=== PATIENT | female | born 1940 | race Two or more races ===

== ENCOUNTER 2016-07-20 18:58 | Inpatient (IN) | payer MEDICARE, MEDICAID ==
[2016-07-20] MEDS ORDERED: NS 0.9% 1000 ML* 1,000 ML IV ONE (19:44)
[2016-07-20] MEDS ORDERED: Morphine INJ* 4 MG/ML 1 ML CARPUJECT IV ONE ×2 (19:44→23:24)
[2016-07-20] MEDS ORDERED: Ondansetron INJ* 2 MG/ML VIAL IV ONE (19:44)
--- NOTE | 2016-07-20 20:02 | ED ---
romain Canela Timothy, scribed for Lev Lakhani MD on 07/20/16 at 1945 . Abdominal Pain/Female - HPI Summary HPI Summary: Marie Brunson is a 75 yo female presenting to [facility] with 9/10 RUQ abd pain for the past week, worse today after 1500. Pt's family is in room and reports Pt has been constipated. In room, Pt is moaning and unable to give much of a Hx. Family reports she was seen 5 months ago for similar Sx, and was diagnosed with gall stones, for which she has not been treated. Family denies fever, nasuea, or vomiting. Her MHx includes NIDDM, gallstones, diabetic peripheral neuropathy pancytopenia, non-alcoholic cirrhosis, CAD, HTN, vitamin B comple deficiency, urethral stricture. - History of Current Complaint Chief Complaint: EDAbdPain Stated Complaint: ABD PAIN Time Seen by Provider: 07/20/16 19:38 Hx Obtained From: Patient, Family/Pharmacy Messenger ?: No Onset/Duration: Gradual Onset, Lasting Days, Still Present, Worse Since - today 1500 Severity Initially: Moderate Severity Currently: Moderate Pain Intensity: 9 Pain Scale Used: 0-10 Numeric Location: Discrete At: RUQ Associated Signs and Symptoms: Negative: Fever, Nausea, Vomiting Allergies/Adverse Reactions: Allergies Allergy/AdvReac Type Severity Reaction Status Date / Time No Known Allergies Allergy Verified 12/31/15 14:39 PMH/Surg Hx/FS Hx/Imm Hx Endocrine/Hematology History: Reports: Hx Diabetes - DM II Cardiovascular History: Reports: Hx Coronary Artery Disease, Hx Hypertension - states not being treated for high bp Denies: Hx Angina, Hx Pacemaker/ICD History: Reports: Other Problems/Disorders - gall stones Musculoskeletal History: Denies: Hx Osteoporosis Sensory History: Denies: Hx Hearing Aid Psychiatric History: Denies: Hx Panic Disorder - Surgical History Surgery Procedure, Year, and Place: uterus removal and appendix 30 yrs ago Infectious Disease History: No Infectious Disease History: Denies: Traveled Outside the [place] in Last 30 Days - Family History Known Family History: Positive: Hypertension, Diabetes Negative: Cardiac Disease - Social History Alcohol Use: None Hx Substance Use: No Substance Use Type: Reports: None Hx Tobacco Use: No Smoking Status (MU): Never Smoked Tobacco Have You Smoked in the Last Year: No Review of Systems Constitutional: Negative Negative: Fever Eyes: Negative ENT: Negative Cardiovascular: Negative Respiratory: Negative Positive: Abdominal Pain. Negative: Vomiting, Nausea Genitourinary: Negative Musculoskeletal: Negative Skin: Negative Neurological: Negative Psychological: Normal All Other Systems Reviewed And Are Negative: Yes Physical Exam Triage Information Reviewed: Yes Vital Signs On Initial Exam: Initial Vitals Temp Pulse Resp BP Pulse Ox 97.4 F 77 18 147/63 100 07/20/16 19:13 07/20/16 19:13 07/20/16 19:13 07/20/16 19:13 07/20/16 19:13 Vital Signs Reviewed: Yes Appearance: Positive: Ill-Appearing, Pain Distress - moderate discomfort, Thin Skin: Positive: Warm Head/Face: Positive: Normal Head/Face Inspection Eyes: Positive: ARIAN ENT: Positive: Hearing grossly normal Neck: Positive: Supple Respiratory/Lung Sounds: Positive: Breath Sounds Present Cardiovascular: Positive: RRR Abdomen Description: Positive: Soft, Distended, Guarding, Other: - mild diffuse tenderness Bowel Sounds: Positive: Present Musculoskeletal: Positive: Strength/ROM Intact Diagnostics - Vital Signs Vital Signs Temp Pulse Resp BP Pulse Ox 07/20/16 19:13 97.4 F 77 18 147/63 100 - Laboratory Result Diagrams: 07/20/16 19:55 07/20/16 19:55 Lab Statement: Any lab studies that have been ordered have been reviewed, and results considered in the medical decision making process. - CT A/P CT Interpretation: Positive (See Comments) - IMPRESSION: CIRRHOTIC LIVER WITH FINDINGS CONSISTENT WITH PORTAL HYPERTENSION. SPLENOMEGALY. SMALL TO MODERATE AMOUNT OF PERIHEPATIC ASCITES CT Interpretation Completed By: Radiologist - EKG 2029 Cardiac Rate: NL - 88 BPM EKG Rhythm: Sinus Rhythm EKG Interpretation: NSR @ 88 BPM. Normal EKG Re-Evaluation - Re-Evaluation First Eval Re-Evaluation Time: 20:00 Change: Unchanged Comment: emphasized the importance of drinking contrast for her CT scan, despite patient protests Abdominal Pain Fem Course/Dx - Course Course Of Treatment: Marie Brunson is a 75 yo female presenting to [facility] with 9/10 RUQ abd pain for the past week, worse today. After CT A/P showing splenomegaly and cirrhotic liver with portal HTN, normal EKG, and review of other lab work, as well as discussion with Dr. Rivero, she will be admitted to [facility]. - Diagnoses Provider Diagnoses: Abdominal pain - Provider Notifications Discussed Care Of Patient With: 2300 - Dr. Caceres (hospitalist) - discussed Pt condition, agrees to admit Pt. Discharge - Discharge Plan Condition: Stable Disposition: ADMITTED TO [facility] documentation as recorded by the romain knapp Timothy accurately reflects the service I personally performed and the decisions made by me, Lev Lakhani MD.
[2016-07-20 20:07] LABS: Hematocrit 36 % (35-47); Hemoglobin 11.2 g/dl (12.0-16.0); Mean Corpuscular HGB Conc 32 g/dl (31-36); Mean Corpuscular Hemoglobin 26 pg (27-31); Mean Corpuscular Volume 84 fL (80-97); Mean Platelet Volume 9 um3 (7.4-10.4); Red Blood Count 4.25 10^6/ul (4.0-5.4); Red Cell Distribution Width 18 % (10.5-15)
[2016-07-20 20:13] LABS: Comments Flag Yes; White Blood Count 3.4 10^3/ul (3.5-10.8)
[2016-07-20 20:21] LABS: Albumin 4.1 g/dL (3.2-5.2); BUN/Creatinine Ratio 15.3 (8-20); C Reactive Protein 7.28 mg/L (< 5.00); Calcium 10.2 mg/dL (8.6-10.3); EGFR African American 57.7 (>60); EGFR Non-African American 44.9 (>60); Globulin 4.5 g/dL (2-4); Potassium 3.8 mmol/L (3.5-5.0); Total Bilirubin 0.7 mg/dL (0.2-1.0); Total Protein 8.6 g/dL (6.4-8.9)
[2016-07-20] MEDS ORDERED: Iodixanol* (CONTRAST) 320 MG/ML 100 ML SDV IV ONE (21:58)
--- NOTE | 2016-07-20 22:33 | RAD ---
CLINICAL HISTORY: Abdominal pain COMPARISON: September 18, 2011 TECHNIQUE: Multiple contiguous axial CT scans were obtained of the abdomen and pelvis after the administration of intravenous contrast. Coronal and sagittal multiplanar reformations are submitted for review. Oral contrast was not administered. Delayed images were obtained through the abdomen FINDINGS: LUNG BASES: The lung bases are clear. LIVER: The liver is diffusely low in attenuation with a micronodular contour consistent with a cirrhotic liver. There is recanalization of the umbilical vein. BILE DUCTS: There is no intrahepatic or extrahepatic biliary dilatation. GALLBLADDER: Multiple gallstones are noted. There is no pericholecystic inflammatory change. PANCREAS: The pancreas is normal, without mass or ductal dilatation. SPLEEN: The spleen is enlarged UPPER GI TRACT: Evaluation of the gastrointestinal tract is limited by incomplete gastric distention. The upper GI tract is unremarkable. SMALL BOWEL AND MESENTERY: The small bowel is normal in contour, course, and caliber. There is no obstruction or dilatation. COLON: The colon is normal in contour, course, caliber. There is no pericolonic inflammatory change. ADRENALS: Normal bilaterally. KIDNEYS: The kidneys are normal in shape, size, contour, and axis. There is no hydronephrosis or nephrolithiasis. BLADDER: The bladder is smooth in contour. PELVIC ORGANS: The pelvic organs are not visualized. AORTA: The aorta is normal. IVC: Unremarkable LYMPH NODES: There is no lymphadenopathy by size criteria. ABDOMINAL WALL: There is no evidence for abdominal wall hernia. BONES AND SOFT TISSUES: There are mild diffuse degenerative changes. OTHER: There is a small to moderate amount of perihepatic ascites IMPRESSION: CIRRHOTIC LIVER WITH FINDINGS CONSISTENT WITH PORTAL HYPERTENSION. SPLENOMEGALY. SMALL TO MODERATE AMOUNT OF PERIHEPATIC ASCITES
[2016-07-21 00:24] LABS: Urine Bilirubin Negative (Negative); Urine Glucose Negative (Negative); Urine Nitrite Negative (Negative)
[2016-07-21] MEDS ORDERED: Acetaminophen TAB* 325 MG PO PRN (02:45)
[2016-07-21] MEDS ORDERED: HYDROmorphone INJ* 1 MG/ML CARPUJECT SYRINGE IV SLOW PU PRN ×2 (02:45→07:49)
[2016-07-21] MEDS ORDERED: Ondansetron INJ* 2 MG/ML VIAL IV PRN (02:45)
[2016-07-21] MEDS ORDERED: Dextrose 50% Syringe 50 ML* 25 GM/50 ML SYRINGE IV PUSH PRN (03:01)
[2016-07-21] MEDS: HYDROmorphone INJ* 1 MG/ML CARPUJECT SYRINGE IV SLOW PU PRN ×2 (03:47→07:39)
--- NOTE | 2016-07-21 04:59 | HP ---
HISTORY AND PHYSICAL: DATE OF ADMISSION: 07/21/16 PRIMARY CARE PHYSICIAN: Dr. Barbour. CHIEF COMPLAINT: Abdominal pain. HISTORY OF PRESENT ILLNESS: The patient is a 75-year-old woman, who apparently has a history of abdominal pain with cholecystitis, who presents today with pain in the same area. Apparently, pain started today at about 4:00 p.m. while she was shopping in the market. It was an intense pain and a constant pain and it is worse with 9/10 in severity. She had some nausea accompanying with it but no vomiting. She notes that she has been constipated lately as well, and no diarrhea. She felt chills but no fever. The patient's pain was somewhat relieved by some morphine she received in the ED. The patient had a CAT scan in the ER, which did show some minimal ascites, cirrhosis, which apparently the patient knows she has and splenomegaly. PAST MEDICAL HISTORY: Significant for diabetes, esophageal varices, cirrhosis, and GERD. PAST SURGICAL HISTORY: Significant for hysterectomy and appendectomy. MEDICATIONS: She is not familiar with her current medication list but we will obtain from her doctor tomorrow. FAMILY HISTORY: Mother at of TB. Father at 75 of unknown cause. SOCIAL HISTORY: No tobacco, alcohol or recreational drug use. 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 She is , with 3 children. Her , John Brunson, is her healthcare proxy. REVIEW OF SYSTEMS: A 14-point review of systems completed with the patient. All pertinent positives and negatives are in the history of present illness, otherwise is negative. PHYSICAL EXAMINATION GENERAL: A very pleasant woman lying in bed, in no acute distress. VITAL SIGNS: Blood pressure 134/61, pulse ox 90%, respiratory rate 20 breaths per minute, heart rate 109, T-max is 97.4 degrees. HEENT: Normocephalic, atraumatic. Pupils equal, round, and reactive to light. Moist mucous membranes. NECK: Supple. No JVD, bruits, palpable thyroid, or lymphadenopathy. CHEST: Clear to auscultation and percussion bilaterally. CARDIOVASCULAR: S1, S2 appreciated. Regular rate and rhythm. ABDOMEN: Positive bowel sounds in all 4 quadrants. Soft, exquisitely tender in the right upper quadrant with possible Bright's sign. No rebound or guarding. No rigidity. She may have a positive fluid wave. EXTREMITIES: No cyanosis, clubbing, or edema. +2 peripheral pulses bilaterally. NEURO: Alert and oriented x3. Moves all extremities. SKIN: No distinct rashes or abnormalities. DIAGNOSTIC STUDIES/LAB DATA: Sodium 138, potassium 3.8, chloride 103, CO2 25, BUN 18, creat 1.18, glucose is 164, lactic acid 2.5. CRP is 7.28. White count 3.4, hemoglobin 11.2, hematocrit 36, platelets are 72. INR 1.10. UA is unremarkable. CT of the abdomen and pelvis was interpreted by Radiology as cirrhotic liver with findings consistent with portal hypertension, splenomegaly, small-to- moderate amount of perihepatic ascites. EKG shows normal sinus rhythm at 89 beats per minute, left axis deviation, left anterior hemiblock. No acute ST-T wave changes. ASSESSMENT AND PLAN: 1. Abdominal pain. It is difficult at this point to determine what is causing it. It is right upper quadrant and she may have a Bright's sign. However, her LFTs are within normal limits and her CT scan is fairly unrevealing. I will obtain an abdominal ultrasound for possible cholecystitis. I will give her Dilaudid p.r.n. for pain and she may benefit from either surgical or GI consult in the morning depending on how she feels and what the ultrasound shows. I will repeat her liver function tests in the morning. 2. Thrombocytopenia. This is not a new finding. It may be associated with her splenomegaly secondary to cirrhosis. We will monitor. 3. Diabetes mellitus. Hold oral hypoglycemics. Fingersticks with sliding scale insulin. 4. Gastroesophageal reflux disease. Continue PPI. 5. FEN. Clear liquid diet. 6. DVT prophylaxis. Heparin subcu. 7. The patient is a full code. TIME SPENT: Over 75 minutes was spent on this H and P; more than 40 minutes of which was spent in direct [id number] contact with the patient in evaluation, physical exam, counseling, and coordination of care. CC: Dr. Barbour * [id number]/CPS #: [id number] MTDD
[2016-07-21] MEDS: Heparin VIAL(*) 5000 UNITS/ML VIAL (FIVE THOUSAND) SUBCUT SCH ×3 (06:06→22:27)
[2016-07-21 07:14] LABS: Albumin 3.6 g/dL (3.2-5.2); Direct Bilirubin 0.6 mg/dL (0.03-0.18); Indirect Bilirubin 0.9 mg/dL (0.3-1.0); Total Bilirubin 1.5 mg/dL (0.2-1.0); Total Protein 7.6 g/dL (6.4-8.9)
[2016-07-21] MEDS: HYDROmorphone INJ* 1 MG/ML CARPUJECT SYRINGE IV SLOW PU ONE ×2 (08:59→09:46)
--- NOTE | 2016-07-21 09:00 | RAD ---
HISTORY: Cholecystitis COMPARISONS: July 16, 2015, CT of July 20, 2015 TECHNIQUE: Multiple transverse and longitudinal ultrasound images were obtained of the abdomen using grayscale, color Doppler, and spectral Doppler imaging. FINDINGS: LIVER: The liver has a micronodular contour and is diffusely echogenic. There is normal hepatopedal flow of the portal vein on Doppler imaging. BILIARY TREE: There is no intrahepatic or extrahepatic biliary dilatation. The common duct measures 0.4 cm. GALLBLADDER: The gallbladder is distended. There is a focus corresponding to the stone noted on CT.. PANCREAS: The head of the pancreas is unremarkable. The tail of the pancreas is not well visualized secondary to overlying bowel gas. SPLEEN: The spleen is enlarged. The spleen measures 16.1 x 6.2 x 6.7 cm. RIGHT KIDNEY: The right kidney is normal in shape, size, contour, and echogenicity. There is mild pelviectasis without appreciable nephrolithiasis. The right kidney measures 9.2 x 3.4 x 2.5 cm. LEFT KIDNEY: The left kidney is normal in shape, size, contour, and echogenicity. There is no hydronephrosis or nephrolithiasis. The left kidney measures 8.6 x 3.7 x 4.1 cm. AORTA AND IVC: The aorta and IVC are unremarkable. FLUID: There is a small amount of perihepatic ascites OTHER FINDINGS: None. IMPRESSION: 1. CIRRHOTIC LIVER. 2. SPLENOMEGALY. 3. ASCITES. 4. MILD RIGHT PELVIECTASIS. 5. CHOLELITHIASIS WITHOUT SONOGRAPHIC FEATURES OF ACUTE CHOLECYSTITIS
[2016-07-21] MEDS: Insulin LISPRO* 1 UNITS UNIT SUBCUT SCH ×5 (09:46→22:28)
--- NOTE | 2016-07-21 13:15 | PN ---
Subjective Date of Service: 07/21/16 Interval History: Patient seen and examined at bedside. She is resting comfortably in bed and is somewhat drowsy after receiving hydromorphone. She states her pain is "okay." She shakes her head "no" when asked about chest pain, difficulty breathing. Her son states that she's had ongoing issues with abdominal pain and gallstones. Her abdomen looks the same as usual. Family History: Unchanged from Admission Social History: Unchanged from Admission Past Medical History: Unchanged from Admission Objective Active Medications: Acetaminophen (Tylenol Tab*) 650 mg PO Q4H PRN PRN Reason: FEVER/PAIN Dextrose (D50w Syringe 50 Ml*) 12.5 gm IV PUSH .FOR FS < 60 - SS PRN PRN Reason: FS < 60 Heparin Sodium (Porcine) (Heparin Vial(*)) 5,000 units SUBCUT Q8HR [facility] Last Admin: 07/21/16 06:06 Dose: 5,000 units Sodium Chloride (Ns 0.9% 1000 Ml*) 1,000 mls @ 100 mls/hr IV PER RATE [facility] Insulin Human Lispro (Humalog*) 0 units SUBCUT ACHS [facility] PRN Reason: Protocol Last Admin: 07/21/16 13:05 Dose: 9 units Ondansetron HCl (Zofran Inj*) 4 mg IV Q4H PRN PRN Reason: NAUSEA Vital Signs 07/21/16 07/21/16 07/21/16 02:00 02:30 03:33 Temperature 99.1 F Pulse Rate 106 109 107 Respiratory 29 28 26 Rate Blood Pressure 149/63 134/61 143/53 (mmHg) O2 Sat by Pulse 97 98 94 Oximetry 07/21/16 07/21/16 07/21/16 03:39 03:47 04:47 Temperature Pulse Rate Respiratory 26 26 24 Rate Blood Pressure (mmHg) O2 Sat by Pulse Oximetry 07/21/16 07/21/16 07/21/16 07:39 07:49 08:00 Temperature 99.2 F Pulse Rate 103 Respiratory 24 16 18 Rate Blood Pressure 151/55 (mmHg) O2 Sat by Pulse 99 Oximetry 07/21/16 07/21/16 08:39 09:46 Temperature Pulse Rate Respiratory 20 18 Rate Blood Pressure (mmHg) O2 Sat by Pulse Oximetry Oxygen Devices in Use Now: Nasal Cannula - 2Lnc Appearance: Female patient, lying in bed, in NAD Eyes: PERRLA Ears/Nose/Mouth/Throat: Clear Oropharnyx, Mucous Membranes Moist Neck: NL Appearance and Movements; NL JVP Respiratory: Symmetrical Chest Expansion and Respiratory Effort, Clear to Auscultation Cardiovascular: NL Sounds; No Murmurs; No JVD, RRR Abdominal: - - BS x 4, tenderness with palpation to RUQ, no rebound or guarding Extremities: No Edema, No Clubbing, Cyanosis Skin: No Rash or Ulcers Neurological: Alert and Oriented x 3 Lines/Tubes/Other Access: Clean, Dry and Intact Peripheral IV Nutrition: Taking PO's Result Diagrams: 07/20/16 19:55 07/20/16 19:55 Assess/Plan/Problems-Billing Assessment: Ms. Brunson is a 75 yo female with a PMH of DM, esophageal varices, cirrhosis, and GERD who presented to the ED on 07/20/16 with intractable abdominal pain that is secondary to cholelithiasis. - Patient Problems (1) Cholelithiasis Comment: Abd U/S shows cholelithiasis without sonographic features of cholecystitis. Per family, ongoing for several months, now with intractable pain. Given history of cirrhosis, esophageal varices, patient is high risk surgical candidate. Appreciate surgical input; consult pending. Continue IV hydration, clear liquid diet, supportive care Continue prn analgesia (2) Lactic acidosis Code(s): E87.2 - ACIDOSIS Comment: Patient's condition appears improved. Continue IVF. Patient is afebrile, VSS. Likely secondary to liver disease. Recheck in AM. (3) Thrombocytopenia Code(s): D69.6 - THROMBOCYTOPENIA, UNSPECIFIED Comment: Chronic issue, with known history of pancytopenia Likely secondary to cirrhosis and splenomegaly. Continue to monitor. (4) Diabetes mellitus Code(s): E11.9 - TYPE 2 DIABETES MELLITUS WITHOUT COMPLICATIONS Comment: BG in 200s, check HgbA1c Continue FSBG with Lispro SSI Restart home Lantus, which patient takes BID (5) Cirrhosis of liver not due to alcohol Comment: With esophageal varices Not alcohol mediated, secondary to auto-immune hepatitis per PCP (6) GERD (gastroesophageal reflux disease) Code(s): K21.9 - GASTRO-ESOPHAGEAL REFLUX DISEASE WITHOUT ESOPHAGITIS Comment : Continue PPI. (7) DVT prophylaxis Code(s): LUP0208 - Comment: SQ heparin Status and Disposition: OBV admit. D/c to home when medically stable.
[2016-07-21] MEDS ORDERED: Albuterol HFA INHALER* 8 gm MDI INH PRN (14:32)
[2016-07-21] MEDS ORDERED: RiFAXimin* 550 MG TAB PO SCH (15:00)
[2016-07-21] MEDS: NS 0.9% 1000 ML* 1,000 ML IV SCH (15:03)
[2016-07-21] MEDS: Pantoprazole IV* 40 MG IV SCH (15:08)
--- NOTE | 2016-07-21 15:49 | PN ---
Progress Note - Progress Note Note: Brief Surgery Note: (full note dictated) Asked to see this 75 yo female w/ PMHx of DM, GERD, cirrhosis w/ esophageal varices and known GS who presented to the ED w/ acute onset RUQ pain beginning last pm after eating some fried eggplant. Pain is sharp, colicky, and somewhat r /b holding pressure with her hand over the outside. She rec'd both morphine and dilaudid in the ED. There is currently nothing ordered other than Tylenol. She' s had some nausea and small amts of vomiting (water). She had a similar episode in May,, which occurred while in [place] and was treated w/ IV abx w/ resolution. PE: T 99.2; mildly tachy; curled up on her bed, moaning in pain; moderate tenderness RUQ w/ +Bright's sign Labs: WBC 3.4 w/ Left shift; Hgb 11.2 t bili 1.5; other LFTs and lipase nl. Lactate 2.5 -> 2.1; CRP 7.28; ammonia 63; glucose 164 -> 275 -> 295. A1C: 6.1; INR 1.1 CT: ascites; gallstone in dep portion of GB; mod stool in recto-sigmoid. US: GB distended; +GS (unsure if this is mobile); GB wall measures up to 3.4 mm ; CBD nl Imp: acute biliary colic and/or cholecystitis in patient previously deemed a poor surgical candidate by her PCP and/or gastroenterolgist (Dr. Sr). I'm not sure if she's ever had a formal surgical consult previously. Plan: IV hydration; pain control; IV abx; consideration of percutaneous drainage by IR if not improving within 24 -48 hr.; surgery as last resort. Discussed w/ hospitalist. Will also d/c Dr. Jeronimo.
[2016-07-21] MEDS ORDERED: Piperac/Tazob 3.375 gm in NS* 3.375 GM/100 ML BAG IVPB ONE (16:00)
[2016-07-21] MEDS ORDERED: Mineral Oil ENEMA* 1 BOTTLE PR ONE (16:03)
--- NOTE | 2016-07-21 16:29 | RAD ---
Indication: Small bowel obstruction Flat and upright views of the abdomen demonstrates dilated loops of small bowel centrally with a dilated stomach. This may represent small bowel obstruction with a relative paucity of gas in the descending colon. IMPRESSION: Findings suspicious for small bowel obstruction with dilated stomach in moderately dilated small bowel loops and paucity of gas in the colon.
[2016-07-21] MEDS: HYDROmorphone INJ* 2 MG/ML CARPUJECT SYRINGE IV SLOW PU PRN ×2 (18:00→22:28)
[2016-07-21] MEDS ORDERED: Insulin GLARGINE(*) 1 UNITS UNIT SUBCUT SCH (18:00)
[2016-07-21] MEDS ORDERED: Insulin GLARGINE(*) 1 UNITS UNIT SUBCUT ONE (20:00)
[2016-07-21] MEDS: Piperac/Tazob 3.375 gm in NS* 3.375 GM/100 ML BAG IVPB SCH (20:35)
[2016-07-21] MEDS ORDERED: Propranolol TAB* 10 MG PO SCH (21:00)
[2016-07-21] MEDS ORDERED: Gabapentin CAP(*) 100 MG PO SCH (21:00)
--- NOTE | 2016-07-21 21:40 | CONS ---
SURGICAL CONSULT NOTE: DATE OF CONSULT: 07/21/16 ATTENDING SURGEON: Francisco J Jeronimo MD (NGUYEN Vaughn dictating) CHIEF COMPLAINT: Right upper quadrant abdominal pain. 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 Most of her history is supplied by her son and grandson. She has apparently had right upper quadrant pain off and on for the past year or two that is exacerbated by high fat foods. Of late, she had noticed increased constipation for the past week. She has also had chills, but no fever, nausea and only a small amount of vomiting after drinking water. She had 1 similar previous episode in May 2016 when she was travelling in [place]. This was treated with IV antibiotics with improvement. She does describe dark urine both with the current as well as previous episodes. She had been told by her PCP and/or mainframe developer ( Dr. Sr) that she is a poor surgical candidate. She has apparently had known gallstones for at least the past couple of years. It is unclear if she has ever had a surgical consultation. PAST MEDICAL HISTORY: 1. Diabetes. 2. Cirrhosis (autoimmune) with portal hypertension including grade 1 esophageal varices. 3. GERD. 4. Thrombocytopenia (stable). PAST SURGICAL HISTORY: Included hysterectomy and appendectomy. CURRENT MEDICATIONS: Include; 1. Gabapentin. 2. Metformin. 3. Repaglinide. 4. Propranolol. 5. Esomeprazole. 6. Insulin glargine. 7. Xifaxan. 8. She also takes probiotic daily, calcium supplement, and Beano as needed. 9. She receives vitamin B12 injections monthly. Her med list includes hydrocodone with acetaminophen and/or oxycodone with acetaminophen. She has prescriptions for diclofenac topically and olopatadine ophthalmic drops as well as albuterol MDI p.r.n. DRUG ALLERGIES: Non listed. SOCIAL HISTORY: She lives at home. Her son and grandson are present and provide most of the translation and medical history. She apparently has no significant past history of tobacco or alcohol use. REVIEW OF SYSTEMS: Cardiovascular: She did undergo nuclear stress testing in 2014, which was essentially normal. No other additions to the HPI and past medical history as noted above. PHYSICAL EXAM: GENERAL: Well-nourished, somewhat obese female in moderate distress, curled up on the bed, and holding her right upper quadrant with her hand. She is occasionally also moaning with pain. VITAL SIGNS: Height 5 feet, weight 159 pounds. Temperature 99.2, blood pressure 151/55, pulse 103, respirations 18, saturation 99% on 2 L nasal cannula. HEENT: Pupils equal and round. EOMs intact. No conjunctival pallor. Oropharynx edentulous. Mucous membranes are dry. NECK: No lymphadenopathy or thyromegaly. LUNGS: Clear to auscultation. HEART: Regular rate and rhythm. Mildly tachycardic. No murmur appreciated. ABDOMEN: Distended. Quiet with absent bowel sounds. Well-healed lower midline and right lower quadrant McBurney's incision from prior hysterectomy and appendectomy respectively. The lower abdomen is soft and nontender. She has tenderness from the mid epigastrium and especially in the right upper quadrant with positive Bright sign. No palpable masses. There is splenomegaly on CT scan, which can be detected on by palpation. It is difficult to palpate a mass in the right upper quadrant secondary to the degree of tenderness. There is no significant CVA tenderness. EXTREMITIES: No edema. SKIN: Warm and dry. No suspicious for rashes or lesions. NEUROLOGICAL: Grossly intact. DIAGNOSTIC STUDIES/LAB DATA: Laboratory of note, white blood cell count 3400 with left shift, hemoglobin 11.2, hematocrit 36, platelets 72,000 (consistent with previous). INR is 1.1. Chemistry is notable for creatinine of 1.18, which is above her usual baseline. Admission glucose 164. Most recent fingersticks 275 and 295. A1c 6.1. Lactic acid 2.5 with repeat 2.1. Total bilirubin is mildly elevated at 1.5 with direct bilirubin 0.6. The AST, ALT, and alkaline phosphatase are all normal as is her lipase. CRP is elevated at 7.28. Ammonia is mildly elevated at 63. Imaging included a CT scan with IV contrast only, showing evidence of cirrhosis and portal hypertension as well as splenomegaly. There is some perihepatic ascites. There are gallstones noted, but no other acute inflammation. There is moderate stool in the rectosigmoid colon. Ultrasound also from today confirms presence of gallstones. It is unclear if these are mobile. The gallbladder wall is somewhat increased at 3.4 mm. Common bile duct is normal in size. Previous ultrasound from 2014 had also indicated cholelithiasis. IMPRESSION: Acute right upper quadrant pain likely related to biliary colic with possible element of acute cholecystitis based on her low-grade temperature , mild tachycardia and left shift as well as mild gallbladder wall thickness on ultrasound. PLAN: Case was discussed with Dr. Jeronimo. She will be made n.p.o. She will receive IV fluids and IV antibiotics. Her lab work will be repeated in the morning and we will reassess at that point. Plans could include medical management only versus percutaneous drainage versus cholecystectomy. I did discuss her case again with the hospitalist who will help determine if she indeed is a candidate for surgery if it is indicated. NGUYEN WING CC: [facility]; Michelle Barbour MD, in [employer]; Chano Sr MD* [id number]/[facility] #: [id number] MTDD
[2016-07-22] MEDS: NS 0.9% 1000 ML* 1,000 ML IV SCH ×3 (01:05→20:00)
[2016-07-22] MEDS: HYDROmorphone INJ* 2 MG/ML CARPUJECT SYRINGE IV SLOW PU PRN ×6 (01:22→23:59)
[2016-07-22] MEDS: Insulin LISPRO* 1 UNITS UNIT SUBCUT SCH ×6 (01:35→22:35)
[2016-07-22] MEDS: Piperac/Tazob 3.375 gm in NS* 3.375 GM/100 ML BAG IVPB SCH ×3 (05:07→20:37)
[2016-07-22] MEDS: Heparin VIAL(*) 5000 UNITS/ML VIAL (FIVE THOUSAND) SUBCUT SCH ×3 (05:10→22:36)
[2016-07-22 06:26] LABS: Hematocrit 29 % (35-47); Hemoglobin 9.4 g/dl (12.0-16.0); Mean Corpuscular HGB Conc 32 g/dl (31-36); Mean Corpuscular Hemoglobin 27 pg (27-31); Mean Corpuscular Volume 84 fL (80-97); Mean Platelet Volume 10 um3 (7.4-10.4); Red Blood Count 3.51 10^6/ul (4.0-5.4); Red Cell Distribution Width 18 % (10.5-15); White Blood Count 13.6 10^3/ul (3.5-10.8)
[2016-07-22 06:34] LABS: Comments Flag Yes
[2016-07-22 06:46] LABS: BUN/Creatinine Ratio 22.2 (8-20); Calcium 8.4 mg/dL (8.6-10.3); Direct Bilirubin 1.2 mg/dL (0.03-0.18); EGFR African American 42.8 (>60); EGFR Non-African American 33.3 (>60); Globulin 3.6 g/dL (2-4); Indirect Bilirubin 1.1 mg/dL (0.3-1.0); Potassium 4.4 mmol/L (3.5-5.0); Total Bilirubin 2.3 mg/dL (0.2-1.0); Total Protein 6.6 g/dL (6.4-8.9)
--- NOTE | 2016-07-22 08:23 | PN ---
Progress Note - Progress Note SOAP: Subjective: Pt seen and examined. Not answering questions appropriately. 2 hrs since receiving dilaudid, and pt's son says that she is less responsive after narcotics. no appetite. Denies abdo pain, but PE reveals diffuse abdo tenderness. Objective: Temp Pulse Resp BP Pulse Ox 99.9 F 121 15 134/60 96 07/22/16 07:23 07/22/16 07:23 07/22/16 07:23 07/22/16 07:23 07/22/16 07:23 drowsy, minimally cooperative nonjaundiced abdo: obese, tender diffusely, w/o rebound or Bright's hypoactive BS labs noted Assessment: HD2 abdominal pain, now entering sepsis criteria DDx includes cholecystitis, cholangitis Plan: HIDA scan Echocardiogram possible OR for cholecystostomy vs cholecystectomy Case d/w son, and hospitalist abx NPO blood cx
[2016-07-22] MEDS: Insulin GLARGINE(*) 1 UNITS UNIT SUBCUT SCH ×2 (08:32→21:14)
[2016-07-22] MEDS: Pantoprazole IV* 40 MG IV SCH (08:33)
[2016-07-22] MEDS ORDERED: Calcium Carbonate TAB* 1250 MG (CALCIUM 500 MG) PO SCH (09:00)
[2016-07-22] MEDS ORDERED: Insulin GLARGINE(*) 1 UNITS UNIT SUBCUT SCH ×2 (09:00→20:00)
--- NOTE | 2016-07-22 10:13 | PN ---
Subjective Date of Service: 07/22/16 Interval History: Patient seen and examined at bedside. She is resting in bed, appears visibly uncomfortable. She reports pain to her abdomen. Denies chest pain, n/v. Family states that she has been conveying that she is in pain but that she then falls asleep and becomes more lethargy after receiving hydromorphone. Family History: Unchanged from Admission Social History: Unchanged from Admission Past Medical History: Unchanged from Admission Objective Active Medications: Acetaminophen (Tylenol Tab*) 650 mg PO Q4H PRN PRN Reason: FEVER/PAIN Last Admin: 07/21/16 15:19 Dose: 650 mg Albuterol (Ventolin Hfa Inhaler*) 2 puff INH Q6H PRN PRN Reason: SOB/WHEEZING Dextrose (D50w Syringe 50 Ml*) 12.5 gm IV PUSH .FOR FS < 60 - SS PRN PRN Reason: FS < 60 Heparin Sodium (Porcine) (Heparin Vial(*)) 5,000 units SUBCUT Q8HR [facility] Last Admin: 07/22/16 05:10 Dose: Not Given Hydromorphone HCl (Dilaudid Iv*) 1.5 mg IV SLOW PU Q3H PRN PRN Reason: PAIN Last Admin: 07/22/16 09:49 Dose: 1.5 mg Piperacillin Sod/Tazobactam Sod (Zosyn 3.375 Gm In Ns Premix*) 3.375 gm in 100 mls @ 25 mls/hr IVPB Q8H [facility] Last Admin: 07/22/16 05:07 Dose: 25 mls/hr Sodium Chloride (Ns 0.9% 1000 Ml*) 1,000 mls @ 125 mls/hr IV PER RATE [facility] Insulin Glargine (Lantus(*)) 10 units SUBCUT Q12H [facility] Last Admin: 07/22/16 08:32 Dose: 10 units Insulin Human Lispro (Humalog*) 0 units SUBCUT Q4HR [facility] PRN Reason: Protocol Last Admin: 07/22/16 06:26 Dose: Not Given Ondansetron HCl (Zofran Inj*) 4 mg IV Q4H PRN PRN Reason: NAUSEA Pantoprazole Sodium (Protonix Iv*) 40 mg IV DAILY [facility] Last Admin: 07/22/16 08:33 Dose: 40 mg Vital Signs 07/21/16 07/21/16 07/21/16 18:00 19:00 19:23 Temperature 98.9 F Pulse Rate 114 Respiratory 18 18 26 Rate Blood Pressure 127/53 (mmHg) O2 Sat by Pulse 96 Oximetry 07/21/16 07/21/16 07/21/16 22:28 23:28 23:38 Temperature 100.3 F Pulse Rate 124 Respiratory 20 18 20 Rate Blood Pressure 133/51 (mmHg) O2 Sat by Pulse 95 Oximetry 07/22/16 07/22/16 07/22/16 00:46 00:54 01:22 Temperature Pulse Rate Respiratory 20 20 18 Rate Blood Pressure (mmHg) O2 Sat by Pulse Oximetry 07/22/16 07/22/16 07/22/16 02:22 04:37 05:08 Temperature 100.4 F Pulse Rate 121 Respiratory 18 20 20 Rate Blood Pressure 139/53 (mmHg) O2 Sat by Pulse 94 Oximetry 07/22/16 07/22/16 07/22/16 06:08 07:23 08:51 Temperature 99.9 F Pulse Rate 121 128 Respiratory 18 15 28 Rate Blood Pressure 134/60 (mmHg) O2 Sat by Pulse 96 Oximetry 07/22/16 07/22/16 09:00 09:49 Temperature Pulse Rate Respiratory 28 26 Rate Blood Pressure (mmHg) O2 Sat by Pulse Oximetry Oxygen Devices in Use Now: Nasal Cannula - 2Lnc Appearance: Ill-appearing female, lying in bed, restless Eyes: PERRLA Ears/Nose/Mouth/Throat: Clear Oropharnyx Neck: NL Appearance and Movements; NL JVP Respiratory: Symmetrical Chest Expansion and Respiratory Effort, Clear to Auscultation Cardiovascular: NL Sounds; No Murmurs; No JVD, RRR - tachycardic Abdominal: - - diffuse abdominal tenderness with palpation, hypoactive BS Extremities: No Edema, No Clubbing, Cyanosis Skin: No Rash or Ulcers Neurological: - - drowsy, minimal verbal report, shakes her head yes/no, difficult to assess full orientation due to drowsiness Lines/Tubes/Other Access: Clean, Dry and Intact Peripheral IV Nutrition: Taking PO's Result Diagrams: 07/22/16 06:06 07/22/16 06:06 Assess/Plan/Problems-Billing Assessment: Ms. Brunson is a 75 yo female with a PMH of DM, esophageal varices, cirrhosis, and GERD who presented to the ED on 07/20/16 with intractable abdominal pain that is secondary to cholelithiasis. - Patient Problems (1) Sepsis Comment: qSOFA score of 2 for AMS and increased RR Secondary to suspected cholecystitis, cholangitis Continue IVF, Zosyn Blood cultures drawn and sent, lactic acid 1.9 today Supportive care (2) Cholelithiasis Comment: Appreciate surgical consult. Now with concern for progressing cholecystitis and possible cholangitis. HIDA scan ordered by surgery. MRCP ordered and GI consult placed. Admission Abd U/S shows cholelithiasis without sonographic features of cholecystitis. Per family, ongoing for several months, now with intractable pain. Continue IV hydration, prn analgesia, Zosyn, NPO (3) Elevated bilirubin Code(s): R17 - UNSPECIFIED JAUNDICE Comment: Bilirubin trending up, concern for gallstone obstruction and cholangitis GI consult pending MRCP pending (4) Increased ammonia level Code(s): R79.89 - OTHER SPECIFIED ABNORMAL FINDINGS OF BLOOD CHEMISTRY Comment : Trending up, now 69 Patient with sepsis and increasing lethargy, concern for worsening encephalopathy in the presence of liver cirrhosis Start lactulose enema q6h and place NGT for decompression. (5) Ileus, unspecified Code(s): K56.7 - ILEUS, UNSPECIFIED Comment: Concern for gallstone ileus Place NGT to low intermittent suction for decompression (stomach appears distended on KUB) (6) Lactic acidosis Code(s): E87.2 - ACIDOSIS Comment: Resolved. Continue supportive care in presence of sepsis. (7) Thrombocytopenia Code(s): D69.6 - THROMBOCYTOPENIA, UNSPECIFIED Comment: Improved today Chronic issue, with known history of pancytopenia Likely secondary to cirrhosis and splenomegaly. Continue to monitor. 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 (11) DVT prophylaxis Code(s): TGO4380 - Comment: SQ heparin (hold this AM in anticipation of possible surgery) Status and Disposition: OBV to inpatient. Anticipate LOS >2 days.
--- NOTE | 2016-07-22 11:45 | ECHO ---
Patient: PATEL GARCÍA [facility] Rec#: [id number] : 1940 Date: 07/22/2016 Age: 75y Height: 152 cm / 59.8 in Weight: 72 kg / 158.7 lbs Sex: F BSA: 1.7 Room#: 413 Admit Date#: 07/21/2016 Type: Inpatient Referring: Gabriella Mims Reading: Rodrick Nielsen MD Solution Architect: Tiffanie Myers RN RDCS CC: JOSH BEDOLLA Transthoracic Echocardiogram Indication: Tachycardia, sepsis BP: 134/60 HR: 118 Rhythm: Tachycardia Findings History: DM, autoimmune-related cirrhosis, portal hypertension, esophageal varices, GERD, gallstones, admitted with abdominal pain and sepsis Technical Comments: The study is technically limited due to poor apical windows. Completed at 1140. Left Ventricle: The left ventricular chamber size is decreased. There is no left ventricular hypertrophy. Global left ventricular wall motion and contractility are within normal limits. The left ventricle appears hyperdynamic. The estimated ejection fraction is greater than 65%. There is no consistent Doppler evidence of clinically significant diastolic dysfunction. The patient was unable to perform a Valsalva maneuver. Left Atrium: The left atrial chamber size is normal. Right Ventricle: The right ventricular cavity size is normal. The right ventricular global systolic function is normal. Right Atrium: The right atrium is not well visualized. Aortic Valve: The aortic valve is trileaflet. The aortic valve leaflets are mildly thickened. There is no evidence of aortic regurgitation. There is no evidence of aortic stenosis. Mitral Valve: Mild mitral annular calcification present. The mitral valve leaflets are mildly thickened. There is a trace of mitral regurgitation. There is no evidence of mitral stenosis. Tricuspid Valve: The tricuspid valve leaflets are normal. There is trace tricuspid regurgitation. There is evidence of moderate pulmonary hypertension. Pulmonic Valve: The pulmonic valve structure is not well visualized. There is no evidence of pulmonic regurgitation. There is no pulmonic stenosis. Pericardium: There is no significant pericardial effusion. A pericardial fat pad is visualized. Aorta: There is no dilatation of the ascending aorta. There is no dilatation of the aortic arch. The aortic root is normal in size. Pulmonary Artery: The main pulmonary artery is not well visualized. Venous: The venous system is not well visualized. The inferior vena cava is not visualized. Conclusions Global left ventricular wall motion and contractility are within normal limits. The estimated ejection fraction is greater than 65%. There is no consistent Doppler evidence of clinically significant diastolic dysfunction. The right ventricular global systolic function is normal. There is no evidence of aortic stenosis. There is a trace of mitral regurgitation. There is trace tricuspid regurgitation. There is evidence of moderate pulmonary hypertension. There is no significant pericardial effusion. Measurements Name Value Normal Range RVDdMajor (2D) 2.5 cm (2.2 - 4.4) RAd ISD 4CH 3.8 cm (3.4 - 4.9) RA (A4C)W 2.3 cm (2.9 - 4.6) IVSd (2D) 1 cm (0.6 - 1) LVPWd (2D) 1 cm (0.6 - 1) LVIDd (2D) 2 cm (3.6 - 5.4) LVIDs (2D) 1.6 cm - LV FS (2D) 20 % (25 - 45) Aortic Annulus 1.6 cm (1.4 - 2.6) Ao root diameter (2D) 2.4 cm (2.1 - 3.5) Ascending Ao 2.7 cm (2.1 - 3.4) Aortic arch 2.4 cm (1.8 - 3.4) LA dimension (AP) 2D 3 cm (2.3 - 3.8) LAd ISD 4CH 4.8 cm (2.9 - 5.3) LA ISD 4CH W 4 cm (2.5 - 4.5) Name Value Normal Range LA ESV SP 4CH (A/L) 41 ml - LA ESV SP 2CH (A/L) 29 ml - LA ESV BP (A/L) 36 ml - LA ESV BP (A/L) index 22 ml/m2 - LA ESV SP 4CH (MOD) 39 ml - LA ESV SP 2CH (MOD) 27 ml - Name Value Normal Range MV E-wave Vmax 1 m/sec - MV deceleration time 99 msec - MV A-wave Vmax 1.1 m/sec - MV E:A ratio 1 ratio - LV septal e' Vmax 0.07 m/sec - LV lateral e' Vmax 0.08 m/sec - LV E:e' septal ratio 14.3 ratio - LV E:e' lateral ratio 12.5 ratio - Name Value Normal Range AV Vmax 2.2 m/sec - AV VTI 31.5 cm - AV peak gradient 17 mmHg - AV mean gradient 11 mmHg - LVOT Vmax 1.5 m/sec - LVOT VTI 25.7 cm - TL Vmax 0.97 m/sec - Name Value Normal Range TR Vmax 3.1 m/sec - TR peak gradient 38 mmHg - RAP 8 mmHg - RVSP 46 mmHg - Name Value Normal Range PV Vmax 1.7 m/sec - PV peak gradient 11 mmHg -
--- NOTE | 2016-07-22 13:50 | PN ---
Hospitalist Progress Note Pre-operative evaluation: This is a patient with an RCRI score of 2 , which translates to a 6.6% risk of a perioperative cardiac event. Her echocardiogram shows an EF >65% and no wall motion abnormalities. She has a functional capacity of approximately 4-5 mets, as evidenced by her family's report of independence with ADLs, ability to perform simple household activities, ability to perform own grocery shopping and carry grocery bags, and general activity tolerance. The patient does have a history of pancytopenia, but her platelet count today is 95,000 and her HH is stable. Per her family, she has no history of severe respiratory illness, and her lungs are CTA. She is utilizing supplemental O2 due to pain and narcotic use. At this time, the patient appears medically optimized in the event that she will require surgical intervention.
--- NOTE | 2016-07-22 14:45 | RAD ---
INDICATION: Abdominal pain. Cholelithiasis. COMPARISON: CT abdomen pelvis July 20, 2016; complete abdominal sonogram July 21, 2016 TECHNIQUE: Following the administration of 6.47 millicuries of technetium 99m mebrofenin, serial, static, anterior images of the abdomen were obtained at 5 minute increments for a period of one hour. FINDINGS: There is prompt uptake of radiopharmaceutical within the liver. There is prompt visualization of the gallbladder and small bowel indicating patency of the cystic and common ducts. IMPRESSION: THE CYSTIC AND COMMON DUCTS ARE PATENT
--- NOTE | 2016-07-22 18:25 | RAD ---
Indication: Cholangitis. Axial T2 fat sat, coronal T2, 3-D MRCP images were obtained. There is ascites noted. The liver demonstrates nodular contour consistent with cirrhosis. There is a filling defect in the neck of the gallbladder consistent with cholelithiasis. No pericholecystic fluid is identified. The common hepatic duct and common bile duct are not dilated and are of normal caliber. No intrahepatic ducts are noted. IMPRESSION: CHOLELITHIASIS. NO EVIDENCE OF COMMON DUCT CALCULI IS NOTED ALTHOUGH NO BILIARY DUCTAL DILATATION IS NOTED. NODULAR CONTOUR OF THE LIVER SUGGESTIVE OF CIRRHOSIS WITH ASCITES.
--- NOTE | 2016-07-22 19:48 | PN ---
Hospitalist Progress Note Discussed case with Dr. Santos. He agrees to try lactulose, but given that the patient has bowel sounds, he recommends trying PO first if patient able. If not , continue with lactulose enemas as previously ordered.
[2016-07-22] MEDS: Lactulose 480 ML BTL*STOCK USE 480 ML ML PR SCH ×2 (21:14→21:15)
--- NOTE | 2016-07-22 21:35 | CONS ---
GASTROENTEROLOGY CONSULTATION: DATE: 07/22/16 CONSULTING PHYSICIAN: Chani Crawford REASON FOR CONSULTATION: Question of ERCP in a woman with rising bilirubin known to have gallstones and burned out autoimmune hepatitis. HISTORY: This 75-year-old woman developed acute abdominal pain 2 days ago. It was consistent with biliary colic. She came to the emergency room and was admitted and placed on Zosyn. Pain has continues apparently no better. Temp max has been 100.7. Abd film yesterday showed an ileus. Surgery has been consulted and favors antibiotic management Her gallbladder has been evaluated via CT scan, which shows a cirrhotic liver contour, splenomegaly and perihepatic ascites. CT did not show any signs of CBD obstruction. HIDA scan showed patency of cystic and common duct. MRCP shows no filling defect in the common duct. None of the studies showed a dilated biliary tree. Laboratories show normal LFTs except for her bilirubin, which has risen from 0.7 to 1.5 to 2.3. ALT and alkaline phosphatase have remained normal. Ammonia which was 63 on admission has risen to 67 with no prior values. She has not had any vomiting or diarrhea. Her mental status has fluctuated somewhat in parallel with her pain medication. Her family translates. PAST MEDICAL HISTORY: 1. Obesity. 2. Diabetes. 3. GERD. 4. Status post hysterectomy. 5. Status post appendectomy. 6. Chronic liver disease - in past charts said to be burned out autoimmune hepatitis (serologic w/u listed in 2011). Not clear how this has impacted her daily life or prior illnesses. EGDs by Dr Sr looking for varices (last in 2014) showed 1+. MEDICATIONS: At home, she is on Xifaxan and a variety of diabetic meds including metformin 1 g b.i.d., Prandin t.i.d., Nexium 40, and gabapentin. SOCIAL HISTORY: She is from [place] originally. She has many family members in the area. A son and two grandsons are in the room with her. REVIEW OF SYSTEMS: One of her grandsons has attended a followup gastroenterology visit and per him it was said that she was a poor candidate for gallbladder surgery. She has had a variety of colic pain events. Discussion was held about dissolution therapy, though it does not appear on her medication reconciliation list. The meds were not known when she presented to the emergency room. There is no history of syncope, ID, cardiac cath, TB, acute hepatitis or gastric ulcers. Upper endoscopies have shown small 1+ varices on a couple of occasions but she has never had any acute GI bleeding. Her original liver workup was reviewed in January 2012 when antismooth muscle antibody was positive 1:20, SIRIA positive, titer 1:320, homogeneous, and hepatitis C antibody negative. Her record does list that she has had a positive screening test for tuberculosis and that was followed repetitively in 2012. She has a significant duodenal diverticulum on upper GI series in 2012. EXAM: She is a tired (though at rest comfortable) appearing woman in bed, lethargic, mumbling feeling warm. Pulse 95 and regular. She is not vomiting. Per report, an attempt to place an NG tube on one side was unsuccessful and the other side refused. The patient was uncooperative. Her sclerae are muddy. She responds minimally to requests during the exam. She has no adenopathy. Breath sounds are present equally, though are diminished. Heart sounds are regular. Breast and pelvic exams are deferred. The abdomen is distended but soft. There is diffuse tenderness, a little more so on the right where she grimaces and postures. There are bowel sounds. Rectal deferred. Extremities show no edema. LABORATORY DATA: Today white count 13.3, hemoglobin 9.4, hematocrit 29, platelets 95. White count on presentation was 3.4. INR 1.10. ALT alk phos normal. Albumin 3.0, down from admission of 4.1. IMPRESSION: This 75-year-old Italian woman with diabetes and inactive autoimmune hepatitis and cirrhosis appears to have significant acute cholecystitis. It is not clear if antibiotics are going to be able to settle the situation. She appears fairly toxic and the white count rising from 3 to 13 is rather alarming. She is hemodynamically stable at the moment but it is expected that by tomorrow the trend will be clear as to whether or not she will need some sort of decompressive evacuation of the gallbladder or may ride this out medically. There had been concern with the bilirubin rising that she would have obstruction of the common duct but that is not demonstrated on any of the imaging and her alkaline phosphatase remaining quite normal is consistent with this, therefore, no ERCP is likely to be useful. Her mental status is probably mostly on the basis of general effects of sepsis and pain medication. The ammonia elevation is modest at this point and she has not had independent admissions for encephalopathy in the past. If lactulose can be administered in a practical way, it could be a good prophylactic measure but at this point the burden of an NG tube appears to be in excess of the potential benefit from it. Her prognosis is certainly cloudy and uncertain. [id number]/[facility] #: [id number] MALIKA
[2016-07-23] MEDS: Insulin LISPRO* 1 UNITS UNIT SUBCUT SCH ×4 (02:15→14:12)
[2016-07-23] MEDS: Lactulose 480 ML BTL*STOCK USE 480 ML ML PR SCH ×2 (03:30→10:14)
[2016-07-23] MEDS: HYDROmorphone INJ* 2 MG/ML CARPUJECT SYRINGE IV SLOW PU PRN ×3 (03:45→12:39)
[2016-07-23] MEDS: Piperac/Tazob 3.375 gm in NS* 3.375 GM/100 ML BAG IVPB SCH ×3 (03:46→23:42)
[2016-07-23] MEDS: NS 0.9% 1000 ML* 1,000 ML IV SCH (03:55)
[2016-07-23] MEDS: Heparin VIAL(*) 5000 UNITS/ML VIAL (FIVE THOUSAND) SUBCUT SCH ×3 (04:37→22:05)
[2016-07-23 06:25] LABS: Hematocrit 31 % (35-47); Hemoglobin 9.8 g/dl (12.0-16.0); Mean Corpuscular HGB Conc 32 g/dl (31-36); Mean Corpuscular Hemoglobin 26 pg (27-31); Mean Corpuscular Volume 83 fL (80-97); Mean Platelet Volume 9 um3 (7.4-10.4); Red Blood Count 3.75 10^6/ul (4.0-5.4); Red Cell Distribution Width 18 % (10.5-15); White Blood Count 13.6 10^3/ul (3.5-10.8)
[2016-07-23 06:46] LABS: Albumin 2.9 g/dL (3.2-5.2); BUN/Creatinine Ratio 22.4 (8-20); Calcium 8.4 mg/dL (8.6-10.3); EGFR African American 37.9 (>60); EGFR Non-African American 29.5 (>60); Globulin 4.1 g/dL (2-4); Potassium 3.9 mmol/L (3.5-5.0); Total Bilirubin 2.8 mg/dL (0.2-1.0)
[2016-07-23] MEDS ORDERED: Acetaminophen SUPP* 650 MG SUPP PR ONE (07:28)
[2016-07-23] MEDS: Insulin GLARGINE(*) 1 UNITS UNIT SUBCUT SCH (07:44)
[2016-07-23] MEDS: Pantoprazole IV* 40 MG IV SCH (07:55)
[2016-07-23] MEDS ORDERED: NS 0.9% 500 ML* 500 ML IV ONE ×2 (08:00→09:00)
[2016-07-23] MEDS ORDERED: Ketorolac INJ* 15 MG/ML 1 ML VIAL IV PUSH ONE ×2 (08:42)
--- NOTE | 2016-07-23 09:06 | RAD ---
HISTORY: Follow-up ileus COMPARISONS: July 21, 2016 VIEWS: Frontal supine views of the abdomen FINDINGS: BOWEL: Again noted is diffuse distention of the small bowel with paucity of distal bowel gas CALCULI: There are no abnormal calculi. BONES AND SOFT TISSUES: There are no osseous abnormalities. OTHER FINDINGS: The lung bases are clear. There is no subphrenic gas. IMPRESSION: DIFFUSE DISTENTION OF SMALL BOWEL LOOPS WITH PAUCITY OF DISTAL BOWEL GAS CONCERNING FOR SMALL BOWEL STRUCTURE, INCLUDING PARTIAL OR INTERMITTENT OBSTRUCTION
[2016-07-23] MEDS ORDERED: Acetaminophen IV 1GM/100ML * 1,000 MG/100 ML VIAL IVPB ONE (11:13)
[2016-07-23] MEDS ORDERED: Dexamethasone IV* 4 MG/ML 1 ML (4 MG) ONE (13:54)
[2016-07-23] MEDS ORDERED: Ondansetron INJ* 2 MG/ML VIAL ONE (13:54)
[2016-07-23] MEDS ORDERED: Lidocaine 2% PF * 5 ML VIAL ONE (13:54)
[2016-07-23] MEDS ORDERED: Propofol* 10 MG/ML 20 ML BTL IV PUSH ONE (13:54)
[2016-07-23] MEDS ORDERED: Phenylephrine INJ* 10 MG/ML 1 ML VIAL (10 MG) ONE ×2 (13:54→17:36)
[2016-07-23] MEDS ORDERED: fentaNYL* 50 MCG/ML 5 ML VIAL (250 MCG VIAL) ONE (13:54)
[2016-07-23] MEDS ORDERED: Midazolam* 1 MG/ML 5 ML VIAL (5 MG) ONE (13:55)
[2016-07-23] MEDS ORDERED: Cisatracurium* 2 MG/ML MDV 10 ML ONE (13:55)
[2016-07-23] MEDS ORDERED: KETAMINE HCL* 50 MG/ML 10 ML VIAL ONE (13:55)
[2016-07-23] MEDS ORDERED: Bupivacaine 0.25% EPI 200,000* 30 ML SDV ONE (14:06)
[2016-07-23] MEDS ORDERED: Iohexol 180 (CONTRAST) 10 ML SDV IV ONE (14:06)
[2016-07-23] MEDS ORDERED: Albumin Human 5%* 1,000 ML in PREMIX* 0 ML IV ONE (14:13)
[2016-07-23] MEDS: Albumin Human 5%* 250 ML in PREMIX* 0 ML IV SCH ×4 (14:35→23:42)
--- NOTE | 2016-07-23 14:45 | CONSULT ---
Consult Consult: CRITICAL CARE MEDICINE DATE: 07/23/16 TIME: 1400 REFERRING PROVIDER: Phani REASON/CHIEF COMPLAINT: abd pain, sepsis HISTORY OF PRESENT ILLNESS: 75 F with h/o autoimmune hepatitis ("burned out") cirrhosis, DM presenting on 07/21 with RUQ abd pain, tachycardia and low grade temp. Tx for acute cholecystitis with Ivf, abx and further imaging. Pt wbc went from 3k to 13k in two days and pts continues with fever, 3rd spacing of fluid, tachycardia, tachypnea. No clear answer, but plan for OR today for johanne as all signs point to GB sepsis. Evaluated in ICU prior to OR transfer. Family at bedside. REVIEW OF SYSTEMS: As per HPI. Limited from pt due to lethargic state and recent narcs. PAST MEDICAL HISTORY: As per HPI. Grade I esophageal varicies, gerd MEDICATIONS: Reviewed. ALLERGIES: NKDA SOCIAL HISTORY: Reviewed. FAMILY HISTORY: Noncontributory at present. PHYSICAL EXAM: Vital Signs: Reviewed. NC. Hr 120. pulse pressure variation present. sbp 140s, dbp 50s. rr 20 Neurologic: awakens, follows simply HEENT: sclera icteric Cardiovascular: tachy, s1 s2 Respiratory: sharp inhalation and mild prolonged exhalation although not forced ; no wheeze. no rales. Abdomen: distended. discomfort grossly from palpation and localizing to RUQ Extremities: warm Access: 2 per LABS: Reviewed. IMAGING: Reviewed. MEDICATIONS: Reviewed. ASSESSMENT: 75 F Acute cholecystitis, potential gangrenous with ensuing severe sepsis with associated septic ecephalopathy, acute hypoxic respiratory failure with declining ventilatory compensation from the looks of her presently (aided in part by distended abd and narc use on top of sepsis), with acute renal failure, and potential component of atn, ileus, with underlying cirrhosis. PLAN: Neurologic: can remain comfortable now and through OR. Anticipate propofol and fent needs. Cardiovascular: Low end perfsion with already increased metabolic demands and cardiac output compensation, but remaining with intravascular volume depletion. Give 1 L albumin now and f/u OR needs. Worried she may vasodilate with anesthesia and may require levophed but can sort in OR as needed. previous echo ok. Respiratory: oxygenating at present but again ventilation becoming compromised. Given the next step up of metabolic demands would anticipate her remaining ventilated post OR and avoid lung injury. Gastrointestinal: For OR. Surg/GI f/u. can hold lactulose today and consider utility tomorrow. npo. Hopeful for good bowel recovery post and can just supplement with ivf for now and await potential enteral plan. ppi on board Renal/Metabolic: already with worsening renal function and error on volume loading for now. Prefer colloids now as ebb phase shifting crystolloids and already creating hyperchloremic acidosis. Can use LR post OR. F/u Uout that still may remain low in acute phase. Infectious Disease: on zosyn wheich should be adequete, and surgical source control. Hematology: may dilute with fluids and follow for septic consumption. hsq Endocrine: diastolics low and Na low; may have component of adrenal insuff and can f/u potential steroid needs. low dose lantus needs; look to adjust post or. ssi. Musculoskeletal: rest currently. Psych/Social: family at bedside updated Supportive and preventative care as ordered. SUP: ppi VTE prophylaxis: heparin Chung catheter given critical illness, monitoring needs for accurate assessment of WENDY and KDIGO criteria for critically ill patients and to avoid potential harms of urinary retention, skin breakdown/ulcers. Disposition: ICU will follow with surgery D/w Dr. Jeronimo Code Status: Full Critical Care Time: 45min FMelita Christianson DO
[2016-07-23] MEDS ORDERED: fentaNYL* 50 MCG/ML 2 ML VIAL (100 MCG VIAL) ONE (15:49)
[2016-07-23] MEDS ORDERED: Metoprolol Tartrate IV* 1 MG/ML 5 ML VIAL ONE (16:11)
--- NOTE | 2016-07-23 16:31 | PN ---
Subjective Date of Service: 07/23/16 Interval History: This is a 75 yo female with h/o autoimmune hepatitis with subsequent cirrhosis and esophageal varices who presented with c/o abdominal pain and evidence of sepsis. She has been treated for a presumed biliary source. Blood cultures negative thus far. Patient has had reduced LOC since admission, seemingly most effected by administration of IV opiates for pain control. This am, patient's LOC has declined further and no longer responds spontaneously to voice or light touch. Objective Active Medications: Acetaminophen (Tylenol Tab*) 650 mg PO Q4H PRN PRN Reason: FEVER/PAIN Last Admin: 07/21/16 15:19 Dose: 650 mg Albuterol (Ventolin Hfa Inhaler*) 2 puff INH Q6H PRN PRN Reason: SOB/WHEEZING Dextrose (D50w Syringe 50 Ml*) 12.5 gm IV PUSH .FOR FS < 60 - SS PRN PRN Reason: FS < 60 Heparin Sodium (Porcine) (Heparin Vial(*)) 5,000 units SUBCUT Q8HR [facility] Last Admin: 07/23/16 14:12 Dose: Not Given Hydromorphone HCl (Dilaudid Iv*) 1.5 mg IV SLOW PU Q4H PRN PRN Reason: PAIN Last Admin: 07/23/16 12:39 Dose: 1.5 mg Sodium Chloride (Ns 0.9% 1000 Ml*) 1,000 mls @ 125 mls/hr IV PER RATE [facility] Last Admin: 07/23/16 03:55 Dose: 125 mls/hr Piperacillin Sod/Tazobactam Sod (Zosyn 3.375 Gm In Ns Premix*) 3.375 gm in 100 mls @ 25 mls/hr IVPB Q8H [facility] Last Admin: 07/23/16 03:46 Dose: 25 mls/hr Albumin Human 250 ml/ IV (Solution) 250 mls @ 0 mls/hr IV Q45M [facility] PRN Reason: Wide Open Stop: 07/23/16 17:16 Last Admin: 07/23/16 14:46 Dose: 999 mls/hr Insulin Glargine (Lantus(*)) 10 units SUBCUT Q12H [facility] Last Admin: 07/23/16 07:44 Dose: 10 units Insulin Human Lispro (Humalog*) 0 units SUBCUT Q4HR [facility] PRN Reason: Protocol Last Admin: 07/23/16 14:12 Dose: Not Given Lactulose (Lactulose 480 Ml Btl*) 300 ml NH Q6H [facility] Last Admin: 07/23/16 10:14 Dose: Not Given Lactulose (Lactulose*) 30 ml PO TID [facility] Last Admin: 07/23/16 14:12 Dose: Not Given Ondansetron HCl (Zofran Inj*) 4 mg IV Q4H PRN PRN Reason: NAUSEA Pantoprazole Sodium (Protonix Iv*) 40 mg IV DAILY [facility] Last Admin: 07/23/16 07:55 Dose: 40 mg Vital Signs: Temp Pulse Resp BP Pulse Ox 99.6 F 114 15 136/47 98 07/23/16 14:30 07/23/16 14:30 07/23/16 14:52 07/23/16 14:30 07/23/16 14:30 Oxygen Devices in Use Now: Nasal Cannula - 2Lnc Appearance: Acutely ill appearing elderly female accompanied by family with increased work of breathing Ears/Nose/Mouth/Throat: - - MM mildly dry Respiratory: - - tachypneic, no wheezing, crackles or rhonchi Cardiovascular: RRR, - - tachycardic, no murmurs appreciated Abdominal: - - bowel sounds quiet, but present, abdomen is distended Extremities: No Edema Skin: No Rash or Ulcers Neurological: - - patient is not responsive to touch or voice Result Diagrams: 07/23/16 06:03 07/23/16 06:03 Microbiology and Other Data: Microbiology 07/22/16 10:32 Aerobic Blood Culture - Preliminary Blood Venous No Growth Day 1 Anaerobic Blood Culture - Preliminary No Growth Day 1 Diagnostic Imaging: CT abd/pelvis - cirrhotic liver with small amount of ascites, no acute pathology noted US abd - cholelithiasis but without findings of acute cholecystitis MRCP - No biliary dilitation but a filling defect noted in the neck of the gallbladder HIDA - patent CBD and cytic duct Assess/Plan/Problems-Billing Assessment: Ms. Brunson is a 75 yo female with a PMH of IDDM, esophageal varices, cirrhosis, and GERD who presented 07/20/16 with intractable abdominal pain that is likely secondary to cholelithiasis now with evidence of severe sepsis. - Patient Problems (1) Sepsis Comment: qSOFA score of 2 for AMS and increased RR Still appears to be perfusing relatively well with significant cardiopulmonary compensation Secondary to suspected cholecystitis Continue IVF, Zosyn, additional supportive measure to manage fever Blood cultures repeated today, negative thus far from yesterday Plan to transfer to ICU with anticipated cholecystectomy by Dr Jeronimo later today (2) Cholelithiasis Comment: Appreciate surgical consult. Noted GB stones but no evidence of acute cholecytitis on imaging Bilirubin trending up without transaminitis No significant obstruction supported on MRCP, but a filling defect noted in GB neck HIDA shows patent cystic and CBD Despite these findings, her source of sepsis is likely a biliary source, possible gangrenous GB with pending cholecystectomy (3) WENDY (acute kidney injury) Comment: Likely due to hypoperfusion in the setting of sepsis (4) Ileus, unspecified Comment: Likely gall stone ileus NGT placed yesterday and since removed No vomiting appreciated (5) Encephalopathy Comment: Likely multifactorial related to sepsis, Dilaudid use, and possibly elevated ammonia Ammonia has been moderately elevated, but well less than 100, she was started on lactulose yesterday and this has improved slightly Assume that the sepsis and Dilaudid are bigger contributors to her encephalopathy (6) Lactic acidosis (7) Thrombocytopenia Comment: Some level of chronicity, appears fairly stable during hospital stay Likely related to cirrhosis (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 (11) DVT prophylaxis Comment: SQ heparin Status and Disposition: Patient has been transferred to ICU. Pending cholecystectomy. Anticipate extended LOS
[2016-07-23 18:25] LABS: Hematocrit 27 % (35-47); Hemoglobin 8.5 g/dl (12.0-16.0); Mean Corpuscular HGB Conc 31 g/dl (31-36); Mean Corpuscular Hemoglobin 27 pg (27-31); Mean Corpuscular Volume 86 fL (80-97); Mean Platelet Volume 10 um3 (7.4-10.4); Red Cell Distribution Width 18 % (10.5-15); White Blood Count 18.1 10^3/ul (3.5-10.8)
[2016-07-23] MEDS ORDERED: Propofol* 100 ML ONE (18:58)
[2016-07-23] MEDS ORDERED: NS 0.9% 1000 ML* 1,000 ML IV SCH (19:15)
[2016-07-23] MEDS ORDERED: Propofol* 1000 MG (10 MG/ML 100 ml) @ Per Protocol (in ICU Pyxis) IV SCH (20:00)
[2016-07-23] MEDS ORDERED: Insulin GLARGINE(*) 1 UNITS UNIT SUBCUT SCH ×2 (21:00)
--- NOTE | 2016-07-23 21:55 | SURGPN ---
Brief Operative Note - Surgery Procedures: Procedures Pre-OP Diagnoses: Abdominal pain, sepsis, r/o cholecystitis Post-op Diagnosis: same Procedure: Diagnostic laparoscopy, exploratory laparotomy Surgeon: Phani Asst: Angeline Krause Anethesia: JOSE GUADALUPE Lozoya EBL: 500cc IVF: 6550cc crystalloid 2units pRBCs Specimen: none Drains: none Findings: cirrhotic liver, ascities
[2016-07-23 22:00] LABS: Hematocrit 24 % (35-47); Hemoglobin 7.8 g/dl (12.0-16.0); Mean Corpuscular HGB Conc 32 g/dl (31-36); Mean Corpuscular Hemoglobin 27 pg (27-31); Mean Corpuscular Volume 85 fL (80-97); Mean Platelet Volume 9 um3 (7.4-10.4); Red Blood Count 2.86 10^6/ul (4.0-5.4); Red Cell Distribution Width 18 % (10.5-15); White Blood Count 13.1 10^3/ul (3.5-10.8)
[2016-07-23 22:03] LABS: Add Diff/Slide Review? Slide Review Added; Comments Flag Yes
--- NOTE | 2016-07-23 23:06 | RAD ---
Indication: Respiratory failure. Single frontal view of the chest performed at 2116 was reviewed. Comparison is made with previous exam dated May 04, 2012. Endotracheal tube is at the level of T3-T4. Bibasilar atelectasis is noted. Nasogastric tube is in place. IMPRESSION: Bibasilar atelectasis is noted. ET tube is in appropriate location.
[2016-07-24] MEDS: Insulin LISPRO* 1 UNITS UNIT SUBCUT SCH ×6 (00:04→22:48)
[2016-07-24] MEDS: fentaNYL* 50 MCG/ML 2 ML VIAL (100 MCG VIAL) IV PRN ×9 (01:02→20:37)
--- NOTE | 2016-07-24 02:28 | OP ---
DATE OF OPERATION: 07/23/16 - ROOM #ICU-10 DATE OF : 44 SURGEON: Dr. Francisco J Jeronimo. ASSISTANTS: NGUYEN Vaughn and Sebas Marcus MD ANESTHESIOLOGIST: Dr. Lozoya. ANESTHESIA: General anesthesia. PRE-OP DIAGNOSIS: Abdominal pain and sepsis, rule out cholecystitis. POST-OP DIAGNOSIS: Abdominal pain and sepsis, rule out cholecystitis. OPERATIVE PROCEDURE: Diagnostic laparoscopic, exploratory laparotomy. ESTIMATED BLOOD LOSS: 500 cc. FLUIDS: 6550 cc of crystalloid fluid given and 2 units of packed RBCs. SPECIMENS: None. DRAINS: Chung catheter only. No intraabdominal drains. FINDINGS: Cirrhotic liver and large ascites. No additional findings. INDICATIONS: Ms. Brunson is a 75-year-old female who I have been following in consultation for a complaint of abdominal pain who was considered to have diagnosis consistent with acute cholecystitis that she had in the past that was successfully treated with antibiotics; however, at this time, the patient continued to worsen during her hospital stay. Despite some filling of the cystic duct on HIDA scan, the patient did have an MRI that did not show filling into gallbladder and the patient's abdominal pain persisted. She developed confusion and required significant amount of narcotics. By day of surgery, the patient was showing signs of sepsis with elevated temperatures, significant tachycardia, and elevated white blood cell count. Recommendations at this time was to take her to the operating room for diagnostic laparoscopy with the hope of taking apart all of her gallbladder as this was the offending issue. My chief differential diagnosis was gangrenous gallbladder given the patient's history and escalation of her disease state. She has known history of cirrhosis and esophageal varicosities. The patient did undergo EKG while hospitalized, which showed reasonable ejection fraction and no significant aortic stenosis. The patient was felt to be high risk for surgical intervention, but required no other intervention. The failure of antibiotics led me to believe the patient required surgical intervention to evaluate her abdomen for source of her sepsis. I discussed the case with the patient's family as the patient was not able to discuss this. We went over the risks, benefits, and alternatives to a laparoscopic cholecystectomy as the case was booked. I felt we would potentially see a gangrenous gallbladder, the patient would benefit from partial total cholecystectomy or even a drainage procedure. I discussed the strong possibility of prolonged hospital course, the likelihood that the patient will remain intubated in the postoperative period, need for antibiotics , and possible nutrition. I discussed the possible complications, which included not limited to bile leak, common bile duct or bowel injury, need for open procedure, and prolonged hospitalization and even . The patient's family understood this as I described and they did feel that the patient showed no improvement and was indeed worsening overall, required some intervention. Consent was signed. DESCRIPTION OF PROCEDURE: The patient was marked, brought into the operating room, placed on the operating table in a supine position. Preoperative antibiotics were given. Sequential devices were placed on bilateral lower extremities. General anesthesia was induced. The patient's abdomen was prepped and draped in a standard surgical fashion. A time-out was performed. Folds of the umbilicus were elevated anteriorly and a Veress needle was inserted into the abdomen cavity, which was then allowed to insufflate to a pressure of 15 mmHg. The patient tolerated the insufflation well. A periumbilical 12-mm trocar was then inserted. A laparoscope was inserted through this. There was a significant amount of cloudy ascites. Additional 12- mm trocar was then placed in the subxiphoid area and the fluid was suctioned off. Review of the liver showed significant nodularity consistent with cirrhosis. Gallbladder was identified and this was soft without evidence of gangrene or any significant inflammation. Attention was then turned towards the pelvis. Some small bowel loops lower in the abdomen had some exudative tissue. An additional 5-mm trocar was inserted and we were able to suction ascites from the pelvis and identified the cecum. The cecum showed some pale changes to the anterior aspect of this, but did not show any evidence of perforation. This was grasped and there was no visible appendix as this had likely been surgically removed. The terminal ileum was identified. This was run retrograde until it became too difficult to manage due to the adhesions and small working space. There was small bowel adhered to the anterior abdominal wall at the right lower quadrant. There was omentum attached to the anterior abdominal wall in the lower midline. I did not appreciate the sigmoid colon or the descending colon well. Omentum could not be reflected superiorly to the attachment to the anterior abdominal wall and the area just below the umbilicus. Next, the omentum was bluntly dissected off of the anterior abdominal wall. This led a significant amount of bleeding controlled with an Endoloop 0 Polysorb. However, after placing this, we did see significant amount of blood in the pelvis that was clotting off. This combined with the fact that it could not identify the sigmoid colon and portion of the small bowel was too firmly adhered to be taken down safely laparoscopically, we decided to open up the abdomen. Trocars were removed. The abdomen was allowed to empty of its pneumoperitoneum and a midline incision was made around the umbilicus. This was deepened down to the layers of the abdominal wall and anterior abdominal cavity showed additional ascites, which was suctioned off and the omentum that had been Endo looped, was brought up into the incision and reflected superiorly. Hemostasis seemed good on this site and review of the anterior abdominal wall where this was removed showed some bleeding. This was controlled with a 2-0 Polysorb suture and the blood was suctioned off. Next, the small bowel was eviscerated and run from the ligament of Treitz to the terminal ileum. There was no evidence of any injuries to the small bowel. There were small, violaceous areas, but these showed no signs of gangrene. The bowel was not distended. There was no pneumatosis. Review of the cecum and ascending colon was within normal limits. Again, the gallbladder was normal. Transverse colon appeared normal without evidence of perforation or ischemia as did the descending colon. We did bluntly and sharply dissected the sigmoid colon anteriorly, also the anterior pelvis. The sigmoid colon at this site was intact without evidence of infection. The deep pelvis also was normal and ascites was suctioned off. Early on, we did send fluid for Gram stain and culture and sensitivity of the abdominal fluid. Anterior wall of the stomach appeared intact. It did not appear boggy. The spleen was enlarged. This was essentially negative laparotomy with the exception of the cirrhosis, and we decided to close the abdomen.. Additional omental bleeders were identified and required additional sutures. Hemostasis was achieved. The anterior abdominal wall was reapproximated with interrupted #1 Polysorb sutures in a [id number] fashion. The abdomen was closed starting at the inferior aspect. Review of the superior aspect prior to starting this closure at the site, we identified some bleeding that extended down into the right paracolic gutter. This could not be clearly delineated and therefore we removed some of the fascial sutures and again eviscerated the bowel and noted that another portion of the omentum was bleeding significantly. This was controlled with additional sutures and again we closed the abdomen in its entirety with #1 Polysorb suture in a [id number] fashion. The wound was then irrigated and reapproximated with skin rica as where the additional port sites. The patient remained intubated. She did receive 2 units of blood and was in critical condition and did transfer back to her ICU bed. The procedure and the findings were discussed with the family with the exception of the cirrhotic liver and dilated vessels along the omentum with an essentially negative laparotomy. The patient remained intubated on sedation in the ICU. The ICU team was aware of her. CC: Michelle Barbour MD; [facility]; Chano Sr MD* [id number]/[facility] #: [id number] MTDRussel
[2016-07-24] MEDS: Piperac/Tazob 3.375 gm in NS* 3.375 GM/100 ML BAG IVPB SCH ×3 (05:05→20:05)
[2016-07-24] MEDS: Heparin VIAL(*) 5000 UNITS/ML VIAL (FIVE THOUSAND) SUBCUT SCH ×3 (05:48→22:05)
[2016-07-24 06:30] LABS: Comments Flag Yes; Hematocrit 28 % (35-47); Hemoglobin 9.5 g/dl (12.0-16.0); Mean Corpuscular HGB Conc 34 g/dl (31-36); Mean Corpuscular Hemoglobin 28 pg (27-31); Mean Corpuscular Volume 84 fL (80-97); Mean Platelet Volume 9 um3 (7.4-10.4); Red Blood Count 3.37 10^6/ul (4.0-5.4); Red Cell Distribution Width 17 % (10.5-15); White Blood Count 7.8 10^3/ul (3.5-10.8)
[2016-07-24 06:34] LABS: Add Diff/Slide Review? Slide Review Added
[2016-07-24 06:46] LABS: Albumin 2.7 g/dL (3.2-5.2); BUN/Creatinine Ratio 23.7 (8-20); Calcium 7.2 mg/dL (8.6-10.3); EGFR African American 43.1 (>60); EGFR Non-African American 33.5 (>60); Globulin 2.6 g/dL (2-4); Magnesium 1.7 mg/dL (1.9-2.7); Phosphorus 2.1 mg/dL (2.5-5.0); Potassium 3.6 mmol/L (3.5-5.0); Total Bilirubin 3.5 mg/dL (0.2-1.0); Total Protein 5.3 g/dL (6.4-8.9)
[2016-07-24] MEDS: Lactulose 480 ML BTL*STOCK USE 480 ML ML PR SCH (07:27)
[2016-07-24] MEDS: Pantoprazole IV* 40 MG IV SCH (07:54)
--- NOTE | 2016-07-24 08:05 | RAD ---
HISTORY: Abdominal pain, check position of tubes COMPARISONS: July 23, 2016 VIEWS:1: Single frontal portable view of the chest at 6:22 AM FINDINGS: LINES AND TUBES: An endotracheal tube is noted with the tip overlying the trachea between the clavicles and the vivian. A gastric tube is noted. The tip is in the left upper quadrant in a prepyloric position. CARDIOMEDIASTINAL SILHOUETTE: The cardiomediastinal silhouette is normal for portable technique. PLEURA: The costophrenic angles are sharp. No pleural abnormalities are noted. LUNG PARENCHYMA: The lung volumes are low. There is patchy linear opacification lung bases bilaterally. ABDOMEN: The upper abdomen is clear. There is no subphrenic gas. BONES AND SOFT TISSUES: No bone or soft tissue abnormalities are noted. IMPRESSION: LINES AND TUBES ABOVE. LOW LUNG VOLUMES WITH LINEAR ATELECTASIS OF THE LUNG BASES BILATERALLY
[2016-07-24] MEDS ORDERED: Phytonadione INJ (Adult)* 5 MG in NS 0.9% 50 ML* 50 ML IV ONE (09:00)
[2016-07-24] MEDS ORDERED: fentaNYL* 50 MCG/ML 2 ML VIAL (100 MCG VIAL) IV SLOW PU ONE (09:04)
[2016-07-24] MEDS ORDERED: Potassium Phosphate IV* 15 MMOLE in NS 0.9% 250 ML* 250 ML IVPB ONE (09:56)
[2016-07-24] MEDS ORDERED: Magnesium Sulfate 2 GM IV* 2 GM/50 ML BAG IVPB ONE (09:56)
[2016-07-24] MEDS: Insulin GLARGINE(*) 1 UNITS UNIT SUBCUT SCH (11:45)
[2016-07-24] MEDS ORDERED: Furosemide IV* 10 MG/ML VIAL (40 MG) IV SLOW PU ONE (15:22)
[2016-07-24] MEDS ORDERED: Furosemide IV* 10 MG/ML VIAL (40 MG) ONE (15:27)
--- NOTE | 2016-07-24 15:51 | PN ---
Progress Note - Progress Note Note: CRITICAL CARE MEDICINE DATE: 07/24/16 TIME: 1100 SUBJECTIVE: Patient seen and examined. Family at bedside. PHYSICAL EXAM: Vital Signs: Reviewed. 30%. Uout up a little. HR 100. sbp 140s Neurologic: awakens, follows simply; little agitated off prop HEENT: sclera icteric Cardiovascular: tachy, s1 s2 Respiratory: low volumes and changed to APRV. vol improved well. Abdomen: distended. mild distention and incision intact Extremities: warm Access: 2 per; grace LABS: Reviewed. IMAGING: Reviewed. MEDICATIONS: Reviewed. ASSESSMENT: 75 F Acute cholecystitis r/o. SBP more likely source at this stage.- Clinically improved. Severe sepsis Mild septic/hepatic ecephalopathy Acute hypoxic respiratory failure - stable. Acute renal failure -prerenal more so. not hepatorenal Underlying cirrhosis. PLAN: Neurologic: hold prop. prn fent. Cardiovascular: Perfusion well. Volume status intravas better. Interstitially a bit overloaded. allow her to mobilize. Respiratory: well but low volumes on vent. adjust to aprv to recruit and then look to liberate today. Gastrointestinal: Surg/GI f/u. can hold lactulose and f/u amm and potential enema needs as await bowel awakening. f/u nutritional needs. add back low dose bb. Bili may still drift for a day or so but synthetic function holding. Renal/Metabolic: stabilized. dc ivf. potential lasix later today. replete lytes. Infectious Disease: on zosyn and follow up cx. Hematology: post products yesterday. stable and follow up. vit k today. Endocrine: low dose lantus. no steroid need. Musculoskeletal: rest this am and then hopefully oob soon Psych/Social: family at bedside updated Supportive and preventative care as ordered. SUP: ppi VTE prophylaxis: heparin Chung catheter given critical illness, monitoring needs for accurate assessment of WENDY and KDIGO criteria for critically ill patients and to avoid potential harms of urinary retention, skin breakdown/ulcers. Disposition: ICU will follow with surgery D/w Dr. Jeronimo Code Status: Full Critical Care Time: 45min FMelita Christianson DO
[2016-07-24] MEDS: Propranolol TAB* 10 MG PO SCH ×2 (18:40→19:23)
[2016-07-24] MEDS: HYDROmorphone INJ* 2 MG/ML CARPUJECT SYRINGE IV SLOW PU PRN (22:05)
[2016-07-25] MEDS: fentaNYL* 50 MCG/ML 2 ML VIAL (100 MCG VIAL) IV PRN ×4 (00:32→23:46)
[2016-07-25] MEDS ORDERED: diPHENhydraMINE IV* 50 MG/ML 1 ml VIAL (BENADRYL) IV ONE (01:43)
[2016-07-25] MEDS ORDERED: diPHENhydraMINE IV* 50 MG/ML 1 ml VIAL (BENADRYL) ONE (01:46)
[2016-07-25] MEDS: Insulin LISPRO* 1 UNITS UNIT SUBCUT SCH ×6 (02:07→22:08)
[2016-07-25] MEDS: HYDROmorphone INJ* 2 MG/ML CARPUJECT SYRINGE IV SLOW PU PRN ×3 (03:54→19:57)
[2016-07-25] MEDS: Piperac/Tazob 3.375 gm in NS* 3.375 GM/100 ML BAG IVPB SCH ×3 (05:28→20:58)
[2016-07-25] MEDS: Heparin VIAL(*) 5000 UNITS/ML VIAL (FIVE THOUSAND) SUBCUT SCH ×3 (05:29→22:07)
[2016-07-25 05:54] LABS: Hematocrit 31 % (35-47); Hemoglobin 10.5 g/dl (12.0-16.0); Mean Corpuscular HGB Conc 34 g/dl (31-36); Mean Corpuscular Hemoglobin 28 pg (27-31); Mean Corpuscular Volume 83 fL (80-97); Mean Platelet Volume 8 um3 (7.4-10.4); Red Blood Count 3.79 10^6/ul (4.0-5.4); Red Cell Distribution Width 17 % (10.5-15); White Blood Count 8.5 10^3/ul (3.5-10.8)
[2016-07-25 06:06] LABS: Albumin 2.8 g/dL (3.2-5.2); BUN/Creatinine Ratio 27.9 (8-20); Calcium 8.2 mg/dL (8.6-10.3); EGFR African American 42.5 (>60); Globulin 3.3 g/dL (2-4); Magnesium 2.3 mg/dL (1.9-2.7); Potassium 3.4 mmol/L (3.5-5.0); Total Bilirubin 2.2 mg/dL (0.2-1.0); Total Protein 6.1 g/dL (6.4-8.9)
[2016-07-25] MEDS: Propranolol TAB* 10 MG PO SCH ×2 (09:41→23:23)
[2016-07-25] MEDS: Pantoprazole IV* 40 MG IV SCH (09:41)
[2016-07-25] MEDS: RiFAXimin* 550 MG TAB PO SCH ×3 (10:14→23:34)
--- NOTE | 2016-07-25 11:43 | PN ---
Progress Note - Progress Note Note: [facility] Progress Note Concern raised today that patient has an overall decline in mental status Apparently only speaking her [place] language where can usually speak [place]ian too Received multiple doses Fentanyl and Dilaudid ytdy as well as Benadryl overnight per today's Nurse Has not been receiving her Rifaximin and Lactulose SBP 159 HR 80 RR 25 Temp 37.8 SpO2 95-96 UO good Skin no diaphoresis, no cyanosis Oral mucosa pink Lungs with few basilar crackles, no wheezes, no rhonchi Cor RRR no rub, no murmur Abd mild distension, no significant pain to palpation Ext no edema, (+)SCDs Bilateral upper extrem IVs WBC 8.5 Hgb 10.5 Plt 101 INR 1.07 K 3.4 BUN/creat 43/1.5 Pi 3.0 Mg 2.3 Alb 2.8 Gluc 170-190 Perit Fld Cx with E coli IMP: Spontaneous Bacterial Peritonitis with E coli with resolution of leucocytosis on Zosyn Hx auto-immune hepatitis with cirrhosis, ascites, and prior noted esophageal varices Encephalopathy...likely multifactorial: infection, opiates and anticholinergics, and absence of rifaximin and lactulose Hx thrombocytopenia Hx DM with mild hyperglycemia Mild azotemia Mild-mod protein calorie malnutrition Mild hypokalemia Hx Hx GERD PLAN/REC: Avoid opiates and other psychotropic meds as much as possible Resume Rifaximin and Lactulose per usual Mobilize as tolerated Encourage staff and family efforts to orient Advance PO diet once level of consciousness improves Continue Zosyn Monitor culture data for sensitivities Repeat labs in AM Discussed with Dr Jeronimo, Nurse, ICU multidisciplinary team, and family members at her bedside
--- NOTE | 2016-07-25 12:25 | PN ---
Progress Note - Progress Note SOAP: Subjective: Pt seen and examined, yesterday and today (no note written yesterday). Pt OOB to chair. Recognizes family. Breathing shallow and labored at times. BM overnight. She answers simple questions. Objective: Temp Pulse Resp BP Pulse Ox 99.9 F 83 30 158/69 95 07/25/16 11:00 07/25/16 11:00 07/25/16 11:08 07/25/16 11:00 07/25/16 11:00 moaning (unclear if this is in pain) shallow BS, Abdo: soft, distended, tender; hypoactive BS dressing removed. moderately saturated. labs noted BlCx neg Peritoneal Cx: E coli Assessment: POD2 ex lap, SBP Plan: supportive care for now consider Palliative consult, though family may not be ready for this abx, f/u C and S advance diet
[2016-07-25] MEDS: Insulin GLARGINE(*) 1 UNITS UNIT SUBCUT SCH (13:09)
[2016-07-26] MEDS: HYDROmorphone INJ* 2 MG/ML CARPUJECT SYRINGE IV SLOW PU PRN (02:24)
[2016-07-26] MEDS: Insulin LISPRO* 1 UNITS UNIT SUBCUT SCH ×4 (02:24→14:58)
[2016-07-26] MEDS: Piperac/Tazob 3.375 gm in NS* 3.375 GM/100 ML BAG IVPB SCH ×2 (06:03→12:52)
[2016-07-26] MEDS: Heparin VIAL(*) 5000 UNITS/ML VIAL (FIVE THOUSAND) SUBCUT SCH ×2 (06:03→14:57)
[2016-07-26] MEDS: fentaNYL* 50 MCG/ML 2 ML VIAL (100 MCG VIAL) IV PRN ×5 (06:07→14:41)
[2016-07-26 09:03] LABS: Add Diff/Slide Review? Slide Review Added; Comments Flag Yes; Hematocrit 36 % (35-47); Hemoglobin 11.9 g/dl (12.0-16.0); Mean Corpuscular HGB Conc 33 g/dl (31-36); Mean Corpuscular Hemoglobin 27 pg (27-31); Mean Corpuscular Volume 83 fL (80-97); Mean Platelet Volume 9 um3 (7.4-10.4); Red Blood Count 4.33 10^6/ul (4.0-5.4); Red Cell Distribution Width 17 % (10.5-15); White Blood Count 14.1 10^3/ul (3.5-10.8)
[2016-07-26 09:19] LABS: BUN/Creatinine Ratio 36.7 (8-20); Calcium 8.7 mg/dL (8.6-10.3); EGFR African American 43.8 (>60); Potassium 3.4 mmol/L (3.5-5.0)
[2016-07-26] MEDS: Pantoprazole IV* 40 MG IV SCH (10:05)
[2016-07-26] MEDS: Propranolol TAB* 10 MG PO SCH (10:06)
[2016-07-26] MEDS: RiFAXimin* 550 MG TAB PO SCH (10:34)
--- NOTE | 2016-07-26 10:50 | PN ---
Progress Note - Progress Note Note: [facility] Progress Note No particular improvement Was out of bed for a time ytdy Generally remains quite weakl Talks at times with family in [place] language...sometimes speech is appropriate and other times is described as delirious...pointing out things in room that are not there SBP 155 HR 92 RR 24 Afeb SpO2 97 Skin no diaphoresis, no cyanosis Sunken eyes Oral mucosa pink, dry Lungs with good air entry, no wheezes, no rhonchi Cor RRR no rub, no murmur Abd mild distension, no significant pain to palpation Ext no edema, (+)SCDs Bilateral upper extrem IVs WBC 14 Hgb 11.9 Plt 150 K 3.4 BUN/creat 55/1.5 Na 146 Gluc 160-190 NH4 54 Perit Fld Cx with E coli...quite sensitive to Zosyn IMP: Spontaneous Bacterial Peritonitis with E coli with resolution of leucocytosis on Zosyn Hx auto-immune hepatitis with cirrhosis, ascites, and prior noted esophageal varices Encephalopathy...likely multifactorial: infection, opiates, dehydration, frailty, and hepatic disease Hx thrombocytopenia...better Hx DM with mild hyperglycemia Pre-renal azotemia and mild hypernatremia both consistent with dehydration Mild-mod protein calorie malnutrition Mild hypokalemia Hx Hx GERD PLAN/REC: Avoid opiates and other psychotropic meds as much as possible Continue Rifaximin and Lactulose per usual NS 500 ml x1 followed by LR at 75 ml/hr Place feed tube and initiate feeds with Glucerna Encourage staff and family efforts to orient Continue Zosyn Repeat labs in AM Family inquiring since yesterday re transfer to another institution...they have no specific physician or hospital in mind Discussed with Nurse and family ...will facilitate a transfer if/when they find an accepting physician and institution
[2016-07-26] MEDS ORDERED: NS 0.9% 500 ML* 500 ML IV SCH (11:00)
--- NOTE | 2016-07-26 11:28 | PN ---
Progress Note - Progress Note SOAP: Subjective: Pt seen and examined. Pt not as responsive today as yesterday. No Bm. No PO intake. Family wishes to have her moved to a [facility] Objective: Temp Pulse Resp BP Pulse Ox 99.9 F 85 18 162/76 99 07/26/16 11:00 07/26/16 11:00 07/26/16 11:17 07/26/16 11:00 07/26/16 11:00 tmax: 100.2 negative I/Os shallow BS, Abdo: soft, distended, tender; hypoactive BS dressing removed, and is less saturated today. labs noted, LFTs P BlCx neg Peritoneal Cx: E coli Assessment: POD3 ex lap, SBP, dehydrated Pt's family wants transfer, so a call was placed to [place]. I do not believe a surgeon will accept. She is postoperative day 3 from essentially a negative laparotomy. No evidence of surgical complication at this time. Plan: supportive care for now cxr consider Palliative consult, though family may not be ready for this abx, f/u C and S advance diet vs flopac feeds
[2016-07-26 12:15] LABS: Albumin 2.9 g/dL (3.2-5.2); Direct Bilirubin 1.9 mg/dL (0.03-0.18); Globulin 3.7 g/dL (2-4); Indirect Bilirubin 1.2 mg/dL (0.3-1.0); Total Bilirubin 3.1 mg/dL (0.2-1.0); Total Protein 6.6 g/dL (6.4-8.9)
--- NOTE | 2016-07-26 12:21 | RAD ---
INDICATION: Pneumonia COMPARISON: July 24, 2016 TECHNIQUE: An AP portable view obtained at 1210 hours is submitted. FINDINGS: Bones/Soft Tissues: There are no acute bony findings. The orogastric and endotracheal tubes have been removed. Cardiomediastinal: The cardiomediastinal silhouette is normal. Lungs: This is an expiratory examination with bibasilar atelectasis. Pleura: There are no pleural effusions. Other: None IMPRESSION: EXPIRATORY EXAMINATION WITH BASILAR ATELECTASIS
[2016-07-26] MEDS: Insulin GLARGINE(*) 1 UNITS UNIT SUBCUT SCH (12:22)
--- NOTE | 2016-07-26 13:42 | DCNOTE ---
Critical Care Medicine Discharge/Transfer Note 75 yo female with auto-immune hepatitis complicated by cirrhosis with portal hypertension, esophageal varices, ascites, and gallstones who presented with abdominal pain prompting admission to the hospital on . PMH: GERD, Thrombocytopenia, DM, UTIs NKDA See H&P for the rest of the elements of the medical history and presenting examination and labs. Hospital Course: patient underwent work up of abdominal pain which included biliary scanning and Surgical Consultation. On 07/23/16 she underwent exploratory laparotomy which revealed moderate ascites with normal appearing gallbladder and bowel. She was returned to the ICU intubated and ventilated. Ascitic fluid was cultured and returned with E coli. She has been treated with Zosyn to which her E coli is sensitive. She was extubated the following day. She has remained ill most notably with encephalopathy. Her ammonia level is in the 50-60 range and her lactulose and Rifaximin were resumed. Efforts were made to minimize opiate analgesics. Also in these two days she has had poor PO intake and became dehydrated with labs revealing pre-renal azotemia and mild hypernatremia for which IV fluids were initiated today as were orders to place a feeding tube to initiate tube feeds. Family has requested a transfer of patient. Dr Jeronimo, the patient's surgeon, has arranged for transfer to [facility] under care of Dr Snell for continued care. Medications at time of transfer include: Zosyn 3.375 gm IV * 8 Rifaximin 550 mg po BID Inderal 10 mg PO BID Lactulose 30 ml Q 8 hrs Heparin 5000 units SQ Q8 hrs Protonix 40 mg IV daily Lantus 10 units SQ daily Lispro q 4 hrs PRN Zofran PRN Albuterol 2 puffs Q 4 hrs PRN Fentanyl 50 mcg IV Q 1 hr PRN Final Diagnosis: Spontaneous Bacterial Peritonitis with E coli Autoimmune Hepatitis with Cirrhosis Portal Hypertension with ascites and esophageal varices Metabolic Encephalopathy Prerenal Azotemia with dehydration Hypernatremia due to dehydration Cholelithiasis Diabetes Mellitus with hyperglycemia Protein Calorie Malnutrition
[2016-07-26 15:29] LABS: Urine Bacteria Absent (Absent); Urine Bilirubin Negative (Negative); Urine Glucose Negative (Negative); Urine Nitrite Negative (Negative)
[2016-07-26 15:31] VITALS: BP 169/63
== END 2016-07-26 16:20 | disposition short-term general hospital (02) | DRG 853 ==
LOC: ED 18:58 → MED 07-21 01:53 → OBSVTOIN 07-21 16:39 → ICU 07-23 11:53
PROVIDERS: ADMIT Internal Medicine; ATTEND Internal Medicine Critical Care Medicine
PROC: 0DQS0ZZ (ICD-10-PCS; 2016-07-23)
PROC: 30233N1 Transfusion of Nonautologous Red Blood Cells into Peripheral Vein, Percutaneous Approach (ICD-10-PCS; 2016-07-23)
PROC: 30233R1 Transfusion of Nonautologous Platelets into Peripheral Vein, Percutaneous Approach (ICD-10-PCS; 2016-07-23)
PROC: 0DQS4ZZ (ICD-10-PCS; principal; 2016-07-23 15:45)
DX: A41.9 Sepsis, unspecified organism (principal); K65.8 Other peritonitis; J96.01 Acute respiratory failure with hypoxia; G93.41 Metabolic encephalopathy; N17.9 Acute kidney failure, unspecified; E44.0 Moderate protein-calorie malnutrition; I85.10 Secondary esophageal varices without bleeding; E87.0 Hyperosmolality and hypernatremia; R18.8 Other ascites; K76.6 Portal hypertension; E87.2 Acidosis; K56.7 Ileus, unspecified; K91.61 Intraoperative hemorrhage and hematoma of a digestive system organ or structure complicating a digestive system procedure; R65.20 Severe sepsis without septic shock; D69.6 Thrombocytopenia, unspecified; K59.00 Constipation, unspecified; E11.42 Type 2 diabetes mellitus with diabetic polyneuropathy; K74.60 Unspecified cirrhosis of liver; I25.10 Atherosclerotic heart disease of native coronary artery without angina pectoris; I10 Essential (primary) hypertension; R16.1 Splenomegaly, not elsewhere classified; K21.9 Gastro-esophageal reflux disease without esophagitis; B96.20 Unspecified Escherichia coli [E. coli] as the cause of diseases classified elsewhere; K75.4 Autoimmune hepatitis; K80.20 Calculus of gallbladder without cholecystitis without obstruction; E11.65 Type 2 diabetes mellitus with hyperglycemia; E87.6 Hypokalemia; E86.0 Dehydration; Z82.49 Family history of ischemic heart disease and other diseases of the circulatory system; Z83.3 Family history of diabetes mellitus; Z87.440 Personal history of urinary (tract) infections; Z79.4 Long term (current) use of insulin; Z68.34 Body mass index [BMI] 34.0-34.9, adult; Z83.6 Family history of other diseases of the respiratory system; M19.90 Unspecified osteoarthritis, unspecified site; F32.9 Major depressive disorder, single episode, unspecified; E11.36 Type 2 diabetes mellitus with diabetic cataract; Y83.8 Other surgical procedures as the cause of abnormal reaction of the patient, or of later complication, without mention of misadventure at the time of the procedure
CPT/HCPCS: 36415; 71010; 74000; 74177; 74181; 76376; 76700; 78226; 80048; 80053; 80076; 81003; 81015; 82140; 83036; 83605; 83690; 83735; 84100; 85025; 85027; 85610; 86140; 86850; 86900; 86901; 86922; 86927; 87040; 87070; 87073; 87077; 87186; 87205; 87640; 87641; 93005; 93306; 94003; 94668; A9270-GY; A9537; J1100; J1170; J1200; J1644; J1885; J1940; J2250; J2270; J2405; J2543; J2704; J3010; J3430; J3475; J3490; P9016; P9017; P9035; P9040; P9045; Q9967

== ENCOUNTER 2017-08-31 03:44 | Observation (INO) | payer MEDICARE, MEDICAID ==
[2017-08-31] MEDS ORDERED: Morphine INJ* 10 MG/ML 1 ML CARPUJECT ONE (04:13)
[2017-08-31] MEDS ORDERED: Ondansetron INJ* 2 MG/ML VIAL ONE (04:14)
[2017-08-31] MEDS ORDERED: Morphine INJ* 4 MG/ML 1 ML CARPUJECT IV ONE (04:19)
[2017-08-31] MEDS ORDERED: Ondansetron INJ* 2 MG/ML VIAL IV ONE (04:19)
--- OUTSIDE RECORDS SUMMARY | 2017-08-31 04:22 | XMS REPORT ---
:1940 External Reference #:[id number] Author Organization [employer] Address [address] [address] Phone [phone] Care Team Providers Name Role Phone Michelle Barbour MD Primary Care Physician Unavailable Payers Type Date Identification Numbers Payment Provider Subscriber Medicare Primary Effective: Policy Number: Medicare Marie Calabrese 2007 [id number] Boy PayID: [id number] [address] [place] [address] [place] Policy Number: [id number] Medicaid Marie Brunson PayID: [id number] [address] [place] [address] Problems Date Description Provider Status Onset: 06/19/2013 Type 2 diabetes mellitus Michelle Barbour M.D. Active Onset: 06/19/2013 Vitamin B-complex deficiency Michelle Barbour M.D. Active Onset: 12/19/2013 Difficulty breathing Peter Medrano M.D. Active Onset: 12/19/2013 Electrocardiogram abnormal Peter Medrano M.D. Active Onset: 12/19/2013 Coronary arteriosclerosis Peter Medrano M.D. Active Onset: 05/22/2014 Cirrhosis - non-alcoholic Michelle Barbour M.D. Active Note: had autoiimune hepatitis idiopathic nl transaminases , nl INR Onset: 05/22/2014 Pancytopenia Michelle Barbour M.D. Active Onset: 05/22/2014 Cholelithiasis without obstruction Michelle Barbour M.D. Active Onset: 08/17/2014 Diverticular disease Michelle Barbour M.D. Active Note: mild Onset: 08/17/2014 Internal hemorrhoids without Michelle Barbour M.D. Active complication Onset: 08/17/2014 Diabetic peripheral neuropathy Michelle Barbour M.D. Active Onset: 06/19/2014 Adhesive capsulitis of shoulder Michelle Barbour M.D. Active Onset: 11/19/2014 Portal hypertensive gastropathy Michelle Barbour M.D. 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 Active Onset: 03/26/2015 Strain of musc/tend the rotator cuff of Wilfredo Kramer M.D. Active left shoulder, subs Onset: 07/11/2015 Osteoarthritis of multiple joints Michelle Barbour M.D. Active Onset: Irritable bowel syndrome Active Note: without diarrhea Onset: 03/30/2017 Cough Melissa Do MD Active Onset: 06/19/2013 Urethral stricture Michelle Barbour M.D. Inactive Inactive: 07/08/2016 Onset: 12/19/2013 Dyspnea Peter Medrano M.D. Resolved Resolved: 06/29/2014 Family History Date Family Member(s) Problem(s) Comments General Diabetes General Cancer Father legs paralyzed Mother TB Siblings 2 brothers 1 sister alive and well. sister is Social History Type Date Description Comments Marital Status 3 children, vegetarian Lives With Spouse Lives With Son Lives With Daughter in-law Occupation Retired Cigarette Use Never Smoked Cigarettes ETOH Use Denies alcohol use Smoking Patient has never smoked Recreational Drug Use Denies Drug Use Daily Caffeine Does Not Consume Caffeine Daily Caffeine Consumes on average 1 cup of 1/2 cup daily hot tea per day Exercise Type/Frequency Exercises sporadically Walking Allergies, Adverse Reactions, Alerts Date Description Reaction Status Severity Comments 12/06/2007 NKDA active Medications Medication Date Status Form Strength Qnty SIG Indications Ordering Provider Pantoprazole 08/18 Active Solution Rec 40mg 1 by mouth Michelle Sodium every day Ubaldo Barbour Prednisone 08/18 Active Tablets 5mg 10tab once a day Michelle /2017 s X 10 days Ubaldo Barbour Ferrous 07/15 Active Tablets 324(38Fe) 60tab take one Michelle Gluconate /2017 mg s tablet by Angle, mouth M.D. daily Prednisone 07/14 Active TBPK 5mg (21) 30uni take as R05 Melissa /2018 ts directed, Hi, 6 tabs MD day#1, 5 tabs day#2, 4 tabs day#3,3 tabs day#4,2 tabs day#5,1 tab daily for 10 days the 1 tab X 10 Benzonatate 04/21 Active Capsules 100mg 60cap 1-2 tab at s night as Angle needed for M.D. cough Spironolactone 04/20 Active Tablets 50mg 90tab 1 by mouth s every day Ubaldo Barbour Ipratropium 03/30 Active Solution 0.03% 30uni 1 spray Melissa Julian ts intranasal Hi, twice a MD day Furosemide 01/27 Active Tablets 20mg 90tab 1 by mouth s every day Angle, 5 days a M.D. week only Levemir 01/13 Active Solution 100Unit/M 45ml 20 units Michelle Flextouch Pen-Inject L in Am and Angle, 24units in M.D. PM Blood Pressure 12/04 Active Misc 1unit as needed Michelle Monitor s Angle Digital M.DMelita Shower Chair 11/20 Active 1unit as needed katia Barbour M.D. Lactulose 11/19 Active Solution 10GM/15ML 9000m 15 K74.69 Michelle /2017 l milliliter Barbour s twice a M.D. day to maintain 2 loose bowel movement Toilet Seat 11/19 Active Misc 1unit as needed Michelle Elevator s dx r53.1 ry Barbour74.69 M.DMelita Novolog Flexpen 11/19 Active Solution 100Unit/M 45ml use 12 Pen-Inject L units with Angle, meals M.D. except 14 units during night Do not use if blood sugar less than 90 Suplena 11/19 Active Liquid 90uni once a day R53.1 Michelle 1.8/Carbsteady allison Barbour M.D. BD Ultra Fine Active Misc 500un as Michelle its directed areli Barbour M.D. insulin 5 times per day Folic Acid Active Tablets 800mcg take one Unknown capsule/ta blet daily by mouth Multi For Her Active Tablets once a day Unknown Simethicone Active Suspension 40mg/0.6M as needed Unknown L Xifaxan Active Tablets 550mg 180ta 1 by mouth Michelle bs twice a Angle, day M.DMelita Milk Of Magnesia Active Suspension 400mg/5ML 30 milliliter s by mouth every day at bedtime as needed Acetaminophen Active Tablets 325mg 2 tablets Unknown by mouth every 6 hours as needed for pain/fever 4X Probiotic Active Tablets 1 tab Unknown daily Advair HFA Active Aerosol 230-21mcg 2 puff /Act twice a day Nadolol Active Tablets 40mg 90tab 1 by mouth Michelle s every day Ubaldo Barbour Pantoprazole 07/[address] 20mg 60tab once a day Michelle Kirit Gates M.D. 08/18 Doxycycline 05/06 Hx Capsules 100mg 60cap 1 cap by Z71.89 Danny Hyclate s mouth once D. - a day with Padmini, 07/05 food, 2 M.D. /2017 days before trip starts Prednisone 05/04 Hx TBPK 5mg (21) 30uni take as R05 Melissa Hi heredia, - 6 tabs MD 07/14 day#1, tabs day#2, 4 tabs day#3,3 tabs day#4,2 tabs day#5,1 tab daily for 10 days Benzonatate 04/20 Hx Capsules 150mg 90cap as needed s at night Angle, - for cough M.DMelita 04/21 Benzonatate 02/15 Hx Capsules 100mg 30cap 1 tab at Michelle /2017 s night as Angle, - needed for M.D. 04/20 cough Benzonatate 01/16 Hx Capsules 100mg 10cap not taking s Angle, - M.D. 01/27 Pantoprazole 12/[address] 40mg 90tab 1tabby Michelle s mouth Angle, - every day. M.D. 07/14 Azelastine HCL 04/03 Hx Solution 0.05% 12ml 1 gtt bid Michelle (Ophthalmic) as needed Angle, - for M.D. 11/19 allergies Doxycycline 04/02 Hx Tablets 100mg 65tab 1 tablet Michelle clate s daily X 8 Angle, - wks , M.D. 06/22 start days prior to travel Xifaxan 03/25 Hx Tablets 550mg 1 by mouth twice a - day 04/04 Centrum Silver 12/26 Hx Tablets Adult 50 OTC Michelle Adult 50+ /2015 Angle, - M.D. 11/19 Beano 07/11 Hx Tablets as needed for gas Angle, - M.D. 11/19 Probiotic 07/11 Hx Capsules 90cap 1 by mouth s bid OTC Angle, - M.D. 11/19 Nystatin 02/19 Hx Powder [id number] 120gm apply to t/GM affected Angle - areas M.D. 12/26 twice a day as needed for rash x 10 days Propranolol HCL 01/08 Hx Tablets 10mg 60tab 1 tab K76.6 Michelle /2015 s twice a Angle, - day M.D. 11/19 Doxycycline 10/[address] 100mg 62tab 1 tablet Michelle cl s once a day Angle, - start 2 M.D. 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 11/19 day with meals Xifaxan 09/22 Hx Tablets 550mg 1 tab bid 536.8 X 12 days - 11/13 Hydrocodone-Acet 09/06 Hx Tablets 5-325mg 90tab 1 by mouth Michelle aminophen /2014 s every 8 Angle, - hours as M.D. 11/19 needed for /2017 pain. Mometasone 08/17 Hx Cream 0.1% 1unit apply to 691.8 Michelle Furoate s affected Angle, - areas M.D. 09/27 twice a day 10 days only Xifaxan 08/17 Hx Tablets 550mg 28tab 1 tab bid 536.8 Michelle s Angle, - M.D. 09/27 Cyclobenzaprine 06/29 Hx Tablets 5mg 10tab take one 847.0 Michelle HCL s tablet by Angle, - mouth at M.D. 08/17 night /2014 BD U/F Short Pen 06/15 Hx 100un use as Michelle [id number] /2014 its directed Angle, - twice a M.D. /2016 Zostavax 01/05 Hx Solution Rec [id number]/ 1unit sc x1 V04.89 0.65ML s Angle, - M.D. 05/08 Voltaren 01/05 Hx Gel 1% 1box apply 715.96 daily as Angle, - needed on M.D. 11/19 the knee for pain Cyanocobalamin 08/10 Hx Solution 1000mcg/M 1unit 1 ml 266.2 L s intramuscu Angle, - lar q M.D. 11/192017 Lantus Solostar 08/10 Hx Solution 100Unit/M 15uni inject 30 Pen-Inject L ts units sq Angle, - in the M.D. 11/19 morning and 25units at night Ergocalciferol 07/14 Hx Capsules [id number] 8caps 1 tab by mouth Angle, - every week M.D. 11/10 Calcium OTC 07/14 Hx Tablets 1000mg 1 po qd Angle, - M.D. 11/19 Mometasone 06/09 Hx Cream 0.1% 1unit apply to Michelle s affected Angle, - areas bid M.D. 09/27 10 only Januvia 12/05 Hx Tablets 100mg 30tab 1 PO qd s Alexi Canchola, 06/09 M.D. Prevacid 12/[address] 30mg 30cap 1 PO qd s Alexi Canchola, 06/09 M.D. Lyrica 12/05 Hx Capsules 50mg 14cap 1 PO qhs s Alexi Canchola, 12/08 M.D. Fosamax 12/05 Hx Tablets 70mg 4tabs One Tablet Weekly Alexi Canchola, 07/11 M.D. Calcium/Vitamin 12/05 Hx Tablets 600mg 100ta bid bs Alexi Canchola, 07/11 M.D. Tylenol 8 Hour 12/05 Hx Tablets ER 650mg prn Alexi Canchola, 06/09 M.D. Nystatin 12/05 Hx Cream [id number] 60G Topically t/GM bid prn Alexi Canchola, 06/09 M.D. Ultra Thin 12/05 Hx Misc Thin 28G use as dir Libanparvez Anaya Alexi Canchola, 12/06.D. Zoloft 12/05 Hx Tablets 50mg 60tab 1 PO bid s Alexi Canchola, 06/09 M.D. Aspirin 12/05 Hx Tablets 81mg 1 PO qd Alexi Canchola, 01/08 M.D. Onetouch Lancets 12/05 Hx Misc as directed Alexi Canchola, 12/06.D Onetouch Test 12/05 Hx Strips as Liban Strips directed Alexi Canchola, 12/06 M.D. Alcohol Prep 12/05 Hx Pads as Liban directed Alexi Canchola, 12/06 M.D. Darvocet-N 100 12/05 Hx Tablets 100 90tab 1 PO qid s prn Alexi Canchola, 06/09 M.D. Premarin 12/05 Hx Cream 45.2g 2 Gram pv m 2 X Week F. - enriquen Jesika, 06/09 M.D. Disp 3 Tubes Patanol 12/05 Hx Solution 0.1% 5unit 1 drop s both eyes Barbour, - every day M.D. 04/03 as needed /2015 allergies Metformin HCL 12/05 Hx Tablets 1000mg 180ta 1 by mouth bs twice a Barbour, - day M.D. 11/19 Atenolol 11/18 Hx Tablets 25mg 90tab 1 by mouth Qutaybeh s every day S. - Maghaydah 01/08 , M.D. /2014 Hydrocodone/Acet Hx Tablets 5-325mg 90tab 1 by mouth Michelle aminophen s every 8 Barbour, - hours as M.D. 09/06 needed pain Ventolin HFA Hx Aerosol 108(90Bas 1unit 2 puffs by Vignesh / e) s mouth Becki, LABOR SERVICE REPRESENTATIVE - mcg/Act every 6 11/19 hours needed Ferrous Fumarate Hx Tablets 325(106Fe 30tab 1 po qd Unknown /0000 ) mg s - 06/09 Lantus Hx Solution 100Unit/M 6Vial (Please Michelle / L s give Barbour, - patient M.D. 08/10 the solostar pens)35 units in Am and 25 unit in PM [place] For Hx Unknown Solostar /0000 - 06/09 Hydrocortisone Hx Suppository 25mg 10uni use as Unknown Acetate 0000 ts directed - 11/[address] 81mg 90tab po qd Unknown /0000 s - 11/10 Prandin Hx Tablets 1mg 60tab 1 po tid Michelle s with meals Barbour, - M.D. 06/[address] 40mg 60cap take 1 Michelle /0000 s capsule by Angle, - mouth M.D. 11/19 Ondansetron Hx Tablets 4mg Dissolve 1 Unknown /0000 Dispers Tablet On - Tongue 11/19 Every Hours as Needed For Pain Oxycodone-Acetam Hx Tablets 5-325mg Unknown inophen /0000 - 03/11 Metronidazole Hx Tablets 250mg tid Remberto, Kirit Madden MD 03/31 Neurontin Hx Capsules 100mg 120ca 1 by mouth Michelle /0000 ps twice a Angle, - day M.D. 11/19 Actigall Hx Capsules 300mg one a day Unknown /0000 Dr. Sr - 11/19 4X Probiotic Hx Tablets Unknown /0000 - 11/19 Levemir Hx Solution 100Unit/M 20 units Unknown /0000 L once daily - 11/19 Humalog Kwikpen Hx Solution 100Unit/M 45ml 12 units, Michelle /0000 Pen-Inject L 3 times Angle, - daily with M.D. 11/19 meals not use if blood sugar is less than 90 Pantoprazole Hx Solution Rec 40mg 1 by mouth Unknown Sodium /0000 every day - 11/19 Furosemide Hx Tablets 40mg 90tab 1 by mouth Michelle /0000 s every Barbour, - other day M.D. 01/27 Spironolactone Hx Tablets 100mg 90tab 1 by mouth Michelle /0000 s every day Angle, - M.D. 04/20 Levemir Hx Solution 100Unit/M 30ml 15 units Michelle /0000 L in morning Angle, - and 24 M.D. 15 units at night Protonix Hx Packet 40mg 1 packet Michelle /0000 by mouth Angle, - every day. M.D. 12/01 Claritin Hx Capsules 10mg 1 tab Unknown /0000 daily as - needed 05/13 Medications Administered in Office Medication Date Status Form Strength Qnty SIG Indications Ordering Provider B-12 Injection Administered Injection Nurse Visit 017 C B-12 Injection Administered Injection Nurse Visit 017 C B-12 Injection Administered Injection Nurse Visit 016 C B-12 Injection Administered Injection Nurse Visit 016 C B-12 Injection Administered Injection Nurse Visit 016 C B-12 Injection Administered Injection Nurse Visit 016 C B-12 Injection Administered Injection Nurse Visit 016 C B-12 Injection Administered Injection Nurse Visit 016 C B-12 Injection Administered Injection Nurse Visit 016 C B-12 Injection Administered Injection Nurse Visit 016 C B-12 Injection Administered Injection Michelle 016 Ubaldo Barbour B-12 Injection Administered Injection Michelle 016 Ubaldo Barbour B-12 Injection Administered Injection Nurse Visit 016 A B-12 Injection Administered Injection Nurse Visit 015 A B-12 Injection Administered Injection Nurse Visit 015 A B-12 Injection Administered Injection Nurse Visit 015 A Depomedrol Administered Injection Wilfredo 80MG Jaymie Kramer M.D. B-12 Injection Administered Injection Nurse Visit 015 A B-12 Injection Administered Injection Nurse Visit 015 A B-12 Injection Administered Injection Nurse Visit 015 A B-12 Injection Administered Injection Nurse Visit 015 A Depomedrol Administered Injection Wilfredo 80MG Jaymie Kramer M.D. B-12 Injection Administered Injection Nurse Visit 015 C B-12 Injection Administered Injection Nurse Visit 015 A B-12 Injection Administered Injection Vignesh Becki, 015 LABOR SERVICE REPRESENTATIVE B-12 Injection Administered Injection Nurse Visit 015 C B-12 Injection Administered Injection Michelle 014 Ubaldo Barbour B-12 Injection Administered Injection Nurse Visit 014 C B-12 Injection Administered Injection Nurse Visit 014 C B-12 Injection 09/16/2 Administered Injection Nurse Visit 014 C B-12 Injection Administered Injection Nurse Visit 014 C B-12 Injection Administered Injection Michelle Sagrario Barbour M.D. B-12 Injection Administered Injection Michelle 014 Ubaldo Barbour B-12 Injection Administered Injection Nurse Visit 014 C B-12 Injection Administered Injection Nurse Visit 014 [place] B-12 Injection Administered Injection Nurse Visit 014 C Celestone 3 mg Administered Injection Radha and 3mg 013 Micheal larose M.D. Celestone 3 mg Administered Injection Radha and 3mg 013 Micheal larose M.D. Immunizations CPT Code Status Date Vaccine Lot # [id number] Given 04/20/2017 Influenza Virus Vaccine, Quadrivalent, Split, [id number] Preservative Free 98430 Given 04/09/2016 Hepatitis B Vaccine Adult Dosage [id number] 31779 Given 04/09/2016 Hepatitis A Vaccine Adult Dosage [id number] 05897 Given 03/31/2016 Tdap - Tetanus/Diptheria/Acellular Pertussis [id number] 15537 Given 02/22/2016 Influenza Virus Vaccine, Quadrivalent, Split, [id number] Preservative Free 88662 Given 05/17/2015 Hepatitis B Vaccine Adult Dosage [id number] 86573 Given 03/23/2015 Influenza Virus Vaccine, Quadrivalent, Split, [id number] Preservative Free 98491 Given 12/26/2014 Hepatitis B Vaccine Adult Dosage [id number] 09893 Given 11/13/2014 Hepatitis B Vaccine Adult Dosage [id number] 90928 Given 11/13/2014 Hepatitis A Vaccine Adult Dosage [id number] 91504 Given 08/17/2014 Pneumococcal Conjugate Vaccine 13 Valent For [id number] Intramuscular Use [id number] Given 02/14/2014 Fluvirin Im [id number] And Older 86762 Given 02/14/2014 Influenza Virus Vaccine, Quadrivalent, Split, [id number] Preservative Free 17769 Given 01/20/2014 Zoster (Zostavax) [id number] Given 06/12/2013 Pneumonia Vaccine Vital Signs Date Vital Result Comment 08/18/2017 Weight 131.00 lb Heart Rate 52 /min BP Systolic Sitting 104 mmHg BP Diastolic Sitting 57 mmHg O2 % BldC Oximetry 98 % 08/11/2017 Height 60 inches 5'0" Weight 125.00 lb Heart Rate 60 /min BP Systolic 118 mmHg BP Diastolic 84 mmHg Respiratory Rate 16 /min Body Temperature 95.9 F BMI (Body Mass Index) 24.4 kg/m2 08/03/2017 Height 60 inches 5'0" Weight 125.00 lb Heart Rate 52 /min BP Systolic Sitting 98 mmHg BP Diastolic Sitting 52 mmHg Respiratory Rate 16 /min O2 % BldC Oximetry 99 % BMI (Body Mass Index) 24.4 kg/m2 07/14/2017 Weight 132.38 lb Heart Rate 66 /min BP Systolic Sitting 100 mmHg BP Diastolic Sitting 56 mmHg O2 % BldC Oximetry 98 % 05/13/2017 Weight 132.00 lb Heart Rate 53 /min BP Systolic Sitting 120 mmHg BP Diastolic Sitting 68 mmHg Body Temperature 97.3 F O2 % BldC Oximetry 99 % 05/06/2017 Height 62 inches 5'2" Weight 130.50 lb Heart Rate 53 /min BP Systolic Sitting 94 mmHg BP Diastolic Sitting 56 mmHg Respiratory Rate 16 /min Body Temperature 96.4 F O2 % BldC Oximetry 99 % BMI (Body Mass Index) 23.9 kg/m2 05/04/2017 Height 62 inches 5'2" Weight 133.00 lb Heart Rate 64 /min BP Systolic Sitting 108 mmHg BP Diastolic Sitting 62 mmHg Respiratory Rate 14 /min O2 % BldC Oximetry 99 % BMI (Body Mass Index) 24.3 kg/m2 04/20/2017 Weight 130.25 lb with coat Heart Rate 62 /min BP Systolic Sitting 120 mmHg BP Diastolic Sitting 80 mmHg Body Temperature 97.6 F O2 % BldC Oximetry 99 % 03/30/2017 Height 62 inches 5'2" Weight 126.00 lb Heart Rate 50 /min BP Systolic Sitting 90 mmHg BP Diastolic Sitting 58 mmHg Respiratory Rate 14 /min O2 % BldC Oximetry 99 % BMI (Body Mass Index) 23.0 kg/m2 Neck Circumference in inches 12 03/27/2017 Weight 129.75 lb with shoes Heart Rate 66 /min BP Systolic Sitting 122 mmHg Ra reg cuff BP Diastolic Sitting 62 mmHg Ra reg cuff Ejection Fraction >65% echo 07/22/16 02/11/2017 Weight 131.38 lb Heart Rate 57 /min BP Systolic Sitting 100 mmHg BP Diastolic Sitting 60 mmHg Body Temperature 96.0 F Pain Level 4 can go to 8, abd pain O2 % BldC Oximetry 99 % 01/27/2017 Weight 134.00 lb Heart Rate 68 /min BP Systolic Sitting 102 mmHg BP Diastolic Sitting 60 mmHg Body Temperature 97.1 F O2 % BldC Oximetry 99 % 01/05/2017 Weight 133.00 lb Heart Rate 58 /min BP Systolic Sitting 130 mmHg BP Diastolic Sitting 72 mmHg Body Temperature 98.0 F O2 % BldC Oximetry 98 % 12/17/2016 Weight 132.38 lb Heart Rate 75 /min BP Systolic 112 mmHg BP Diastolic 64 mmHg Body Temperature 98.1 F O2 % BldC Oximetry 98 % 11/26/2016 Weight 134.00 lb Heart Rate 60 /min BP Systolic 110 mmHg BP Diastolic 60 mmHg Body Temperature 97.0 F O2 % BldC Oximetry 98 % 11/19/2016 Weight 137.25 lb Heart Rate 81 /min BP Systolic 96 mmHg BP Diastolic 58 mmHg Body Temperature 97.1 F Pain Level 99 06/23/2016 Height 61 inches 5'1" Weight 159.00 lb Heart Rate 70 /min BP Systolic 110 mmHg BP Diastolic 60 mmHg Body Temperature 96.8 F O2 % BldC Oximetry 97 % BMI (Body Mass Index) 30.0 kg/m2 03/31/2016 Height 61 inches 5'1" Weight 161.00 lb w/shoes Heart Rate 86 /min BP Systolic Sitting 136 mmHg LA lg cuff BP Diastolic Sitting 62 mmHg LA lg cuff BMI (Body Mass Index) 30.4 kg/m2 Ejection Fraction 60-65% Echo 04/20/15 03/31/2016 Weight 161.00 lb Heart Rate 68 /min BP Systolic Sitting 132 mmHg BP Diastolic Sitting 76 mmHg Body Temperature 97.5 F O2 % BldC Oximetry 98 % 03/11/2016 Weight 161.00 lb Heart Rate 74 /min BP Systolic Sitting 118 mmHg BP Diastolic Sitting 58 mmHg Body Temperature 98.2 F O2 % BldC Oximetry 97 % 12/27/2015 Weight 158.00 lb Heart Rate 74 /min BP Systolic Sitting 132 mmHg BP Diastolic Sitting 64 mmHg O2 % BldC Oximetry 97 % 10/09/2015 Weight 157.00 lb Heart Rate 92 /min BP Systolic Sitting 127 mmHg BP Diastolic Sitting 58 mmHg Body Temperature 96.9 F 08/09/2015 Height 61 inches 5'1" Weight 162.75 lb Heart Rate 71 /min BP Systolic Sitting 122 mmHg BP Diastolic Sitting 80 mmHg Body Temperature 97.0 F O2 % BldC Oximetry 98 % BMI (Body Mass Index) 30.7 kg/m2 07/17/2015 Height 61 inches 5'1" Weight 165.00 lb Heart Rate 82 /min BP Systolic Sitting 128 mmHg BP Diastolic Sitting 59 mmHg Body Temperature 96.7 F Pain Level 3 O2 % BldC Oximetry 98 % BMI (Body Mass Index) 31.2 kg/m2 07/11/2015 Height 61 inches 5'1" Weight 165.00 lb Heart Rate 85 /min BP Systolic Sitting 120 mmHg BP Diastolic Sitting 72 mmHg Body Temperature 97.4 F O2 % BldC Oximetry 97 % BMI (Body Mass Index) 31.2 kg/m2 05/07/2015 Height 61 inches 5'1" Weight 161.00 lb Pain Level 6 BMI (Body Mass Index) 30.4 kg/m2 04/03/2015 Height 61 inches 5'1" Weight 161.00 lb w/shoes Heart Rate 82 /min BP Systolic Sitting 136 mmHg LA reg cuff BP Diastolic Sitting 78 mmHg LA reg cuff BMI (Body Mass Index) 30.4 kg/m2 Ejection Fraction 55-60 echo 01/13/14 03/26/2015 Height 61 inches 5'1" Weight 156.00 lb Pain Level 6 BMI (Body Mass Index) 29.5 kg/m2 02/12/2015 Height 61 inches 5'1" Weight 156.00 lb Pain Level 7 BMI (Body Mass Index) 29.5 kg/m2 01/08/2015 Height 61 inches 5'1" Weight 156.00 lb Heart Rate 74 /min BP Systolic Sitting 124 mmHg BP Diastolic Sitting 70 mmHg Body Temperature 98.4 F O2 % BldC Oximetry 97 % BMI (Body Mass Index) 29.5 kg/m2 01/02/2015 Height 61 inches 5'1" Weight 160.00 lb Pain Level 7 BMI (Body Mass Index) 30.2 kg/m2 10/17/2014 Height 61 inches 5'1" Weight 160.00 lb Heart Rate 70 /min BP Systolic 130 mmHg BP Diastolic 70 mmHg Pain Level 7 BMI (Body Mass Index) 30.2 kg/m2 09/27/2014 Height 61 inches 5'1" Weight 160.00 lb Heart Rate 76 /min BP Systolic Sitting 122 mmHg BP Diastolic Sitting 64 mmHg Pain Level 6 shoulder BMI (Body Mass Index) 30.2 kg/m2 08/17/2014 Weight 158.00 lb Heart Rate 70 /min BP Systolic Sitting 136 mmHg BP Diastolic Sitting 62 mmHg Body Temperature 96.5 F 08/03/2014 Height 61 inches 5'1" Weight 158.00 lb Heart Rate 62 /min BP Systolic 116 mmHg LA reg BP Diastolic 70 mmHg LA reg BMI (Body Mass Index) 29.9 kg/m2 07/17/2014 Height 61 inches 5'1" Weight 160.00 lb Heart Rate 63 /min BP Systolic 114 mmHg BP Diastolic 64 mmHg Body Temperature 97.8 F O2 % BldC Oximetry 98 % BMI (Body Mass Index) 30.2 kg/m2 06/29/2014 Height 61 inches 5'1" Weight 162.00 lb Heart Rate 70 /min BP Systolic 114 mmHg BP Diastolic 66 mmHg Body Temperature 99.0 F BMI (Body Mass Index) 30.6 kg/m2 05/08/2014 Weight 160.00 lb Heart Rate 90 /min BP Systolic Sitting 128 mmHg BP Diastolic Sitting 80 mmHg 02/09/2014 Height 60 inches 5'0" Weight 161.50 lb w/shoes Heart Rate 64 /min BP Systolic Sitting 108 mmHg BP Diastolic Sitting 56 mmHg Respiratory Rate 14 /min BMI (Body Mass Index) 31.5 kg/m2 01/05/2014 Height 60 inches 5'0" Weight 159.00 lb Heart Rate 66 /min BP Systolic Sitting 106 mmHg BP Diastolic Sitting 60 mmHg BMI (Body Mass Index) 31.0 kg/m2 12/19/2013 Height 60 inches 5'0" Weight 160.00 lb Heart Rate 67 /min BP Systolic Sitting 124 mmHg ra 120/60 BP Diastolic Sitting 60 mmHg ra 120/60 BP Systolic Standing 110 mmHg BP Diastolic Standing 60 mmHg BMI (Body Mass Index) 31.2 kg/m2 12/14/2013 Height 60 inches 5'0" Weight 157.00 lb Heart Rate 80 /min BP Systolic Sitting 118 mmHg BP Diastolic Sitting 72 mmHg BMI (Body Mass Index) 30.7 kg/m2 11/10/2013 Weight 158.75 lb Heart Rate 68 /min BP Systolic Sitting 120 mmHg BP Diastolic Sitting 60 mmHg 08/10/2013 Height 61.5 inches 5'1.50" Weight 162.00 lb Heart Rate 71 /min BP Systolic Sitting 128 mmHg BP Diastolic Sitting 75 mmHg Body Temperature 97.1 F BMI (Body Mass Index) 30.1 kg/m2 07/11/2013 Weight 161.00 lb Heart Rate 59 /min BP Systolic Sitting 102 mmHg BP Diastolic Sitting 54 mmHg 06/09/2013 Height 60 inches 5'0" Weight 160.00 lb Heart Rate 79 /min BP Systolic Sitting 120 mmHg BP Diastolic Sitting 70 mmHg BMI (Body Mass Index) 31.2 kg/m2 12/20/2008 Height 63 inches 5'3" Weight 158.00 lb Heart Rate 64 /min BP Systolic Sitting 104 mmHg L BP Diastolic Sitting 70 mmHg L BMI (Body Mass Index) 28.0 kg/m2 12/20/2007 Height 63 inches 5'3" Heart Rate 60 /min BP Systolic Sitting 120 mmHg BP Diastolic Sitting 80 mmHg 12/09/2007 Height 63 inches 5'3" Weight 158.00 lb Heart Rate 69 /min BP Systolic Sitting 120 mmHg BP Diastolic Sitting 60 mmHg Respiratory Rate 16 /min BMI (Body Mass Index) 28.0 kg/m2 Results Test Date Test Result H/L Range Note Istat BUN/Crea/Egfr/V [facility] 08/13/2017 Poc Bun [facility] 23 mg/dL High 9-18 Poc Crea [facility] 1.1 mg/dL High 0.6-0.9 GFR Non- Ect 48.6 >60 GFR [facility] 62.4 >60 1 Xray 08/11/2017 CT Abd/Pel W 15 Basic Metabolic Panel 07/15/2017 Sodium 135 mmol/L 133-145 Potassium 3.9 mmol/L 3.5-5.0 Chloride 105 mmol/L 101-111 Co2 Carbon Dioxide 23 mmol/L 22-32 Anion Gap 7 mmol/L 2-11 Glucose 287 mg/dL High 70-100 Blood Urea Nitrogen 22 mg/dL 6-24 Creatinine 1.17 mg/dL High 0.51-0.95 BUN/Creatinine Ratio 18.8 8-20 Calcium 9.2 mg/dL 8.6-10.3 Egfr Non- 45.2 >60 Egfr 58.2 >60 2 Lipid Profile (Trig/Chol/HDL) 07/15/2017 Triglycerides 64 mg/dL 3 Cholesterol 122 mg/dL 4 HDL Cholesterol 38.3 mg/dL 5 LDL Cholesterol 71 mg/dL 6 CBC Auto Diff 07/15/2017 White Blood Count 4.7 10^3/uL 3.5-10.8 Red Blood Count 3.46 10^6/uL Low 4.0-5.4 Hemoglobin 10.3 g/dL Low 12.0-16.0 Hematocrit 31 % Low 35-47 Mean Corpuscular Volume 90 fL 80-97 Mean Corpuscular Hemoglobin 30 pg 27-31 Mean Corpuscular HGB Conc 33 g/dL 31-36 Red Cell Distribution Width 18 % High 10.5-15 Platelet Count 93 10^3/uL Low 150-450 7 Mean Platelet Volume 10 um3 7.4-10.4 Abs Neutrophils 4.0 10^3/uL 1.5-7.7 Abs Lymphocytes 0.5 10^3/uL Low 1.0-4.8 Abs Monocytes 0.3 10^3/uL 0-0.8 Abs Eosinophils 0 10^3/uL 0-0.6 Abs Basophils 0 10^3/uL 0-0.2 Abs Nucleated RBC 0 10^3/uL Granulocyte % 84.1 % High 38-83 Lymphocyte % 9.7 % Low 25-47 Monocyte % 5.5 % 1-9 Eosinophil % 0.5 % 0-6 Basophil % 0.2 % 0-2 Nucleated Red Blood Cells % 0 Basic Metabolic Panel 05/20/2017 Sodium 135 mmol/L 133-145 Potassium 4.6 mmol/L 3.5-5.0 Chloride 107 mmol/L 101-111 Co2 Carbon Dioxide 22 mmol/L 22-32 Anion Gap 6 mmol/L 2-11 Glucose 217 mg/dL High 70-100 Blood Urea Nitrogen 26 mg/dL High 6-24 Creatinine 1.27 mg/dL High 0.51-0.95 BUN/Creatinine Ratio 20.5 High 8-20 Calcium 8.7 mg/dL 8.6-10.3 Egfr Non- 41.1 >60 Egfr 52.9 >60 8 Basic Metabolic Panel 05/06/2017 Sodium 135 mmol/L 133-145 Potassium 4.9 mmol/L 3.5-5.0 Chloride 104 mmol/L 101-111 Co2 Carbon Dioxide 24 mmol/L 22-32 Anion Gap 7 mmol/L 2-11 Glucose 264 mg/dL High 70-100 Blood Urea Nitrogen 29 mg/dL High 6-24 Creatinine 1.40 mg/dL High 0.51-0.95 BUN/Creatinine Ratio 20.7 High 8-20 Calcium 9.0 mg/dL 8.6-10.3 Egfr Non- 36.8 >60 Egfr 47.3 >60 9 Acid Fast Culture 04/29/2017 Acid Fast Culture SEE RESULT BELOW 10 & Smear Smear Laboratory test 04/29/2017 Mycobacterial Culture See Comment 11 finding Laboratory test 04/26/2017 Mycobacterial Culture SEE COMMENTS 12 finding Laboratory test 04/26/2017 Mycobacterial Culture See Comment 13 finding Acid Fast Culture 04/26/2017 Acid Fast Culture SEE RESULT BELOW 14 & Smear Smear CBC Auto Diff 04/20/2017 White Blood Count 4.7 10^3/uL 3.5-10.8 Red Blood Count 3.82 10^6/uL Low 4.0-5.4 Hemoglobin 11.2 g/dL Low 12.0-16.0 Hematocrit 34 % Low 35-47 Mean Corpuscular Volume 89 fL 80-97 Mean Corpuscular Hemoglobin 29 pg 27-31 Mean Corpuscular HGB Conc 33 g/dL 31-36 Red Cell Distribution Width 18 % High 10.5-15 Platelet Count 90 10^3/uL Low 150-450 Mean Platelet Volume 10 um3 7.4-10.4 Abs Neutrophils 3.5 10^3/uL 1.5-7.7 Abs Lymphocytes 0.7 10^3/uL Low 1.0-4.8 Abs Monocytes 0.4 10^3/uL 0-0.8 Abs Eosinophils 0.1 10^3/uL 0-0.6 Abs Basophils 0 10^3/uL 0-0.2 Abs Nucleated RBC 0 10^3/uL Granulocyte % 74.4 % 38-83 Lymphocyte % 14.5 % Low 25-47 Monocyte % 8.5 % 1-9 Eosinophil % 2.4 % 0-6 Basophil % 0.2 % 0-2 Nucleated Red Blood Cells % 0 Urine Microalbumin Random 04/20/2017 Ur Microalbumin (mg/L) 17.1 mg/L Urine Creatinine 102.80 mg/dL Urine Microalbumin/Creatinine 16.6 ug/mg <31 Laboratory test finding 04/20/2017 Hemoglobin A1c (Glyco HGB) 5.2 % 4.0- 5.6 15 Comp Metabolic Panel 04/20/2017 Sodium 134 mmol/L 133-145 Potassium 4.5 mmol/L 3.5-5.0 Chloride 106 mmol/L 101-111 Co2 Carbon Dioxide 23 mmol/L 22-32 Anion Gap 5 mmol/L 2-11 Glucose 175 mg/dL High 70-100 Blood Urea Nitrogen 34 mg/dL High 6-24 Creatinine 1.58 mg/dL High 0.51-0.95 BUN/Creatinine Ratio 21.5 High 8-20 Calcium 9.1 mg/dL 8.6-10.3 Total Protein 7.1 g/dL 6.4-8.9 Albumin 3.6 g/dL 3.2-5.2 Globulin 3.5 g/dL 2-4 Albumin/Globulin Ratio 1.0 1-3 Total Bilirubin 1.10 mg/dL High 0.2-1.0 Alkaline Phosphatase 72 U/L 34-104 Alt 14 U/L 7-52 Ast 26 U/L 13-39 Egfr Non- 32.0 >60 Egfr 41.1 >60 16 Laboratory test 04/02/2017 Mycobacterial Culture See Comment 17 finding Sputum Culture & 04/02/2017 Sputum Culture Gram SEE RESULT BELOW 18 Sensitiv Stain Acid Fast Culture 04/02/2017 Acid Fast Culture SEE RESULT BELOW 19 & Smear Smear Laboratory test 04/02/2017 Sputum Smear SEE RESULT BELOW 20 finding Basic Metabolic Panel 04/02/2017 Sodium 134 mmol/L 133-145 Potassium 4.2 mmol/L 3.5-5.0 Chloride 104 mmol/L 101-111 Co2 Carbon Dioxide 24 mmol/L 22-32 Anion Gap 6 mmol/L 2-11 Glucose 131 mg/dL High 70-100 Blood Urea Nitrogen 46 mg/dL High 6-24 Creatinine 1.63 mg/dL High 0.51-0.95 BUN/Creatinine Ratio 28.2 High 8-20 Calcium 9.7 mg/dL 8.6-10.3 Egfr Non- 30.8 >60 Egfr 39.7 >60 21 Laboratory test finding 04/01/2017 Sputum Smear SEE RESULT BELOW 22 Mycobacterial Culture See Comment 23 Sputum Culture & 04/01/2017 Sputum Culture Gram SEE RESULT BELOW 24 Sensitiv Stain Acid Fast Culture & 04/01/2017 Acid Fast Culture Smear SEE RESULT BELOW 25 Smear Laboratory test finding 03/31/2017 Mycobacterial Culture See Comment 26 Acid Fast Culture & 03/31/2017 Acid Fast Culture Smear SEE RESULT BELOW 27 Smear Laboratory test finding 03/31/2017 Sputum Smear SEE RESULT BELOW 28 Sputum Culture & 03/31/2017 Sputum Culture Gram SEE RESULT BELOW 29 Sensitiv Stain Laboratory test finding 03/30/2017 Sputum Smear SEE RESULT BELOW 30 Mycobacterial Culture See Comment 31 Sputum Culture & 03/30/2017 Sputum Culture SEE RESULT BELOW 32 Sensitiv Gram Stain Acid Fast Culture & 03/30/2017 Acid Fast Culture SEE RESULT BELOW 33 Smear Smear Comp Metabolic Panel 02/11/2017 Sodium 137 mmol/L 133-145 Potassium 5.0 mmol/L 3.5-5.0 Chloride 107 mmol/L 101-111 Co2 Carbon Dioxide 24 mmol/L 22-32 Anion Gap 6 mmol/L 2-11 Glucose 206 mg/dL High 70-100 Blood Urea Nitrogen 30 mg/dL High 6-24 Creatinine 1.47 mg/dL High 0.51-0.95 BUN/Creatinine Ratio 20.4 High 8-20 Calcium 9.4 mg/dL 8.6-10.3 Total Protein 7.3 g/dL 6.4-8.9 Albumin 3.6 g/dL 3.2-5.2 Globulin 3.7 g/dL 2-4 Albumin/Globulin Ratio 1.0 1-3 Total Bilirubin 1.00 mg/dL 0.2-1.0 Alkaline Phosphatase 72 U/L 34-104 Alt 14 U/L 7-52 Ast 29 U/L 13-39 Egfr Non- 34.7 >60 Egfr 44.7 >60 34 Basic Metabolic Panel 01/27/2017 Sodium 140 mmol/L 133-145 Potassium 4.4 mmol/L 3.5-5.0 Chloride 112 mmol/L High 101-111 Co2 Carbon Dioxide 22 mmol/L 22-32 Anion Gap 6 mmol/L 2-11 Glucose 105 mg/dL High 70-100 Blood Urea Nitrogen 32 mg/dL High 6-24 Creatinine 1.36 mg/dL High 0.51-0.95 BUN/Creatinine Ratio 23.5 High 8-20 Calcium 9.4 mg/dL 8.6-10.3 Egfr Non- 38.0 >60 Egfr 48.9 >60 35 Basic Metabolic Panel 01/20/2017 Sodium 134 mmol/L 133-145 Potassium 4.3 mmol/L 3.5-5.0 Chloride 101 mmol/L 101-111 Co2 Carbon Dioxide 23 mmol/L 22-32 Anion Gap 10 mmol/L 2-11 Glucose 189 mg/dL High 70-100 Blood Urea Nitrogen 53 mg/dL High 6-24 Creatinine 2.11 mg/dL High 0.51-0.95 BUN/Creatinine Ratio 25.1 High 8-20 Calcium 10.0 mg/dL 8.6-10.3 Egfr Non- 22.9 >60 Egfr 29.4 >60 36 Comp Metabolic Panel 01/05/2017 Sodium 138 mmol/L 133-145 Potassium 4.6 mmol/L 3.5-5.0 Chloride 106 mmol/L 101-111 Co2 Carbon Dioxide 24 mmol/L 22-32 Anion Gap 8 mmol/L 2-11 Glucose 79 mg/dL 70-100 Blood Urea Nitrogen 38 mg/dL High 6-24 Creatinine 1.45 mg/dL High 0.51-0.95 BUN/Creatinine Ratio 26.2 High 8-20 Calcium 9.8 mg/dL 8.6-10.3 Total Protein 8.0 g/dL 6.4-8.9 Albumin 4.3 g/dL 3.2-5.2 Globulin 3.7 g/dL 2-4 Albumin/Globulin Ratio 1.2 1-3 Total Bilirubin 1.10 mg/dL High 0.2-1.0 Alkaline Phosphatase 70 U/L 34-104 Alt 11 U/L 7-52 Ast 28 U/L 13-39 Egfr Non- 35.3 >60 Egfr 45.4 >60 37 Laboratory test 11/19/2016 Hemoglobin A1c 6.5 % High Less than 6.0 38 finding (Glyco HGB) Comp Metabolic Panel 11/19/2016 Sodium 137 mmol/L 133-145 Potassium 4.2 mmol/L 3.5-5.0 Chloride 105 mmol/L 101-111 Co2 Carbon Dioxide 25 mmol/L 22-32 Anion Gap 7 mmol/L 2-11 Glucose 99 mg/dL 70-100 Blood Urea Nitrogen 22 mg/dL 6-24 Creatinine 1.22 mg/dL High 0.51-0.95 BUN/Creatinine Ratio 18.0 8-20 Calcium 9.1 mg/dL 8.6-10.3 Total Protein 7.0 g/dL 6.4-8.9 Albumin 3.1 g/dL Low 3.2-5.2 Globulin 3.9 g/dL 2-4 Albumin/Globulin Ratio 0.8 Low 1-3 Total Bilirubin 1.00 mg/dL 0.2-1.0 Alkaline Phosphatase 72 U/L 34-104 Alt 12 U/L 7-52 Ast 26 U/L 13-39 Egfr Non- 43.1 >60 Egfr 55.4 >60 39 CBC Auto Diff 11/19/2016 White Blood Count 4.1 10^3/uL 3.5-10.8 Red Blood Count 3.72 10^6/uL Low 4.0-5.4 Hemoglobin 11.1 g/dL Low 12.0-16.0 Hematocrit 37 % 35-47 Mean Corpuscular Volume 99 fL High 80-97 Mean Corpuscular Hemoglobin 30 pg 27-31 Mean Corpuscular HGB Conc 30 g/dL Low 31-36 Red Cell Distribution Width 18 % High 10.5-15 Platelet Count 113 10^3/uL Low 150-450 Mean Platelet Volume 10 um3 7.4-10.4 Abs Neutrophils 2.8 10^3/uL 1.5-7.7 Abs Lymphocytes 0.8 10^3/uL Low 1.0-4.8 Abs Monocytes 0.5 10^3/uL 0-0.8 Abs Eosinophils 0.1 10^3/uL 0-0.6 Abs Basophils 0 10^3/uL 0-0.2 Abs Nucleated RBC 0.01 10^3/uL Granulocyte % 67.1 % 38-83 Lymphocyte % 18.3 % Low 25-47 Monocyte % 11.4 % High 1-9 Eosinophil % 2.8 % 0-6 Basophil % 0.4 % 0-2 Nucleated Red Blood Cells % 0.3 Laboratory test finding 11/19/2016 Vitamin B12 1245 pg/mL High 180-914 40 Ua Routine 06/23/2016 Ua Specific [place] 1.000 Ua PH 6 Ua Color yellow Ua Appera clear Ua WBC neg Ua Protein neg Ua Glucose norm Ua Ketones neg Ua Bilirubin neg Ua Urobilinogen norm Ua Nitrite neg Ua Occult Blood neg CBC Auto Diff 06/23/2016 White Blood Count 2.8 10^3/uL Low 3.5-10.8 Red Blood Count 3.66 10^6/uL Low 4.0-5.4 Hemoglobin 9.7 g/dL Low 12.0-16.0 Hematocrit 30 % Low 35-47 Mean Corpuscular Volume 83 fL 80-97 Mean Corpuscular Hemoglobin 27 pg 27-31 Mean Corpuscular HGB Conc 32 g/dL 31-36 Red Cell Distribution Width 18 % High 10.5-15 Platelet Count 69 10^3/uL Low 150-450 Mean Platelet Volume 10 um3 7.4-10.4 Abs Neutrophils 1.8 10^3/uL 1.5-7.7 Abs Lymphocytes 0.6 10^3/uL Low 1.0-4.8 Abs Monocytes 0.2 10^3/uL 0-0.8 Abs Eosinophils 0.2 10^3/uL 0-0.6 Abs Basophils 0 10^3/uL 0-0.2 Abs Nucleated RBC 0 10^3/uL Granulocyte % 64.3 % 38-83 Lymphocyte % 20.7 % Low 25-47 Monocyte % 8.6 % 1-9 Eosinophil % 5.8 % 0-6 Basophil % 0.6 % 0-2 Nucleated Red Blood Cells % 0.1 Comp Metabolic Panel 06/23/2016 Sodium 138 mmol/L 133-145 Potassium 4.5 mmol/L 3.5-5.0 Chloride 108 mmol/L 101-111 Co2 Carbon Dioxide 24 mmol/L 22-32 Anion Gap 6 mmol/L 2-11 Glucose 90 mg/dL 70-100 Blood Urea Nitrogen 15 mg/dL 6-24 Creatinine 1.03 mg/dL High 0.51-0.95 BUN/Creatinine Ratio 14.6 8-20 Calcium 9.4 mg/dL 8.6-10.3 Total Protein 7.4 g/dL 6.4-8.9 Albumin 3.7 g/dL 3.2-5.2 Globulin 3.7 g/dL 2-4 Albumin/Globulin Ratio 1.0 1-3 Total Bilirubin 0.80 mg/dL 0.2-1.0 Alkaline Phosphatase 71 U/L 34-104 Alt 27 U/L 7-52 Ast 36 U/L 13-39 Egfr Non- 52.5 >60 Egfr 67.6 >60 41 Laboratory test 06/23/2016 Hemoglobin A1c 6.0 5-7 finding Laboratory test 04/01/2016 Hemoglobin A1c 6.4 % High Less than 6.0 42 finding (Glyco HGB) Urine Microalbumin 04/01/2016 Urine Creatinine 46.86 mg/dL Random Ur Microalbumin (mg/L) < 15.0 mg/L Urine Microalbumin/Creatinine TNP ug/mg <31 43 Basic Metabolic Panel 04/01/2016 Sodium 139 mmol/L 133-145 Potassium 4.2 mmol/L 3.5-5.0 Chloride 108 mmol/L 101-111 Co2 Carbon Dioxide 23 mmol/L 22-32 Anion Gap 8 mmol/L 2-11 Glucose 78 mg/dL 70-100 Blood Urea Nitrogen 15 mg/dL 6-24 Creatinine 1.06 mg/dL High 0.51-0.95 BUN/Creatinine Ratio 14.2 8-20 Calcium 9.3 mg/dL 8.6-10.3 Egfr Non- 50.8 >60 Egfr 65.4 >60 44 Lipid Profile (Trig/Chol/HDL) 04/01/2016 Triglycerides 107 mg/dL 45 Cholesterol 144 mg/dL 46 HDL Cholesterol 47.5 mg/dL 47 LDL Cholesterol 75 mg/dL 48 Laboratory test finding 12/31/2015 Packed Cells SEE RESULTS BELO 49, 50 <SEE NOTE> Type & Screen 12/31/2015 Patient Blood Type B Positive 49 Antibody Screen NEGATIVE 49 Laboratory test finding 12/27/2015 Hemoglobin A1c 5.9 5-7 Cell Morphology 12/27/2015 Microcytosis 2+ Hypochromasia 2+ Elliptocyte 1+ CBC Auto Diff 12/27/2015 White Blood Count 3.0 10^3/uL Low 3.5-10.8 Red Blood Count 3.47 10^6/uL Low 4.0-5.4 Hemoglobin 7.2 g/dL Low 12.0-16.0 Hematocrit 24 % Low 35-47 Mean Corpuscular Volume 70 fL Low 80-97 Mean Corpuscular Hemoglobin 21 pg Low 27-31 Mean Corpuscular HGB Conc 30 g/dL Low 31-36 Red Cell Distribution Width 20 % High 10.5-15 Platelet Count 81 10^3/uL Low 150-450 Mean Platelet Volume 9 um3 7.4-10.4 Abs Neutrophils 2.0 10^3/uL 1.5-7.7 Abs Lymphocytes 0.6 10^3/uL Low 1.0-4.8 Abs Monocytes 0.2 10^3/uL 0-0.8 Abs Eosinophils 0.1 10^3/uL 0-0.6 Abs Basophils 0 10^3/uL 0-0.2 Abs Nucleated RBC 0.01 10^3/uL Granulocyte % 67.2 % 38-83 Lymphocyte % 19.4 % Low 25-47 Monocyte % 7.8 % 1-9 Eosinophil % 4.6 % 0-6 Basophil % 1.0 % 0-2 Nucleated Red Blood Cells % 0.4 Laboratory test finding 12/24/2015 Point of Care Glucose 91 mg/dL 74-106 51 Cell Morphology 10/10/2015 Microcytosis 2+ Hypochromasia 2+ Laboratory test finding 10/10/2015 Vitamin B12 678 pg/mL 180-914 52 CBC Auto Diff 10/10/2015 White Blood Count 2.5 10^3/uL Low 3.5-10.8 Red Blood Count 3.44 10^6/uL Low 4.0-5.4 Hemoglobin 7.5 g/dL Low 12.0-16.0 Hematocrit 25 % Low 35-47 Mean Corpuscular Volume 72 fL Low 80-97 53 Mean Corpuscular Hemoglobin 22 pg Low 27-31 Mean Corpuscular HGB Conc 30 g/dL Low 31-36 Red Cell Distribution Width 20 % High 10.5-15 Platelet Count 64 10^3/uL Low 150-450 54 Mean Platelet Volume 9 um3 7.4-10.4 Abs Neutrophils 1.7 10^3/uL 1.5-7.7 Abs Lymphocytes 0.5 10^3/uL Low 1.0-4.8 Abs Monocytes 0.2 10^3/uL 0-0.8 Abs Eosinophils 0.1 10^3/uL 0-0.6 Abs Basophils 0 10^3/uL 0-0.2 Abs Nucleated RBC 0 10^3/uL Granulocyte % 68.0 % 38-83 Lymphocyte % 19.8 % Low 25-47 Monocyte % 8.2 % 1-9 Eosinophil % 3.7 % 0-6 Basophil % 0.3 % 0-2 Nucleated Red Blood Cells % 0.2 Cell Morphology 07/16/2015 Macrocytosis 1+ Microcytosis 1+ Hypochromasia 2+ Laboratory test finding 07/16/2015 Lipase 61 U/L 11.0-82.0 C Reactive Protein 8.73 mg/L High < 5.00 55 Lactic Acid 2.0 mmol/L 0.5-2.0 56 Comp Metabolic Panel 07/16/2015 Sodium 132 mmol/L Low 133-145 Potassium 4.3 mmol/L 3.5-5.0 Chloride 103 mmol/L 101-111 Co2 Carbon Dioxide 21 mmol/L Low 22-32 Anion Gap 8 mmol/L 2-11 Glucose 238 mg/dL High 70-100 Blood Urea Nitrogen 17 mg/dL 6-24 Creatinine 1.10 mg/dL High 0.51-0.95 BUN/Creatinine Ratio 15.5 8-20 Calcium 9.1 mg/dL 8.6-10.3 Total Protein 7.3 g/dL 6.4-8.9 Albumin 3.5 g/dL 3.2-5.2 Globulin 3.8 g/dL 2-4 Albumin/Globulin Ratio 0.9 Low 1-3 Total Bilirubin 0.70 mg/dL 0.2-1.0 Alkaline Phosphatase 58 U/L 34-104 Alt 18 U/L 7-52 Ast 30 U/L 13-39 Egfr Non- 48.8 >60 Egfr 62.8 >60 57 Urinalysis Profile 07/16/2015 Urine Color Yellow Urine Appearance Cloudy Urine Specific [place] 1.012 1.010-1.030 Urine pH 5.0 5-9 Urine Urobilinogen Negative Negative Urine Ketones Negative Negative Urine Protein Negative Negative Urine Leukocytes Negative Negative Urine Blood Negative Negative Urine Nitrite Negative Negative Urine Bilirubin Negative Negative Urine Glucose Negative Negative CBC Auto Diff 07/16/2015 White Blood Count 2.5 10^3/uL Low 3.5-10.8 Red Blood Count 3.45 10^6/uL Low 4.0-5.4 Hemoglobin 7.5 g/dL Low 12.0-16.0 Hematocrit 26 % Low 35-47 Mean Corpuscular Volume 74 fL Low 80-97 Mean Corpuscular Hemoglobin 22 pg Low 27-31 Mean Corpuscular HGB Conc 30 g/dL Low 31-36 Red Cell Distribution Width 19 % High 10.5-15 Platelet Count 72 10^3/uL Low 150-450 Mean Platelet Volume 9 um3 7.4-10.4 Abs Neutrophils 1.8 10^3/uL 1.5-7.7 Abs Lymphocytes 0.4 10^3/uL Low 1.0-4.8 Abs Monocytes 0.2 10^3/uL 0-0.8 Abs Eosinophils 0.1 10^3/uL 0-0.6 Abs Basophils 0 10^3/uL 0-0.2 Abs Nucleated RBC 0 10^3/uL Granulocyte % 73.5 % 38-83 Lymphocyte % 15.4 % Low 25-47 Monocyte % 7.2 % 1-9 Eosinophil % 3.4 % 0-6 Basophil % 0.5 % 0-2 Nucleated Red Blood Cells % 0 Laboratory test 07/11/2015 Hemoglobin A1c 6.2 5-7 finding Laboratory test 07/11/2015 Vitamin D Total 25(Oh) <pending> finding CBC Auto Diff 01/09/2015 White Blood Count 3.5 10^3/uL Low 4.8-10.8 Red Blood Count 3.74 10^6/uL Low 4.0-5.4 Hemoglobin 9.1 g/dL Low 12.0-16.0 Hematocrit 29 % Low 35-47 Mean Corpuscular Volume 78 fL Low 80-97 Mean Corpuscular Hemoglobin 25 pg Low 27-31 Mean Corpuscular HGB Conc 31 g/dL 31-36 Red Cell Distribution Width 19 % High 10.5-15 Abs Neutrophils 2.5 10^3/uL 1.5-7.7 Abs Lymphocytes 0.6 10^3/uL Low 1.0-4.8 Abs Monocytes 0.3 10^3/uL 0-0.8 Abs Eosinophils 0.1 10^3/uL 0-0.6 Abs Basophils 0 10^3/uL 0-0.2 Abs Nucleated RBC 0 10^3/uL Granulocyte % 69.8 % 38-83 Lymphocyte % 17.7 % Low 25-47 Monocyte % 8.6 % 1-9 Eosinophil % 3.5 % 0-6 Basophil % 0.4 % 0-2 Nucleated Red Blood Cells % 0.1 Platelet Count 78 10^3/uL Low 150-450 Mean Platelet Volume 9 um3 7.4-10.4 Laboratory test finding 01/08/2015 Hemoglobin A1c 6.0 5-7 CBC Auto Diff 09/28/2014 White Blood Count 3.4 10^3/uL Low 4.8-10.8 58 Red Blood Count 4.08 10^6/uL 4.0-5.4 58 Hemoglobin 9.8 g/dL Low 12.0-16.0 58 Hematocrit 31 % Low 35-47 58 Mean Corpuscular Volume 76 fL Low 80-97 58 Mean Corpuscular Hemoglobin 24 pg Low 27-31 58 Mean Corpuscular HGB Conc 32 g/dL 31-36 58 Red Cell Distribution Width 22 % High 10.5-15 58 Platelet Count 92 10^3/uL Low 150-450 58 Mean Platelet Volume 9 um3 7.4-10.4 58 Abs Neutrophils 2.2 10^3/uL 1.5-7.7 58 Abs Lymphocytes 0.7 10^3/uL Low 1.0-4.8 58 Abs Monocytes 0.3 10^3/uL 0-0.8 58 Abs Eosinophils 0.1 10^3/uL 0-0.6 58 Abs Basophils 0 10^3/uL 0-0.2 58 Abs Nucleated RBC 0 10^3/uL 58 Granulocyte % 66.1 % 38-83 58 Lymphocyte % 21.9 % Low 25-47 58 Monocyte % 8.2 % 1-9 58 Eosinophil % 3.5 % 0-6 58 Basophil % 0.3 % 0-2 58 Nucleated Red Blood Cells % 0.1 58 Laboratory test 09/28/2014 Hemoglobin A1c 6.0 % Less than 58, 59 finding 6.0 Urine Microalbumin 09/28/2014 Ur Microalbumin < 5.0 58 Random (mg/L) mg/L Urine Creatinine 59.77 mg/dL 58 Urine Microalbumin/Creatinine TNP mg/g Less Than 31 58, 60 Lipid Profile (Trig/Chol/HDL) 09/28/2014 Triglycerides 116 mg/dL 58, 61 Cholesterol 134 mg/dL 58, 62 HDL Cholesterol 41.5 mg/dL 58, 63 LDL Cholesterol 69 mg/dL 58, 64 Cell Morphology 09/28/2014 Microcytosis 2+ 58 Hypochromasia 1+ 58 Elliptocyte 1+ 58 Type & Screen 09/06/2014 Patient Blood Type B Positive 65 Antibody Screen NEGATIVE 65 Laboratory test 09/06/2014 Packed Cell - RBC [id number] B 65, 66 finding Leukoreduced <SEE NOTE> CBC Auto Diff 05/09/2014 White Blood Count 2.7 10^3/uL Low 4.8-10. 8 Red Blood Count 3.53 10^6/uL Low 4.0-5.4 Hemoglobin 8.1 g/dL Low 12.0-16.0 Hematocrit 26 % Low 35-47 Mean Corpuscular Volume 74 fL Low 80-97 Mean Corpuscular Hemoglobin 23 pg Low 27-31 Mean Corpuscular HGB Conc 31 g/dL 31-36 Red Cell Distribution Width 19 % High 10.5-15 Platelet Count 80 10^3/uL Low 150-450 Mean Platelet Volume 9 um3 7.4-10.4 Abs Neutrophils 1.7 10^3/uL 1.5-7.7 Abs Lymphocytes 0.6 10^3/uL Low 1.0-4.8 Abs Monocytes 0.3 10^3/uL 0-0.8 Abs Eosinophils 0.1 10^3/uL 0-0.6 Abs Basophils 0 10^3/uL 0-0.2 Abs Nucleated RBC 0 10^3/uL Granulocyte % 63.3 % 38-83 Lymphocyte % 23.1 % Low 25-47 Monocyte % 9.5 % High 1-9 Eosinophil % 3.7 % 0-6 Basophil % 0.4 % 0-2 Nucleated Red Blood Cells % 0 Laboratory test finding 05/09/2014 Pathologist Review (SEE NOTE) 67 Laboratory test finding 05/08/2014 Hemoglobin A1c 6.0 5-7 Laboratory test finding 11/10/2013 Hemoglobin A1c 5.3 5-7 Vitamin D, 25 Hydroxy 11/10/2013 25-Hydroxy Vitamin D2 22 ng/mL 25-Hydroxy Vitamin D3 26 ng/mL 25-Hydroxy Vitamin D Total 48 ng/mL 68 Vitamin D, 25 Hydroxy 07/11/2013 25-Hydroxy Vitamin D2 <4.0 ng/mL 25-Hydroxy Vitamin D3 16 ng/mL 25-Hydroxy Vitamin D Total 16 ng/mL 69 Cell Morphology 06/13/2013 Microcytosis 1+ CBC Auto Diff 06/13/2013 White Blood Count 3.1 10^3/uL Low 4.8-10.8 Red Blood Count 3.84 10^6/uL Low 4.0-5.4 Hemoglobin 9.2 g/dL Low 12.0-16.0 Hematocrit 30 % Low 35-47 Mean Corpuscular Volume 78 fL Low 80-97 Mean Corpuscular Hemoglobin 24 pg Low 27-31 Mean Corpuscular HGB Conc 31 g/dL 31-36 Red Cell Distribution Width 18 % High 10.5-15 Platelet Count 120 10^3/uL Low 150-450 Mean Platelet Volume 10 um3 7.4-10.4 Abs Neutrophils 2.1 10^3/uL 1.5-7.7 Abs Lymphocytes 0.6 10^3/uL Low 1.0-4.8 Abs Monocytes 0.2 10^3/uL 0-0.8 Abs Eosinophils 0.1 10^3/uL 0-0.6 Abs Basophils 0 10^3/uL 0-0.2 Abs Nucleated RBC 0 10^3/uL Granulocyte % 67.1 % 38-83 Lymphocyte % 21.1 % Low 25-47 Monocyte % 8.1 % 1-9 Eosinophil % 3.5 % 0-6 Basophil % 0.2 % 0-2 Nucleated Red Blood Cells % 0 Laboratory test finding 06/13/2013 TSH (Thyroid Stimulating 2.40 miu/mL 0.34-5.60 Horm) Laboratory test finding 06/13/2013 Vitamin B12 519 pg/mL 180-914 Comp Metabolic Panel 06/13/2013 Sodium 137 mmol/L 133-145 Potassium 4.3 mmol/L 3.5-5.0 Chloride 106 mmol/L 101-111 Co2 Carbon Dioxide 24.0 mmol/L 22-32 Anion Gap 7.0 mmol/L 2-11 Glucose 75 mg/dL 70-100 Blood Urea Nitrogen 12 mg/dL 6-24 Creatinine 1.00 mg/dL 0.50-1.40 BUN/Creatinine Ratio 12.0 8-20 Calcium 9.0 mg/dL 8.1-9.9 Total Protein 6.7 g/dL 6.2-8.1 Albumin 3.7 g/dL 3.2-5.2 Globulin 3.0 g/dL 2-4 Albumin/Globulin Ratio 1.2 1-3 Total Bilirubin 0.8 mg/dL 0.4-1.5 Alkaline Phosphatase 88 U/L 30-110 Alt 19 U/L 14-54 Ast 34 U/L 12-42 Egfr Non- 54.8 >60 Egfr 70.5 >60 70 Lipid Profile (Trig/Chol/HDL) 06/13/2013 Triglycerides 143 mg/dL 40-200 Cholesterol 155 mg/dL Less than 200 HDL Cholesterol 44 mg/dL 40-60 71 Cholesterol/HDL Ratio 3.5 Average 1-4.44 LDL Cholesterol 82.4 Less Than 100 72 Ua Routine 06/09/2013 Ua Specific [place] 1.005 Ua PH 5.0 Ua Color yellow Ua Appera clear Ua WBC neg Ua Protein neg Ua Glucose neg Ua Ketones neg Ua Bilirubin small Ua Urobilinogen neg Ua Nitrite neg Ua Occult Blood neg Urine Microalbumin Random 06/09/2013 Ur Microalbumin (mg/L) 2.0 mg/L 73 Urine Creatinine 51.0 mg/dL Urine Microalbumin/Creatinine 3.9 Less Than 31 Laboratory test 06/09/2013 Hemoglobin A1c 6.3 5-7 finding C. Difficile Toxin 10/30/2009 C. Difficile TEST LIMITATIONS 74 Toxin A B <SEE NOTE> Cath Panel 12/14/2007 PTT (Aptt) 24.5 20.1-28.2 75, 76 CBC With Manual 12/14/2007 White Blood Count 3.6 CUMM Low 4.8-10.8 75 Diff Red Cell Count 4.20 CUMM 4.2-5.4 75 Hemoglobin 12.7 g/dL 12.0-16.0 75 Hematocrit 38 % 35-47 75 Mean Corpuscular Volume 89 um3 79-97 75 Mean Corpuscular Hemoglob 30 pg 27-31 75 Mean Corpuscular HGB Cone 34 g/dL 32-36 75 Redcell Distribution WDTH 14 % 10.5-15 75 Platelet Count 122 CUMM Low 150-450 75 Mean Platelet Volume 10.8 um3 High 7.4-10.4 75 Polysegmented Neutrophil 63 % 38-83 75 Lymphocyte 29 % 5-47 75 Monocyte 6 % 0-13 75 Eosenophil 2 % 0-6 75 Absolute Neutrophil Count 2.2 75 Anisocytosis SLIGHT 75 Basic Metabolic Panel 12/14/2007 Sodium 139 mmol/L 135-145 75 Potassium 4.2 mmol/L 3.5-5.0 75 Chloride 105 mmol/L 101-111 75 Co2 (Carbon Dioxide) 28.0 mmol/L 22-32 75 Anion Gap 6.0 mmol/L 2-11 75, 77 Glucose 171 mg/dL High 70-105 75 BUN 10 mg/dL 6-24 75 Creatinine 0.9 mg/dL 0.5-1.4 75 One Over Creatinine 1.11 75 BUN/Creatinine Ratio 11.1 8-20 75 Calcium 9.1 mg/dL 8.1-9.9 75, 78 Protime 12/14/2007 Protime 12.1 10.9-13.3 75 Inr 1.00 75, 79 Laboratory test finding 12/14/2007 Alkaline Phosphatase 95 U/L 30-110 75 Phosphorus 2.1 mg/dL Low 2.4-4.7 75 Bilirubin Total 0.4 mg/dL 0.4-1.5 75 Lipid Profile (Trig/Chol/HDL) 12/14/2007 Triglyceride 306 mg/dL High 40- 200 75 Cholesterol 175 mg/dL Less Than 200 75, 80 High Density Lipoprotein 42 mg/dL 40-60 75, 81 Cholesterol/HDL Ratio 4.17 AVERAGE 1-4.44 75 Low Density Lipoprotein 72 mg/dL Less Than 100 75, 82 1 Because ethnic data is not always readily available, this report includes an eGFR for both -Americans and non- Americans. The National Kidney Disease Education Program (NKDEP) does not endorse the use of the MDRD equation for patients that are not between the ages of 18 and 70, are , have extremes of body size, muscle mass, or nutritional status, or are non- or non-. According to the [employer], irrespective of diagnosis, the stage of the disease is based on the level of kidney function: Stage Description GFR(mL/min/1.73 m(2)) 1 Kidney damage with normal or decreased GFR 90 2 Kidney damage with mild decrease in GFR 60-89 3 Moderate decrease in GFR 30-59 4 Severe decrease in GFR 15-29 5 Kidney failure <15 (or dialysis) 2 Because ethnic data is not always readily available, this report includes an eGFR for both -Americans and non- Americans. The National Kidney Disease Education Program (NKDEP) does not endorse the use of the MDRD equation for patients that are not between the ages of 18 and 70, are , have extremes of body size, muscle mass, or nutritional status, or are non- or non-. According to the National Kidney Foundation, irrespective of diagnosis, the stage of the disease is based on the level of kidney function: Stage Description GFR(mL/min/1.73 m(2)) 1 Kidney damage with normal or decreased GFR 90 2 Kidney damage with mild decrease in GFR 60-89 3 Moderate decrease in GFR 30-59 4 Severe decrease in GFR 15-29 5 Kidney failure <15 (or dialysis) 3 Desirable: <150 Borderline High: 150-199 High: 200-499 Very High: >500 4 Desirable: <200 Borderline High: 200-239 High: >239 5 Low: <40 Desirable: 40-60 High: >60 6 Desirable: <100 Near Optimal: 100-129 Borderline High: 130-159 High: 160-189 Very High: >189 7 Consistent with Previous Results Reported on 04/20/17 8 Because ethnic data is not always readily available, this report includes an eGFR for both -Americans and non- Americans. The National Kidney Disease Education Program (NKDEP) does not endorse the use of the MDRD equation for patients that are not between the ages of 18 and 70, are , have extremes of body size, muscle mass, or nutritional status, or are non- or non-. According to the National Kidney Foundation, irrespective of diagnosis, the stage of the disease is based on the level of kidney function: Stage Description GFR(mL/min/1.73 m(2)) 1 Kidney damage with normal or decreased GFR 90 2 Kidney damage with mild decrease in GFR 60-89 3 Moderate decrease in GFR 30-59 4 Severe decrease in GFR 15-29 5 Kidney failure <15 (or dialysis) 9 Because ethnic data is not always readily available, this report includes an eGFR for both -Americans and non- Americans. The National Kidney Disease Education Program (NKDEP) does not endorse the use of the MDRD equation for patients that are not between the ages of 18 and 70, are , have extremes of body size, muscle mass, or nutritional status, or are non- or non-. According to the National Kidney Foundation, irrespective of diagnosis, the stage of the disease is based on the level of kidney function: Stage Description GFR(mL/min/1.73 m(2)) 1 Kidney damage with normal or decreased GFR 90 2 Kidney damage with mild decrease in GFR 60-89 3 Moderate decrease in GFR 30-59 4 Severe decrease in GFR 15-29 5 Kidney failure <15 (or dialysis) 10 SEE RESULT BELOW Name: MARIE BRUNSON : [address]: Melissa Do MD Acct: [id number] Unit: [id number] AGE: 76 Location: [facility] Re04/29/17 SEX: F Status: REG REF SPEC: [id number] ZAHEER: 04/29/[address] [facility] [address]: Melissa Do MD REQ: [id number] RECD: 04/30/17 STATUS: COMP _ SOURCE: BODY FLUID SPDESC:SPUTUM ORDERED: AFB Cult Smear Procedure Result Reported Site Acid Fast Stain - Direct Final 05/01/17- 1752 ML AFB Smear Result No Acid Fast Bacillus Present (Negative) Preparation By Direct Smear Due to limited sensitivity of the smear, results should be used as an adjunct in evaluating the patient's status. This specimen has been sent to referral laboratory for mycobacterial culture. * ML - [facility] ([facility]) . END OF REPORT * ML=Testing performed at Main Lab DEPARTMENT OF PATHOLOGY, [address] [place] [address] Devyn Boston M.D. Director [facility] # [id number] 11 SOURCE: SPUTUM MYCOBACTERIAL CULTURE FINAL MYCOBACTERIUM CHELONAE - Previous comment was modified at 13:14 on 05/28/2017: Negative by probe, to date, for Mycobacterium tuberculosis complex and Mycobacterium avium complex. GORDONIA SPUTI [place] Test Performed by: [place] [address] 12 SOURCE: SPUTUM MYCOBACTERIAL CULTURE FINAL TSUKAMURELLA TYROSINOSOLVENS Few Test Performed by: [place] [address] 13 SOURCE: SPUTUM MYCOBACTERIAL CULTURE FINAL No growth after 60 days of incubation. Test Performed by: [place] [address] 14 SEE RESULT BELOW Name: MARIE BRUNSON : [address]: Melissa Do MD Acct: [id number] Unit: [id number] AGE: 76 Location: [facility] Re04/28/17 SEX: F Status: REG REF SPEC: [id number] ZAHEER: 04/28/[address]: Melissa Do MD REQ: [id number] RECD: 04/28/17 STATUS: COMP _ SOURCE: RESP SPDESC:SPUTUM ORDERED: AFB Cult Smear Procedure Result Reported Site Acid Fast Stain - Direct Final 04/29/17- 0955 ML AFB Smear Result No Acid Fast Bacillus Present (Negative) Preparation By Direct Smear Due to limited sensitivity of the smear, results should be used as an adjunct in evaluating the patient's status. This specimen has been sent to referral laboratory for mycobacterial culture. * ML - MAIN LAB ([facility]) . END OF REPORT * ML=Testing performed at Main Lab DEPARTMENT OF PATHOLOGY, [address] [place] [address] Devyn Boston M.D. Director [facility] # [id number] 15 Therapeutic target for the treatment of diabetes mellitus patients is <7% HBA1C, and in selective patients <6.0%. Please refer to [place] [employer] diabetic care guidelines for further information. 16 Because ethnic data is not always readily available, this report includes an eGFR for both -Americans and non- Americans. The National Kidney Disease Education Program (NKDEP) does not endorse the use of the MDRD equation for patients that are not between the ages of 18 and 70, are , have extremes of body size, muscle mass, or nutritional status, or are non- or non-. According to the National Kidney Foundation, irrespective of diagnosis, the stage of the disease is based on the level of kidney function: Stage Description GFR(mL/min/1.73 m(2)) 1 Kidney damage with normal or decreased GFR 90 2 Kidney damage with mild decrease in GFR 60-89 3 Moderate decrease in GFR 30-59 4 Severe decrease in GFR 15-29 5 Kidney failure <15 (or dialysis) 17 SOURCE: SPUTUM MYCOBACTERIAL CULTURE FINAL TSUKAMURELLA TYROSINOSOLVENS [place] GORDONIA SPUTI [employer] [place] Test Performed by: [facility] - [address] [address] 18 SEE RESULT BELOW Name: MARIE BRUNSON : [address]: Melissa Do MD Acct: [id number] Unit: [id number] AGE: 76 Location: [facility] Re04/02/17 SEX: F Status: REG REF SPEC: [id number] ZAHEER: 04/02/[address] [facility] [address]: Melissa Do MD REQ: [id number] RECD: 04/02/17 STATUS: CAN _ SOURCE: SPUTUM,EXP SPDESC: ORDERED: Sputum Cult/GS Procedure Result Reported Site CANCELLED REWJECT >10 EPIS END OF REPORT * ML=Testing performed at Main Lab DEPARTMENT OF PATHOLOGY, [address] [place] [address] Devyn Boston M.D. Director [facility] # [id number] 19 SEE RESULT BELOW Name: MARIE BRUNSON : [address]: Melissa Do MD Acct: [id number] Unit: [id number] AGE: 76 Location: [facility] Re04/02/17 SEX: F Status: REG REF SPEC: [id number] ZAHEER: 04/02/[address] [facility] [address]: Melissa Do MD REQ: [id number] RECD: 04/02/17 STATUS: COMP _ SOURCE: RESP SPDESC:EXPEC SPUT ORDERED: AFB Cult Smear Procedure Result Reported Site Acid Fast Stain - Direct Final 04/02/17- 1237 ML AFB Smear Result No Acid Fast Bacillus Present (Negative) Preparation By Direct Smear Due to limited sensitivity of the smear, results should be used as an adjunct in evaluating the patient's status. This specimen has been sent to referral laboratory for mycobacterial culture. * ML - MAIN LAB ([facility]) . END OF REPORT * ML=Testing performed at Main Lab DEPARTMENT OF PATHOLOGY, [address] [place] [address] Devyn Boston M.D. Director [facility] # [id number] 20 SEE RESULT BELOW Name: MARIE BRUNSON : [address]: Melissa Do MD Acct: [id number] Unit: [id number] AGE: 76 Location: [facility] Re04/02/17 SEX: F Status: REG REF SPEC: [id number] ZAHEER: 04/02/17-[address] [facility] [address]: Melissa Do MD REQ: [id number] RECD: 04/02/17 STATUS: COMP _ SOURCE: SPUTUM,EXP SPDESC: ORDERED: Sputum Smear COMMENTS: REJECT SPT CULTURE - >10 EPI/LPF Procedure Result Reported Site Sputum Smear Final 04/02/17- 1245 ML 4+ Epithelial Cells No Neutrophils Observed Mixed Morphotypes, resembling Normal Marie * ML - MAIN LAB ([facility]) . END OF REPORT * ML=Testing performed at Main Lab DEPARTMENT OF PATHOLOGY, [address] [address] Devyn Boston M.D. Director [facility] # [id number] 21 Because ethnic data is not always readily available, this report includes an eGFR for both -Americans and non- Americans. The National Kidney Disease Education Program (NKDEP) does not endorse the use of the MDRD equation for patients that are not between the ages of 18 and 70, are , have extremes of body size, muscle mass, or nutritional status, or are non- or non-. According to the National Kidney Foundation, irrespective of diagnosis, the stage of the disease is based on the level of kidney function: Stage Description GFR(mL/min/1.73 m(2)) 1 Kidney damage with normal or decreased GFR 90 2 Kidney damage with mild decrease in GFR 60-89 3 Moderate decrease in GFR 30-59 4 Severe decrease in GFR 15-29 5 Kidney failure <15 (or dialysis) 22 SEE RESULT BELOW Name: MARIE BRUNSON : [address]: Melissa Do MD Acct: [id number] Unit: [id number] AGE: 76 Location: [facility] Re04/01/17 SEX: F Status: REG REF SPEC: [id number] ZAHEER: 04/01/[address] [facility] [address]: Melissa Do MD REQ: [id number] RECD: 04/01/17 STATUS: COMP _ SOURCE: SPUTUM,EXP SPDESC: ORDERED: Sputum Smear Procedure Result Reported Site Sputum Smear Final 04/01/17- 1509 ML No Neutrophils Observed 2+ Epithelial Cells Mixed Morphotypes, resembling Normal Marie Reject >10 Epi/LPF suggestive of Oral Contamination * ML - MAIN LAB ([facility]) . END OF REPORT * ML=Testing performed at Main Lab DEPARTMENT OF PATHOLOGY, [address] [place] [address] Devyn Boston M.D. Director [facility] # [id number] 23 SOURCE: SPUTUM MYCOBACTERIAL CULTURE FINAL TSUKAMURELLA PULMONIS [place] GORDONIA SPUTI [place] TSUKAMURELLA TYROSINOSOLVENS Test Performed by: [address] [address] 24 SEE RESULT BELOW Name: MARIE BRUNSON : [address]: Melissa Do MD Acct: [id number] Unit: [id number] AGE: 76 Location: [facility] Re04/01/17 SEX: F Status: REG REF SPEC: [id number] ZAHEER: 04/01/[address]: Melissa Do MD REQ: [id number] RECD: 04/01/17 STATUS: RES _ SOURCE: SPUTUM,EXP SPDESC: ORDERED: Sputum Cult/GS Procedure Result Reported Site Sputum Smear Final 04/01/17- 1509 ML No Neutrophils Observed 2+ Epithelial Cells Mixed Morphotypes, resembling Normal Marie Reject >10 Epi/LPF suggestive of Oral Contamination Sputum Culture PENDING * ML - MAIN LAB ([facility]) . END OF REPORT * ML=Testing performed at Main Lab DEPARTMENT OF PATHOLOGY, [address] [place] [address] Devyn Boston M.D. Director [facility] # [id number] 25 SEE RESULT BELOW Name: MARIE BRUNSON : [address]: Melissa Do MD Acct: [id number] Unit: [id number] AGE: 76 Location: [facility] Re04/01/17 SEX: F Status: REG REF SPEC: [id number] ZAHEER: 04/01/[address] [facility] [address]: Melissa Do MD REQ: [id number] RECD: 04/01/1756 STATUS: COMP _ SOURCE: RESP SPDESC:SPUTUM ORDERED: AFB Cult Smear Procedure Result Reported Site Acid Fast Stain - Direct Final 04/01/17- 1415 ML AFB Smear Result No Acid Fast Bacillus Present (Negative) Preparation By Direct Smear Due to limited sensitivity of the smear, results should be used as an adjunct in evaluating the patient's status. This specimen has been sent to referral laboratory for mycobacterial culture. * ML - MAIN LAB ([facility]) . END OF REPORT * ML=Testing performed at Main Lab DEPARTMENT OF PATHOLOGY, [address] [place] [address] Devyn Boston M.D. Director [facility] # [id number] 26 SOURCE: SPUTUM MYCOBACTERIAL CULTURE FINAL ALLISONUKAJERSON PULMONIS Few - Previous comment was modified at 15:36 on 04/10/2017: Negative by probe, to date, for Mycobacterium tuberculosis complex and Mycobacterium avium complex. NIKHIL [place] Test Performed by: [facility] - [address] [address] 27 SEE RESULT BELOW Name: MARIE BRUNSON : [address]: Melissa Do MD Acct: [id number] Unit: [id number] AGE: 76 Location: [facility] Re03/31/17 SEX: F Status: REG REF SPEC: [id number] ZAHEER: 03/31/[address]: Melissa Do MD REQ: [id number] RECD: 03/31/17 STATUS: COMP _ SOURCE: RESP SPDESC: ORDERED: AFB Cult Smear Procedure Result Reported Site Acid Fast Stain - Direct Final 04/01/17- 0833 ML AFB Smear Result No Acid Fast Bacillus Present (Negative) Preparation By Direct Smear Due to limited sensitivity of the smear, results should be used as an adjunct in evaluating the patient's status. This specimen has been sent to referral laboratory for mycobacterial culture. * ML - MAIN LAB ([facility]) . END OF REPORT * ML=Testing performed at Main Lab DEPARTMENT OF PATHOLOGY, [address] [place] [address] Devyn Boston M.D. Director [facility] # [id number] 28 SEE RESULT BELOW Name: MARIE BRUNSON Ry : [address]: Melissa Do MD Acct: [id number] Unit: [id number] AGE: 76 Location: [facility] Re03/31/17 SEX: F Status: REG REF SPEC: [id number] ZAHEER: 03/31/[address] [facility] [address]: Melissa Do MD REQ: [id number] RECD: 03/31/17 STATUS: COMP _ SOURCE: SPUTUM,EXP SPDESC: ORDERED: Sputum Smear Procedure Result Reported Site Sputum Smear Final 03/31/17- 1515 ML 4+ Epithelial Cells 1+ Neutrophils 2+ Nucleated Cells Mixed Morphotypes, resembling Normal Marie Reject >10 Epi/LPF suggestive of Oral Contamination * ML - MAIN LAB ([facility]) . END OF REPORT * ML=Testing performed at Main Lab DEPARTMENT OF PATHOLOGY, [address] [place] [address] Devyn Boston M.D. Director [facility] # [id number] 29 SEE RESULT BELOW Name: MARIE BRUNSON : [address]: Melissa Do MD Acct: [id number] Unit: [id number] AGE: 76 Location: [facility] Re03/31/17 SEX: F Status: REG REF SPEC: [id number] ZAHEER: 03/31/[address] [facility] [address]: Melissa Do MD REQ: [id number] RECD: 03/31/17 STATUS: RES _ SOURCE: SPUTUM,EXP SPDESC: ORDERED: Sputum Cult/GS Procedure Result Reported Site Sputum Smear Final 03/31/17- 1515 ML 4+ Epithelial Cells 1+ Neutrophils 2+ Nucleated Cells Mixed Morphotypes, resembling Normal Marie Reject >10 Epi/LPF suggestive of Oral Contamination Sputum Culture PENDING * ML - MAIN LAB ([facility]) . END OF REPORT * ML=Testing performed at Main Lab DEPARTMENT OF PATHOLOGY, [address] [place] [address] Devyn Boston M.D. Director [facility] # [id number] 30 SEE RESULT BELOW Name: MARIE BRUNSON : [address]: Melissa Do MD Acct: [id number] Unit: [id number] AGE: 76 Location: [facility] Re03/30/17 SEX: F Status: REG REF SPEC: [id number] ZAHEER: 03/30/[address] [facility] [address]: Melissa Do MD REQ: [id number] RECD: 03/30/17 STATUS: COMP _ SOURCE: SPUTUM,EXP SPDESC: ORDERED: Sputum Smear Procedure Result Reported Site Sputum Smear Final 03/31/17800 ML 4+ Epithelial Cells 1+ Neutrophils Mixed Morphotypes, resembling Normal Marie Reject >10 Epi/LPF suggestive of Oral Contamination * ML - MAIN LAB ([facility]) . END OF REPORT * ML=Testing performed at Main Lab DEPARTMENT OF PATHOLOGY, [address] [place] [address] Devyn Boston M.D. Director [facility] # [id number] 31 SOURCE: SPUTUM MYCOBACTERIAL CULTURE FINAL No growth after 60 days of incubation. Test Performed by: [address] [address] 32 SEE RESULT BELOW Name: MARIE BRUNSON : [address]: Melissa Do MD Acct: [id number] Unit: [id number] AGE: 76 Location: [facility] Re03/30/17 SEX: F Status: REG REF SPEC: [id number] ZAHEER: 03/30/[address]: Melissa Do MD REQ: [id number] RECD: 03/30/17 STATUS: RES _ SOURCE: SPUTUM,EXP SPDESC: ORDERED: Sputum Cult/GS Procedure Result Reported Site Sputum Smear Final 10800 ML 4+ Epithelial Cells 1+ Neutrophils Mixed Morphotypes, resembling Normal Marie Reject >10 Epi/LPF suggestive of Oral Contamination Sputum Culture PENDING * ML - MAIN LAB ([facility]) . END OF REPORT * ML=Testing performed at Main Lab DEPARTMENT OF PATHOLOGY, [address] [place] [address] Devyn Boston M.D. Director [facility] # [id number] 33 SEE RESULT BELOW Name: MARIE BRUNSON : [address]: Melissa Do MD Acct: [id number] Unit: [id number] AGE: 76 Location: [facility] Re03/30/17 SEX: F Status: REG REF SPEC: [id number] ZAHEER: 03/30/17-[address]: Melissa Do MD REQ: [id number] RECD: 03/30/17 STATUS: COMP _ SOURCE: RESP SPDESC:SPUTUM EXP ORDERED: AFB Cult Smear Procedure Result Reported Site Acid Fast Stain - Direct Final 03/31/17818 ML AFB Smear Result No Acid Fast Bacillus Present (Negative) Preparation By Direct Smear Due to limited sensitivity of the smear, results should be used as an adjunct in evaluating the patient's status. This specimen has been sent to referral laboratory for mycobacterial culture. * ML - MAIN LAB ([facility]) . END OF REPORT * ML=Testing performed at Main Lab DEPARTMENT OF PATHOLOGY, [address] [place] [address] Devyn Boston M.D. Director [facility] # [id number] 34 Because ethnic data is not always readily available, this report includes an eGFR for both -Americans and non- Americans. The National Kidney Disease Education Program (NKDEP) does not endorse the use of the MDRD equation for patients that are not between the ages of 18 and 70, are , have extremes of body size, muscle mass, or nutritional status, or are non- or non-. According to the National Kidney Foundation, irrespective of diagnosis, the stage of the disease is based on the level of kidney function: Stage Description GFR(mL/min/1.73 m(2)) 1 Kidney damage with normal or decreased GFR 90 2 Kidney damage with mild decrease in GFR 60-89 3 Moderate decrease in GFR 30-59 4 Severe decrease in GFR 15-29 5 Kidney failure <15 (or dialysis) 35 Because ethnic data is not always readily available, this report includes an eGFR for both -Americans and non- Americans. The National Kidney Disease Education Program (NKDEP) does not endorse the use of the MDRD equation for patients that are not between the ages of 18 and 70, are , have extremes of body size, muscle mass, or nutritional status, or are non- or non-. According to the National Kidney Foundation, irrespective of diagnosis, the stage of the disease is based on the level of kidney function: Stage Description GFR(mL/min/1.73 m(2)) 1 Kidney damage with normal or decreased GFR 90 2 Kidney damage with mild decrease in GFR 60-89 3 Moderate decrease in GFR 30-59 4 Severe decrease in GFR 15-29 5 Kidney failure <15 (or dialysis) 36 Because ethnic data is not always readily available, this report includes an eGFR for both -Americans and non- Americans. The National Kidney Disease Education Program (NKDEP) does not endorse the use of the MDRD equation for patients that are not between the ages of 18 and 70, are , have extremes of body size, muscle mass, or nutritional status, or are non- or non-. According to the National Kidney Foundation, irrespective of diagnosis, the stage of the disease is based on the level of kidney function: Stage Description GFR(mL/min/1.73 m(2)) 1 Kidney damage with normal or decreased GFR 90 2 Kidney damage with mild decrease in GFR 60-89 3 Moderate decrease in GFR 30-59 4 Severe decrease in GFR 15-29 5 Kidney failure <15 (or dialysis) 37 Because ethnic data is not always readily available, this report includes an eGFR for both -Americans and non- Americans. The National Kidney Disease Education Program (NKDEP) does not endorse the use of the MDRD equation for patients that are not between the ages of 18 and 70, are , have extremes of body size, muscle mass, or nutritional status, or are non- or non-. According to the National Kidney Foundation, irrespective of diagnosis, the stage of the disease is based on the level of kidney function: Stage Description GFR(mL/min/1.73 m(2)) 1 Kidney damage with normal or decreased GFR 90 2 Kidney damage with mild decrease in GFR 60-89 3 Moderate decrease in GFR 30-59 4 Severe decrease in GFR 15-29 5 Kidney failure <15 (or dialysis) 38 Therapeutic target for the treatment of diabetes Mellitus patients is <7% HBA1C, and in selective patients <6.0%.Please refer to [place] [employer] Diabetic care guidelines for further information. 39 Because ethnic data is not always readily available, this report includes an eGFR for both -Americans and non- Americans. The National Kidney Disease Education Program (NKDEP) does not endorse the use of the MDRD equation for patients that are not between the ages of 18 and 70, are , have extremes of body size, muscle mass, or nutritional status, or are non- or non-. According to the National Kidney Foundation, irrespective of diagnosis, the stage of the disease is based on the level of kidney function: Stage Description GFR(mL/min/1.73 m(2)) 1 Kidney damage with normal or decreased GFR 90 2 Kidney damage with mild decrease in GFR 60-89 3 Moderate decrease in GFR 30-59 4 Severe decrease in GFR 15-29 5 Kidney failure <15 (or dialysis) 40 Normal Range 180 to 914 Indeterminate Range 145 to 180 Deficient Range <145 41 Because ethnic data is not always readily available, this report includes an eGFR for both -Americans and non- Americans. The National Kidney Disease Education Program (NKDEP) does not endorse the use of the MDRD equation for patients that are not between the ages of 18 and 70, are , have extremes of body size, muscle mass, or nutritional status, or are non- or non-. According to the National Kidney Foundation, irrespective of diagnosis, the stage of the disease is based on the level of kidney function: Stage Description GFR(mL/min/1.73 m(2)) 1 Kidney damage with normal or decreased GFR 90 2 Kidney damage with mild decrease in GFR 60-89 3 Moderate decrease in GFR 30-59 4 Severe decrease in GFR 15-29 5 Kidney failure <15 (or dialysis) 42 Therapeutic target for the treatment of diabetes Mellitus patients is <7% HBA1C, and in selective patients <6.0%.Please refer to [place] [employer] Diabetic care guidelines for further information. 43 Unable to calculate due to low microalbumin 44 Because ethnic data is not always readily available, this report includes an eGFR for both -Americans and non- Americans. The National Kidney Disease Education Program (NKDEP) does not endorse the use of the MDRD equation for patients that are not between the ages of 18 and 70, are , have extremes of body size, muscle mass, or nutritional status, or are non- or non-. According to the National Kidney Foundation, irrespective of diagnosis, the stage of the disease is based on the level of kidney function: Stage Description GFR(mL/min/1.73 m(2)) 1 Kidney damage with normal or decreased GFR 90 2 Kidney damage with mild decrease in GFR 60-89 3 Moderate decrease in GFR 30-59 4 Severe decrease in GFR 15-29 5 Kidney failure <15 (or dialysis) 45 Desirable <150 Borderline high 150-199 High 200-499 Very High >500 46 Desirable <200 Borderline high 200-239 High >239 47 Low <40 Desirable: 40-60 High: >60 48 Desirable: <100 mg/dL Near Optimal: 100-129 mg/dL Borderline High: 130-159 mg/dL High: 160-189 mg/dL Very High: >189 mg/dL 49 ANEMIA 50 SEE RESULTS BELOW [id number] [facility] 12/31/15 1352 [id number] BP PC TRANSFUSED 12/31/15 1554 51 Development Chemist: [id number] ORLIN Mason 52 Normal Range 180 to 914 Indeterminate Range 145 to 180 Deficient Range <145 53 Consistent with previous results on 07/16/15. 54 Consistent with previous results on 07/16/15. 55 Acute inflammation: >10.00 56 [facility] Severe Sepsis and Septic Shock Management Bundle Measure requires all lactic acids initially measuring >2.0mmol/L be repeated. 57 Because ethnic data is not always readily available, this report includes an eGFR for both -Americans and non- Americans. The National Kidney Disease Education Program (NKDEP) does not endorse the use of the MDRD equation for patients that are not between the ages of 18 and 70, are , have extremes of body size, muscle mass, or nutritional status, or are non- or non-. According to the National Kidney Foundation, irrespective of diagnosis, the stage of the disease is based on the level of kidney function: Stage Description GFR(mL/min/1.73 m(2)) 1 Kidney damage with normal or decreased GFR 90 2 Kidney damage with mild decrease in GFR 60-89 3 Moderate decrease in GFR 30-59 4 Severe decrease in GFR 15-29 5 Kidney failure <15 (or dialysis) 58 PT IS FASTING 59 Therapeutic target for the treatment of diabetes Mellitus patients is <7% HBA1C, and in selective patients <6.0%.Please refer to [place] [employer] Diabetic care guidelines for further information. 60 Unable to calculate due to low microalbumin 61 Desirable <150 Borderline high 150-199 High 200-499 Very High >500 62 Desirable <200 Borderline high 200-239 High >239 63 Low <40 Desirable: 40-60 High: >60 64 Desirable: <100 mg/dL Near Optimal: 100-129 mg/dL Borderline High: 130-159 mg/dL High: 160-189 mg/dL Very High: >189 mg/dL 65 ANEMIA NOS 66 [id number] BP PC TRANSFUSED 09/07/14 0943 67 Reviewed by Luci Yu MD CBC and smear reviewed. Microcytic, hypochromic anemia present. Findings consistent with iron deficiency. CBC and smear reviewed. Thrombocytopenia present without evidence of platelet clumping or satellitosis. 68 -- REFERENCE VALUE -- 25-HYDROXY D TOTAL (D2+D3) Optimum levels in the healthy population are 20-50, patients with bone disease may benefit from higher levels within this range. Test Performed by: [place] [address] Dining Room Busser: Daniel East III, M.D. 69 Interpretation: 10-19 ng/mL (mild to moderate deficiency) -- REFERENCE VALUE -- 25-HYDROXY D TOTAL (D2+D3) Optimum levels in the healthy population are 20-50, patients with bone disease may benefit from higher levels within this range. Test Performed by: [place] [address] Dining Room Busser: Daniel East III, M.D. 70 Because ethnic data is not always readily available, this report includes an eGFR for both -Americans and non- Americans. The National Kidney Disease Education Program (NKDEP) does not endorse the use of the MDRD equation for patients that are not between the ages of 18 and 70, are , have extremes of body size, muscle mass, or nutritional status, or are non- or non-. According to the National Kidney Foundation, irrespective of diagnosis, the stage of the disease is based on the level of kidney function: Stage Description GFR(mL/min/1.73 m(2)) 1 Kidney damage with normal or decreased GFR 90 2 Kidney damage with mild decrease in GFR 60-89 3 Moderate decrease in GFR 30-59 4 Severe decrease in GFR 15-29 5 Kidney failure <15 (or dialysis) 71 HDL Interpretation: Undesirable: High Risk: Less than 40 mg/dL Desirable: Low Risk: Greater than 60 mg/dL 72 LDL Interpretation: Low Risk Optimal Level: LDL Less than 100 mg/dL Near or Above Optimal: LDL 100-129 mg/dL Borderline High Risk: LDL 130-159 mg/dL High Risk: LDL 160-189 mg/dL Very High Risk: LDL Greater than 189 mg/dL 73 Microalbuminuria in a random sample is defined as: Microalbumin/Creatinine ratio of 30-299 ug/mg. 74 TEST LIMITATIONS: The performance of specimens from pediatric patients has not been evaluated. A positive test confirms the presence of toxins A and/or B only. A physician must use the test results in conjunction with other diagnostic procedures and the patient's clinical condition to establish a diagnosis of C.difficile-associated disease. Isolates of C. sordellii may react with this test due to immunological identitiy of the C. sordellii toxins. Two distinct groups have been identified that can harbor C. difficile asymptomatically at very high rates. Colonization rates of up to 50% and higher have been reported in infants and rates of up to 32% in cystic fibrosis patients. NEGATIVE BY IMMUNOASSAY 75 FASTING 76 PLEASE NOTE NEW REFERENCE RANGE EFFECTIVE 07. 77 Anion gap measurement may be of limited value in the presence of any alkalosis, especially in a combined acid base disorder. . 78 Please note change in reference range effective 07 . 79 CHRISTIANO VALUE=2.01 ( OF 05/07/07 Recommended INR for Patients on Oral Anticoagulants Prophylaxis 2.0 - 3.0 Treatment of thrombosis 2.0 - 3.0 Prevention of embolism 2.0 - 3.0 Prevention of embolism from prosthetic heart valves 2.5 - 3.5 80 CHOLESTEROL INTERPRETATION: Desirable: Less than 200 MG/DL Borderline-High Risk: 200-239 MG/DL High-Risk: 240 MG/DL and over 81 HDL INTERPRETATION: Undesirable: High Risk: Less than 40 MG/DL Desirable: Low Risk: Greater than 60 MG/DL 82 LDL INTERPRETATION: Low Risk Optimal Level: LDL Less than 100 MG/DL Near or Above Optimal: LDL 100-129 MG/DL Borderline High Risk: LDL 130-159 MG/DL High Risk: LDL 160-189 MG/DL Very High Risk: LDL Greater than 189 MG/DL Procedures Date CPT Code Description Status Comment 04/24/2017 Mammogram Completed 03/27/2017 05119 EKG Tracing & Completed Interpretation 07/23/2016 40245 EKG, Interpretation Only Completed 07/23/2016 21354 Laparotomy Exploratory Completed 07/23/2016 97506 Laparotomy Exploratory Completed 07/22/2016 00971 ECHO Transthorasic Realtime Completed 2D W Doppler & Color Flow Hosp 07/04/2016 33843 Admin Of Inj Completed 06/03/2016 88739 Admin Of Inj Completed 04/28/2016 72087 Admin Of Inj Completed 04/09/2016 Mammogram Completed 03/31/2016 04951 EKG Tracing & Completed Interpretation 03/27/2016 52734 Admin Of Inj Completed 02/22/2016 75576 Admin Of Inj Completed 01/23/2016 08188 Admin Of Inj Completed 12/20/2015 79244 Admin Of Inj Completed 11/19/2015 65815 Admin Of Inj Completed 10/23/2015 78746 Admin Of Inj Completed 09/26/2015 18979 Admin Of Inj Completed 08/27/2015 Diabetic Retinal Eye Exam Completed 08/09/2015 08053 Admin Of Inj Completed 07/11/2015 88551 Admin Of Inj Completed 06/18/2015 92304 Admin Of Inj Completed 05/17/2015 76477 Admin Of Inj Completed 04/20/2015 15210 ECHO Transthoracic, Completed Real-Time 2D With Doppler And Color Flow 04/03/2015 80019 EKG Tracing & Completed Interpretation 03/23/2015 36957 Admin Of Inj Completed 02/19/2015 10834 Admin Of Inj Completed 02/12/2015 43006 Inject/Drain Joint/Bursa Completed Major 01/26/2015 20880 Admin Of Inj Completed 12/26/2014 45661 Admin Of Inj Completed 11/13/2014 70530 Admin Of Inj Completed 10/17/2014 94989 Admin Of Inj Completed 10/17/201457604 Inject/Drain Joint/Bursa Completed Major 09/15/2014 91213 Admin Of Inj Completed 08/15/2014 51580 Admin Of Inj Completed 08/04/2014 Diabetic Retinal Eye Exam Completed 07/17/2014 53930 Admin Of Inj Completed 06/16/2014 12132 Admin Of Inj Completed 05/08/2014 10717 Admin Of Inj Completed 04/17/2014 17214 Admin Of Inj Completed 03/17/2014 73799 Admin Of Inj Completed 02/14/2014 48111 Admin Of Inj Completed 01/16/2014 45619 Stress Test Supervsn W/Out Completed I/R 01/16/2014 18308 Treadmill Interp/Report Only Completed 01/13/2014 28795 ECHO Transthoracic, Completed Real-Time 2D With Doppler And Color Flow 01/13/2014 71634 Admin Of Inj Completed 12/19/2013 07076 EKG Tracing & Completed Interpretation 12/14/2013 91345 Admin Of Inj Completed 11/10/2013 47524 Admin Of Inj Completed 10/10/2013 33272 Admin Of Inj Completed 09/12/2013 62242 Admin Of Inj Completed 08/04/2013 Bone Mineral Density Test Completed 08/04/2013 Mammogram Completed 07/29/2013 Diabetic Retinal Eye Exam Completed 11/29/2012 Colonoscopy Completed mild diffuse diverticulosis , internal hemoorhoids done for intermittent rectal bleeding ( hemmorhoids not the source) 10/11/201256916 Inject Tendon Sheath Or Completed Ligament Aponeurosis Eg Plantar Fascia 10/11/2012 Injection Single Tendon Completed Origin/Insertion 10/11/2012 41077 Rad Exam; Wrist, Comp, Min 3 Completed Views 06/01/2011 Mammogram Completed Xray: 08/04/13 - Mammogram Screening [place] 10/26/2009 07511 ECHO Transthorasic Realtime Completed 2D W Doppler & Color Flow Hosp 12/20/2008 95523 EKG Tracing & Completed Interpretation 12/17/2007 61040 Selective Coronary Completed Angioplasty 12/17/2007 24932 S/I/R Inj Proc Vent And Or Completed Atrial 12/17/2007 43265 S/I/R Inj Proc Vent And Or Completed Atrial 12/17/2007 74035 Coronary Angiography Completed 12/17/2007 54398 Coronary Angiography Completed 12/17/2007 86749 Inj Proc LFT Vent/LFT Atrl Completed Angio 12/17/2007 56471 Left Heart Catheterization Completed 12/09/2007 66561 EKG Tracing & Completed Interpretation 12/09/2007 36452 EKG Tracing & Completed Interpretation 11/19/2007 33825 Stress Test Supervsn W/Out Completed I/R 11/19/2007 22628 Treadmill Interp/Report Only Completed 11/19/2007 25309 Treadmill Interp/Report Only Completed 11/19/2007 87701 Stress ECHO Completed Interpretation/Report Hospital 11/19/2007 30234 Stress ECHO Completed Interpretation/Report Hospital 11/03/2007 11395 Stress Test Completed 11/03/2007 89723 Stress Test Completed 11/03/2007 36451 ECHO/Stress Completed Encounters Type Date Location Provider CPT E/M Dx Office Visit 08/11/2017 [facility] [place] [address] K45.8 10:30a 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 Office Visit 08/03/2017 [facility] [address] R05 1:45p Services [facility] Office Visit 07/14/2017 [facility] Internal Medicine - Michelle Barbour, 17597 R05 12:10p [place] Conner N18.3 K43.2 D61.818 Office Visit 05/13/2017 1:00p [facility] Internal Medicine Michelle Barbour 95566 K74.69 - [place] Conner E11.9 N18.3 Office Visit 05/06/2017 10:50a [facility] Danny Washington, 78076 R05 Infectious Diseases M.DMelita Z71.89 Office Visit 05/04/2017 1:45p [facility] [place] [address] R05 Services [facility] Office Visit 04/20/2017 11:40a [facility] Internal Medicine - Michelle Barbour 87029 K74.69 [place] Conner E11.9 R05 N18.3 Z23 Z71.89 Office Visit 03/30/2017 10:15a [facility] [place] [address] R05 Services [facility] J30.9 Office Visit 03/27/2017 3[facility] KatiaMelita Phelpselodiahelena, 21412 K74.69 Ubaldo E11.9 I10 E78.5 Office Visit 02/11/2017 11:50a [facility] Internal Medicine Michelle Barbour 85877 K74.69 - [place] Conner N18.3 L29.8 Office Visit 01/27/2017 1:40p [facility] Internal Medicine Michelle Barbour M.D. 87989 N17.9 - [place] K74.69 K43.2 Office Visit 01/05/2017 10:10a [facility] Internal Medicine Michelle Barbour 66663 K74.69 - [place] Conner N39.0 E11.9 N17.9 Office Visit 12/17/2016 2:40p [facility] Internal Medicine Michelle Barbour 31771 R10.84 - [place] Conner K74.69 Office Visit 11/26/2016 2:20p [facility] Internal Medicine Michelle Barbour M.D. 59783 J30.9 - [place] E11.9 Office Visit 11/19/2016 1:00p [facility] Internal Medicine Michelle Barbour, 45699 K74.69 - [place] Conner N17.9 R53.1 E11.9 D61.818 R22.9 E53.8 I85.00 Office Visit 07/26/2016 4:04p [facility] Scott Rojas, 55406 J96.01 Hospitalists R65.20 A41.9 K65.2 Office Visit 07/25/2016 4:03p [facility] Scott Rojas, 14129 J96.01 Hospitalists R65.20 A41.9 K65.2 Office Visit 07/24/2016 4:01p [facility],neelam Danielson 29512 J96.01 Hospitalists Kristie Christianson R65.20 A41.9 K65.2 Office Visit 07/23/2016 [facility] 79227 R65.20 Assoc,[facility] Hospitalists A41.9 K81.0 K74.69 Office Visit 07/23/2016 3:36p [facility],neelam Danielson 66626 R65.20 Hospitalists Kristie Christianson A41.9 K81.0 K74.69 Office Visit 07/22/2016 7:00a [facility] J Jeronimo, 31555 K81.0 [facility] Office Visit 07/22/2016 3:34p [facility] Gabriella Mims, 54624 R10.11 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 32402 R10.11 Hospitalists E11.9 K74.69 K21.9 Office Visit 07/21/2016 7:00a [facility] Yash Krause, 65382 K80.20 [facility] [place] Office Visit 06/23/2016 10:10a [facility] Internal Michelle Barbour M.D. 48174 E11.9 Medicine - Dawson D61.818 R35.0 K80.80 Office Visit 03/31/2016 8:50a [facility] Internal Medicine Michelle Angle, 51563 E11.40 - [place] Conner Z71.89 Z79.899 E78.5 Z23 Office Visit 03/31/2016 3:20p [facility] Mauriciotaybveda SMelita Medrano, 66500 E78.5 Ubaldo I10 I45.6 R94.31 Office Visit 03/11/2016 2:40p [facility] Internal Medicine Dario Villarreal, 41881 J06.9 - [place] Conner Office Visit 12/27/2015 1:00p [facility] Internal Medicine Michelle Barbour M.D. 12901 R31.2 - Gloria D64.9 E11.40 E11.40 Office Visit 10/09/2015 2:00p [facility] Internal Medicine Michelle Barbour 99994 D61.818 - [place] Conner D51.9 Office Visit 08/09/2015 1:00p [facility] Internal Medicine Michelle Barbour 47252 E11.40 - [place] Conner D61.818 D51.9 Z79.899 Office Visit 07/17/2015 12:10p [facility] Internal Medicine Michelle Barbour 60830 K80.20 - [place] Conner D61.818 A08.39 K74.60 A08.4 Office Visit 07/11/2015 10:30a [facility] Internal Medicine Michelle Barbour M.D. 75960 D51.9 - Gloria E11.40 M85.89 D64.9 R14.0 Z12.31 M79.672 Office Visit 05/07/2015 1:00p [facility] [address] S46.012D Of C.M.AMelita Office Visit 04/03/2015 4:00p [facility] Mauriciotaybveda SMelita 33756 E11.9 Ubaldo Medrano I10 R06.02 Office Visit 03/26/2015 9:45a [facility] Wilfredo Kramer M.D. 68815 S46.012D Of C.M.A. Office Visit 02/12/2015 2:50p [facility] Wilfredo Kramer M.D. 50171 840.4 Of [facility]. Office Visit 01/08/2015 11:50a [facility] Internal Medicine Michelle Barbour 95272 250.60 - [place] Conner 284.19 250.00 572.3 Office Visit 01/02/2015 1:00p [facility] Of Wilfredo Kramer M.D. 03116 840.4 C.M.A. Office Visit 10/17/2014 11:00a [facility] Of Wilfredo Kramer M.D. 02962 840.4 C.M.A. Office Visit 09/27/2014 2:50p [facility] Internal Medicine Michelle Barbour 28285 250.60 - [place] Conner 787.3 285.8 250.00 Office Visit 08/17/2014 9:10a [facility] Internal Medicine Michelle Barbour 97004 574.70 - [place] Conner 536.8 250.60 V03.82 691.8 Office Visit 08/03/2014 11:00a [facility] NGUYEN Pal 18935 250.60 786.05 401.1 414.01 250.00 Office Visit 07/17/2014 2:30p [facility] [place] [address] 266.2 [place] 465.9 Office Visit 06/29/2014 2:10p [facility] Internal Medicine Michelle Barbour M.D. 02536 840.4 - Gloria 847.0 250.60 787.3 Office Visit 05/08/2014 2:50p [facility] Internal Medicine Michelle Barbour 85464 250.60 - [place] Conner 285.9 571.5 690.11 266.2 Office Visit 02/09/2014 4:00p [facility] Peter Medrano 25077 786.05 MKendrick 401.1 Office Visit 01/16/2014 9:30a [facility] Peter Kwok 32219 786.05 Ubaldo Medrano Office Visit 01/05/2014 1:50p [facility] Internal Medicine Michelle Barbour M.D. 76415 331.83 - [place] V04.89 250.60 715.96 Office Visit 12/19/2013 1:20p [facility] Peter Medrano, 75273 786.09 M.DMelita 786.05 794.31 414.01 401.1 Office Visit 12/14/2013 11:10a [facility] Internal Medicine Michelle Barbour M.D. 54605 V70.0 - [place] 266.2 V76.10 786.09 250.00 331.83 Office Visit 11/10/2013 2:10p [facility] Internal Medicine Michelle Barbour, 99617 250.00 - [place] Conner 268.9 530.81 715.09 266.2 Office Visit 08/10/2013 10:10a [facility] Internal Medicine Michelle Barbour 67902 250.00 - [place] 266.2 733.90 Office Visit 07/11/2013 2:50p [facility] Internal Medicine Michelle Barbour 86460 250.00 - [place] 266.2 284.19 733.90 268.9 536.8 Office Visit 06/09/2013 1:10p [facility] Internal Medicine Michelle Barbour, 84173 250.00 - [place] M.D. 266.2 598.9 691.8 285.9 Office Visit 10/11/2012 9:00a [facility] Radha De Jesus, 52123 727.04 Of Charlie Conner 716.94 Office Visit 10/31/2009 1:00a [facility], Alexander Wick, 42864 599.0 Hospitalists M.DMelita 284.1 790.99 250.02 Office Visit 10/30/2009 1:00a [facility], Alexander Wick, 62133 784.0 Hospitalists M.DMelita 599.0 250.00 Office Visit 10/29/2009 1:15a [facility], Alexander Wick, 88765 599.0 Hospitalists M.DMelita 250.02 284.1 790.99 Office Visit 10/28/2009 1:30a [facility], Alexander Wick, 79297 599.0 Hospitalists M.D. 284.1 280.9 784.0 Office Visit 10/26/2009 1:15a [facility], Chani Hernández, 82032 995.91 Hospitalists M.D. 790.7 599.0 041.4 Office Visit 10/25/2009 2:00a [facility], Chani Hernández, 97236 599.0 Hospitalists M.DMelita 790.7 790.99 Office Visit 10/25/2009 12:15a [facility] Melodie Hartley, 91755 780.60 Assoc, Hospitalists M.DMelita 729.1 723.5 Office Visit 12/20/2008 3:00p [facility] Liban Canchola, 68666 786.50 M.D. 250.20 414.01 Office Visit 12/20/2007 11:10a [facility] Peter Medrano, 62130 786.50 M.D. 794.31 250.20 414.01 Office Visit 12/09/2007 1:40p [facility] Liban Canchola, 79991 786.50 M.D. 794.31 250.20 Plan of Care Future Appointment(s):11/17/2017 1:40 pm - Michelle Barbour M.D. at [facility] Internal Medicine - Vbbubqvao79/14/2018 10:45 am - Melissa Do MD at [facility]08/18/2017 - Michelle Barbour M.D.E11.9 Type 2 diabetes mellitus without complicationsFollow up:3 months, 20 minR05 EcdvnW43.8 Oth abdominal hernia without obstruction or gangreneComments:wear the binder all the time , it is not obstructing at this rbznqD34.3 Chronic kidney disease, stage 3 (moderate)
--- OUTSIDE RECORDS SUMMARY | 2017-08-31 04:24 | XMS REPORT ---
:1940 External Reference #:[id number] Author Organization [facility] Address [address] [address] Phone [phone] Care Team Providers Name Role Phone Michelle Barbour MD Primary Care Physician Unavailable Payers Type Date Identification Numbers Payment Provider Subscriber Medicare Primary Effective: Policy Number: Medicare Patel Calabrese 2007 [id number] Boy PayID: [id number] [address] [place] [address] [employer] [place] Part B Policy Number: [id number] Medicaid Patel Brunson PayID: [id number] [address] [place] [address] Problems Date Description Provider Status Onset: 06/19/2013 [...] Form Strength Qnty SIG Indications Ordering Provider Ferrous 07/15 Active Tablets 324(38Fe) 60tab take one Michelle Gluconate /2018 mg s tablet by betzy Barbour M.D. daily Prednisone 07/14 Active TBPK 5mg (21) 30uni take as R05 Michelle /2018 ts directedAngle, 6 tabs M.D. day#1, 5 tabs day#2, 4 tabs day#3,3 tabs day#4,2 tabs day#5,1 tab daily for 10 days Pantoprazole 07/[address] 20mg 60tab once a day Michelle s Ubaldo Barbour Benzonatate 04/21 Active Capsules 100mg 60cap 1-2 tab at s night as Angle needed for M.D. cough Spironolactone 04/20 Active Tablets 50mg 90tab 1 by mouth Michelle /2017 s every day Ubaldo Barbour Ipratropium 03/30 Active Solution 0.03% 30uni 1 spray Melissa [place] ts intranasal Hi, twice a MD day Furosemide 01/27 Active Tablets 20mg 90tab 1 by mouth Michelle /2017 s every day Angle, 5 days a M.DMelita week only Levemir 01/13 Active Solution 100Unit/M 45ml 18 units Michelle Flextouch Pen-Inject L in Am and Angle, 22units in M.D. PM Blood Pressure 12/04 Active Misc 1unit as needed Michelle Monitor s Katharine Barbour M.D. Shower Chair 11/20 Active 1unit as needed Michelle /2017 s Ubaldo Barbour Lactulose 11/19 Active Solution 10GM/15ML 9000m 15 K74.69 Michelle /2017 l milliliter Angle s twice a M.D. day to maintain 2 loose bowel movement Toilet Seat 11/19 Active Misc 1unit as needed Michelle Elevator s dx r53.1 Angle k74.69 M.DMelita Novolog Flexpen 11/19 Active Solution 100Unit/M 45ml use 10 Pen-Inject L units with Angle, meals M.D. except 14 units during lunch Do not use if blood sugar less than 90 Suplena 11/19 Active Liquid 90uni once a day R53.1 Michelle 1.8/Carbsteady ts Barbour, M.D. BD Ultra Fine Active Misc 500un as Michelle 0000 its directed Angle with Ubaldo insulin 5 times per day Folic Acid Active Tablets 1mg take one capsule/ta blet daily by mouth Multi For Her Active Tablets once a day Unknown Simethicone Active Suspension 40mg/0.6M Unknown /0000 L Xifaxan Active Tablets 550mg 180ta 1 by mouth Michelle bs twice a Barbour, day M.D. Milk Of Magnesia Active Suspension 400mg/5ML 30 Unknown milliliter s by mouth every day at bedtime as needed Acetaminophen Active Tablets 325mg 2 tablets Unknown by mouth every 6 hours as needed for pain/fever Nadolol Active Tablets 40mg 90tab 1 by mouth Michelle s every day Ubaldo Barbour 4X Probiotic Active Tablets 1 tab Unknown daily Advair HFA Active Aerosol 230-21mcg 2 puff /Act twice a day Doxycycline 05/06 Hx Capsules 100mg 60cap 1 cap by Z71.89 Danny Hyclate /2016 s mouth once D. - a day with Dwight, 07/05 food, 2 M.D. /2017 days before trip starts Prednisone 05/04 Hx TBPK 5mg (21) 30uni take as R05 ts Hi morillo, - 6 tabs MD 07/14 day#1, tabs day#2, 4 tabs day#3,3 tabs day#4,2 tabs day#5,1 tab daily for 10 days Benzonatate 04/20 Hx Capsules 150mg 90cap as needed Michelle /2017 s at night Angle, - for cough M.D. 04/21 Benzonatate 02/15 Hx Capsules 100mg 30cap 1 tab at Michelle /2017 s night as Angle, - needed for M.D. 04/20 cough Benzonatate 01/16 Hx Capsules 100mg 10cap not taking Michelle s Angle, - M.D. 01/27 Pantoprazole 12/01 [...] Tablets Adult 50 OTC Michelle Adult 50+ Angle, - M.D. 11/19 Beano 07/11 Hx Tablets as needed for gas Angle, - M.D. 11/19 Probiotic 07/11 Hx Capsules 90cap 1 by mouth s bid OTC Angle, - M.D. 11/19 Nystatin 02/19 Hx Powder [id number] 120gm apply to Michelle /2015 t/GM affected Angle, - areas M.D. 12/26 twice a day as needed for rash x 10 days Propranolol HCL 01/08 Hx Tablets 10mg 60tab 1 tab K76.6 Michelle /2015 s twice a Barbour, - day M.D. 11/19 Doxycycline 10/[address] 100mg 62tab 1 tablet Michelle cl s once a day Angle, - start 2 M.D. 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 11/19 day with meals Xifaxan 09/22 Hx Tablets 550mg 1 tab bid 536.8 X 12 days - 11/13 Hydrocodone-Acet 09/06 Hx Tablets 5-325mg 90tab 1 by mouth Michelle aminophen s every 8 Barbour, - hours as M.D. 11/19 needed for pain. Mometasone 08/17 Hx Cream 0.1% 1unit apply to 691.8 Michelle Furoate s affected Angle, - areas M.D. 09/27 twice a day 10 days only Xifaxan 08/17 Hx Tablets 550mg 28tab 1 tab bid 536.8 Michelle s Angle, - M.D. 09/27 Cyclobenzaprine 06/29 Hx Tablets 5mg 10tab take one 847.0 Michelle HCL s tablet by Angle, - mouth at M.D. 08/17 night BD U/F Short Pen 06/15 Hx 100un use as Michelle [id number] its directed Angle, - twice a M.D. Zostavax 01/05 Hx Solution Rec [id number]/ 1unit sc x1 V04.89 0.65ML s Angle, - M.D. 05/08 Voltaren 01/05 Hx Gel 1% 1box apply 715.96 daily as Angle, - needed on M.D. 11/19 the knee for pain Cyanocobalamin 08/10 Hx Solution 1000mcg/M 1unit 1 ml 266.2 L s intramuscu Angle, - lar q M.D. 11/19 Lantus Solostar 08/10 Hx Solution 100Unit/M 15uni inject 30 Pen-Inject L ts units sq Angle, - in the M.D. 11/19 and 25units at night Ergocalciferol 07/14 Hx Capsules [id number] 8caps 1 tab by mouth Angle, - every week M.D. 11/10 Calcium OTC 07/14 Hx Tablets 1000mg 1 po qd Angle, - M.D. 11/19 Mometasone 06/09 Hx Cream 0.1% 1unit apply to Michelle Furoate s affected Angle, - areas bid M.D. 09/27 10 days /2014 only Januvia 12/05 Hx Tablets 100mg 30tab 1 PO qd Liban s Alexi Canchola, 06/09 M.D. Prevacid 12/05 [...] Canchola, 06/09 M.D. Nystatin 12/05 Hx Cream [id number] 60G Topically t/GM bid prn Alexi Canchola, 06/09 M.D. Ultra Thin 12/05 Hx Misc Thin 28G use as dir Liban Alexi Canchola, 12/06.D Zoloft 12/05 Hx Tablets 50mg 60tab 1 PO bid s Alexi Canchola, 06/09.D. Aspirin 12/05 Hx Tablets 81mg 1 PO qd Alexi Canchola, 01/08 M.D. Onetouch Lancets 12/05 Hx Misc as directed Alexi Canchola, 12/06. Onetouch Test 12/05 Hx Strips as Strips directed Alexi Canchola, 12/06.D. Alcohol Prep 12/05 Hx Pads as Pads directed Alexi Canchola, 12/06.D Darvocet-N 100 12/05 Hx Tablets 100 90tab 1 PO qid s prn Alexi Canchola, 06/09 M.D. Premarin 12/05 Hx Cream 45.2g 2 Gram pv Liban /2007 m 2 X Week F. - prn Masamiar, 06/09 M.D. /2013 Disp 3 Tubes Patanol 12/05 Hx Solution 0.1% 5unit 1 drop s both eyes Angle, - every day M.D. 04/03 as needed /2015 allergies Metformin HCL 12/05 Hx Tablets 1000mg 180ta 1 by mouth Michelle bs twice a Barbour, - day M.D. 11/19 Atenolol 11/18 Hx Tablets 25mg 90tab 1 by mouth Qutaybeh s every day S. - Maghaydah 01/08 , M.D. /2014 Hydrocodone/Acet Hx Tablets 5-325mg 90tab 1 by mouth Michelle aminophen s every 8 Barbour, - hours as M.D. 09/06 needed pain Ventolin HFA Hx Aerosol 108(90Bas 1unit 2 puffs by Vignesh / e) s mouth LEANNA Connell - mcg/Act every 6 11/19 hours needed Ferrous Fumarate Hx Tablets 325(106Fe 30tab 1 po qd Unknown / ) mg s - 06/09 Lantus Hx Solution 100Unit/M 6Vial (Please Michelle L s give Angle, - patient M.D. 08/10 the /2013ostar pens)35 units in Am and 25 unit in PM [place] For Hx Unknown Solostar /0000 - 06/09 Hydrocortisone Hx Suppository 25mg 10uni use as Unknown Acetate 0000 ts directed - 11/19 Aspirin [address] 81mg 90tab po qd Unknown /0000 s - 11/10 Prandin Hx Tablets 1mg 60tab 1 po tid Michelle s with meals Angle, - M.D. 06/[address] 40mg 60cap take 1 Michelle /0000 s capsule by Angle, - mouth M.D. 11/19 Ondansetron Hx Tablets 4mg Dissolve 1 Unknown / Dispers Tablet On - Tongue 11/19 Every Hours as Needed For Pain Oxycodone-Acetam Hx Tablets 5-325mg Unknown inophen /0000 - 03/11 Metronidazole Hx Tablets 250mg tid Remberto, Kirit Madden MD 03/31 Neurontin Hx Capsules 100mg 120ca 1 by mouth Michelle /0000 ps twice a Barbour, - day M.D. 11/19 Actigall Hx Capsules 300mg one a day Unknown /0000 Dr. Sr - 11/19 4X Probiotic Hx Tablets Unknown /0000 - 11/19 Levemir Hx Solution 100Unit/M 20 units Unknown /0000 L once daily - 11/19 Humalog Kwikpen Hx Solution 100Unit/M 45ml 12 units, Michelle /0000 Pen-Inject L 3 times Barbour, - daily with M.D. 11/19 meals not use if blood sugar is less than 90 Pantoprazole Hx Solution Rec 40mg 1 by mouth Unknown Sodium /0000 every day - 11/19 Furosemide Hx Tablets 40mg 90tab 1 by mouth Michelle /0000 s every Barbour, - other day M.D. 01/27 Spironolactone Hx Tablets 100mg 90tab 1 by mouth Michelle /0000 s every day Barbour, - M.D. 04/20 Levemir Hx Solution 100Unit/M 30ml 15 units Michelle /0000 L in morning Barbour, - and 24 M.D. 08/15 units at night Protonix Hx Packet 40mg 1 packet Michelle /0000 by mouth Barbour, - every day. M.D. 12/01 Claritin Hx [...] 016 C B-12 Injection Administered Injection Michelle Abraham Barbour M.D. B-12 Injection Administered Injection Michelle Abraham Barbour M.D. B-12 Injection Administered Injection Nurse Visit 016 A B-12 Injection Administered Injection Nurse Visit 015 A B-12 Injection Administered Injection Nurse Visit 015 A B-12 Injection Administered Injection Nurse Visit 015 A Depomedrol Administered Injection Wilfredo 80MG 015 Ubaldo Kramer B-12 Injection Administered Injection Nurse Visit 015 A B-12 Injection Administered Injection Nurse Visit 015 A B-12 Injection Administered Injection Nurse Visit 015 A B-12 Injection Administered Injection Nurse Visit 015 A Depomedrol Administered Injection Wilfredo 80MG Jaymie Kramer M.D. B-12 Injection Administered Injection Nurse Visit 015 C B-12 Injection Administered Injection Nurse Visit 015 A B-12 Injection Administered Injection Vignesh Becki, 015 QUALITY [employer]OL AUDITOR B-12 Injection Administered Injection Nurse Visit 015 C B-12 Injection Administered Injection Michelle Sagrario Barbour M.D. B-12 Injection Administered Injection Nurse Visit 014 C B-12 Injection Administered Injection Nurse Visit 014 C B-12 Injection Administered Injection Nurse Visit 014 C B-12 Injection Administered Injection Nurse Visit 014 C B-12 Injection Administered Injection Michelle Sagrario Barbour M.D. B-12 Injection Administered Injection Michelle Sagrario Barbour M.D. B-12 Injection Administered Injection Nurse Visit 014 C B-12 Injection Administered Injection Nurse Visit 014 [place]burg B-12 Injection Administered Injection Nurse Visit 014 C Celestone 3 mg Administered Injection Radha and 3mg 013 Micheal larose M.D. Celestone 3 mg Administered Injection Radha and 3mg 013 Micheal larose M.D. Immunizations CPT Code Status Date Vaccine Lot # [id number] Given 04/20/2017 Influenza Virus Vaccine, Quadrivalent, Split, [id number] Preservative Free 21333 Given 04/09/2016 Hepatitis B Vaccine Adult Dosage [id number] 21911 Given 04/09/2016 Hepatitis A Vaccine Adult Dosage [id number] 75567 Given 03/31/2016 Tdap - Tetanus/Diptheria/Acellular Pertussis [id number] 68333 Given 02/22/2016 Influenza Virus Vaccine, Quadrivalent, Split, [id number] Preservative Free 69164 Given 05/17/2015 Hepatitis B Vaccine Adult Dosage [id number] 21002 Given 03/23/2015 Influenza Virus Vaccine, Quadrivalent, Split, [id number] Preservative Free 46267 Given 12/26/2014 Hepatitis B Vaccine Adult Dosage [id number] 40224 Given 11/13/2014 Hepatitis B Vaccine Adult Dosage [id number] 05308 Given 11/13/2014 Hepatitis A Vaccine Adult Dosage [id number] 38788 Given 08/17/2014 Pneumococcal Conjugate Vaccine 13 Valent For [id number] Intramuscular Use [id number] Given 02/14/2014 Fluvirin Im [id number] And Older 74473 Given 02/14/2014 Influenza Virus Vaccine, Quadrivalent, Split, [id number] Preservative Free 09352 Given 01/20/2014 Zoster (Zostavax) [id number] Given 06/12/2013 Pneumonia Vaccine Vital Signs Date Vital Result Comment 08/03/2017 Height 60 inches 5'0" Weight 125.00 [...] Test Date Test Result H/L Range Note Basic Metabolic Panel 07/15/2017 Sodium 135 mmol/L 133-145 Potassium 3.9 mmol/L 3.5-5.0 Chloride 105 mmol/L 101-111 Co2 Carbon Dioxide 23 mmol/L 22-32 Anion Gap 7 mmol/L 2-11 Glucose 287 mg/dL High 70-100 Blood Urea Nitrogen 22 mg/dL 6-24 Creatinine 1.17 mg/dL High 0.51-0.95 BUN/Creatinine Ratio 18.8 8-20 Calcium 9.2 mg/dL 8.6-10.3 Egfr Non- 45.2 >60 Egfr 58.2 >60 1 Lipid Profile (Trig/Chol/HDL) 07/15/2017 Triglycerides 64 mg/dL 2 Cholesterol 122 mg/dL 3 HDL Cholesterol 38.3 mg/dL 4 LDL Cholesterol 71 mg/dL 5 CBC Auto Diff 07/15/2017 White Blood Count 4.7 10^3/uL 3.5-10.8 Red Blood Count 3.46 10^6/uL Low 4.0-5.4 Hemoglobin 10.3 g/dL Low 12.0-16.0 Hematocrit 31 % Low 35-47 Mean Corpuscular Volume 90 fL 80-97 Mean Corpuscular Hemoglobin 30 pg 27-31 Mean Corpuscular HGB Conc 33 g/dL 31-36 Red Cell Distribution Width 18 % High 10.5-15 Platelet Count 93 10^3/uL Low 150-450 6 Mean Platelet Volume 10 um3 7.4-10.4 Abs [...] Egfr Non- 41.1 >60 Egfr 52.9 >60 7 Basic Metabolic Panel 05/06/2017 Sodium 135 mmol/L 133-145 Potassium 4.9 mmol/L 3.5-5.0 Chloride 104 mmol/L 101-111 Co2 Carbon Dioxide 24 mmol/L 22-32 Anion Gap 7 mmol/L 2-11 Glucose 264 mg/dL High 70-100 Blood Urea Nitrogen 29 mg/dL High 6-24 Creatinine 1.40 mg/dL High 0.51-0.95 BUN/Creatinine Ratio 20.7 High 8-20 Calcium 9.0 mg/dL 8.6-10.3 Egfr Non- 36.8 >60 Egfr 47.3 >60 8 Acid Fast Culture 04/29/2017 Acid Fast Culture SEE RESULT BELOW 9 & Smear Smear Laboratory test 04/29/2017 Mycobacterial Culture See Comment 10 finding Acid Fast Culture 04/26/2017 Acid Fast Culture SEE RESULT BELOW 11 & Smear Smear Laboratory test 04/26/2017 Mycobacterial Culture See Comment 12 finding Laboratory test 04/26/2017 Mycobacterial Culture SEE COMMENTS 13 finding CBC Auto Diff 04/20/2017 White Blood Count [...] A1c (Glyco HGB) 5.2 % 4.0- 5.6 14 Comp Metabolic Panel 04/20/2017 Sodium 134 mmol/L [...] Egfr Non- 32.0 >60 Egfr 41.1 >60 15 Acid Fast Culture 04/02/2017 Acid Fast Culture SEE RESULT BELOW 16 & Smear Smear Sputum Culture & 04/02/2017 Sputum Culture Gram SEE RESULT BELOW 17 Sensitiv Stain Laboratory test 04/02/2017 Mycobacterial Culture See Comment 18 finding Laboratory test 04/02/2017 Sputum Smear SEE RESULT BELOW 19 finding Basic Metabolic Panel 04/02/2017 Sodium 134 mmol/L 133-145 Potassium 4.2 mmol/L 3.5-5.0 Chloride 104 mmol/L 101-111 Co2 Carbon Dioxide 24 mmol/L 22-32 Anion Gap 6 mmol/L 2-11 Glucose 131 mg/dL High 70-100 Blood Urea Nitrogen 46 mg/dL High 6-24 Creatinine 1.63 mg/dL High 0.51-0.95 BUN/Creatinine Ratio 28.2 High 8-20 Calcium 9.7 mg/dL 8.6-10.3 Egfr Non- 30.8 >60 Egfr 39.7 >60 20 Laboratory test finding 04/01/2017 Sputum Smear SEE RESULT BELOW 21 Mycobacterial Culture See Comment 22 Sputum Culture & 04/01/2017 Sputum Culture Gram SEE RESULT BELOW 23 Sensitiv Stain Acid Fast Culture & 04/01/2017 Acid Fast Culture Smear SEE RESULT BELOW 24 Smear Laboratory test finding 03/31/2017 Mycobacterial Culture See Comment 25 Acid Fast Culture & 03/31/2017 Acid Fast Culture Smear SEE RESULT BELOW 26 Smear Laboratory test finding 03/31/2017 Sputum Smear SEE RESULT BELOW 27 Sputum Culture & 03/31/2017 Sputum Culture Gram SEE RESULT BELOW 28 Sensitiv Stain Acid Fast Culture & 03/30/2017 Acid Fast Culture Smear SEE RESULT BELOW 29 Smear Sputum Culture & 03/30/2017 Sputum Culture Gram SEE RESULT BELOW 30 Sensitiv Stain Laboratory test finding 03/30/2017 Sputum Smear SEE RESULT BELOW 31 Mycobacterial Culture See Comment 32 Comp Metabolic Panel 02/11/2017 Sodium 137 mmol/L [...] Egfr Non- 34.7 >60 Egfr 44.7 >60 33 Basic Metabolic Panel 01/27/2017 Sodium 140 mmol/L 133-145 Potassium 4.4 mmol/L 3.5-5.0 Chloride 112 mmol/L High 101-111 Co2 Carbon Dioxide 22 mmol/L 22-32 Anion Gap 6 mmol/L 2-11 Glucose 105 mg/dL High 70-100 Blood Urea Nitrogen 32 mg/dL High 6-24 Creatinine 1.36 mg/dL High 0.51-0.95 BUN/Creatinine Ratio 23.5 High 8-20 Calcium 9.4 mg/dL 8.6-10.3 Egfr Non- 38.0 >60 Egfr 48.9 >60 34 Basic Metabolic Panel 01/20/2017 Sodium 134 mmol/L 133-145 Potassium 4.3 mmol/L 3.5-5.0 Chloride 101 mmol/L 101-111 Co2 Carbon Dioxide 23 mmol/L 22-32 Anion Gap 10 mmol/L 2-11 Glucose 189 mg/dL High 70-100 Blood Urea Nitrogen 53 mg/dL High 6-24 Creatinine 2.11 mg/dL High 0.51-0.95 BUN/Creatinine Ratio 25.1 High 8-20 Calcium 10.0 mg/dL 8.6-10.3 Egfr Non- 22.9 >60 Egfr 29.4 >60 35 Comp Metabolic Panel 01/05/2017 Sodium 138 mmol/L [...] Egfr Non- 35.3 >60 Egfr 45.4 >60 36 Laboratory test 11/19/2016 Hemoglobin A1c 6.5 % High Less than 6.0 37 finding (Glyco HGB) Comp Metabolic Panel 11/19/2016 [...] Egfr Non- 43.1 >60 Egfr 55.4 >60 38 CBC Auto Diff 11/19/2016 White Blood Count [...] 11/19/2016 Vitamin B12 1245 pg/mL High 180-914 39 Ua Routine 06/23/2016 Ua Specific [place] 1.000 Ua PH 6 Ua Color yellow [...] Egfr Non- 52.5 >60 Egfr 67.6 >60 40 Laboratory test 06/23/2016 Hemoglobin A1c 6.0 5-7 finding Laboratory test 04/01/2016 Hemoglobin A1c 6.4 % High Less than 6.0 41 finding (Glyco HGB) Urine Microalbumin 04/01/2016 Urine Creatinine 46.86 mg/dL Random Ur Microalbumin (mg/L) < 15.0 mg/L Urine Microalbumin/Creatinine TNP ug/mg <31 42 Basic Metabolic Panel 04/01/2016 Sodium 139 mmol/L 133-145 Potassium 4.2 mmol/L 3.5-5.0 Chloride 108 mmol/L 101-111 Co2 Carbon Dioxide 23 mmol/L 22-32 Anion Gap 8 mmol/L 2-11 Glucose 78 mg/dL 70-100 Blood Urea Nitrogen 15 mg/dL 6-24 Creatinine 1.06 mg/dL High 0.51-0.95 BUN/Creatinine Ratio 14.2 8-20 Calcium 9.3 mg/dL 8.6-10.3 Egfr Non- 50.8 >60 Egfr 65.4 >60 43 Lipid Profile (Trig/Chol/HDL) 04/01/2016 Triglycerides 107 mg/dL 44 Cholesterol 144 mg/dL 45 HDL Cholesterol 47.5 mg/dL 46 LDL Cholesterol 75 mg/dL 47 Type & Screen 12/31/2015 Patient Blood Type B Positive 48 Antibody Screen NEGATIVE 48 Laboratory test 12/31/2015 Packed Cells SEE RESULTS BELO 48, 49 finding <SEE NOTE> CBC Auto Diff 12/27/2015 White Blood 3.0 10^3/uL Low 3.5-10.8 Count Red Blood Count 3.47 10^6/uL Low 4.0-5.4 [...] 0-2 Nucleated Red Blood Cells % 0.4 Cell Morphology 12/27/2015 Microcytosis 2+ Hypochromasia 2+ Elliptocyte 1+ Laboratory test finding 12/27/2015 Hemoglobin A1c 5.9 5-7 Laboratory test finding 12/24/2015 Point of Care Glucose 91 mg/dL 74-106 50 CBC Auto Diff 10/10/2015 White Blood Count 2.5 10^3/uL Low 3.5-10.8 Red Blood Count 3.44 10^6/uL Low 4.0-5.4 Hemoglobin 7.5 g/dL Low 12.0-16.0 Hematocrit 25 % Low 35-47 Mean Corpuscular Volume 72 fL Low 80-97 51 Mean Corpuscular Hemoglobin 22 pg Low 27-31 Mean Corpuscular HGB Conc 30 g/dL Low 31-36 Red Cell Distribution Width 20 % High 10.5-15 Platelet Count 64 10^3/uL Low 150-450 52 Mean Platelet Volume 9 um3 7.4-10.4 Abs [...] 0-2 Nucleated Red Blood Cells % 0.2 Laboratory test finding 10/10/2015 Vitamin B12 678 pg/mL 180-914 53 Cell Morphology 10/10/2015 Microcytosis 2+ Hypochromasia 2+ Cell Morphology 07/16/2015 Macrocytosis 1+ Microcytosis 1+ Hypochromasia 2+ Laboratory test finding 07/16/2015 Lipase 61 U/L 11.0-82.0 C Reactive Protein 8.73 mg/L High < 5.00 54 Lactic Acid 2.0 mmol/L 0.5-2.0 55 Comp Metabolic Panel 07/16/2015 Sodium 132 mmol/L [...] Egfr Non- 48.8 >60 Egfr 62.8 >60 56 Urinalysis Profile 07/16/2015 Urine Color Yellow Urine Appearance Cloudy Urine Specific [place] 1.012 1.010-1.030 Urine pH 5.0 5-9 Urine [...] Blood Cells % 0 Laboratory test 07/11/2015 Vitamin D Total <pending> finding 25(Oh) Laboratory test 07/11/2015 Hemoglobin A1c 6.2 5-7 finding CBC Auto Diff 01/09/2015 White Blood [...] White Blood Count 3.4 10^3/uL Low 4.8-10.8 57 Red Blood Count 4.08 10^6/uL 4.0-5.4 57 Hemoglobin 9.8 g/dL Low 12.0-16.0 57 Hematocrit 31 % Low 35-47 57 Mean Corpuscular Volume 76 fL Low 80-97 57 Mean Corpuscular Hemoglobin 24 pg Low 27-31 57 Mean Corpuscular HGB Conc 32 g/dL 31-36 57 Red Cell Distribution Width 22 % High 10.5-15 57 Platelet Count 92 10^3/uL Low 150-450 57 Mean Platelet Volume 9 um3 7.4-10.4 57 Abs Neutrophils 2.2 10^3/uL 1.5-7.7 57 Abs Lymphocytes 0.7 10^3/uL Low 1.0-4.8 57 Abs Monocytes 0.3 10^3/uL 0-0.8 57 Abs Eosinophils 0.1 10^3/uL 0-0.6 57 Abs Basophils 0 10^3/uL 0-0.2 57 Abs Nucleated RBC 0 10^3/uL 57 Granulocyte % 66.1 % 38-83 57 Lymphocyte % 21.9 % Low 25-47 57 Monocyte % 8.2 % 1-9 57 Eosinophil % 3.5 % 0-6 57 Basophil % 0.3 % 0-2 57 Nucleated Red Blood Cells % 0.1 57 Laboratory test 09/28/2014 Hemoglobin A1c 6.0 % Less than 57, 58 finding 6.0 Urine Microalbumin 09/28/2014 Ur Microalbumin < 5.0 57 Random (mg/L) mg/L Urine Creatinine 59.77 mg/dL 57 Urine Microalbumin/Creatinine TNP mg/g Less Than 31 57, 59 Lipid Profile (Trig/Chol/HDL) 09/28/2014 Triglycerides 116 mg/dL 57, 60 Cholesterol 134 mg/dL 57, 61 HDL Cholesterol 41.5 mg/dL 57, 62 LDL Cholesterol 69 mg/dL 57, 63 Cell Morphology 09/28/2014 Microcytosis 2+ 57 Hypochromasia 1+ 57 Elliptocyte 1+ 57 Type & Screen 09/06/2014 Patient Blood Type B Positive 64 Antibody Screen NEGATIVE 64 Laboratory test 09/06/2014 Packed Cell - RBC [id number] B 64, 65 finding Leukoreduced <SEE NOTE> CBC Auto Diff [...] test finding 05/09/2014 Pathologist Review (SEE NOTE) 66 Laboratory test finding 05/08/2014 Hemoglobin A1c 6.0 5-7 Vitamin D, 25 Hydroxy 11/10/2013 25-Hydroxy Vitamin D2 22 ng/mL 25-Hydroxy Vitamin D3 26 ng/mL 25-Hydroxy Vitamin D Total 48 ng/mL 67 Laboratory test finding 11/10/2013 Hemoglobin A1c 5.3 5-7 Vitamin D, 25 Hydroxy 07/11/2013 25-Hydroxy Vitamin D2 <4.0 ng/mL 25-Hydroxy Vitamin D3 16 ng/mL 25-Hydroxy Vitamin D Total 16 ng/mL 68 Comp Metabolic Panel 06/13/2013 Sodium 137 mmol/L [...] Egfr Non- 54.8 >60 Egfr 70.5 >60 69 Lipid Profile (Trig/Chol/HDL) 06/13/2013 Triglycerides 143 mg/dL 40-200 Cholesterol 155 mg/dL Less than 200 HDL Cholesterol 44 mg/dL 40-60 70 Cholesterol/HDL Ratio 3.5 Average 1-4.44 LDL Cholesterol 82.4 Less Than 100 71 Laboratory test finding 06/13/2013 Vitamin B12 519 pg/mL 180-914 Laboratory test finding 06/13/2013 TSH (Thyroid 2.40 miu/mL 0.34-5.60 Stimulating Horm) CBC Auto Diff 06/13/2013 White Blood Count [...] 0-2 Nucleated Red Blood Cells % 0 Cell Morphology 06/13/2013 Microcytosis 1+ Ua Routine 06/09/2013 Ua Specific [place] 1.005 Ua PH 5.0 Ua Color yellow Ua Appera clear Ua WBC neg Ua Protein neg Ua Glucose neg Ua Ketones neg Ua Bilirubin small Ua Urobilinogen neg Ua Nitrite neg Ua Occult Blood neg Urine Microalbumin Random 06/09/2013 Ur Microalbumin (mg/L) 2.0 mg/L 72 Urine Creatinine 51.0 mg/dL Urine Microalbumin/Creatinine 3.9 Less Than 31 Laboratory test 06/09/2013 Hemoglobin A1c 6.3 5-7 finding C. Difficile Toxin 10/30/2009 C. Difficile Toxin A TEST LIMITATIONS 73 B <SEE NOTE> Laboratory test 12/14/2007 Alkaline Phosphatase 95 U/L 30-110 74 finding Phosphorus 2.1 mg/dL Low 2.4-4.7 74 Bilirubin Total 0.4 mg/dL 0.4-1.5 74 Lipid Profile (Trig/Chol/HDL) 12/14/2007 Triglyceride 306 mg/dL High 40- 200 74 Cholesterol 175 mg/dL Less Than 200 74, 75 High Density Lipoprotein 42 mg/dL 40-60 74, 76 Cholesterol/HDL Ratio 4.17 AVERAGE 1-4.44 74 Low Density Lipoprotein 72 mg/dL Less Than 100 74, 77 Protime 12/14/2007 Protime 12.1 10.9-13.3 74 Inr 1.00 74, 78 Basic Metabolic Panel 12/14/2007 Sodium 139 mmol/L 135-145 74 Potassium 4.2 mmol/L 3.5-5.0 74 Chloride 105 mmol/L 101-111 74 Co2 (Carbon Dioxide) 28.0 mmol/L 22-32 74 Anion Gap 6.0 mmol/L 2-11 74, 79 Glucose 171 mg/dL High 70-105 74 BUN 10 mg/dL 6-24 74 Creatinine 0.9 mg/dL 0.5-1.4 74 One Over Creatinine 1.11 74 BUN/Creatinine Ratio 11.1 8-20 74 Calcium 9.1 mg/dL 8.1-9.9 74, 80 CBC With Manual Diff 12/14/2007 White Blood Count 3.6 CUMM Low 4.8-10.8 74 Red Cell Count 4.20 CUMM 4.2-5.4 74 Hemoglobin 12.7 g/dL 12.0-16.0 74 Hematocrit 38 % 35-47 74 Mean Corpuscular Volume 89 um3 79-97 74 Mean Corpuscular Hemoglob 30 pg 27-31 74 Mean Corpuscular HGB Cone 34 g/dL 32-36 74 Redcell Distribution WDTH 14 % 10.5-15 74 Platelet Count 122 CUMM Low 150-450 74 Mean Platelet Volume 10.8 um3 High 7.4-10.4 74 Polysegmented Neutrophil 63 % 38-83 74 Lymphocyte 29 % 5-47 74 Monocyte 6 % 0-13 74 Eosenophil 2 % 0-6 74 Absolute Neutrophil Count 2.2 74 Anisocytosis SLIGHT 74 Cath Panel 12/14/2007 PTT (Aptt) 24.5 20.1-28.2 74, 81 1 Because ethnic data is not always [...] 5 Kidney failure <15 (or dialysis) 2 Desirable: <150 Borderline High: 150-199 High: 200-499 Very High: >500 3 Desirable: <200 Borderline High: 200-239 High: >239 4 Low: <40 Desirable: 40-60 High: >60 5 Desirable: <100 Near Optimal: 100-129 Borderline High: 130-159 High: 160-189 Very High: >189 6 Consistent with Previous Results Reported on 04/20/17 7 Because ethnic data is not always readily [...] 15-29 5 Kidney failure <15 (or dialysis) 8 Because ethnic data is not always [...] 5 Kidney failure <15 (or dialysis) 9 SEE RESULT BELOW Name: PATEL BRUNSON : [address]: Melissa Do MD Acct: [id number] Unit: [id number] AGE: 76 Location: [facility] Re04/29/17 SEX: F Status: REG REF SPEC: [id number] ZAHEER: 04/29/[address] [facility] [address]: Melissa Do MD REQ: [id number] RECD: 04/30/17 STATUS: COMP _ SOURCE: BODY [...] mycobacterial culture. * ML - MAIN LAB ([facility]) . END OF REPORT * ML=Testing performed at Main Lab DEPARTMENT OF PATHOLOGY, [address] [place] [address] Devyn Boston M.D. Director [facility] # [id number] 10 SOURCE: SPUTUM MYCOBACTERIAL CULTURE FINAL MYCOBACTERIUM CHELONAE - Previous comment was modified at 13:14 on 05/28/2017: Negative by probe, to date, for Mycobacterium tuberculosis complex and Mycobacterium avium complex. GORDONIA SPUTI [employer] [place] Test Performed by: [facility] - [address] [address] 11 SEE RESULT BELOW Name: PATEL BRUNSON : [address]: Melissa Do MD Acct: [id number] Unit: [id number] AGE: 76 Location: [facility] Re04/28/17 SEX: F Status: REG REF SPEC: [id number] ZAHEER: 04/28/17 DR: Melissa Do MD REQ: [id number] RECD: 04/28/17 STATUS: COMP _ SOURCE: RESP [...] mycobacterial culture. * ML - MAIN LAB ([facility]) . END OF REPORT * ML=Testing performed at Main Lab DEPARTMENT OF PATHOLOGY, [address] [place] [address] Devyn Boston M.D. Director [facility] # [id number] 12 SOURCE: SPUTUM MYCOBACTERIAL CULTURE FINAL No growth after 60 days of incubation. Test Performed by: [address] [address] 13 SOURCE: SPUTUM MYCOBACTERIAL CULTURE FINAL TSUKAMURELLA TYROSINOSOLVENS Few Test Performed by: [place] [id number] 14 Therapeutic target for the treatment of diabetes mellitus patients is <7% HBA1C, and in selective patients <6.0%. Please refer to [place] [employer] diabetic care guidelines for further information. 15 Because ethnic data is not always readily [...] 15-29 5 Kidney failure <15 (or dialysis) 16 SEE RESULT BELOW Name: PATEL BRUNSON : [address]: Melissa Do MD Acct: [id number] Unit: [id number] AGE: 76 Location: [facility] Re04/02/17 SEX: F Status: REG REF SPEC: [id number] ZAHEER: 04/02/17-[address] [facility] [address]: Melissa Do MD REQ: [id number] RECD: 04/02/17 STATUS: COMP _ SOURCE: RESP [...] mycobacterial culture. * ML - MAIN LAB ([facility]) . END OF REPORT * ML=Testing performed at Main Lab DEPARTMENT OF PATHOLOGY, [address] [place] [address] Devyn Boston M.D. Director [facility] # [id number] 17 SEE RESULT BELOW Name: LINDA BRUNSONLAVERNE Calabrese : [address]: Melissa Do MD Acct: [id number] Unit: [id number] AGE: 76 Location: [facility] Re04/02/17 SEX: F Status: REG REF SPEC: [id number] ZAHEER: 04/02/[address] [facility] [address]: Melissa Do MD REQ: [id number] RECD: 04/02/17 STATUS: CAN _ SOURCE: SPUTUM,EXP SPDESC: ORDERED: Sputum Cult/GS Procedure Result Reported Site CANCELLED REWJECT >10 EPIS END OF REPORT * ML=Testing performed at Main Lab DEPARTMENT OF PATHOLOGY, [address] [place] [address] Devyn Boston M.D. Director [facility] # [id number] 18 SOURCE: SPUTUM MYCOBACTERIAL CULTURE FINAL TSUKAMURELLA TYROSINOSOLVENS [place] GORDONIA SPUTI [place] Test Performed by: [address] [address] 19 SEE RESULT BELOW Name: PATEL BRUNSON: [address]: Melissa Do MD Acct: [id number] Unit: [id number] AGE: 76 Location: [facility] Re04/02/17 SEX: F Status: REG REF SPEC: [id number] ZAHEER: 04/02/17-[address] [facility] [address]: Melissa Do MD REQ: [id number] RECD: 04/02/17 STATUS: COMP _ SOURCE: SPUTUM,EXP SPDESC: ORDERED: Sputum Smear COMMENTS: REJECT SPT CULTURE - >10 EPI/LPF Procedure Result Reported Site Sputum Smear Final 04/02/17- 1246 ML 4+ Epithelial Cells No Neutrophils Observed Mixed Morphotypes, resembling Normal Marie * ML - MAIN LAB ([facility]) . END OF REPORT * ML=Testing performed at Main Lab DEPARTMENT OF PATHOLOGY, [address] [place] [address] Devyn Boston M.D. Director [facility] # [id number] 20 Because ethnic data is not always readily [...] 15-29 5 Kidney failure <15 (or dialysis) 21 SEE RESULT BELOW Name: LINDA BRUNSONJOSÉ ANTONIOOLIVIERJR Calabrese : [address]: Melissa Do MD Acct: [id number] Unit: [id number] AGE: 76 Location: [facility] Re04/01/17 SEX: F Status: REG REF SPEC: [id number] ZAHEER: 04/01/[address]: Melissa Do MD REQ: [id number] RECD: 04/01/17 STATUS: COMP _ SOURCE: SPUTUM,EXP SPDESC: ORDERED: Sputum Smear Procedure Result Reported Site Sputum Smear Final 04/01/17- 1509 ML No Neutrophils Observed 2+ Epithelial Cells Mixed Morphotypes, resembling Normal Marie Reject >10 Epi/LPF suggestive of Oral Contamination * ML - MAIN LAB ([facility]) . END OF REPORT * ML=Testing performed at Main Lab DEPARTMENT OF PATHOLOGY, [address] [place] [address] Devyn Boston M.D. Director [facility] # [id number] 22 SOURCE: SPUTUM MYCOBACTERIAL CULTURE FINAL TSUKAMURELLA PULMONIS [place] GORDONIA SPUTI [place] TSUKAMURELLA TYROSINOSOLVENS Test Performed by: [address] [address] 23 SEE RESULT BELOW Name: LINDA BRUNSONAUREJR Guanakito : [address]: Melissa Do MD Acct: [id number] Unit: [id number] AGE: 76 Location: [facility] Re04/01/17 SEX: F Status: REG REF SPEC: [id number] ZAHEER: 04/01/[address] [facility] [address]: Melissa Do MD REQ: [id number] RECD: 04/01/17 STATUS: RES _ SOURCE: SPUTUM,EXP SPDESC: ORDERED: Sputum Cult/GS Procedure Result Reported Site Sputum Smear Final 04/01/17- 1509 ML No Neutrophils Observed 2+ Epithelial Cells Mixed Morphotypes, resembling Normal Marie Reject >10 Epi/LPF suggestive of Oral Contamination Sputum Culture PENDING * ML - MAIN LAB ([facility]) . END OF REPORT * ML=Testing performed at Main Lab DEPARTMENT OF PATHOLOGY, [address] [place] [address] Devyn Boston M.D. Director [facility] # [id number] 24 SEE RESULT BELOW Name: LINDA BRUNSONLAVERNE Calabrese : [address]: Melissa Do MD Acct: [id number] Unit: [id number] AGE: 76 Location: [facility] Re04/01/17 SEX: F Status: REG REF SPEC: [id number] ZAHEER: 04/01/[address]: Melissa Do MD REQ: [id number] RECD: 04/01/17 STATUS: COMP _ SOURCE: RESP SPDESC:SPUTUM ORDERED: [...] mycobacterial culture. * ML - MAIN LAB ([facility]) . END OF REPORT * ML=Testing performed at Main Lab DEPARTMENT OF PATHOLOGY, [address] [place] [address] Devyn Boston M.D. Director [facility] # [id number] 25 SOURCE: SPUTUM MYCOBACTERIAL CULTURE FINAL TSZAHRA PULBERNABEIS Few - Previous comment was modified at 15:36 on 04/10/2017: Negative by probe, to date, for Mycobacterium tuberculosis complex and Mycobacterium avium complex. TSUKAMURELLA TYROSINOSOLVENS BONITA ACKERMANI [place] Test Performed by: [facility] - [address] [address] 26 SEE RESULT BELOW Name: PATEL BRUNSON : [address]: Melissa Do MD Acct: [id number] Unit: [id number] AGE: 76 Location: [facility] Re03/31/17 SEX: F Status: REG REF SPEC: [id number] ZAHEER: 03/31/[address] [facility] [address]: Melissa Do MD REQ: [id number] RECD: 03/31/17 STATUS: COMP _ SOURCE: HECTOR SPDESC: ORDERED: AFB Cult Smear Procedure Result Reported Site Acid Fast Stain - Direct Final 04/01/17832 ML AFB Smear Result No Acid Fast Bacillus Present (Negative) Preparation By Direct Smear Due to limited sensitivity of the smear, results should be used as an adjunct in evaluating the patient's status. This specimen has been sent to referral laboratory for mycobacterial culture. * ML - MAIN LAB ([facility]) . END OF REPORT * ML=Testing performed at Main Lab DEPARTMENT OF PATHOLOGY, [address] [place] [address] Devyn Boston M.D. Director [facility] # [id number] 27 SEE RESULT BELOW Name: LINDA BRUNSONLAVERNE Calabrese : [address]: Melissa Do MD Acct: [id number] Unit: [id number] AGE: 76 Location: [facility] Re03/31/17 SEX: F Status: REG REF SPEC: [id number] ZAHEER: 03/31/[address] [facility] [address]: Melissa Do MD REQ: [id number] RECD: 03/31/17 STATUS: COMP _ SOURCE: SPUTUM,EXP SPDESC: ORDERED: Sputum Smear Procedure Result Reported Site Sputum Smear Final 03/31/17- 1515 ML 4+ Epithelial Cells 1+ Neutrophils 2+ Nucleated Cells Mixed Morphotypes, resembling Normal Marie Reject >10 Epi/LPF suggestive of Oral Contamination * ML - MAIN LAB ([facility]) . END OF REPORT * ML=Testing performed at Main Lab DEPARTMENT OF PATHOLOGY, [address] [place] [address] Devyn Boston M.D. Director [facility] # [id number] 28 SEE RESULT BELOW Name: LINDA BRUNSONLAVERNE Calabrese : [address]: Melissa Do MD Acct: [id number] Unit: [id number] AGE: 76 Location: [facility] Re03/31/17 SEX: F Status: REG REF SPEC: [id number] ZAHEER: 03/31/[address] [facility] [address]: Melissa Do MD REQ: [id number] RECD: 03/31/17 STATUS: RES _ SOURCE: SPUTUM,EXP SPDESC: ORDERED: Sputum Cult/GS Procedure Result Reported Site Sputum Smear Final 03/31/17- 1515 ML 4+ Epithelial Cells 1+ Neutrophils 2+ Nucleated Cells Mixed Morphotypes, resembling Normal Marie Reject >10 Epi/LPF suggestive of Oral Contamination Sputum Culture PENDING * ML - MAIN LAB ([facility]) . END OF REPORT * ML=Testing performed at Main Lab DEPARTMENT OF PATHOLOGY, [address] [place] [address] Devyn Boston M.D. Director [facility] # [id number] 29 SEE RESULT BELOW Name: PATEL BRUNSON : [address]: Melissa Do MD Acct: [id number] Unit: [id number] AGE: 76 Location: [facility] Re03/30/17 SEX: F Status: REG REF SPEC: [id number] ZAHEER: 03/30/[address]: Melissa Do MD REQ: [id number] RECD: 03/30/17 STATUS: COMP _ SOURCE: RESP SPDESC:SPUTUM EXP ORDERED: AFB Cult Smear Procedure Result Reported Site Acid Fast Stain - Direct Final 03/31/17- 0819 ML AFB Smear Result No Acid Fast Bacillus Present (Negative) Preparation By Direct Smear Due to limited sensitivity of the smear, results should be used as an adjunct in evaluating the patient's status. This specimen has been sent to referral laboratory for mycobacterial culture. * ML - MAIN LAB ([facility]) . END OF REPORT * ML=Testing performed at Main Lab DEPARTMENT OF PATHOLOGY, [address] [place] [address] Devyn Boston M.D. Director [facility] # [id number] 30 SEE RESULT BELOW Name: PATEL BRUNSON : [address]: Melissa Do MD Acct: [id number] Unit: [id number] AGE: 76 Location: [facility] Re03/30/17 SEX: F Status: REG REF SPEC: [id number] ZAHEER: 03/30/17-[address]: Melissa Do MD REQ: [id number] RECD: 03/30/17 STATUS: RES _ SOURCE: SPUTUM,EXP SPDESC: ORDERED: Sputum Cult/GS Procedure Result Reported Site Sputum Smear Final 03/31/17- 0801 ML 4+ Epithelial Cells 1+ Neutrophils Mixed Morphotypes, resembling Normal Marie Reject >10 Epi/LPF suggestive of Oral Contamination Sputum Culture PENDING * ML - MAIN LAB ([facility]) . END OF REPORT * ML=Testing performed at Main Lab DEPARTMENT OF PATHOLOGY, [address] [place] [address] Devyn Boston M.D. Director [facility] # [id number] 31 SEE RESULT BELOW Name: PATEL BRUNSON : [address]: Melissa Do MD Acct: [id number] Unit: [id number] AGE: 76 Location: [facility] Re03/30/17 SEX: F Status: REG REF SPEC: [id number] ZAHEER: 03/30/[address] [facility] [address]: Melissa Do MD REQ: [id number] RECD: 03/30/17 STATUS: COMP _ SOURCE: SPUTUM,EXP SPDESC: ORDERED: Sputum Smear Procedure Result Reported Site Sputum Smear Final 03/31/17 08 ML 4+ Epithelial Cells 1+ Neutrophils Mixed Morphotypes, resembling Normal Marie Reject >10 Epi/LPF suggestive of Oral Contamination * ML - MAIN LAB ([facility]) . END OF REPORT * ML=Testing performed at Main Lab DEPARTMENT OF PATHOLOGY, [address] [place] [address] Devyn Boston M.D. Director [facility] # [id number] 32 SOURCE: SPUTUM MYCOBACTERIAL CULTURE FINAL No growth after 60 days of incubation. Test Performed by: [address] [address] 33 Because ethnic data is not always readily [...] 15-29 5 Kidney failure <15 (or dialysis) 34 Because ethnic data is not always [...] 5 Kidney failure <15 (or dialysis) 37 Therapeutic target for the treatment of diabetes Mellitus patients is <7% HBA1C, and in selective patients <6.0%.Please refer to [place] [employer] Diabetic care guidelines for further information. 38 Because ethnic data is not always readily [...] 15-29 5 Kidney failure <15 (or dialysis) 39 Normal Range 180 to 914 Indeterminate Range 145 to 180 Deficient Range <145 40 Because ethnic data is not always readily [...] 15-29 5 Kidney failure <15 (or dialysis) 41 Therapeutic target for the treatment of diabetes Mellitus patients is <7% HBA1C, and in selective patients <6.0%.Please refer to [place] [employer] Diabetic care guidelines for further information. 42 Unable to calculate due to low microalbumin 43 Because ethnic data is not always readily [...] 15-29 5 Kidney failure <15 (or dialysis) 44 Desirable <150 Borderline high 150-199 High 200-499 Very High >500 45 Desirable <200 Borderline high 200-239 High >239 46 Low <40 Desirable: 40-60 High: >60 47 Desirable: <100 mg/dL Near Optimal: 100-129 mg/dL Borderline High: 130-159 mg/dL High: 160-189 mg/dL Very High: >189 mg/dL 48 ANEMIA 49 SEE RESULTS BELOW [id number] BP PC TRANSFUSED 12/31/15 1352 [id number] BP PC TRANSFUSED 12/31/15 1554 50 Resident Associate: [id number] ORLIN SMALLDEVENDRA Mason 51 Consistent with previous results on 07/16/15. 52 Consistent with previous results on 07/16/15. 53 Normal Range 180 to 914 Indeterminate Range 145 to 180 Deficient Range <145 54 Acute inflammation: >10.00 55 [facility] Severe Sepsis and Septic Shock Management Bundle Measure requires all lactic acids initially measuring >2.0mmol/L be repeated. 56 Because ethnic data is not always readily [...] 15-29 5 Kidney failure <15 (or dialysis) 57 PT IS FASTING 58 Therapeutic target for the treatment of diabetes Mellitus patients is <7% HBA1C, and in selective patients <6.0%.Please refer to [place] [employer] Diabetic care guidelines for further information. 59 Unable to calculate due to low microalbumin 60 Desirable <150 Borderline high 150-199 High 200-499 Very High >500 61 Desirable <200 Borderline high 200-239 High >239 62 Low <40 Desirable: 40-60 High: >60 63 Desirable: <100 mg/dL Near Optimal: 100-129 mg/dL Borderline High: 130-159 mg/dL High: 160-189 mg/dL Very High: >189 mg/dL 64 ANEMIA NOS 65 [id number] BP PC TRANSFUSED 09/07/14 0943 66 Reviewed by Luci Yu MD CBC and smear reviewed. Microcytic, hypochromic anemia present. Findings consistent with iron deficiency. CBC and smear reviewed. Thrombocytopenia present without evidence of platelet clumping or satellitosis. 67 -- REFERENCE VALUE -- 25-HYDROXY D TOTAL (D2+D3) Optimum levels in the healthy population are 20-50, patients with bone disease may benefit from higher levels within this range. Test Performed by: [place] [address] Flat Breakdown Processor: Daniel East III, M.D. 68 Interpretation: 10-19 ng/mL (mild to moderate deficiency) -- REFERENCE VALUE -- 25-HYDROXY D TOTAL (D2+D3) Optimum levels in the healthy population are 20-50, patients with bone disease may benefit from higher levels within this range. Test Performed by: [place] [address] Flat Breakdown Processor: Daniel East III, M.D. 69 Because ethnic data is not always readily [...] 15-29 5 Kidney failure <15 (or dialysis) 70 HDL Interpretation: Undesirable: High Risk: Less than 40 mg/dL Desirable: Low Risk: Greater than 60 mg/dL 71 LDL Interpretation: Low Risk Optimal Level: LDL Less than 100 mg/dL Near or Above Optimal: LDL 100-129 mg/dL Borderline High Risk: LDL 130-159 mg/dL High Risk: LDL 160-189 mg/dL Very High Risk: LDL Greater than 189 mg/dL 72 Microalbuminuria in a random sample is defined as: Microalbumin/Creatinine ratio of 30-299 ug/mg. 73 TEST LIMITATIONS: The performance of specimens from [...] in cystic fibrosis patients. NEGATIVE BY IMMUNOASSAY 74 FASTING 75 CHOLESTEROL INTERPRETATION: Desirable: Less than 200 MG/DL Borderline-High Risk: 200-239 MG/DL High-Risk: 240 MG/DL and over 76 HDL INTERPRETATION: Undesirable: High Risk: Less than 40 MG/DL Desirable: Low Risk: Greater than 60 MG/DL 77 LDL INTERPRETATION: Low Risk Optimal Level: LDL Less than 100 MG/DL Near or Above Optimal: LDL 100-129 MG/DL Borderline High Risk: LDL 130-159 MG/DL High Risk: LDL 160-189 MG/DL Very High Risk: LDL Greater than 189 MG/DL 78 CHRISTIANO VALUE=2.01 ( OF 05/07/07 Recommended INR for Patients on Oral Anticoagulants Prophylaxis 2.0 - 3.0 Treatment of thrombosis 2.0 - 3.0 Prevention of embolism 2.0 - 3.0 Prevention of embolism from prosthetic heart valves 2.5 - 3.5 79 Anion gap measurement may be of limited value in the presence of any alkalosis, especially in a combined acid base disorder. . 80 Please note change in reference range effective 07 . 81 PLEASE NOTE NEW REFERENCE RANGE EFFECTIVE 07. Procedures Date CPT Code Description Status Comment 04/24/2017 Mammogram Completed 03/27/2017 14978 EKG Tracing & Completed Interpretation 07/23/2016 78009 EKG, Interpretation Only Completed 07/23/2016 67778 Laparotomy Exploratory Completed 07/23/2016 58651 Laparotomy Exploratory Completed 07/22/2016 58965 ECHO Transthorasic Realtime Completed 2D W Doppler & Color Flow Hosp 07/04/2016 27396 Admin Of Inj Completed 06/03/2016 86774 Admin Of Inj Completed 04/28/2016 73792 Admin Of Inj Completed 04/09/2016 Mammogram Completed 03/31/2016 49172 EKG Tracing & Completed Interpretation 03/27/2016 41196 Admin Of Inj Completed 02/22/2016 28887 Admin Of Inj Completed 01/23/2016 67301 Admin Of Inj Completed 12/20/2015 22783 Admin Of Inj Completed 11/19/2015 23571 Admin Of Inj Completed 10/23/2015 60537 Admin Of Inj Completed 09/26/2015 53940 Admin Of Inj Completed 08/27/2015 Diabetic Retinal Eye Exam Completed 08/09/2015 55731 Admin Of Inj Completed 07/11/2015 85450 Admin Of Inj Completed 06/18/2015 33987 Admin Of Inj Completed 05/17/2015 89179 Admin Of Inj Completed 04/20/2015 16726 ECHO Transthoracic, Completed Real-Time 2D With Doppler And Color Flow 04/03/2015 62713 EKG Tracing & Completed Interpretation 03/23/2015 69378 Admin Of Inj Completed 02/19/2015 79378 Admin Of Inj Completed 02/12/2015 19670 Inject/Drain Joint/Bursa Completed Major 01/26/2015 77833 Admin Of Inj Completed 12/26/2014 63110 Admin Of Inj Completed 11/13/2014 32017 Admin Of Inj Completed 10/17/2014 46237 Admin Of Inj Completed 10/17/2014 25642 Inject/Drain Joint/Bursa Completed Major 09/15/2014 62154 Admin Of Inj Completed 08/15/2014 98354 Admin Of Inj Completed 08/04/2014 Diabetic Retinal Eye Exam Completed 07/17/2014 60224 Admin Of Inj Completed 06/16/2014 99714 Admin Of Inj Completed 05/08/2014 15243 Admin Of Inj Completed 04/17/2014 77000 Admin Of Inj Completed 03/17/2014 98940 Admin Of Inj Completed 02/14/2014 36446 Admin Of Inj Completed 01/16/2014 20755 Stress Test Supervsn W/Out Completed I/R 01/16/2014 12795 Treadmill Interp/Report Only Completed 01/13/2014 03144 ECHO Transthoracic, Completed Real-Time 2D With Doppler And Color Flow 01/13/2014 52792 Admin Of Inj Completed 12/19/2013 94206 EKG Tracing & Completed Interpretation 12/14/2013 02221 Admin Of Inj Completed 11/10/2013 72461 Admin Of Inj Completed 10/10/2013 11390 Admin Of Inj Completed 09/12/2013 95696 Admin Of Inj Completed 08/04/2013 Bone Mineral Density Test Completed 08/04/2013 Mammogram Completed 07/29/2013 Diabetic Retinal Eye Exam Completed 11/29/2012 Colonoscopy Completed mild diffuse diverticulosis , internal hemoorhoids done for intermittent rectal bleeding ( hemmorhoids not the source) 10/11/201206424 Inject Tendon Sheath Or Completed Ligament Aponeurosis Eg Plantar Fascia 10/11/201220883 Injection Single Tendon Completed Origin/Insertion 10/11/2012 90142 Rad Exam; Wrist, Comp, Min 3 Completed Views 06/01/2011 Mammogram Completed Xray: 08/04/13 - Mammogram Screening Josesito 10/26/2009 64916 ECHO Transthorasic Realtime Completed 2D W Doppler & Color Flow Hosp 12/20/2008 70293 EKG Tracing & Completed Interpretation 12/17/2007 21937 Selective Coronary Completed Angioplasty 12/17/2007 62630 S/I/R Inj Proc Vent And Or Completed Atrial 12/17/2007 90954 S/I/R Inj Proc Vent And Or Completed Atrial 12/17/2007 61293 Coronary Angiography Completed 12/17/2007 65347 Coronary Angiography Completed 12/17/2007 54282 Inj Proc LFT Vent/LFT Atrl Completed Angio 12/17/2007 91057 Left Heart Catheterization Completed 12/09/2007 61818 EKG Tracing & Completed Interpretation 12/09/2007 15264 EKG Tracing & Completed Interpretation 11/19/2007 77199 Stress Test Supervsn W/Out Completed I/R 11/19/2007 22435 Treadmill Interp/Report Only Completed 11/19/2007 13815 Treadmill Interp/Report Only Completed 11/19/2007 60514 Stress ECHO Completed Interpretation/Report Hospital 11/19/2007 52931 Stress ECHO Completed Interpretation/Report Hospital 11/03/2007 24291 Stress Test Completed 11/03/2007 59947 Stress Test Completed 11/03/2007 34547 ECHO/Stress Completed Encounters Type Date Location Provider CPT E/M Dx Office Visit 07/14/2017 12:10p [facility] Internal Medicine Michelle Barbour M.D. 19746 R05 - Dawson N18.3 K43.2 D61.818 Office Visit 05/13/2017 1:00p [facility] Internal Medicine Michelle Barbour 98534 K74.69 - [place] Conner E11.9 N18.3 Office Visit 05/06/2017 10:50a [facility] Danny Washington, 21504 R05 Infectious Diseases M.Clarissa Z71.89 Office Visit 05/04/2017 1:45p [facility] [address] R05 Services [facility] Office Visit 04/20/2017 11:40a [facility] Internal Medicine - Michelle Barbour 93195 K74.69 [place] Conner E11.9 R05 N18.3 Z23 Z71.89 Office Visit 03/30/2017 10:15a [facility] [address] R05 [facility] J30.9 Office Visit 03/27/2017 3:20p [facility] Peter Medrano, 26339 K74.69 Ubaldo E11.9 I10 E78.5 Office Visit 02/11/2017 11:50a [facility] Internal Medicine Michelle Barbour 93236 K74.69 - [place] Conner N18.3 L29.8 Office Visit 01/27/2017 1:40p [facility] Internal Medicine Michelle Barbour M.D. 20591 N17.9 - [place] K74.69 K43.2 Office Visit 01/05/2017 10:10a [facility] Internal Medicine Michelle Barbour 01193 K74.69 - [place] Conner N39.0 E11.9 N17.9 Office Visit 12/17/2016 2:40p [facility] Internal Medicine Michelle Barbour 51657 R10.84 - [place] Conner K74.69 Office Visit 11/26/2016 2:20p [facility] Internal Medicine Michelle Barbour M.D. 26306 J30.9 - [place] E11.9 Office Visit 11/19/2016 1:00p [facility] Internal Medicine Michelle Barbour, 77627 K74.69 - [place] Conner N17.9 R53.1 E11.9 D61.818 R22.9 E53.8 I85.00 Office Visit 07/26/2016 4:04p [facility] Scott Rojas, 22511 J96.01 Hospitalists R65.20 A41.9 K65.2 Office Visit 07/25/2016 4:03p [facility] Scott Rojas, 97547 J96.01 Hospitalists R65.20 A41.9 K65.2 Office Visit 07/24/2016 4:01p [facility] Ciro Danielson 98698 J96.01 Hospitalists Kristie Christianson R65.20 A41.9 K65.2 Office Visit 07/23/2016 3:54p [facility] Yan Hernandez, 04513 R65.20 Assoc,[facility] Hospitalists A41.9 K81.0 K74.69 [facility] Ciro Danielson 39271 R65.20 Hospitalists Kristie Christianson A41.9 K81.0 K74.69 Office Visit 07/22/2016 7:00a [facility] Jeronimo, 67199 K81.0 [facility] Office Visit 07/22/2016 3:34p [facility] Gabriella Mims, 10517 R10.11 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 89507 R10.11 Assoc,pc Hospitalists E11.9 K74.69 K21.9 Office Visit 06/23/2016 10:10a [facility] Internal Medicine Michelle Barbour M.D. 96002 E11.9 - Dawson D61.818 R35.0 K80.80 Office Visit 03/31/2016 3:20p [facility] Mauriciotaybveda SMelita Medrano, 01262 E78.5 Ubaldo I10 I45.6 R94.31 Office Visit 03/31/2016 8:50a [facility] Internal Medicine Michelle Barbour, 86984 E11.40 - Dawson Conner Z71.89 Z79.899 E78.5 Z23 Office Visit 03/11/2016 2:40p [facility] Internal Medicine Dario Villarreal, 42259 J06.9 - Dawson Conner Office Visit 12/27/2015 1:00p [facility] Internal Medicine Michelle Barbour M.D. 99610 R31.2 - Gloria D64.9 E11.40 E11.40 Office Visit 10/09/2015 2:00p [facility] Internal Medicine Michelle Barbour 21632 D61.818 - Gloria Conner D51.9 Office Visit 08/09/2015 1:00p [facility] Internal Medicine Michelle Barbour, 35081 E11.40 - Gloria Conner D61.818 D51.9 Z79.899 Office Visit 07/17/2015 12:10p [facility] Internal Medicine Michelle Barbour 04249 K80.20 - Gloria Conner D61.818 A08.39 K74.60 A08.4 Office Visit 07/11/2015 10:30a [facility] Internal Medicine Michelle Barbour M.D. 27006 D51.9 - Gloria E11.40 M85.89 D64.9 R14.0 Z12.31 M79.672 Office Visit 05/07/2015 1:00p [facility] [address] S46.012D [facility] Office Visit 04/03/2015 4:00p [facility] Mauriciotaybveda SMelita 48719 E11.9 Ubaldo Medrano I10 R06.02 Office Visit 03/26/2015 9:45a [facility] Wilfredo Kramer M.D. 49869 S46.012D [facility] Office Visit 02/12/2015 2:50p [facility] Wilfredo Kramer M.D. 92654 840.4 [facility] Office Visit 01/08/2015 11:50a [facility] Internal Medicine Michelle Barbour 39728 250.60 - Gloria Conner 284.19 250.00 572.3 Office Visit 01/02/2015 1:00p [facility] Wilfredo Kramer M.D. 67228 840.4 [facility] Office Visit 10/17/2014 11:00a [facility] Wilfredo Kramer M.D. 27614 840.4 [facility] Office Visit 09/27/2014 2:50p [facility] Internal Medicine Michelle Barbour 26388 250.60 - Gloria Conner 787.3 285.8 250.00 Office Visit 08/17/2014 9:10a [facility] Internal Medicine Michelle Barbour 74510 574.70 - Gloria Conner 536.8 250.60 V03.82 691.8 Office Visit 08/03/2014 11:00a [facility] NGUYEN Pal 80217 250.60 786.05 401.1 414.01 250.00 Office Visit 07/17/2014 2:30p [facility] Internal [place] [address] 266.2 Nora 465.9 Office Visit 06/29/2014 2:10p [facility] Internal Medicine Michelle Barbour M.D. 02522 840.4 - Nora 847.0 250.60 787.3 Office Visit 05/08/2014 2:50p [facility] Internal Medicine Michelle Barbour 33003 250.60 - Gloria Conner 285.9 571.5 690.11 266.2 Office Visit 02/09/2014 4:00p [facility] Cyybveda Medrano 34673 786.05 Ubaldo 401.1 Office Visit 01/16/2014 9:30a [facility] Peter Kwok 55998 786.05 Ubaldo Medrano Office Visit 01/05/2014 1:50p [facility] Internal Medicine Michelle Barbour M.D. 60202 331.83 - Nora V04.89 250.60 715.96 Office Visit 12/19/2013 1:20p [facility] Peter Medrano, 68552 786.09 M.DMelita 786.05 794.31 414.01 401.1 Office Visit 12/14/2013 11:10a [facility] Internal Medicine Michelle Barbour M.D. 39720 V70.0 - Nora 266.2 V76.10 786.09 250.00 331.83 Office Visit 11/10/2013 2:10p [facility] Internal Medicine Michelle Barbour 85313 250.00 - Noratom Conner 268.9 530.81 715.09 266.2 Office Visit 08/10/2013 10:10a [facility] Internal Medicine Michelle Barbour 61094 250.00 - Noratom Conner 266.2 733.90 Office Visit 07/11/2013 2:50p [facility] Internal Medicine Michelle Barbour 53347 250.00 - Gloria Conner 266.2 284.19 733.90 268.9 536.8 Office Visit 06/09/2013 1:10p [facility] Internal Medicine Michelle Barbour 09901 250.00 - Noratom Conner 266.2 598.9 691.8 285.9 Office Visit 10/11/2012 9:00a [facility] Radha De Jesus, 23520 727.04 Of Charlie Conner 716.94 Office Visit 10/31/2009 1:00a [facility], Alexander Wick, 98786 599.0 Hospitalists M.D. 284.1 790.99 250.02 Office Visit 10/30/2009 1:00a [facility], Alexander Wick, 22188 784.0 Hospitalists M.D. 599.0 250.00 Office Visit 10/29/2009 1:15a [facility], Alexander Wick, 68854 599.0 Hospitalists M.D. 250.02 284.1 790.99 Office Visit 10/28/2009 1:30a [facility], Alexander Wick, 97073 599.0 Hospitalists M.D. 284.1 280.9 784.0 Office Visit 10/26/2009 1:15a [facility] Chani Hern[facility]dez, 17049 995.91 Hospitalists M.D. 790.7 599.0 041.4 Office Visit 10/25/2009 2:00a [facility], Chani Hernández, 32060 599.0 Hospitalists M.D. 790.7 790.99 Office Visit 10/25/2009 12:15a [facility] Melodie Hartley, 69020 780.60 Assoc, Hospitalists M.D. 729.1 723.5 Office Visit 12/20/2008 3:00p [facility] Liban Canchola, 34699 786.50 M.D. 250.20 414.01 Office Visit 12/20/2007 11:10a [facility] Peter Medrano, 44035 786.50 M.D. 794.31 250.20 414.01 Office Visit 12/09/2007 1:40p [facility] Liban Canchola, 93527 786.50 M.D. 794.31 250.20 Plan of Care Future Appointment(s):02/12/2018 10:45 am - Melissa Do MD at [facility]08/11/2017 10:30 am - Alyse Machuca MD at [facility]08/11/2017 2:20 pm - Michelle Barbour M.D. at [facility] Internal Medicine - Opijzzvnb36/05/2018 - Melissa Do, MDR05 CoughComments:Saline nasal spray- 2-3 times into both nostrils dailyFollow up:6 months
[2017-08-31 04:52] LABS: EGFR Non-African American 47.6 (>60)
[2017-08-31 04:55] LABS: INR 1.09 (0.77-1.02)
[2017-08-31 05:06] LABS: ABS Basophils 0 10^3/ul (0-0.2); ABS Eosinophils 0.2 10^3/ul (0-0.6); ABS Lymphocytes 0.6 10^3/ul (1.0-4.8); ABS Monocytes 0.6 10^3/ul (0-0.8); ABS Neutrophils 7.7 10^3/ul (1.5-7.7); ABS Nucleated RBC 0 10^3/ul; Eosinophil % 1.9 % (0-6); Hematocrit 38 % (35-47); Hemoglobin 12.7 g/dl (12.0-16.0); Lymphocyte % 6.3 % (25-47); Mean Corpuscular HGB Conc 33 g/dl (31-36); Mean Corpuscular Hemoglobin 31 pg (27-31); Mean Corpuscular Volume 92 fL (80-97); Mean Platelet Volume 10.6 um3 (7.4-10.4); Nucleated Red Blood Cells % 0.1; Platelet Count 89 10^3/ul (150-450); Red Blood Count 4.12 10^6/ul (4.0-5.4); Red Cell Distribution Width 17 % (10.5-15)
[2017-08-31] MEDS ORDERED: Iodixanol* (CONTRAST) 320 MG/ML 100 ML SDV IV ONE (05:09)
[2017-08-31] MEDS ORDERED: Lidocaine 2% JELLY* 6 ML JELLY TOPICAL ONE (06:27)
[2017-08-31] MEDS ORDERED: Benzocaine/Butamben/Tetracain* SPRAY ONE (06:27)
[2017-08-31] MEDS ORDERED: Morphine INJ* 4 MG/ML 1 ML SYRINGE (NEW SYRINGE VERSION) IV ONE (06:42)
[2017-08-31] MEDS ORDERED: NS 0.9% 500 ML* 500 ML IV ONE (06:43)
[2017-08-31] MEDS ORDERED: Morphine VIAL* 4 MG/ML VIAL (1 ml vial) IV ONE (06:46)
--- NOTE | 2017-08-31 06:54 | ED ---
Milan Canela Julia, scribed for Neto Knight MD on 08/31/17 at 0407 . 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 Patient reports two bouts of vomiting. Patient denies fever and diarrhea.The patient rates the pain 9/10 in severity. Fluid removed from abdomen four times in the past. Dr. Jeronimo performed cholecystectomy on 07/20/17. Discharge papers from [facility]. - History of Current Complaint Stated Complaint: ABD PAIN Time Seen by Provider: 08/31/17 03:51 Hx Obtained From: Patient, Family/Psychologist, Lab Aid Onset/Duration: Lasting Hours Pain Intensity: 9 Pain Scale Used: 0-10 Numeric Location: Diffuse Associated Signs and Symptoms: Positive: Vomiting. Negative: Fever, Diarrhea Allergies/Adverse Reactions: Allergies Allergy/AdvReac Type Severity Reaction Status Date / Time No Known Allergies Allergy Verified 12/31/15 14:39 PMH/Surg Hx/FS Hx/Imm Hx Endocrine/Hematology History: Reports: Hx Diabetes - TYPE II Cardiovascular History: Reports: Hx Coronary Artery Disease, Hx Hypertension - PT DENIES TREATMENT, Other Cardiovascular Problems/Disorders - CAD/IDDM II Denies: Hx Angina, Hx Pacemaker/ICD GI History: Reports: Hx Cirrhosis, Hx Gall Bladder Disease, Hx Gastroesophageal Reflux Disease, Hx Gastrointestinal Bleed History: Reports: Other Problems/Disorders - gall stones Musculoskeletal History: Reports: Hx Gout Denies: Hx Osteoporosis Sensory History: Reports: Hx Contacts or Glasses Denies: Hx Hearing Aid Opthamlomology History: Reports: Hx Contacts or Glasses Psychiatric History: Denies: Hx Panic Disorder - Cancer History Hx Chemotherapy: No Hx Radiation Therapy: No - Surgical History Surgery Procedure, Year, and Place: HYSTERECTOMY. APPENDECTOMY. ABDOMINAL HERNIA SURG - Family History Known Family History: Positive: Hypertension, Diabetes Negative: Cardiac Disease - Social History Alcohol Use: None Hx Substance Use: No Substance Use Type: Reports: None Hx Tobacco Use: No Smoking Status (MU): Never Smoked Tobacco Have You Smoked in the Last Year: No Review of Systems Negative: Fever Positive: Abdominal Pain, Vomiting. Negative: Diarrhea All Other Systems Reviewed And Are Negative: Yes Physical Exam - Summary Physical Exam Summary: VITAL SIGNS: Reviewed. GENERAL: Patient is a well-developed and nourished female who is lying comfortable in the stretcher. Patient is not in any acute respiratory distress. HEAD AND FACE: No signs of trauma. No ecchymosis, hematomas or skull depressions. No sinus tenderness. EYES: PERRLA, EOMI x 2, No injected conjunctiva, no nystagmus. Scleral icterus. EARS: Hearing grossly intact. Ear canals and tympanic membranes are within normal limits. MOUTH: Oropharynx within normal limits. NECK: Supple, trachea is midline, no adenopathy, no JVD, no carotid bruit, no c- spine tenderness, neck with full ROM. CHEST: Symmetric, no tenderness at palpation LUNGS: Clear to auscultation bilaterally. No wheezing or crackles. CVS: Regular rate and rhythm, S1 and S2 present, no murmurs or gallops appreciated. ABDOMEN: Soft, non-tender. Abdomen is distended. No rebound no guarding. Bowel sounds are hyperactive.There is a left ventral mid-abdominal hernia with tenderness over hernia EXTREMITIES: FROM in all major joints, no edema, no cyanosis or clubbing. NEURO: Alert and oriented x 3. No acute neurological deficits. Speech is normal and follows commands. SKIN: Dry and warm Triage Information Reviewed: Yes Vital Signs Reviewed: Yes Procedures - Procedure Summary Procedure Summary: A nasogastric intubation was performed at 06:35. Diagnostics - Laboratory Result Diagrams: 08/31/17 04:05 08/31/17 04:05 Lab Statement: Any lab studies that have been ordered have been reviewed, and results considered in the medical decision making process. - CT A/P CT Interpretation Completed By: Radiologist - Small bowel obstruction, likely due to a left ventral hernia without abcess or free air. Cirrhosis, splenomegaly and moderate amount of ascities, consistent with portal venous hypertension. Gallstones. Incompletely seen 4mm right lower lobe nodule may be since the prior exam. Recommend dedicated CT of the chest. ED Physician has reviewed this report. Abdominal Pain Fem Course/Dx - Course Course Of Treatment: Pt presents with abdominal pain since 22:30. Patient reports two bouts of vomiting. There is a palpable left ventral hernia. A CT A/ P reveals a small bowel obstruction and an incarcerated hernia. Dr. Machuca agrees to see patient in ED. Pt is given Zofran and Morphine. Labs are WNL. An NG tube was placed. Pt is signed out to Dr. Pickett awaiting surgical consult. - Diagnoses Provider Diagnoses: Incarcerated hernia, Small bowel obstruction - Provider Notifications Discussed Care Of Patient With: Alyse Machuca - surgeon Time Discussed With Above Provider: 06:27 Instructed by Provider To: MD Will See In ED Discharge - Sign-Out/Discharge Documenting (check all that apply): Sign-Out Patient Signing out patient TO: Dario Pickett - awaiting consult - Discharge Plan Condition: Stable Referrals: Michelle Barbour MD [Primary Care Provider] - The documentation as recorded by the Milan knapp Julia accurately reflects the service I personally performed and the decisions made by me, Neto Knihgt MD.
--- NOTE | 2017-08-31 07:46 | RAD ---
HISTORY: Small bowel obstruction COMPARISONS: May 06, 2017 VIEWS: 1: frontal portable view of the chest at 7:10 AM FINDINGS: LINES AND TUBES: A gastric tube is noted. The tip is below the [id number] of the current examination, but is below the diaphragm. CARDIOMEDIASTINAL SILHOUETTE: The cardiomediastinal silhouette is normal for portable technique. PLEURA: The costophrenic angles are sharp. No pleural abnormalities are noted. LUNG PARENCHYMA: The lungs are clear. ABDOMEN: The upper abdomen is clear. There is no subphrenic gas. BONES AND SOFT TISSUES: No bone or soft tissue abnormalities are noted. IMPRESSION: LINES AND TUBES ABOVE. NO ACTIVE CARDIOPULMONARY DISEASE.
[2017-08-31] MEDS: NS 0.9% 1000 ML* 1,000 ML IV SCH ×2 (07:50→19:26)
--- NOTE | 2017-08-31 09:30 | HP ---
H&P (Free Text) History and Physical: Surgery H & P Asked by ER MD to evaluate a pt. with possible incarcerated incisional hernia. Ms. Brunson is a 76 y.o. female with a complicated surgical/medical history and a h/o JOYCE cirrhosis who developed abdominal pain last night after dinner. She has been having episodes of abdominal pain which she attributes to a cough that she has been having since December. She vomited twice and did not feel better so came to the ER. She denies fever, and diarrhea, she has been constipated per the family member who accompanies her. In the ER she had a CT scan which is reported to have shown an SBO related to an incisional hernia. She got and NGT and now says she feels better. Her surgical hx includes at least a laparotomy last year for sepsis. Other records of subsequent hospitalizations at [facility] in [facility] are not available at this time. PMHx: (from office records) osteoarthritis, portal hypertensive gastropathy, peripheral neuropathy,diverticular disease, cholelithiasis, pancytopenia, CAD, DM, IBS, esophageal varices, B vitamin deficiency, autoimmune cirrhosis Meds: Iron, prednisone taper (date unknown),pantoprazole, benzonatate, spironolactone, ipratropium, lasis, levemir, lactulose, novolog, suplena, insulin, folate, MVI, simethicone, xifaxan, MOM, tylenol, nadolol, advair, probiotic NKDA ROS: cough SH: neg. tob PE: general: frail elderly female in NAD Vital Signs 08/31/17 08/31/17 08/31/17 04:21 04:25 04:34 Temperature 97.7 F Pulse Rate 52 53 Respiratory 18 16 16 Rate Blood Pressure 145/40 102/36 (mmHg) O2 Sat by Pulse 100 96 Oximetry 08/31/17 08/31/17 08/31/17 05:42 06:49 06:50 Temperature 97.7 F Pulse Rate 63 51 Respiratory 15 17 17 Rate Blood Pressure 112/44 117/41 (mmHg) O2 Sat by Pulse 96 98 Oximetry 08/31/17 08/31/17 08/31/17 07:30 07:50 07:54 Temperature Pulse Rate 49 52 48 Respiratory 16 15 16 Rate Blood Pressure 99/32 107/37 (mmHg) O2 Sat by Pulse 97 97 97 Oximetry 08/31/17 08:00 Temperature Pulse Rate 50 Respiratory 12 Rate Blood Pressure 91/74 (mmHg) O2 Sat by Pulse 96 Oximetry HEENT: anicteric sclerae, dry oral mucosa, neg. cervical adenopathy lungs: clear to ausc. heart: reg, slow (54 on monitor) abd: good BS, well-healed, stellate scar in mid abd. Non-tender to palpation, soft. Large abdominal hernia at scar, not incarcerated. ext: neg. cyanosis, edema Laboratory Results - last 24 hr 08/31/17 08/31/17 08/31/17 04:05 04:05 04:05 WBC 9.0 RBC 4.12 Hgb 12.7 Hct 38 MCV 92 MCH 31 MCHC 33 RDW 17 H Plt Count 89 L MPV 10.6 H Neut % (Auto) 85.4 H Lymph % (Auto) 6.3 L [place] % (Auto) 6.3 Eos % (Auto) 1.9 Baso % (Auto) 0.1 Absolute Neuts (auto) 7.7 Absolute Lymphs (auto) 0.6 L Absolute Monos (auto) 0.6 Absolute Eos (auto) 0.2 Absolute Basos (auto) 0 Absolute Nucleated RBC 0 Nucleated RBC % 0.1 INR (Anticoag Therapy) 1.09 H Sodium 139 Potassium 4.3 Chloride 105 Carbon Dioxide 25 Anion Gap 9 BUN 25 H Creatinine 1.12 H Est GFR ( Amer) 61.2 Est GFR (Non-Af Amer) 47.6 BUN/Creatinine Ratio 22.3 H Glucose 103 H Calcium 10.1 Magnesium 1.9 Total Bilirubin 1.20 H AST 24 ALT 13 Alkaline Phosphatase 68 C-Reactive Protein 7.30 H Total Protein 7.4 Albumin 3.5 Globulin 3.9 Albumin/Globulin Ratio 0.9 L Amylase 39 Lipase 29 Blood Type Antibody Screen 08/31/17 04:06 WBC RBC Hgb Hct MCV MCH MCHC RDW Plt Count MPV Neut % (Auto) Lymph % (Auto) [place] % (Auto) Eos % (Auto) Baso % (Auto) Absolute Neuts (auto) Absolute Lymphs (auto) Absolute Monos (auto) Absolute Eos (auto) Absolute Basos (auto) Absolute Nucleated RBC Nucleated RBC % INR (Anticoag Therapy) Sodium Potassium Chloride Carbon Dioxide Anion Gap BUN Creatinine Est GFR ( Amer) Est GFR (Non-Af Amer) BUN/Creatinine Ratio Glucose Calcium Magnesium Total Bilirubin AST ALT Alkaline Phosphatase C-Reactive Protein Total Protein Albumin Globulin Albumin/Globulin Ratio Amylase Lipase Blood Type B Positive Antibody Screen Negative CAT scan showed distended stomach, hernia with colon, and some dilated loops. A/P: 76 y.o. female with multiple medical problems who has an incisional hernia , however this is not presently incarcerated. Decompressing the stomach may have helped with her symptoms. She may have a pSBO, or obstipation unrelated to the hernia. Will admit for hydration and observation. Will ask hospitalist to help with medical management. (Dr. Jeronimo will call). Will check labs and abdominal series in AM. Joselito
[2017-08-31] MEDS ORDERED: Ondansetron INJ* 2 MG/ML VIAL IV PRN (09:33)
[2017-08-31 09:54] LABS: Urine Appearance Clear; Urine Blood Negative (Negative); Urine Color Yellow; Urine Ketones Negative (Negative); Urine Protein Negative (Negative); Urine Specific Gravity 1.051 (1.010-1.030); Urine Urobilinogen Negative (Negative)
[2017-08-31] MEDS ORDERED: Dextrose 50% Syringe 50 ML* 25 GM/50 ML SYRINGE IV PUSH PRN (11:32)
[2017-08-31] MEDS ORDERED: Cefepime 2 GM in Dextrose(*) 2 GM/50 ML BAG IV SCH (12:00)
[2017-08-31] MEDS ORDERED: cefTRIAXone(*) 2 GM in NS 0.9% 100 ML* 100 ML IVPB SCH (12:00)
[2017-08-31] MEDS: methylPREDNISolone SOD 40 MG* 1 ML VIAL IV SCH (12:19)
[2017-08-31] MEDS: Insulin LISPRO* 1 UNITS UNIT SUBCUT SCH ×2 (12:26→18:21)
[2017-08-31] MEDS: Pantoprazole IV* 40 MG IV SCH (12:34)
[2017-08-31] MEDS: Mometasone/Formoter 200/5 MDI INH SCH ×2 (12:34→19:50)
[2017-08-31] MEDS: Lactulose 300 ML for PR* 10 GM/15 ML BTL PR SCH ×4 (12:43→21:54)
--- NOTE | 2017-08-31 12:55 | RAD ---
CLINICAL HISTORY: Abdominal pain COMPARISON: August 13, 2017 TECHNIQUE: Multiple contiguous axial CT scans were obtained of the abdomen and pelvis after the administration of intravenous contrast. Coronal and sagittal multiplanar reformations are submitted for review. Oral contrast was not administered. Delayed images were obtained through the abdomen and pelvis. FINDINGS: LUNG BASES: There is a 0.4 cm nodule of the right lower lobe LIVER: The liver is cirrhotic with a micronodular contour. BILE DUCTS: There is no intrahepatic or extrahepatic biliary dilatation. GALLBLADDER: A gallstone is noted. PANCREAS: The pancreas is normal, without mass or ductal dilatation. SPLEEN: The spleen is enlarged measuring 16.6 cm in maximum dimension. UPPER GI TRACT: The upper GI tract is unremarkable. SMALL BOWEL AND MESENTERY: There is distention and dilatation of small bowel loops within the midabdomen. There is equalization of the small bowel contents. There is transition point to decompressed small bowel within the anterior mid abdomen. COLON: There is large amount of stool within the distal colon. There is diverticulosis of the rectosigmoid colon. ADRENALS: Normal bilaterally. KIDNEYS: The kidneys are normal in shape, size, contour, and axis. There is no hydronephrosis or nephrolithiasis. BLADDER: The bladder is incompletely distended but is grossly normal. PELVIC ORGANS: The pelvic organs are not visualized. AORTA: The aorta is normal. IVC: Unremarkable LYMPH NODES: There is no lymphadenopathy by size criteria. ABDOMINAL WALL: There is a large ventral hernia containing portions of small bowel. BONES AND SOFT TISSUES: Mild degenerative changes are noted. OTHER: There is moderate amount of ascites. IMPRESSION: 1. DILATED LOOPS OF SMALL BOWEL WITH TRANSITION POINT TO NONDILATED SMALL BOWEL WITHIN THE MIDABDOMEN, CONSISTENT WITH SMALL BOWEL OBSTRUCTION. 2. CIRRHOTIC LIVER. 3. SPLENOMEGALY. 4. ASCITES. 5. LARGE VENTRAL HERNIA CONTAINING SMALL BOWEL. 6. DIVERTICULOSIS. 7. CHOLELITHIASIS. 8. 0.4 CM RIGHT LOWER LOBE LUNG NODULE. THE RECOMMENDATIONS FOR FOLLOWUP AND MANAGEMENT OF AN INCIDENTALLY DETECTED PULMONARY NODULE LESS THAN 6 MM IN SIZE, IN A PATIENT WITHOUT A HISTORY OF MALIGNANCY, INCLUDE NO FOLLOWUP FOR A LOW-RISK PATIENT OR OPTIONAL FOLLOWUP CT IN 12 MONTHS FOR A HIGH RISK PATIENT. NOTES: SIZE = AVERAGE LENGTH AND WIDTH; HIGH RISK IS DEFINED A HISTORY OF SMOKING OR OTHER KNOW RISK FACTORS FOR LUNG CANCER; LOW RISK IS DEFINED MINIMAL OR ABSENT HISTORY OF SMOKING OR OTHER KNOWN RISK FACTORS. MacMahon, H, NIGEL Baird, MARGARITA Rebolledo, et al (2017) "Guidelines for Management of Incidental Pulmonary Nodules Detected on CT Images: From the Fleischner Society 2017." Radiology; 284(1): 228-243. doi:10.1148/[id number] 1. .
[2017-08-31] MEDS: Heparin VIAL(*) 5000 UNITS/ML VIAL (FIVE THOUSAND) SUBCUT SCH ×2 (14:36→21:52)
--- NOTE | 2017-08-31 16:17 | CONS ---
CC: Dr. Barbour; Dr. Jeronimo; Dr. Machuca * CONSULTATION REPORT: DATE OF CONSULT: 08/31/17 PRIMARY CARE PROVIDER: Dr. Michelle Barbour. ATTENDING PHYSICIAN WHILE IN THE HOSPITAL: Dr. Melodie Hartley (report dictated by Jose Guzmán NP). REQUESTING PHYSICIAN IN CONSULT: Dr. Machuca. REASON FOR MEDICAL CONSULT: Evaluation and medical management of comorbid medical conditions. HISTORY OF PRESENT ILLNESS: Ms. Brunson is a 76-year-old female patient with multiple medical problems. She has a history of autoimmune hepatitis causing cirrhosis, portal hypertension, she also has a history of diabetes, diverticulosis, portal hypertension, gallstones, neuropathy, IBS, GERD, and esophageal varices. She has had a prolonged hospitalization last year from July 2016 to August 2016 and then was in rehab for 2 months after that down in [place]. She was also transferred to [place] from our hospital last year as well. We will try to get those records. The details of that transfer can be seen in our chart, but ultimately was for SBP treatment and abdominal pain and sepsis. She comes in today because at around 1030, she developed significant amount of abdominal discomfort in the center of her abdomen near a midline incision from previous surgeries. She had noticed a bulge there. She had had the hernia since the summer. She has been dealing with her chronic cough for some time, since December, which was felt according to the related to prolonged intubation from her last hospitalization in July to August of last year. The pain today was unrelenting last night. She had 1 episode of vomiting in the ED. She took some Tylenol, hopeful that the pain will go away, but it did not. She came in, was evaluated. There was concern ultimately on [place] CT reading that there was bowel obstruction possibly related to ventral hernia. She was evaluated by Surgery. They felt that they reduced the hernia but there was concern for maybe a partial bowel obstruction and she was admitted for NG tube, conservative management. The states that there have been no reports of diarrhea. She says there has been no chest pain, no shortness of breath. There have been no reports of fevers or chills, but there was concern because of her medical complexity and we were asked to evaluate in consult. PAST MEDICAL HISTORY: Significant for: 1. Diabetes. 2. Cirrhosis. 3. Autoimmune hepatitis. 4. Varices. 5. Neuropathy. 6. IBS. 7. GERD. 8. Diverticulosis. 9. Portal hypertension. 10. Cholelithiasis. PAST SURGICAL HISTORY: The patient has had: 1. Appendectomy. 2. Hysterectomy. 3. Exploratory laparotomy done last year. 4. Cataract extraction. MEDICATIONS: The home medications according to list provided include: 1. Advair 2 puffs inhaled b.i.d. 2. Probiotic 1 capsule daily. 3. Tylenol 650 mg every 6 hours as needed. 4. Simethicone 40 mg daily as needed. 5. Milk of mag 30 cc p.o. daily as needed. 6. Multivitamin 1 tablet daily. 7. Folic acid 1 mg daily. 8. Insulin aspart 10 units subcu b.i.d. with meals. 9. Insulin aspart 14 units subcu with lunch. 10. Nadolol 40 mg p.o. daily. 11. Rifaximin 550 mg p.o. b.i.d. 12. Lactulose 15 cc p.o. b.i.d. 13. Levemir 22 units in the p.m., 18 units in the a.m. 14. Lasix 20 mg daily. 15. Spironolactone 50 mg daily. 16. Protonix 20 mg daily. 17. Tessalon 100 to 200 mg p.o. at bedtime as needed. 18. Prednisone 5 mg daily. 19. Ferrous gluconate 325 mg daily. 20. Ipratropium bromide 1 spray nasally b.i.d. ALLERGIES TO MEDICATIONS: Include no known drug allergies. FAMILY HISTORY: Her mother had a history of TB. Father's history is unknown. SOCIAL HISTORY: The patient does not smoke. She does not drink. Surrogate decision maker is her . REVIEW OF SYSTEMS: There is no documented fever. She denied having any significant weight change. There was no ear discharge. There is no rhinorrhea. There is no sore throat. She denies having any chest pain. There is no orthopnea, no nocturnal dyspnea. There is abdominal pain from my HPI. There was 1 episode of nausea, vomiting, but no dysuria, no frequency. No seizure, no loss of consciousness. No pruritus, no skin ulcerations. Review of 14 systems completed, all others negative. PHYSICAL EXAM: Vital Signs: Blood pressure 118/40, pulse 50, respirations 14, O2 sat 97%, temperature 97.4. General: At this time, Ms. Brunson is a 76-year- old female patient. She is chronically ill appearing. She is sitting in the ED stretcher. She does not appear to be in any acute distress. HEENT: Head: Atraumatic. Eyes: Sclerae anicteric, not pale. Throat: Oral mucosa appears to be dry. No oropharyngeal erythema. Neck: Supple. Lungs: Clear to auscultation bilaterally. No wheezes, rales, or rhonchi. Heart: Sounds S1, S2. She is bradycardic in the 50s. No murmurs, rubs, or gallops. Abdomen: It was soft. There was tenderness along the midline incision and near the hernia. She does have what appears to be ascites. Bowel sounds were hypoactive. Extremities: Pulses were 2+ throughout. She is moving all 4 extremities, 5/5 strength. Neurologically, she is drowsy, but she does awake to her name. She says that she is not in pain at the present, only with palpation. She says that she know she is in the hospital. She knows the month , but then she quickly falls asleep. There was no noted facial drooping, weaknesses to the upper extremities or lower extremities. No gross focal deficits. Skin: Intact. DIAGNOSTIC STUDIES/LAB DATA: WBC 9.0, RBC of 4.12, hemoglobin 12.7, hematocrit 38, platelet count was 89,000. Her INR was 1.09. The sodium was 139, potassium 4.3, chloride 105, bicarb 25, BUN 25, creatinine 1.12, glucose 103, calcium 10.1, mag 1.9. Total bili 1.2, AST 24, ALT 13, CRP 7.3. Total protein 7.4, albumin 3.5. Lipase was 29, amylase 39. Urine showed high specific gravity 1.051, trace leukocyte esterase, 3+ wbc's. She did have an EKG obtained today, under my review appears to be in sinus bradycardia with a rate of 52. No ST elevations or T-wave inversions are noted at this point. She does have a previous EKG, which shows sinus tachycardia, rate of 133, which is different from her current EKG, but again no acute signs of ischemia on today's EKG, appears to be stable. She did have an EKG from 2016 , which is similar to today's EKG. The previous EKGs in the July of 2016 are during her acute septic illness. She did have abdominal pelvis CT, I am awaiting impression from our radiologist , impression from [facility] is small bowel obstruction likely due to left ventral hernia without abscess or free air, cirrhosis, splenomegaly, and moderate amount of ascites consistent with portal venous hypertension, gallstones, incompletely seen 4- mm right lower lobe nodule, maybe new since prior exam. Recommend dedicated CT of the chest. Old medical records reviewed. She did also have a chest x-ray obtained today, which showed lines and tube as above. No active cardiopulmonary disease. ASSESSMENT AND PLAN: Ms. Brunson is a complex 76-year-old female patient coming into the surgical services today with complaints of abdominal pain, concern for partial obstruction. We are asked to evaluate in consult. Recommendations at this point are: 1. Abdominal pain. With concerns for partial obstruction, I will defer the management to the surgical services. We will continue IV hydration, NG tube, and serial x-rays, which have been ordered in the morning, we will follow her labs. Also, if she did not improve or spikes a fever, I would have a low threshold for a diagnostic paracentesis given her history of spontaneous bacterial peritonitis. I am treating her empirically. I did discuss this with the on-call surgeon, who felt at this point the history is more consistent with obstructive picture, but if she does not improve, then certainly we could consider a tap. 2. Cirrhosis with portal hypertension secondary to autoimmune hepatitis. We will continue her steroids. I will change them to IV. I am going to give her lactulose via enema. I am concerned that she is drowsy now. She does have a little bit of altered mental status. It could be related to the 8 mg of morphine she got in the ED, could also be related to her ammonia climbing as she had not taken her lactulose. I am checking ammonia now. We are going to get her on lactulose four times a day via retention enema. I did discuss this with Surgery, they were okay with this. I am going to unfortunately have to hold the spironolactone and her Lasix, we may need to diurese her as needed while she is here, but in the setting of this acute illness, we will just diurese as needed and I am holding the nadolol in the setting of acute illness at this point, we can always restart this and we will continue to follow. Should we have any trouble managing this, we may need to consider getting GI input. 3. Gastroesophageal reflux disease. Continue the patient's PPI therapy. 4. Neuropathy. We will continue supportive care. 5. Diabetes. I will check her insulin. She is going to check her glucose every 6 hours with sliding scale coverage. I am holding her long-acting medications until she has taken p.o. We can do that if she starts taking p.o. 6. DVT prophylaxis. I am going to defer to the primary team. 7. Code status. She is a full code. 8. DVT prophylaxis. I am going to go ahead and would recommend starting her on heparin, but we will need to discuss this with the primary team. 9. Code status. Full code. 10. Fluids, electrolytes, and nutrition. She is n.p.o. with an NG tube. TIME SPENT: On consult 70 minutes, greater than half the time spent face-to- face with the patient obtaining my history and physical; other half time spent going over the plan of care with the patient and implementing the plan of care. I did discuss the plan of care with my attending, Dr. Hartley; she is in agreement.. JOSE GUZMÁN NP [id number]/[facility] #: [id number] MALIKA
--- NOTE | 2017-08-31 19:12 | ED ---
Milan Canela Julia, scribed for Neto Knight MD on 08/31/17 at 0658 . Progress - Progress Note Progress Note: An EKG at 52 BPM reveals sinus bradycardia. Normal axis. Normal interval. No ischemic changes Course/Dx - Course Course Of Treatment: Pt presents with abdominal pain since 22:30. Patient reports two bouts of vomiting. There is a palpable left ventral hernia. A CT A/ P reveals a small bowel obstruction and an incarcerated hernia. Dr. Machuca agrees to see patient in ED. Pt is given Zofran and Morphine. Labs are WNL. An NG tube was placed. Pt is signed out to Dr. Pickett awaiting surgical consult. - Diagnoses Provider Diagnoses: Incarcerated hernia, Small bowel obstruction - Provider Notifications Time Discussed With Above Provider: 06:27 Instructed by Provider To: Will See In ED Discharge - Sign-Out/Discharge Documenting (check all that apply): Discharge - Discharge Plan Condition: Stable Disposition: ADMITTED TO [facility] - Billing Disposition and Condition Condition: STABLE [place]position[place] [facility] [place] The documentation as recorded by the Milan knapp Julia accurately reflects the service I personally performed and the decisions made by Antonia johnson Abdul, MD.
[2017-09-01] MEDS: Insulin LISPRO* 1 UNITS UNIT SUBCUT SCH ×4 (00:10→18:19)
[2017-09-01] MEDS: NS 0.9% 1000 ML* 1,000 ML IV SCH ×2 (03:29→17:00)
[2017-09-01] MEDS: Heparin VIAL(*) 5000 UNITS/ML VIAL (FIVE THOUSAND) SUBCUT SCH ×3 (05:31→22:04)
[2017-09-01 05:55] LABS: EGFR Non-African American 42.7 (>60)
[2017-09-01 06:01] LABS: ABS Basophils 0 10^3/ul (0-0.2); ABS Eosinophils 0 10^3/ul (0-0.6); ABS Lymphocytes 0.4 10^3/ul (1.0-4.8); ABS Monocytes 0.4 10^3/ul (0-0.8); ABS Neutrophils 3.5 10^3/ul (1.5-7.7); ABS Nucleated RBC 0 10^3/ul; Eosinophil % 0.8 % (0-6); Hematocrit 32 % (35-47); Hemoglobin 10.6 g/dl (12.0-16.0); Lymphocyte % 10.1 % (25-47); Mean Corpuscular HGB Conc 33 g/dl (31-36); Mean Corpuscular Hemoglobin 31 pg (27-31); Mean Corpuscular Volume 94 fL (80-97); Mean Platelet Volume 10.4 um3 (7.4-10.4); Nucleated Red Blood Cells % 0; Platelet Count 62 10^3/ul (150-450); Red Blood Count 3.41 10^6/ul (4.0-5.4); Red Cell Distribution Width 16 % (10.5-15); White Blood Count 4.4 10^3/ul (3.5-10.8)
--- NOTE | 2017-09-01 08:06 | RAD ---
INDICATION: Abdominal pain COMPARISON: KUB dated July 23, 2016 TECHNIQUE: 2 views the abdomen were obtained. FINDINGS: A gastric tube terminates below the level the diaphragm at the expected location of the gastric pylorus. There is gas and stool seen throughout the length of the colon. There is no radiographically apparent pathologically dilated bowel. There is no evidence of free intraperitoneal air. IMPRESSION: APPROPRIATE POSITION OF A GASTRIC TUBE IN THIS RADIOGRAPHICALLY NONACUTE ABDOMEN.
--- NOTE | 2017-09-01 08:29 | PN ---
Progress Note - Progress Note Date of Service: 09/01/17 SOAP: Subjective: Pt seen and examined. No pain. passing flatus, small BMs Thirsty Objective: af vss u/o -not recorded NGT scant output a and o x3 lungs clear abdo: soft/ ND/ tender at epigastrum normoactive BS AXR: no evidence of obstruction labs noted Assessment: resolving abdo pain, ventral hernia reducible; No evidence of SBO thrombocytopenia, liver disease Plan: NGT removed start PO lactulose orally await hospitalist input
[2017-09-01] MEDS: Lactulose 300 ML for PR* 10 GM/15 ML BTL PR SCH (08:47)
[2017-09-01] MEDS: Mometasone/Formoter 200/5 MDI INH SCH ×2 (08:52→21:04)
[2017-09-01] MEDS: methylPREDNISolone SOD 40 MG* 1 ML VIAL IV SCH (08:52)
[2017-09-01] MEDS ORDERED: Acetaminophen TAB* 325 MG PO PRN (09:05)
[2017-09-01] MEDS ORDERED: Nadolol TAB* 40 MG PO SCH (09:30)
[2017-09-01] MEDS: Nadolol TAB* 40 MG PO SCH (09:45)
[2017-09-01] MEDS ORDERED: NS 0.9% 500 ML* 500 ML IV ONE (11:43)
[2017-09-01] MEDS: Pantoprazole IV* 40 MG IV SCH (12:27)
--- NOTE | 2017-09-01 15:28 | PN ---
Subjective Date of Service: 09/01/17 Interval History: HOSPITALIST PROGRESS NOTE Patient seen and examined at bedside. Care reviewed and d/w her RN Blanquita Maradiaga. She feels better today. Abdominal pain is minimal, denies N/V. RN had called for hypotension but patient was and remains asymptomatic. Family History: Unchanged from Admission Social History: Unchanged from Admission Past Medical History: Unchanged from Admission Objective Active Medications: Acetaminophen (Tylenol Tab*) 650 mg PO Q6H PRN PRN Reason: FEVER/PAIN Dextrose (D50w Syringe 50 Ml*) 12.5 gm IV PUSH .FOR FS < 60 - SS PRN PRN Reason: FS < 60 Heparin Sodium (Porcine) (Heparin Vial(*)) 5,000 units SUBCUT Q8HR [facility] Last Admin: 09/01/17 14:20 Dose: 5,000 units Sodium Chloride (Ns 0.9% 1000 Ml*) 1,000 mls @ 125 mls/hr IV PER RATE [facility] Last Admin: 09/01/17 03:29 Dose: 125 mls/hr Insulin Human Lispro (Humalog*) 0 units SUBCUT Q6HR [facility] PRN Reason: Protocol Last Admin: 09/01/17 13:10 Dose: 6 units Lactulose (Lactulose*) 15 ml PO BID [facility] Methylprednisolone Sodium Succinate (Solu-Medrol 40 Mg) 20 mg IV DAILY [facility] Last Admin: 09/01/17 08:52 Dose: 20 mg Mometasone Furoate/Formoterol Fumar (Dulera 200/5 Mdi*) 2 puff INH BID [facility] Last Admin: 09/01/17 08:52 Dose: 2 puff Nadolol (Corgard Tab*) 40 mg PO DAILY [facility] Last Admin: 09/01/17 09:45 Dose: 40 mg Pto:Ipratropium [place] [Ipratropium [place]ier] 1 [place] 1 spray NASAL BID [facility] Ondansetron HCl (Zofran Inj*) 4 mg IV Q6H PRN PRN Reason: NAUSEA Pantoprazole Sodium (Protonix Iv*) 40 mg IV Q24H [facility] Last Admin: 09/01/17 12:27 Dose: 40 mg Rifaximin (Xifaxan*) 550 mg PO BID [facility] Vital Signs - 8 hr 09/01/17 09/01/17 09/01/17 07:36 08:00 08:08 Temperature 98.2 F Pulse Rate 61 Respiratory 15 16 Rate Blood Pressure 88/41 96/40 (mmHg) O2 Sat by Pulse 98 Oximetry 09/01/17 09/01/17 11:30 12:47 Temperature 98.2 F Pulse Rate 56 62 Respiratory 16 Rate Blood Pressure 89/37 95/39 (mmHg) O2 Sat by Pulse 96 Oximetry Oxygen Devices in Use Now: None Appearance: Pleasant elderly lady lying in bed in NAD. Eyes: No Scleral Icterus Ears/Nose/Mouth/Throat: Mucous Membranes Moist Neck: Trachea Midline Respiratory: Symmetrical Chest Expansion and Respiratory Effort, Clear to Auscultation Cardiovascular: RRR - Normal S1 and S2 Abdominal: - - Soft, mild to moderate ascites, no tenderness, guarding or rebound. BS+. Large midline surgical incision. Neurological: Alert and Oriented x 3, NL Muscle Strength and Tone Nutrition: Taking PO's Result Diagrams: 09/01/17 05:08 09/01/17 05:08 Assess/Plan/Problems-Billing Assessment: Ms Brunson is a 76yo F with PMH of autoimmune hepatitis, liver cirrhosis, portal HTN, esophageal varices, type 2 DM, who presented to ED with abdominal pain, found to have an incisional hernia causing pSBO. Hospitalist service consulted to manage her comorbidities. - Patient Problems (1) SBO (small bowel obstruction) Comment: - Management as per surgery. - Ventral hernia is reducible and AxR showed no evidence of obstruction. - Symptoms are improving - start clear liquid diet. - No signs of SBP at this time. (2) Hypotension Comment: - Likely secondary to Nadolol, relative adrenal insufficiency. She does not appear to be infected at this time. - Will continue to monitor. (3) Lactic acidosis Comment: - Likely secondary to decreased clearance. She does not appear to be septic at this time. - Continue IVF and repeat LA. (4) Cirrhosis Comment: - Continue steroids, lactulose, nadolol (with holding parameters), and rifaximin. (5) Diabetes mellitus Comment: - Check A1c. - As we are starting diet, will start Lantus 10 units and Lispro SS. (6) DVT prophylaxis Comment: - SQ heparin. (7) Full code status Status and Disposition: D/w Dr. Jeronimo. Hospitalist service will continue to follow with you.
[2017-09-01] MEDS: Insulin GLARGINE(*) 1 UNITS UNIT SUBCUT SCH (16:24)
[2017-09-01] MEDS ORDERED: Insulin LISPRO* 1 UNITS UNIT SUBCUT ONE (20:29)
[2017-09-01] MEDS ORDERED: Dextrose 50% Syringe 50 ML* 25 GM/50 ML SYRINGE IV PUSH PRN (20:29)
[2017-09-01] MEDS: Lactulose* 15 ML UDC PO SCH (22:02)
[2017-09-01] MEDS: RiFAXimin* 550 MG TAB PO SCH (22:03)
[2017-09-01] MEDS: IPRATROPIUM BROMIDE NASAL SCH (22:07)
[2017-09-02] MEDS: NS 0.9% 1000 ML* 1,000 ML IV SCH (00:56)
[2017-09-02] MEDS: Heparin VIAL(*) 5000 UNITS/ML VIAL (FIVE THOUSAND) SUBCUT SCH ×2 (05:30→13:51)
[2017-09-02 05:39] LABS: ABS Basophils 0 10^3/ul (0-0.2); ABS Eosinophils 0 10^3/ul (0-0.6); ABS Lymphocytes 0.3 10^3/ul (1.0-4.8); ABS Monocytes 0.1 10^3/ul (0-0.8); ABS Neutrophils 1.3 10^3/ul (1.5-7.7); ABS Nucleated RBC 0 10^3/ul; Eosinophil % 2.2 % (0-6); Hematocrit 28 % (35-47); Hemoglobin 9.3 g/dl (12.0-16.0); Lymphocyte % 18.4 % (25-47); Mean Corpuscular HGB Conc 33 g/dl (31-36); Mean Corpuscular Hemoglobin 31 pg (27-31); Mean Corpuscular Volume 94 fL (80-97); Mean Platelet Volume 10.3 um3 (7.4-10.4); Nucleated Red Blood Cells % 0.1; Platelet Count 45 10^3/ul (150-450); Red Blood Count 2.99 10^6/ul (4.0-5.4); Red Cell Distribution Width 16 % (10.5-15); White Blood Count 1.8 10^3/ul (3.5-10.8)
[2017-09-02 05:52] LABS: EGFR Non-African American 49.6 (>60)
[2017-09-02] MEDS ORDERED: NS 0.9% 1000 ML* 1,000 ML IV SCH (08:01)
[2017-09-02] MEDS: Mometasone/Formoter 200/5 MDI INH SCH (08:40)
[2017-09-02] MEDS: methylPREDNISolone SOD 40 MG* 1 ML VIAL IV SCH (08:41)
[2017-09-02] MEDS: Nadolol TAB* 40 MG PO SCH (08:44)
[2017-09-02] MEDS: RiFAXimin* 550 MG TAB PO SCH (08:44)
[2017-09-02] MEDS: Lactulose* 15 ML UDC PO SCH (08:45)
[2017-09-02] MEDS: IPRATROPIUM BROMIDE NASAL SCH (08:46)
[2017-09-02] MEDS: Insulin LISPRO* 1 UNITS UNIT SUBCUT SCH ×6 (09:27→17:49)
[2017-09-02] MEDS: Pantoprazole IV* 40 MG IV SCH (12:26)
[2017-09-02] MEDS ORDERED: Insulin GLARGINE(*) 1 UNITS UNIT SUBCUT ONE (12:52)
[2017-09-02] MEDS ORDERED: Miconazole TOPICAL CREAM 2%* 30 GM TOPICAL SCH (13:00)
--- NOTE | 2017-09-02 15:41 | PN ---
Subjective Date of Service: 09/02/17 Interval History: HOSPITALIST PROGRESS NOTE Patient seen and examined at bedside. She feels well today. Abdominal pain is resolved, tolerating full liquid diet, wants to try solid food. Denies N/V, had a small BM today. Family History: Unchanged from Admission Social History: Unchanged from Admission Past Medical History: Unchanged from Admission Objective Active Medications: Acetaminophen (Tylenol Tab*) 650 mg PO Q6H PRN PRN Reason: FEVER/PAIN Dextrose (D50w Syringe 50 Ml*) 12.5 gm IV PUSH .FOR FS < 60 - SS PRN PRN Reason: FS < 60 Heparin Sodium (Porcine) (Heparin Vial(*)) 5,000 units SUBCUT Q8HR [facility] Last Admin: 09/02/17 13:51 Dose: 5,000 units Insulin Glargine (Lantus(*)) 10 units SUBCUT Q24H [facility] Last Admin: 09/01/17 16:24 Dose: 10 units Insulin Human Lispro (Humalog*) 0 units SUBCUT AC [facility] PRN Reason: Protocol Last Admin: 09/02/17 13:08 Dose: 8 unit Insulin Human Lispro (Humalog*) 0 units SUBCUT AC [facility] PRN Reason: Protocol Last Admin: 09/02/17 13:51 Dose: 3 unit Lactulose (Lactulose*) 15 ml PO BID [facility] Last Admin: 09/02/17 08:45 Dose: 15 ml Methylprednisolone Sodium Succinate (Solu-Medrol 40 Mg) 20 mg IV DAILY [facility] Last Admin: 09/02/17 08:41 Dose: 20 mg Miconazole Nitrate (Monistat 2%*) 1 applic TOPICAL BID [facility] Last Admin: 09/02/17 13:52 Dose: 1 applic Mometasone Furoate/Formoterol Fumar (Dulera 200/5 Mdi*) 2 puff INH BID [facility] Last Admin: 09/02/17 08:40 Dose: 2 puff Nadolol (Corgard Tab*) 40 mg PO DAILY [facility] Last Admin: 09/02/17 08:44 Dose: Not Given Pto:Ipratropium [place] [Ipratropium [place]] 1 [place] 1 spray NASAL BID [facility] Last Admin: 09/02/17 08:46 Dose: Not Given Ondansetron HCl (Zofran Inj*) 4 mg IV Q6H PRN PRN Reason: NAUSEA Pantoprazole Sodium (Protonix Iv*) 40 mg IV Q24H [facility] Last Admin: 09/02/17 12:26 Dose: 40 mg Rifaximin (Xifaxan*) 550 mg PO BID [facility] Last Admin: 09/02/17 08:44 Dose: 550 mg Vital Signs - 8 hr 09/02/17 09/02/17 09/02/17 07:44 07:53 08:47 Temperature Pulse Rate 52 Respiratory 16 16 Rate Blood Pressure (mmHg) O2 Sat by Pulse Oximetry 09/02/17 11:42 Temperature 98.2 F Pulse Rate 50 Respiratory 15 Rate Blood Pressure 104/42 (mmHg) O2 Sat by Pulse 100 Oximetry Oxygen Devices in Use Now: None Appearance: Pleasant elderly lady lying in bed in [facility]. Eyes: No Scleral Icterus Ears/Nose/Mouth/Throat: Mucous Membranes Moist Neck: Trachea Midline Abdominal: - - Soft, NT, BS+, NG, NR Neurological: Alert and Oriented x 3 Result Diagrams: 09/02/17 05:28 09/02/17 05:28 Assess/Plan/Problems-Billing Assessment: Ms Brunson is a 76yo F with PMH of autoimmune hepatitis, liver cirrhosis, portal HTN, esophageal varices, type 2 DM, who presented to ED with abdominal pain, found to have an incisional hernia causing pSBO. Hospitalist service consulted to manage her comorbidities. - Patient Problems (1) SBO (small bowel obstruction) Comment: - Resolved. - Ventral hernia is reducible and AxR showed no evidence of obstruction. - Advance to low fiber diet. - No signs of SBP at this time. (2) Hypotension Comment: - Resolved. - Resume Nadolol on discharge. (3) Lactic acidosis Comment: - Likely secondary to decreased clearance. She does not appear to be septic at this time. - Resolved. (4) Cirrhosis Comment: - Continue steroids, lactulose, nadolol (with holding parameters), and rifaximin. (5) Diabetes mellitus Comment: - Hb A1c 6.3. - Resume her Insulin regimen on discharge. (6) DVT prophylaxis Comment: - SQ heparin. (7) Full code status Status and Disposition: Stable for discharge from Internal Medicine point of view.
[2017-09-02 16:15] VITALS: BP 98/40
[2017-09-02] MEDS: Insulin GLARGINE(*) 1 UNITS UNIT SUBCUT SCH (17:50)
--- NOTE | 2017-09-02 18:42 | PN ---
Progress Note - Progress Note Date of Service: 09/02/17 Note: Surgery Progress: S: Denies abd pain. Lyudmila diet. Passing flatus and had BM x 2 today. Discussed w/ Dr. Crawford and Dr. Jeronimo. O: Vital Signs - 8 hr 09/02/17 09/02/17 11:42 15:43 Temperature 98.2 F 98.0 F Pulse Rate 50 51 Respiratory 15 20 Rate Blood Pressure 104/42 98/40 (mmHg) O2 Sat by Pulse 100 100 Oximetry Intake and Output Last 24 Hours 08/31/17 09/01/17 09/02/17 09/03/17 06:59 06:59 06:59 06:59 Intake Total 2528 7155 2055 Output Total 310 1250 800 Balance 2218 5905 1255 Weight 150 lb 150 lb Intake: IV Fluids 2528 5935 1250 ABX - CEFEPIME 56 NS (0.9%) 1972 3455 1250 Oral 0 1220 805 Output: NG Tube Drainage Amount 210 Urine 100 1250 800 Other: Estimated Void Small Large Date of Last Bowel 08/31/17 Movement # Bowel Movements 1 Estimated Stool Amount Medium Small # Voids 1 Heart: reg Lungs: clear ant Abd: +BS; moderately distended; mildly tympanitic; soft; nontender to palp A/P: SBO, resolved. OK for d/c home; instructions reviewed; office f/u w/ Dr. Jeronimo 09/10
--- NOTE | 2017-09-03 10:50 | DS ---
CC: Dr. Michelle Barbour* DISCHARGE SUMMARY: DATE OF ADMISSION: 08/31/17 DATE OF DISCHARGE: 09/02/17 ATTENDING SURGEONS: Dr. Alyse Machuca; Dr. Francisco J Jeronimo ATTENDING PROVIDER: Alyse Machuca MD* (DICTATED BY NGUYEN ROJO) HOSPITAL COURSE: Please refer to admission history and physical for admission details. The patient was suspected of having small bowel obstruction based on presentation and CT scan from 08/31/17. An NG tube was placed. Her ventral hernia appeared to be reducible. Over the subsequent 24 hours, she improved and was pain free the next day and passing flatus. NG tube was discontinued and she was started on liquid diet, which she tolerated well. As of the day of discharge, she was having no abdominal pain and denied nausea or vomiting. She was actively passing flatus and has had 2 bowel movements. She was felt acceptable for discharge home and her medications were reviewed by the hospitalist, Dr. Crawford. She will essentially continue all of her usual home meds. She will return to recheck with Dr. Jeronimo in the office on 09/10/17. She was given instructions regarding slow advancement of diet and return if recurrent symptoms. NGUYEN ROJO [id number]/[facility] #: [id number]
--- NOTE | 2017-09-04 08:05 | ED ---
Melvin Canela Angela, scribed for Dario Pickett MD on 08/31/17 at 0723 . Progress - Progress Note Progress Note: This pt was signed out by Dr. Knight, pending disposition, awaiting surgical consult. Pt is a 76 y/o female presenting to [facility] c/o abd pain since 22:[address] Jeronimo performed cholecystectomy on 07/20/17. Physical Exam: VITAL SIGNS: Reviewed. GENERAL: Patient is a well-developed and nourished female who is lying comfortable in the stretcher. Patient is not in any acute respiratory distress. HEAD AND FACE: No signs of trauma. No ecchymosis, hematomas or skull depressions. No sinus tenderness. NG tube in left nostril. EYES: PERRLA, EOMI x 2, No injected conjunctiva, no nystagmus. EARS: Hearing grossly intact. Ear canals and tympanic membranes are within normal limits. MOUTH: Oropharynx within normal limits. NECK: Supple, trachea is midline, no adenopathy, no JVD, no carotid bruit, no c- spine tenderness, neck with full ROM. CHEST: Symmetric, no tenderness at palpation LUNGS: Clear to auscultation bilaterally. No wheezing or crackles. CVS: Regular rate and rhythm, S1 and S2 present, no murmurs or gallops appreciated. ABDOMEN: Soft, non-tender. No signs of distention. No rebound no guarding, and no masses palpated. Bowel sounds are normal. EXTREMITIES: FROM in all major joints, no edema, no cyanosis or clubbing. NEURO: Alert and oriented x 3. No acute neurological deficits. Speech is normal and follows commands. SKIN: Dry and warm This pt was signed out by Dr. Knight, awaiting for Dr. Booker assessment of the pt. Dr. Machuca came and assessed the pt in the ED, and accepted the pt for admission for further work up and management. Pt is hemodynamically stable, alert and oriented x3. Re-Evaluation - Re-Evaluation First Eval Re-Evaluation Time: 07:18 Comment: Pt is still waiting for Dr. Machuca to come and see her. Course/Dx - Diagnoses Provider Diagnoses: Incarcerated hernia, Small bowel obstruction Discharge - Sign-Out/Discharge Documenting (check all that apply): Discharge - [place] [facility] [place]ceiving Sign-Out Receiving patient FROM: Neto Knight - Discharge Plan Condition: Stable Disposition: ADMITTED TO [facility] Discharge Disposition Comment: Admit to surgery The documentation as recorded by the Melvin knapp Angela accurately reflects the service I personally performed and the decisions made by me, Dario Pickett MD.
== END 2017-09-02 17:55 | disposition home or self-care (01) ==
LOC: ED 03:44 → SSU 09:30
PROVIDERS: ADMIT Surgery; ATTEND Surgery
DX: K56.609 Unspecified intestinal obstruction, unspecified as to partial versus complete obstruction (principal); K43.0 Incisional hernia with obstruction, without gangrene; R10.9 Unspecified abdominal pain; E87.2 Acidosis; I95.9 Hypotension, unspecified; K76.6 Portal hypertension; K31.89 Other diseases of stomach and duodenum; E11.9 Type 2 diabetes mellitus without complications; I25.10 Atherosclerotic heart disease of native coronary artery without angina pectoris; K74.69 Other cirrhosis of liver; I85.10 Secondary esophageal varices without bleeding; E53.9 Vitamin B deficiency, unspecified; Z79.899 Other long term (current) drug therapy; Z79.4 Long term (current) use of insulin; K75.81 Nonalcoholic steatohepatitis (NASH); K58.9 Irritable bowel syndrome, unspecified; K57.90 Diverticulosis of intestine, part unspecified, without perforation or abscess without bleeding; R00.1 Bradycardia, unspecified
CPT/HCPCS: 36415; 71045; 74018; 74177; 80048; 80053; 81003; 81015; 82140; 82150; 82947; 83036; 83605; 83690; 83735; 85025; 85610; 85730; 86140; 86850; 86900; 86901; 87040; 87086; 93005; 94640; 96361; 96365; 96372; 96375; 96376; 99285; A9270-GY; G0378; J0692; J1644; J2270; J2405; J2920; Q9967

== ENCOUNTER 2017-10-30 02:42 | Inpatient (IN) | payer MEDICARE, MEDICAID ==
--- OUTSIDE RECORDS SUMMARY | 2017-10-30 02:52 | XMS REPORT ---
:1940 External Reference #:[id number] Author Organization [facility] Address [address] [address] Phone [phone] Care Team Providers Name Role Phone Michelle Barbour MD Primary Care Physician Unavailable Payers Type Date Identification Numbers Payment Provider Subscriber Medicare Primary Effective: Policy Number: Medicare Patel Calabrese 2007 [id number] Boy PayID: [id number] [address] [place] [address] [employer] [place] Policy Number: [id number] Medicaid Patel Brunson PayID: [id number] [address] [place] [address] Problems Date Description Provider Status Onset: 06/19/2013 [...] Form Strength Qnty SIG Indications Ordering Provider Benzonatate 10/05 Active Capsules 100mg 30cap 1-2 tab at Michelle /2017 s night as Angle, needed for M.Clarissa cough Pantoprazole 08/18 Active Solution Rec 40mg 1 by mouth Michelle every day Ubaldo Barbour Spironolactone 04/20 Active Tablets 50mg 90tab 1 by mouth Michelle s every day Ubaldo Barbour Ipratropium 03/30 Active Solution 0.03% 30uni 1 spray Melissa [place] ts intranasal Hi, twice a MD day Furosemide 01/27 Active Tablets 20mg 90tab 1 by mouth Michelle s every day Angle, 5 days a M.D. week only Levemir 01/13 Active Solution 100Unit/M 45ml 22 units Michelle Flextouch Pen-Inject L in Am and Angle, 18 units M.DMelita in PM Blood Pressure 12/04 Active Misc 1unit as needed Michelle Monitor s Angle Digital M.DMelita Shower Chair 11/20 Active 1unit as needed Michelle s Ubaldo Barbour Lactulose 11/19 Active Solution 10GM/15ML 9000m 15 K74.69 Michelle /2017 l milliliter Barbour, s twice a M.D. day to maintain 2 loose bowel movement Toilet Seat 11/19 Active Misc 1unit as needed Michelle Elevator s dx r53.1 Angle k74.Fela M.DMelita Novolog Flexpen 11/19 Active Solution 100Unit/M 45ml use 10 Pen-Inject L units with Angle, meals M.D. except 14 units at lunch Do not use if blood sugar less than 90 Suplena 11/19 Active Liquid 90uni once a day R53.1 Michelle 1.8/Carbsteady allison Barbour M.D. BD Ultra Fine Active Misc 500un as Michelle [place] /0000 its directed Angle with M.DMelita insulin 5 times per day Multi For Her Active Tablets once a day Unknown /0000 Simethicone Active Suspension 40mg/0.6M as needed Unknown /0000 L Xifaxan Active Tablets 550mg 180ta 1 by mouth Dario E. /0000 bs twice a Cherelle, day M.D. Milk Of Magnesia Active Suspension 400mg/5ML 30 Unknown /0000 milliliter s by mouth every day at bedtime as needed Acetaminophen 0000 Active Tablets 325mg 2 tablets Unknown /0000 by mouth every 6 hours as needed for pain/fever 4X Probiotic Active Tablets 1 tab Unknown /0000 daily Advair HFA Active Aerosol 230-21mcg 2 puff Unknown /0000 /Act twice a day Nadolol Active Tablets 40mg 90tab 1 by mouth Michelle /0000 s every day Ubaldo Barbour Prednisone 08/18 Hx Tablets 5mg 10tab once a day s X 10 days Kirit Barbour M.D. 08/28 Ferrous 07/15 Hx Tablets 324(38Fe) 60tab take one Michelle Gluconate /2017 mg s tablet by Angle, - mouth M.D. 10/05 daily /2017 Prednisone 07/14 Hx TBPK 5mg (21) 30uni take as R05 Melissa /2018 Hi heredia, - 6 tabs 10/05 day#1, tabs day#2, 4 tabs day#3,3 tabs day#4,2 tabs day#5,1 tab daily for 10 days the 1 tab X 10 Pantoprazole 07/[address] 20mg 60tab once a day s Kirit Barbour M.D. 08/18 Doxycycline 05/06 Hx Capsules 100mg 60cap 1 cap by Z71.89 Danny Hycldangelo /2016 s mouth once D. - a day with Padmini, 07/05 food, 2 M.D. /2017 days before trip starts Prednisone 05/04 Hx TBPK 5mg (21) 30uni take as R05 Melissa /2017 Hi heredia, - 6 tabs 07/14 day#1, tabs day#2, 4 tabs day#3,3 tabs day#4,2 tabs day#5,1 tab daily for 10 days Benzonatate 04/21 Hx Capsules 100mg 60cap 1-2 tab at s night as Angle, - needed for M.D. 10/05 cough Benzonatate 04/20 Hx Capsules 150mg 90cap as needed s at night Angle, - for cough M.D. 04/21 Benzonatate 02/15 Hx Capsules 100mg 30cap 1 tab at Michelle /2017 s night as Angle, - needed for M.D. 04/20 cough Benzonatate 01/16 Hx Capsules 100mg 10cap not taking Michelle /2017 s Angle, - M.D. 01/27 Pantoprazole 12/[address] 40mg 90tab 1tabby Michelle Sodium s mouth Angle, - every day. M.D. 07/14 Azelastine HCL 04/03 Hx Solution 0.05% 12ml 1 gtt bid Michelle (Ophthalmic) as needed Angle, - for M.D. 11/19 allergies 2017 Doxycycline 04/02 Hx Tablets 100mg 65tab 1 [...] - M.D. 11/19 Nystatin 02/19 Hx Powder [id number] 120gm apply to t/GM affected Angle, - areas M.D. 12/26 twice a day as needed for rash x 10 days Propranolol HCL 01/08 Hx Tablets 10mg 60tab 1 tab K76.6 s twice a Angle, - day M.D. 11/19 Doxycycline 10/[address] 100mg 62tab 1 tablet Michelle clate s once a day Angle, - start 2 M.D. before stockfeed miller states she is no longer taking Prandin 09/27 Hx Tablets 1mg 90tab 1 by mouth Michelle /2015 s three Barbour, - times a M.D. 11/19 day with meals Xifaxan 09/22 Hx Tablets 550mg 1 tab bid 536.8 Unknown X 12 days - 11/13 Hydrocodone-Acet 09/06 Hx Tablets 5-325mg 90tab 1 by mouth Michelle aminophen s every 8 Barbour, - hours as M.D. 11/19 needed for pain. Mometasone 08/17 Hx Cream 0.1% 1unit apply to 691.8 Michelle Furoate s affected Angle, - areas M.D. 09/27 twice a day 10 days only Xifaxan 08/17 Hx Tablets 550mg 28tab 1 tab bid 536.8 Michelle /2015 s Angle, - M.D. 09/27 Cyclobenzaprine 06/29 Hx Tablets 5mg 10tab take one 847.0 Michelle HCL s tablet by Angle, - mouth at M.D. 08/17 BD U/F Short Pen 06/15 Hx 100un use as Michelle [id number] /2014 its directed Angle, - twice a M.D. Zostavax 01/05 Hx Solution Rec 03649Als/ 1unit sc x1 V04.89 0.65ML s Angle, - M.D. 05/08 Voltaren 01/05 Hx Gel 1% 1box apply 715.96 daily as Angle, - needed on M.D. 11/19 the for pain Cyanocobalamin 08/10 Hx Solution 1000mcg/M 1unit 1 ml 266.2 L s intramuscu Angle, - lar q M.D. 11/19 Lantus Solostar 08/10 Hx Solution 100Unit/M 15uni inject 30 Pen-Inject L ts units sq Angle, - in the M.D. 11/19 morning and 25units at night Ergocalciferol 07/14 Hx Capsules [id number] 8caps 1 tab by mouth Angle, - every week M.D. 11/10 Calcium OTC 07/14 Hx Tablets 1000mg 1 po qd Kirit Barbour M.DMelita 11/19 Mometasone 06/09 Hx Cream 0.1% 1unit apply to Michelle s affected Angle, - areas bid M.D. 09/27 10 days /2014 only Januvia 12/05 Hx Tablets 100mg 30tab 1 PO qd katia Canchola, 06/09 M.D. Prevacid 12/[address] 30mg 30cap 1 PO qd s Alexi Canchola, 06/09 M.D. Lyrica 12/05 Hx Capsules 50mg 14cap 1 PO qhs s Alexi Canchola, 12/08.D. Fosamax 12/05 Hx Tablets 70mg 4tabs One Tablet Weekly Alexi Canchola, 07/11 M.D. Calcium/Vitamin 12/05 Hx Tablets 600mg 100ta bid bs Alexi Canchola, 07/11 M.D. Tylenol 8 Hour 12/05 Hx Tablets ER 650mg prn Alexi Canchola, 06/09.D. Nystatin 12/05 Hx Cream [id number] 60G Topically t/GM bid prn Alexi Canchola, 06/09 M.D. Ultra Thin 12/05 Hx Misc Thin 28G use as dir Liban Alexi Canchola, 12/06 Zoloft 12/05 Hx Tablets 50mg 60tab 1 PO bid s Alexi Canchola, 06/09.D. Aspirin 12/05 Hx Tablets 81mg 1 PO qd Alexi Canchola, 01/08 M.D. Onetouch Lancets 12/05 Hx Misc as Liban directed Alexi Canchola, 12/06.D Onetouch Test 12/05 Hx Strips as Liban Strips directed Alexi Canchola, 12/06.D. Alcohol Prep 12/05 Hx Pads as Liban Pads directed Alexi Canchola, 12/06.D. Darvocet-N 100 12/05 Hx Tablets 100 90tab 1 PO qid s prn Alexi Canchola, 06/09.D. Premarin 12/05 Hx Cream 45.2g 2 Gram pv m 2 X Week F. - prn Jesika, 06/09.D. Disp 3 Tubes Patanol 12/05 Hx Solution 0.1% 5unit 1 drop s both eyes Angle, - every day M.D. 04/03 as needed allergies Metformin HCL 12/05 Hx Tablets 1000mg 180ta 1 by mouth bs twice a Barbour, - day M.D. 11/19 Atenolol 11/18 Hx Tablets 25mg 90tab 1 by mouth Qutaybeh s every day S. - Maghaydah 01/08 , M.D. Hydrocodone/Acet Hx Tablets 5-325mg 90tab 1 by mouth Michelle aminophen s every 8 Barbour, - hours as M.D. 09/06 needed pain Ventolin HFA Hx Aerosol 108(90Bas 1unit 2 puffs by Vignesh /0000 e) s mouth Becki, [employer] - mcg/Act every 6 11/19 hours needed Ferrous Fumarate Hx Tablets 325(106Fe 30tab 1 po qd Unknown /0000 ) mg s - 06/09 Lantus Hx Solution 100Unit/M 6Vial (Please Michelle / L s give Angle, - patient M.D. 08/10 the solostar pens)35 units in Am and 25 unit in PM [place] For Hx Unknown Solostar /0000 - 06/09 Hydrocortisone Hx Suppository 25mg 10uni use as Unknown Acetate /0000 ts directed - 11/[address] 81mg 90tab po qd Unknown /0000 s - 11/10 Prandin Hx Tablets 1mg 60tab 1 po tid Michelle /0000 s with meals Angle - M.D. 06/[address] 40mg 60cap take 1 Michelle /0000 s capsule by Angle, - mouth M.D. 11/19 Ondansetron Hx Tablets 4mg Dissolve 1 Unknown /0000 Dispers Tablet On - Tongue 11/19 Every Hours as Needed For Pain Oxycodone-Acetam Hx Tablets 5-325mg Unknown inophen /0000 - 03/11 Metronidazole Hx Tablets 250mg tid Remberto, /0000 Kirit Madden MD 03/31 Neurontin Hx Capsules 100mg 120ca 1 by mouth [place] /0000 ps twice a Angle, - day M.D. 11/19 Actigall Hx Capsules 300mg one a day Unknown /0000 Dr. Sr - 11/19 Folic Acid Hx Tablets 800mcg take one Unknown /0000 capsule/ta - blet daily 10/05 by mouth 4X Probiotic Hx Tablets Unknown /0000 - 11/19 Levemir 00/00 Hx Solution 100Unit/M 20 units Unknown /0000 L once daily - 11/19 Humalog Kwikpen Hx Solution 100Unit/M 45ml 12 units, Michelle /0000 Pen-Inject L 3 times Angle, - daily with M.D. 11/19 meals not use if blood sugar is less than 90 Pantoprazole 00 Hx Solution Rec 40mg 1 by mouth Unknown Sodium /0000 every day - 11/19 Furosemide Hx Tablets 40mg 90tab 1 by mouth Michelle /0000 s every Barbour, - other day M.D. 01/27 Spironolactone 00 Hx Tablets 100mg 90tab 1 by mouth Michelle /0000 s every day Angle, - M.D. 04/20 Levemir 0000 Hx Solution 100Unit/M 30ml 15 units Michelle /0000 L in morning Angle, - and 24 M.D. 08/15 units at [...] B-12 Injection Administered Injection Vignesh Becki, 015 [employer] B-12 Injection Administered Injection Nurse Visit 015 C B-12 Injection Administered Injection Michelle 014 Ubaldo Barbour B-12 Injection Administered Injection Nurse Visit 014 C B-12 Injection Administered Injection Nurse Visit 014 C B-12 Injection Administered Injection Nurse Visit 014 C B-12 Injection Administered Injection Nurse Visit 014 C B-12 Injection Administered Injection Michelle 014 Ubaldo Barbour B-12 Injection Administered Injection Michelle 014 Ubaldo Barbour B-12 Injection Administered Injection Nurse Visit 014 C B-12 Injection Administered Injection Nurse Visit 014 [place] B-12 Injection Administered Injection Nurse Visit 014 C Celestone 3 mg Administered Injection Radha and 3mg 013 Micheal larose M.D. Celestone 3 mg Administered Injection Rahda and 3mg 013 Micheal larose M.D. Immunizations CPT Code Status Date Vaccine Lot # [id number] Given 04/20/2017 Influenza Virus Vaccine, Quadrivalent, Split, [id number] Preservative Free 20955 Given 04/09/2016 Hepatitis B Vaccine Adult Dosage [id number] 80571 Given 04/09/2016 Hepatitis A Vaccine Adult Dosage [id number] 80756 Given 03/31/2016 Tdap - Tetanus/Diptheria/Acellular Pertussis [id number] 90608 Given 02/22/2016 Influenza Virus Vaccine, Quadrivalent, Split, [id number] Preservative Free 46094 Given 05/17/2015 Hepatitis B Vaccine Adult Dosage [id number] 33352 Given 03/23/2015 Influenza Virus Vaccine, Quadrivalent, Split, [id number] Preservative Free 08039 Given 12/26/2014 Hepatitis B Vaccine Adult Dosage [id number] 83028 Given 11/13/2014 Hepatitis B Vaccine Adult Dosage [id number] 60867 Given 11/13/2014 Hepatitis A Vaccine Adult Dosage [id number] 81431 Given 08/17/2014 Pneumococcal Conjugate Vaccine 13 Valent For [id number] Intramuscular Use [id number] Given 02/14/2014 Fluvirin Im 3Yrs And Older 12382 Given 02/14/2014 Influenza Virus Vaccine, Quadrivalent, Split, [id number] Preservative Free 35836 Given 01/20/2014 Zoster (Zostavax) 29025 Given 06/12/2013 Pneumonia Vaccine Vital Signs Date Vital Result Comment 10/05/2017 Height 60 inches 5'0" Weight 131.00 lb Heart Rate 54 /min BP Systolic Sitting 98 mmHg BP Diastolic Sitting 58 mmHg O2 % BldC Oximetry 97 % BMI (Body Mass Index) 25.6 kg/m2 09/10/2017 Heart Rate 68 /min BP Systolic 116 mmHg BP Diastolic 70 mmHg Respiratory Rate 16 /min Body Temperature 97.2 F 08/18/2017 Weight 131.00 lb Heart Rate 52 [...] Test Date Test Result H/L Range Note Comp Metabolic Panel 09/16/2017 Sodium 141 mmol/L 139-145 Potassium 4.5 mmol/L 3.5-5.0 Chloride 107 mmol/L 101-111 Co2 Carbon Dioxide 26 mmol/L 22-32 Anion Gap 8 mmol/L 2-11 Glucose 114 mg/dL High 70-100 Blood Urea Nitrogen 20 mg/dL 6-24 Creatinine 1.22 mg/dL High 0.51-0.95 BUN/Creatinine Ratio 16.4 8-20 Calcium 9.1 mg/dL 8.6-10.3 Total Protein 6.7 g/dL 6.4-8.9 Albumin 3.3 g/dL 3.2-5.2 Globulin 3.4 g/dL 2-4 Albumin/Globulin Ratio 1.0 1-3 Total Bilirubin 0.90 mg/dL 0.2-1.0 Alkaline Phosphatase 70 U/L 34-104 Alt 12 U/L 7-52 Ast 20 U/L 13-39 Egfr Non- 43.0 >60 Egfr 55.3 >60 1 Urinalysis Profile 08/31/2017 Urine Color Yellow Urine Appearance Clear Urine Specific [place] 1.051 High 1.010-1.030 Urine pH 6.0 5-9 Urine Urobilinogen Negative Negative Urine Ketones Negative Negative Urine Protein Negative Negative Urine Leukocytes Trace Negative Urine Blood Negative Negative * * Negative 2 Urine Nitrite Negative Negative Urine Bilirubin Negative Negative Urine Glucose Negative Negative Urine White Blood Cell Absent Absent Urine Red Blood Cell 3+(>10/hpf) Absent Urine Bacteria Absent Absent Urine Squamous Epithelial Cell Present Absent Urine Culture And Sensitivities 08/31/2017 Urine Culture SEE RESULT BELOW 3 Type & Screen 08/31/2017 Patient Blood Type B Positive 4 Antibody Screen NEGATIVE 4 Comp Metabolic Panel 08/31/2017 Sodium 139 mmol/L 139-145 Potassium 4.3 mmol/L 3.5-5.0 Chloride 105 mmol/L 101-111 Co2 Carbon Dioxide 25 mmol/L 22-32 Anion Gap 9 mmol/L 2-11 Glucose 103 mg/dL High 70-100 Blood Urea Nitrogen 25 mg/dL High 6-24 Creatinine 1.12 mg/dL High 0.51-0.95 BUN/Creatinine Ratio 22.3 High 8-20 Calcium 10.1 mg/dL 8.6-10.3 Total Protein 7.4 g/dL 6.4-8.9 Albumin 3.5 g/dL 3.2-5.2 Globulin 3.9 g/dL 2-4 Albumin/Globulin Ratio 0.9 Low 1-3 Total Bilirubin 1.20 mg/dL High 0.2-1.0 Alkaline Phosphatase 68 U/L 34-104 Alt 13 U/L 7-52 Ast 24 U/L 13-39 Egfr Non- 47.6 >60 Egfr 61.2 >60 5 Laboratory test finding 08/31/2017 Magnesium 1.9 mg/dL 1.9-2.7 Amylase 39 U/L 29-103 Lipase 29 U/L 11.0-82.0 C Reactive Protein 7.30 mg/L High < 5.00 6 Inr/Protime 08/31/2017 Inr 1.09 High 0.77-1.02 CBC Auto Diff 08/31/2017 White Blood Count 9.0 10^3/uL 3.5-10.8 Red Blood Count 4.12 10^6/uL 4.0-5.4 Hemoglobin 12.7 g/dL 12.0-16.0 Hematocrit 38 % 35-47 Mean Corpuscular Volume 92 fL 80-97 Mean Corpuscular Hemoglobin 31 pg 27-31 Mean Corpuscular HGB Conc 33 g/dL 31-36 Red Cell Distribution Width 17 % High 10.5-15 Platelet Count 89 10^3/uL Low 150-450 7 Mean Platelet Volume 10.6 um3 High 7.4-10.4 Abs Neutrophils 7.7 10^3/uL 1.5-7.7 Abs Lymphocytes 0.6 10^3/uL Low 1.0-4.8 Abs Monocytes 0.6 10^3/uL 0-0.8 Abs Eosinophils 0.2 10^3/uL 0-0.6 Abs Basophils 0 10^3/uL 0-0.2 Abs Nucleated RBC 0 10^3/uL Granulocyte % 85.4 % High 38-83 Lymphocyte % 6.3 % Low 25-47 Monocyte % 6.3 % 0-7 Eosinophil % 1.9 % 0-6 Basophil % 0.1 % 0-2 Nucleated Red Blood Cells % 0.1 Laboratory test finding 08/19/2017 Hemoglobin A1c 6.7 5-7 Istat BUN/Crea/Egfr/V Eastct 08/13/2017 Poc Bun Eastct 23 mg/dL High 9-18 Poc Crea Eastct 1.1 mg/dL High 0.6-0.9 GFR Non- Ect 48.6 >60 GFR Eastct 62.4 >60 8 Xray 08/11/2017 CT Abd/Pel W 15 CBC Auto Diff 07/15/2017 White Blood Count 4.7 10^3/uL 3.5-10.8 Red Blood Count 3.46 10^6/uL Low 4.0-5.4 Hemoglobin 10.3 g/dL Low 12.0-16.0 Hematocrit 31 % Low 35-47 Mean Corpuscular Volume 90 fL 80-97 Mean Corpuscular Hemoglobin 30 pg 27-31 Mean Corpuscular HGB Conc 33 g/dL 31-36 Red Cell Distribution Width 18 % High 10.5-15 Platelet Count 93 10^3/uL Low 150-450 9 Mean Platelet Volume 10 um3 7.4-10.4 Abs [...] 0-2 Nucleated Red Blood Cells % 0 Lipid Profile (Trig/Chol/HDL) 07/15/2017 Triglycerides 64 mg/dL 10 Cholesterol 122 mg/dL 11 HDL Cholesterol 38.3 mg/dL 12 LDL Cholesterol 71 mg/dL 13 Basic Metabolic Panel 07/15/2017 Sodium 135 mmol/L 133-145 Potassium 3.9 mmol/L 3.5-5.0 Chloride 105 mmol/L 101-111 Co2 Carbon Dioxide 23 mmol/L 22-32 Anion Gap 7 mmol/L 2-11 Glucose 287 mg/dL High 70-100 Blood Urea Nitrogen 22 mg/dL 6-24 Creatinine 1.17 mg/dL High 0.51-0.95 BUN/Creatinine Ratio 18.8 8-20 Calcium 9.2 mg/dL 8.6-10.3 Egfr Non- 45.2 >60 Egfr 58.2 >60 14 Basic Metabolic Panel 05/20/2017 Sodium 135 mmol/L 133-145 Potassium 4.6 mmol/L 3.5-5.0 Chloride 107 mmol/L 101-111 Co2 Carbon Dioxide 22 mmol/L 22-32 Anion Gap 6 mmol/L 2-11 Glucose 217 mg/dL High 70-100 Blood Urea Nitrogen 26 mg/dL High 6-24 Creatinine 1.27 mg/dL High 0.51-0.95 BUN/Creatinine Ratio 20.5 High 8-20 Calcium 8.7 mg/dL 8.6-10.3 Egfr Non- 41.1 >60 Egfr 52.9 >60 15 Basic Metabolic Panel 05/06/2017 Sodium 135 mmol/L 133-145 Potassium 4.9 mmol/L 3.5-5.0 Chloride 104 mmol/L 101-111 Co2 Carbon Dioxide 24 mmol/L 22-32 Anion Gap 7 mmol/L 2-11 Glucose 264 mg/dL High 70-100 Blood Urea Nitrogen 29 mg/dL High 6-24 Creatinine 1.40 mg/dL High 0.51-0.95 BUN/Creatinine Ratio 20.7 High 8-20 Calcium 9.0 mg/dL 8.6-10.3 Egfr Non- 36.8 >60 Egfr 47.3 >60 16 Laboratory test 04/29/2017 Mycobacterial Culture See Comment 17 finding Acid Fast Culture 04/29/2017 Acid Fast Culture SEE RESULT BELOW 18 & Smear Smear Laboratory test 04/26/2017 Mycobacterial Culture SEE COMMENTS 19 finding Laboratory test 04/26/2017 Mycobacterial Culture See Comment 20 finding Acid Fast Culture 04/26/2017 Acid Fast Culture SEE RESULT BELOW 21 & Smear Smear Comp Metabolic Panel 04/20/2017 Sodium 134 mmol/L [...] Egfr Non- 32.0 >60 Egfr 41.1 >60 22 Laboratory test finding 04/20/2017 Hemoglobin A1c (Glyco 5.2 % 4.0-5.6 23 HGB) Urine Microalbumin Random 04/20/2017 Ur Microalbumin (mg/L) 17.1 mg/L Urine Creatinine 102.80 mg/dL Urine Microalbumin/Creatinine 16.6 ug/mg <31 CBC Auto Diff 04/20/2017 White Blood Count [...] Blood Cells % 0 Basic Metabolic Panel 04/02/2017 Sodium 134 mmol/L 133-145 Potassium 4.2 mmol/L 3.5-5.0 Chloride 104 mmol/L 101-111 Co2 Carbon Dioxide 24 mmol/L 22-32 Anion Gap 6 mmol/L 2-11 Glucose 131 mg/dL High 70-100 Blood Urea Nitrogen 46 mg/dL High 6-24 Creatinine 1.63 mg/dL High 0.51-0.95 BUN/Creatinine Ratio 28.2 High 8-20 Calcium 9.7 mg/dL 8.6-10.3 Egfr Non- 30.8 >60 Egfr 39.7 >60 24 Laboratory test finding 04/02/2017 Sputum Smear SEE RESULT BELOW 25 Acid Fast Culture & 04/02/2017 Acid Fast Culture Smear SEE RESULT BELOW 26 Smear Sputum Culture & 04/02/2017 Sputum Culture Gram SEE RESULT BELOW 27 Sensitiv Stain Laboratory test finding 04/02/2017 Mycobacterial Culture See Comment 28 Laboratory test finding 04/01/2017 Sputum Smear SEE RESULT BELOW 29 Mycobacterial Culture See Comment 30 Sputum Culture & 04/01/2017 Sputum Culture Gram SEE RESULT BELOW 31 Sensitiv Stain Acid Fast Culture & 04/01/2017 Acid Fast Culture Smear SEE RESULT BELOW 32 Smear Laboratory test finding 03/31/2017 Mycobacterial Culture See Comment 33 Acid Fast Culture & 03/31/2017 Acid Fast Culture Smear SEE RESULT BELOW 34 Smear Laboratory test finding 03/31/2017 Sputum Smear SEE RESULT BELOW 35 Sputum Culture & 03/31/2017 Sputum Culture Gram SEE RESULT BELOW 36 Sensitiv Stain Acid Fast Culture & 03/30/2017 Acid Fast Culture Smear SEE RESULT BELOW 37 Smear Sputum Culture & 03/30/2017 Sputum Culture Gram SEE RESULT BELOW 38 Sensitiv Stain Laboratory test finding 03/30/2017 Sputum Smear SEE RESULT BELOW 39 Mycobacterial Culture See Comment 40 Comp Metabolic Panel 02/11/2017 Sodium 137 mmol/L [...] Egfr Non- 34.7 >60 Egfr 44.7 >60 41 Basic Metabolic Panel 01/27/2017 Sodium 140 mmol/L 133-145 Potassium 4.4 mmol/L 3.5-5.0 Chloride 112 mmol/L High 101-111 Co2 Carbon Dioxide 22 mmol/L 22-32 Anion Gap 6 mmol/L 2-11 Glucose 105 mg/dL High 70-100 Blood Urea Nitrogen 32 mg/dL High 6-24 Creatinine 1.36 mg/dL High 0.51-0.95 BUN/Creatinine Ratio 23.5 High 8-20 Calcium 9.4 mg/dL 8.6-10.3 Egfr Non- 38.0 >60 Egfr 48.9 >60 42 Basic Metabolic Panel 01/20/2017 Sodium 134 mmol/L 133-145 Potassium 4.3 mmol/L 3.5-5.0 Chloride 101 mmol/L 101-111 Co2 Carbon Dioxide 23 mmol/L 22-32 Anion Gap 10 mmol/L 2-11 Glucose 189 mg/dL High 70-100 Blood Urea Nitrogen 53 mg/dL High 6-24 Creatinine 2.11 mg/dL High 0.51-0.95 BUN/Creatinine Ratio 25.1 High 8-20 Calcium 10.0 mg/dL 8.6-10.3 Egfr Non- 22.9 >60 Egfr 29.4 >60 43 Comp Metabolic Panel 01/05/2017 Sodium 138 mmol/L [...] Egfr Non- 35.3 >60 Egfr 45.4 >60 44 CBC Auto Diff 11/19/2016 White Blood Count [...] Red Blood Cells % 0.3 Laboratory test 11/19/2016 Vitamin B12 1245 pg/mL High 180-914 45 finding Laboratory test 11/19/2016 Hemoglobin A1c 6.5 % High Less than 6.0 46 finding (Glyco HGB) Comp Metabolic Panel 11/19/2016 [...] Egfr Non- 43.1 >60 Egfr 55.4 >60 47 Ua Routine 06/23/2016 Ua Specific [place] 1.000 Ua PH 6 Ua Color yellow [...] Egfr Non- 52.5 >60 Egfr 67.6 >60 48 Laboratory test 06/23/2016 Hemoglobin A1c 6.0 5-7 finding Laboratory test 04/01/2016 Hemoglobin A1c 6.4 % High Less than 6.0 49 finding (Glyco HGB) Urine Microalbumin 04/01/2016 Urine Creatinine 46.86 mg/dL Random Ur Microalbumin (mg/L) < 15.0 mg/L Urine Microalbumin/Creatinine TNP ug/mg <31 50 Basic Metabolic Panel 04/01/2016 Sodium 139 mmol/L 133-145 Potassium 4.2 mmol/L 3.5-5.0 Chloride 108 mmol/L 101-111 Co2 Carbon Dioxide 23 mmol/L 22-32 Anion Gap 8 mmol/L 2-11 Glucose 78 mg/dL 70-100 Blood Urea Nitrogen 15 mg/dL 6-24 Creatinine 1.06 mg/dL High 0.51-0.95 BUN/Creatinine Ratio 14.2 8-20 Calcium 9.3 mg/dL 8.6-10.3 Egfr Non- 50.8 >60 Egfr 65.4 >60 51 Lipid Profile (Trig/Chol/HDL) 04/01/2016 Triglycerides 107 mg/dL 52 Cholesterol 144 mg/dL 53 HDL Cholesterol 47.5 mg/dL 54 LDL Cholesterol 75 mg/dL 55 Type & Screen 12/31/2015 Patient Blood Type B Positive 56 Antibody Screen NEGATIVE 56 Laboratory test 12/31/2015 Packed Cells SEE RESULTS BELO 56, 57 finding <SEE NOTE> CBC Auto Diff 12/27/2015 [...] Point of Care Glucose 91 mg/dL 74-106 58 Cell Morphology 10/10/2015 Microcytosis 2+ Hypochromasia 2+ Laboratory test finding 10/10/2015 Vitamin B12 678 pg/mL 180-914 59 CBC Auto Diff 10/10/2015 White Blood Count 2.5 10^3/uL Low 3.5-10.8 Red Blood Count 3.44 10^6/uL Low 4.0-5.4 Hemoglobin 7.5 g/dL Low 12.0-16.0 Hematocrit 25 % Low 35-47 Mean Corpuscular Volume 72 fL Low 80-97 60 Mean Corpuscular Hemoglobin 22 pg Low 27-31 Mean Corpuscular HGB Conc 30 g/dL Low 31-36 Red Cell Distribution Width 20 % High 10.5-15 Platelet Count 64 10^3/uL Low 150-450 61 Mean Platelet Volume 9 um3 7.4-10.4 Abs [...] 0-2 Nucleated Red Blood Cells % 0.2 CBC Auto Diff 07/16/2015 White Blood Count [...] 0-2 Nucleated Red Blood Cells % 0 Urinalysis Profile 07/16/2015 Urine Color Yellow Urine Appearance Cloudy Urine Specific [place] 1.012 1.010-1.030 Urine pH 5.0 5-9 Urine Urobilinogen Negative Negative Urine Ketones Negative Negative Urine Protein Negative Negative Urine Leukocytes Negative Negative Urine Blood Negative Negative Urine Nitrite Negative Negative Urine Bilirubin Negative Negative Urine Glucose Negative Negative Comp Metabolic Panel 07/16/2015 Sodium 132 mmol/L [...] Egfr Non- 48.8 >60 Egfr 62.8 >60 62 Laboratory test finding 07/16/2015 Lipase 61 U/L 11.0-82.0 C Reactive Protein 8.73 mg/L High < 5.00 63 Lactic Acid 2.0 mmol/L 0.5-2.0 64 Cell Morphology 07/16/2015 Macrocytosis 1+ Microcytosis 1+ Hypochromasia 2+ Laboratory test 07/11/2015 Hemoglobin A1c 6.2 5-7 [...] White Blood Count 3.4 10^3/uL Low 4.8-10.8 65 Red Blood Count 4.08 10^6/uL 4.0-5.4 65 Hemoglobin 9.8 g/dL Low 12.0-16.0 65 Hematocrit 31 % Low 35-47 65 Mean Corpuscular Volume 76 fL Low 80-97 65 Mean Corpuscular Hemoglobin 24 pg Low 27-31 65 Mean Corpuscular HGB Conc 32 g/dL 31-36 65 Red Cell Distribution Width 22 % High 10.5-15 65 Platelet Count 92 10^3/uL Low 150-450 65 Mean Platelet Volume 9 um3 7.4-10.4 65 Abs Neutrophils 2.2 10^3/uL 1.5-7.7 65 Abs Lymphocytes 0.7 10^3/uL Low 1.0-4.8 65 Abs Monocytes 0.3 10^3/uL 0-0.8 65 Abs Eosinophils 0.1 10^3/uL 0-0.6 65 Abs Basophils 0 10^3/uL 0-0.2 65 Abs Nucleated RBC 0 10^3/uL 65 Granulocyte % 66.1 % 38-83 65 Lymphocyte % 21.9 % Low 25-47 65 Monocyte % 8.2 % 1-9 65 Eosinophil % 3.5 % 0-6 65 Basophil % 0.3 % 0-2 65 Nucleated Red Blood Cells % 0.1 65 Laboratory test 09/28/2014 Hemoglobin A1c 6.0 % Less than 65, 66 finding 6.0 Urine Microalbumin 09/28/2014 Ur Microalbumin < 5.0 65 Random (mg/L) mg/L Urine Creatinine 59.77 mg/dL 65 Urine Microalbumin/Creatinine TNP mg/g Less Than 31 65, 67 Lipid Profile (Trig/Chol/HDL) 09/28/2014 Triglycerides 116 mg/dL 65, 68 Cholesterol 134 mg/dL 65, 69 HDL Cholesterol 41.5 mg/dL 65, 70 LDL Cholesterol 69 mg/dL 65, 71 Cell Morphology 09/28/2014 Microcytosis 2+ 65 Hypochromasia 1+ 65 Elliptocyte 1+ 65 Type & Screen 09/06/2014 Patient Blood Type B Positive 72 Antibody Screen NEGATIVE 72 Laboratory test 09/06/2014 Packed Cell - RBC [id number] B 72, 73 finding Leukoreduced <SEE NOTE> Laboratory test 05/09/2014 Pathologist Review (SEE NOTE) 74 finding CBC Auto Diff 05/09/2014 White Blood Count [...] Blood Cells % 0 Laboratory test finding 05/08/2014 Hemoglobin A1c 6.0 5-7 Vitamin D, 25 Hydroxy 11/10/2013 25-Hydroxy Vitamin D2 22 ng/mL 25-Hydroxy Vitamin D3 26 ng/mL 25-Hydroxy Vitamin D Total 48 ng/mL 75 Laboratory test finding 11/10/2013 Hemoglobin A1c 5.3 5-7 Vitamin D, 25 Hydroxy 07/11/2013 25-Hydroxy Vitamin D2 <4.0 ng/mL 25-Hydroxy Vitamin D3 16 ng/mL 25-Hydroxy Vitamin D Total 16 ng/mL 76 Lipid Profile (Trig/Chol/HDL) 06/13/2013 Triglycerides 143 mg/dL 40-200 Cholesterol 155 mg/dL Less than 200 HDL Cholesterol 44 mg/dL 40-60 77 Cholesterol/HDL Ratio 3.5 Average 1-4.44 LDL Cholesterol 82.4 Less Than 100 78 Comp Metabolic Panel 06/13/2013 Sodium 137 mmol/L [...] Egfr Non- 54.8 >60 Egfr 70.5 >60 79 Laboratory test finding 06/13/2013 Vitamin B12 519 [...] Microcytosis 1+ Ua Routine 06/09/2013 Ua Specific [place] 1.005 Ua PH 5.0 Ua Color yellow Ua Appera clear Ua WBC neg Ua Protein neg Ua Glucose neg Ua Ketones neg Ua Bilirubin small Ua Urobilinogen neg Ua Nitrite neg Ua Occult Blood neg Laboratory test finding 06/09/2013 Hemoglobin A1c 6.3 5-7 Urine Microalbumin Random 06/09/2013 Ur Microalbumin (mg/L) 2.0 mg/L 80 Urine Creatinine 51.0 mg/dL Urine Microalbumin/Creatinine 3.9 Less Than 31 C. Difficile Toxin 10/30/2009 C. Difficile Toxin A TEST LIMITATIONS 81 B <SEE NOTE> Laboratory test 12/14/2007 Alkaline Phosphatase 95 U/L 30-110 82 finding Phosphorus 2.1 mg/dL Low 2.4-4.7 82 Bilirubin Total 0.4 mg/dL 0.4-1.5 82 Lipid Profile (Trig/Chol/HDL) 12/14/2007 Triglyceride 306 mg/dL High 40- 200 82 Cholesterol 175 mg/dL Less Than 200 82, 83 High Density Lipoprotein 42 mg/dL 40-60 82, 84 Cholesterol/HDL Ratio 4.17 AVERAGE 1-4.44 82 Low Density Lipoprotein 72 mg/dL Less Than 100 82, 85 Protime 12/14/2007 Protime 12.1 10.9-13.3 82 Inr 1.00 82, 86 Basic Metabolic Panel 12/14/2007 Sodium 139 mmol/L 135-145 82 Potassium 4.2 mmol/L 3.5-5.0 82 Chloride 105 mmol/L 101-111 82 Co2 (Carbon Dioxide) 28.0 mmol/L 22-32 82 Anion Gap 6.0 mmol/L 2-11 82, 87 Glucose 171 mg/dL High 70-105 82 BUN 10 mg/dL 6-24 82 Creatinine 0.9 mg/dL 0.5-1.4 82 One Over Creatinine 1.11 82 BUN/Creatinine Ratio 11.1 8-20 82 Calcium 9.1 mg/dL 8.1-9.9 82, 88 CBC With Manual Diff 12/14/2007 White Blood Count 3.6 CUMM Low 4.8-10.8 82 Red Cell Count 4.20 CUMM 4.2-5.4 82 Hemoglobin 12.7 g/dL 12.0-16.0 82 Hematocrit 38 % 35-47 82 Mean Corpuscular Volume 89 um3 79-97 82 Mean Corpuscular Hemoglob 30 pg 27-31 82 Mean Corpuscular HGB Cone 34 g/dL 32-36 82 Redcell Distribution WDTH 14 % 10.5-15 82 Platelet Count 122 CUMM Low 150-450 82 Mean Platelet Volume 10.8 um3 High 7.4-10.4 82 Polysegmented Neutrophil 63 % 38-83 82 Lymphocyte 29 % 5-47 82 Monocyte 6 % 0-13 82 Eosenophil 2 % 0-6 82 Absolute Neutrophil Count 2.2 82 Anisocytosis SLIGHT 82 Cath Panel 12/14/2007 PTT (Aptt) 24.5 20.1-28.2 82, 89 1 Because ethnic data is not always [...] 5 Kidney failure <15 (or dialysis) 2 *Ascorbic acid is present which may interfere with detection of blood. 3 SEE RESULT BELOW Name: PATEL BRUNSON : [address]: Alyse Machuca MD Acct: [id number] Unit: [id number] AGE: 76 Location: [facility] 340 Re08/31/17 SEX: F Status: ADM Stevie SPEC: [id number] ZAHEER: 08/31/17 [facility] DR: Neto Knight MD REQ: [id number] RECD: 08/31/17 STATUS: [facility] DR: Shweta Bell HEAD STRENGTH AND CONDITIONING COACH-C Chani Christianson [facility] LEANNA Pradhan MD, MD, MD, MD, MD, NP, MD, NP, MD, NP, MD, MD, NP, NP, MD, MD CONTACT PRINTER DRY FILM Alison CEDILLO Student Arlin Machuca CONTACT PRINTER DRY FILM Julio C Cho PA _ SOURCE: URINE SPDESC: ORDERED: Urine Culture Procedure Result Reported Site Urine Culture Final 09/01/17- 0756 ML CONTINUED ON NEXT PAGE DEPARTMENT OF PATHOLOGY, [address] [place] [address] Devyn Boston M.D. Director [facility] # [id number] Patient: PATEL BRUNSON [id number] (Continued) Specimen: [id number] Collected: 08/31/17 Received: 08/31/17 (Continued) Procedure Result Reported Site Urine Culture Final (continued) 09/01/17- 0756 Mixed jordan; possible contamination. Suggest resubmission. * ML - Main Lab . END OF REPORT DEPARTMENT OF PATHOLOGY, [address] [place] [address] Devyn Boston M.D. Director [facility] # [id number] ABD PAIN 5 Because ethnic data is not always readily [...] 15-29 5 Kidney failure <15 (or dialysis) 6 Acute inflammation: >10.00 7 Consistent with Previous Results Reported on 07/15/17 8 Because ethnic data is not always [...] 5 Kidney failure <15 (or dialysis) 9 Consistent with Previous Results Reported on 04/20/17 10 Desirable: <150 Borderline High: 150-199 High: 200-499 Very High: >500 11 Desirable: <200 Borderline High: 200-239 High: >239 12 Low: <40 Desirable: 40-60 High: >60 13 Desirable: <100 Near Optimal: 100-129 Borderline High: 130-159 High: 160-189 Very High: >189 14 Because ethnic data is not always readily [...] 15-29 5 Kidney failure <15 (or dialysis) 15 Because ethnic data is not always [...] 5 Kidney failure <15 (or dialysis) 16 Because ethnic data is not always [...] dialysis) 17 SOURCE: SPUTUM MYCOBACTERIAL CULTURE FINAL MYCOBACTERIUM CHELONAE - Previous comment was modified at 13:14 on 05/28/2017: Negative by probe, to date, for Mycobacterium tuberculosis complex and Mycobacterium avium complex. GORDONIA SPUTI [place] Test Performed by: [address] [address] 18 SEE RESULT BELOW Name: PATEL BRUNSON : [address]: Melissa Do MD Acct: [id number] Unit: [id number] AGE: 76 Location: [facility] Re04/29/17 SEX: F Status: REG REF SPEC: [id number] ZAHEER: 04/29/17 [facility] DR: Melissa Do MD REQ: [id number] RECD: 04/30/17 STATUS: COMP _ SOURCE: BODY [...] mycobacterial culture. * ML - [facility] ([facility]) . END OF REPORT * ML=Testing performed at [facility] DEPARTMENT OF PATHOLOGY, [address] [place] [address] Devyn Boston M.D. Director [facility] # [id number] 19 SOURCE: SPUTUM MYCOBACTERIAL CULTURE FINAL TSUKAMURELLA TYROSINOSOLVENS Few Test Performed by: [place] [address] 20 SOURCE: SPUTUM MYCOBACTERIAL CULTURE FINAL No growth after 60 days of incubation. Test Performed by: [place] [address] 21 SEE RESULT BELOW Name: PATEL BRUNSON : [address]: Melissa Do MD Acct: [id number] Unit: [id number] AGE: 76 Location: [facility] Re04/28/17 SEX: F Status: REG REF SPEC: [id number] ZAHEER: 04/28/17 [facility] DR: Melissa Do MD REQ: [id number] RECD: 04/28/17 STATUS: COMP _ SOURCE: RESP [...] mycobacterial culture. * ML - MAIN LAB ([facility]) . END OF REPORT * ML=Testing performed at Main Lab DEPARTMENT OF PATHOLOGY, [address] [place] [address] Devyn Boston M.D. Director [facility] # [id number] 22 Because ethnic data is not always readily [...] 15-29 5 Kidney failure <15 (or dialysis) 23 Therapeutic target for the treatment of diabetes mellitus patients is <7% HBA1C, and in selective patients <6.0%. Please refer to [employer] diabetic care guidelines for further information. 24 Because ethnic data is not always readily [...] 15-29 5 Kidney failure <15 (or dialysis) 25 SEE RESULT BELOW Name: PATEL BRUNSON : [address]: Melissa Do MD Acct: [id number] Unit: [id number] AGE: 76 Location: [facility] Re04/02/17 SEX: F Status: REG REF SPEC: [id number] ZAHEER: 04/02/17 [facility] DR: Melissa Do MD REQ: [id number] RECD: 04/02/17 STATUS: COMP _ SOURCE: SPUTUM,EXP SPDESC: ORDERED: Sputum Smear COMMENTS: REJECT SPT CULTURE - >10 EPI/LPF Procedure Result Reported Site Sputum Smear Final 04/02/17- 1246 ML 4+ Epithelial Cells No Neutrophils Observed Mixed Morphotypes, resembling Normal Jordan * ML - MAIN LAB ([facility]) . END OF REPORT * ML=Testing performed at Main Lab DEPARTMENT OF PATHOLOGY, [address] [place] [address] Devyn Boston M.D. Director [facility] # [id number] 26 SEE RESULT BELOW Name: BOYPATEL : [address]: Melissa Do MD Acct: [id number] Unit: [id number] AGE: 76 Location: [facility] Re04/02/17 SEX: F Status: REG REF SPEC: [id number] ZAHEER: 04/02/[address]: Melissa Do MD REQ: [id number] RECD: 04/02/17 STATUS: COMP _ SOURCE: RESP [...] mycobacterial culture. * ML - MAIN LAB ([facility]) . END OF REPORT * ML=Testing performed at Main Lab DEPARTMENT OF PATHOLOGY, [address] [place] [address] Devyn Boston M.D. Director [facility] # [id number] 27 SEE RESULT BELOW Name: PATEL BRUNSON : [address]: Melissa Do MD Acct: [id number] Unit: [id number] AGE: 76 Location: [facility] Re04/02/17 SEX: F Status: REG REF SPEC: [id number] ZAHEER: 04/02/17 [facility] DR: Melissa Do MD REQ: [id number] RECD: 04/02/17 STATUS: CAN _ SOURCE: SPUTUM,EXP SPDESC: ORDERED: Sputum Cult/GS Procedure Result Reported Site CANCELLED REWJECT >10 EPIS END OF REPORT * ML=Testing performed at Main Lab DEPARTMENT OF PATHOLOGY, [address] [place] [address] Devyn Boston M.D. Director [facility] # [id number] 28 SOURCE: SPUTUM MYCOBACTERIAL CULTURE FINAL TSUKAMURELLA TYROSINOSOLVENS [place] GORDONIA SPUTI [place] Test Performed by: [facility] - [address] [address] 29 SEE RESULT BELOW Name: BOYPATEL : [address]: Melissa Do MD Acct: [id number] Unit: [id number] AGE: 76 Location: [facility] Re04/01/17 SEX: F Status: REG REF SPEC: [id number] ZAHEER: 04/01/[address]: Melissa Do MD REQ: [id number] RECD: 04/01/17 STATUS: COMP _ SOURCE: SPUTUM,EXP SPDESC: ORDERED: Sputum Smear Procedure Result Reported Site Sputum Smear Final 04/01/17- 1509 ML No Neutrophils Observed 2+ Epithelial Cells Mixed Morphotypes, resembling Normal Jordan Reject >10 Epi/LPF suggestive of Oral Contamination * ML - MAIN LAB ([facility]) . END OF REPORT * ML=Testing performed at Main Lab DEPARTMENT OF PATHOLOGY, [address] [place] [address] Devyn Boston M.D. Director [facility] # [id number] 30 SOURCE: SPUTUM MYCOBACTERIAL CULTURE FINAL TSUKAMURELLA PULMONIS [place] GORDONIA SPUTI [place] TSUKAMURELLA TYROSINOSOLVENS Test Performed by: [facility] - [address] [address] 31 SEE RESULT BELOW Name: PATEL BRUNSON : [address]: Melissa Do MD Acct: [id number] Unit: [id number] AGE: 76 Location: [facility] Re04/01/17 SEX: F Status: REG REF SPEC: [id number] ZAHEER: 04/01/[address]: Melissa Do MD REQ: [id number] RECD: 04/01/17 STATUS: RES _ SOURCE: SPUTUM,EXP SPDESC: ORDERED: Sputum Cult/GS Procedure Result Reported Site Sputum Smear Final 04/01/17- 1509 ML No Neutrophils Observed 2+ Epithelial Cells Mixed Morphotypes, resembling Normal Jordan Reject >10 Epi/LPF suggestive of Oral Contamination Sputum Culture PENDING * ML - MAIN LAB ([facility]) . END OF REPORT * ML=Testing performed at Main Lab DEPARTMENT OF PATHOLOGY, [address] [place] [address] Devyn Boston M.D. Director [facility] # [id number] 32 SEE RESULT BELOW Name: BOYPATEL : [address]: Melissa Do MD Acct: [id number] Unit: [id number] AGE: 76 Location: [facility] Re04/01/17 SEX: F Status: REG REF SPEC: [id number] ZAHEER: 04/01/[address]: Melissa Do MD REQ: [id number] RECD: 04/01/17 STATUS: COMP _ SOURCE: RESP [...] mycobacterial culture. * ML - MAIN LAB ([facility]) . END OF REPORT * ML=Testing performed at Main Lab DEPARTMENT OF PATHOLOGY, [address] [place] [address] Devyn Boston M.D. Director [facility] # [id number] 33 SOURCE: SPUTUM MYCOBACTERIAL CULTURE FINAL TSUKAMURELLA PULMONIS [place] - Previous comment was modified at 15:36 on 04/10/2017: Negative by probe, to date, for Mycobacterium tuberculosis complex and Mycobacterium avium complex. TSUKAMURELLA TYROSINOSOLVENS GORDONIA SPUTI [place] Test Performed by: [facility] - [address] [address] 34 SEE RESULT BELOW Name: PATEL BRUNSON : [address]: Melissa Do MD Acct: [id number] Unit: [id number] AGE: 76 Location: [facility] Re03/31/17 SEX: F Status: REG REF SPEC: [id number] ZAHEER: 03/31/17 [facility] DR: Melissa Do MD REQ: [id number] RECD: 03/31/17 STATUS: COMP _ SOURCE: RESP SPDESC: ORDERED: AFB Cult Smear Procedure Result Reported Site Acid Fast Stain - Direct Final 04/01/17 0833 ML AFB Smear Result No Acid Fast Bacillus Present (Negative) Preparation By Direct Smear Due to limited sensitivity of the smear, results should be used as an adjunct in evaluating the patient's status. This specimen has been sent to referral laboratory for mycobacterial culture. * ML - MAIN LAB ([facility]) . END OF REPORT * ML=Testing performed at Main Lab DEPARTMENT OF PATHOLOGY, [address] [place] [address] Devyn Boston M.D. Director [facility] # [id number] 35 SEE RESULT BELOW Name: PATEL BRUNSON : [address]: Melissa Do MD Acct: [id number] Unit: [id number] AGE: 76 Location: [facility] Re03/31/17 SEX: F Status: REG REF SPEC: [id number] ZAHEER: 03/31/17-1130 [facility] DR: Melissa Do MD REQ: [id number] RECD: 03/31/17 STATUS: COMP _ SOURCE: SPUTUM,EXP SPDESC: ORDERED: Sputum Smear Procedure Result Reported Site Sputum Smear Final 03/31/17- 1515 ML 4+ Epithelial Cells 1+ Neutrophils 2+ Nucleated Cells Mixed Morphotypes, resembling Normal Jordan Reject >10 Epi/LPF suggestive of Oral Contamination * ML - MAIN LAB ([facility]) . END OF REPORT * ML=Testing performed at Main Lab DEPARTMENT OF PATHOLOGY, [address] [place] [address] Devyn Boston M.D. Director [facility] # [id number] 36 SEE RESULT BELOW Name: PATEL BRUNSON : [address]: Melissa Do MD Acct: [id number] Unit: [id number] AGE: 76 Location: [facility] Re03/31/17 SEX: F Status: REG REF SPEC: [id number] ZAHEER: 03/31/171130 [facility] DR: Melissa Do MD REQ: [id number] RECD: 03/31/17 STATUS: RES _ SOURCE: SPUTUM,EXP SPDESC: ORDERED: Sputum Cult/GS Procedure Result Reported Site Sputum Smear Final 03/31/17- 1515 ML 4+ Epithelial Cells 1+ Neutrophils 2+ Nucleated Cells Mixed Morphotypes, resembling Normal Jordan Reject >10 Epi/LPF suggestive of Oral Contamination Sputum Culture PENDING * ML - MAIN LAB ([facility]) . END OF REPORT * ML=Testing performed at Main Lab DEPARTMENT OF PATHOLOGY, [address] [place] [address] Devyn Boston M.D. Director [facility] # [id number] 37 SEE RESULT BELOW Name: LINDA BRUNSONJOSÉ ANTONIOOLIVIERJR Calabrese : [address]: Melissa Do MD Acct: [id number] Unit: [id number] AGE: 76 Location: [facility] Re03/30/17 SEX: F Status: REG REF SPEC: [id number] ZAHEER: 03/30/17-[address]: Melissa Do MD REQ: [id number] RECD: 03/30/17 STATUS: COMP _ SOURCE: RESP SPDESC:SPUTUM EXP ORDERED: AFB Cult Smear Procedure Result Reported Site Acid Fast Stain - Direct Final 03/31/17- 818 ML AFB Smear Result No Acid Fast Bacillus Present (Negative) Preparation By Direct Smear Due to limited sensitivity of the smear, results should be used as an adjunct in evaluating the patient's status. This specimen has been sent to referral laboratory for mycobacterial culture. * ML - MAIN LAB ([facility]) . END OF REPORT * ML=Testing performed at Main Lab DEPARTMENT OF PATHOLOGY, [address] [place] [address] Devyn Boston M.D. Director [facility] # [id number] 38 SEE RESULT BELOW Name: PATEL BRUNSON : [address]: Melissa Do MD Acct: [id number] Unit: [id number] AGE: 76 Location: [facility] Re03/30/17 SEX: F Status: REG REF SPEC: [id number] ZAHEER: 03/30/17-[address]: Melissa Do MD REQ: [id number] RECD: 03/30/17 STATUS: RES _ SOURCE: SPUTUM,EXP SPDESC: ORDERED: Sputum Cult/GS Procedure Result Reported Site Sputum Smear Final 03/31/17- 08 ML 4+ Epithelial Cells 1+ Neutrophils Mixed Morphotypes, resembling Normal Jordan Reject >10 Epi/LPF suggestive of Oral Contamination Sputum Culture PENDING * ML - MAIN LAB ([facility]) . END OF REPORT * ML=Testing performed at Main Lab DEPARTMENT OF PATHOLOGY, [address] [place] [address] Devyn Boston M.D. Director [facility] # [id number] 39 SEE RESULT BELOW Name: PATEL BRUNSON : [address]: Melissa Do MD Acct: [id number] Unit: [id number] AGE: 76 Location: [facility] Re03/30/17 SEX: F Status: REG REF SPEC: [id number] ZAHEER: 03/30/17-[address]: Melissa Do MD REQ: [id number] RECD: 03/30/172 STATUS: COMP _ SOURCE: SPUTUM,EXP SPDESC: ORDERED: Sputum Smear Procedure Result Reported Site Sputum Smear Final 03/31/17- 0801 ML 4+ Epithelial Cells 1+ Neutrophils Mixed Morphotypes, resembling Normal Jordan Reject >10 Epi/LPF suggestive of Oral Contamination * ML - MAIN LAB ([facility]) . END OF REPORT * ML=Testing performed at Main Lab DEPARTMENT OF PATHOLOGY, [address] [place] [address] Devyn Boston M.D. Director [facility] # [id number] 40 SOURCE: SPUTUM MYCOBACTERIAL CULTURE FINAL No growth after 60 days of incubation. Test Performed by: [address] [address] 41 Because ethnic data is not always [...] 5 Kidney failure <15 (or dialysis) 42 Because ethnic data is not always readily [...] 15-29 5 Kidney failure <15 (or dialysis) 43 Because ethnic data is not always [...] 5 Kidney failure <15 (or dialysis) 44 Because ethnic data is not always [...] 5 Kidney failure <15 (or dialysis) 45 Normal Range 180 to 914 Indeterminate Range 145 to 180 Deficient Range <145 46 Therapeutic target for the treatment of diabetes Mellitus patients is <7% HBA1C, and in selective patients <6.0%.Please refer to [employer] Diabetic care guidelines for further information. 47 Because ethnic data is not always readily [...] 15-29 5 Kidney failure <15 (or dialysis) 48 Because ethnic data is not always readily [...] 15-29 5 Kidney failure <15 (or dialysis) 49 Therapeutic target for the treatment of diabetes Mellitus patients is <7% HBA1C, and in selective patients <6.0%.Please refer to [employer] Diabetic care guidelines for further information. 50 Unable to calculate due to low microalbumin 51 Because ethnic data is not always readily [...] 15-29 5 Kidney failure <15 (or dialysis) 52 Desirable <150 Borderline high 150-199 High 200-499 Very High >500 53 Desirable <200 Borderline high 200-239 High >239 54 Low <40 Desirable: 40-60 High: >60 55 Desirable: <100 mg/dL Near Optimal: 100-129 mg/dL Borderline High: 130-159 mg/dL High: 160-189 mg/dL Very High: >189 mg/dL 56 ANEMIA 57 SEE RESULTS BELOW [id number] BP PC TRANSFUSED 12/31/15 1352 [id number] BP PC TRANSFUSED 12/31/15 1554 58 [employer] Maker: [id number] ORLIN Mason 59 Normal Range 180 to 914 Indeterminate Range 145 to 180 Deficient Range <145 60 Consistent with previous results on 07/16/15. 61 Consistent with previous results on 07/16/15. 62 Because ethnic data is not always readily [...] 15-29 5 Kidney failure <15 (or dialysis) 63 Acute inflammation: >10.00 64 [facility] Severe Sepsis and Septic Shock Management Bundle Measure requires all lactic acids initially measuring >2.0mmol/L be repeated. 65 PT IS FASTING 66 Therapeutic target for the treatment of diabetes Mellitus patients is <7% HBA1C, and in selective patients <6.0%.Please refer to [employer] Diabetic care guidelines for further information. 67 Unable to calculate due to low microalbumin 68 Desirable <150 Borderline high 150-199 High 200-499 Very High >500 69 Desirable <200 Borderline high 200-239 High >239 70 Low <40 Desirable: 40-60 High: >60 71 Desirable: <100 mg/dL Near Optimal: 100-129 mg/dL Borderline High: 130-159 mg/dL High: 160-189 mg/dL Very High: >189 mg/dL 72 ANEMIA NOS 73 [id number] BP PC TRANSFUSED 09/07/14 0943 74 Reviewed by Luci Yu MD CBC and smear reviewed. Microcytic, hypochromic anemia present. Findings consistent with iron deficiency. CBC and smear reviewed. Thrombocytopenia present without evidence of platelet clumping or satellitosis. 75 -- REFERENCE VALUE -- 25-HYDROXY D TOTAL (D2+D3) Optimum levels in the healthy population are 20-50, patients with bone disease may benefit from higher levels within this range. Test Performed by: [address] [address] Electrical Discharge Machine Operator: Daniel East III, M.D. 76 Interpretation: 10-19 ng/mL (mild to moderate deficiency) -- REFERENCE VALUE -- 25-HYDROXY D TOTAL (D2+D3) Optimum levels in the healthy population are 20-50, patients with bone disease may benefit from higher levels within this range. Test Performed by: [facility] [address] [place] [address] Electrical Discharge Machine Operator: Daniel East III, M.D. 77 HDL Interpretation: Undesirable: High Risk: Less than 40 mg/dL Desirable: Low Risk: Greater than 60 mg/dL 78 LDL Interpretation: Low Risk Optimal Level: LDL Less than 100 mg/dL Near or Above Optimal: LDL 100-129 mg/dL Borderline High Risk: LDL 130-159 mg/dL High Risk: LDL 160-189 mg/dL Very High Risk: LDL Greater than 189 mg/dL 79 Because ethnic data is not always readily [...] 15-29 5 Kidney failure <15 (or dialysis) 80 Microalbuminuria in a random sample is defined as: Microalbumin/Creatinine ratio of 30-299 ug/mg. 81 TEST LIMITATIONS: The performance of specimens from [...] in cystic fibrosis patients. NEGATIVE BY IMMUNOASSAY 82 FASTING 83 CHOLESTEROL INTERPRETATION: Desirable: Less than 200 MG/DL Borderline-High Risk: 200-239 MG/DL High-Risk: 240 MG/DL and over 84 HDL INTERPRETATION: Undesirable: High Risk: Less than 40 MG/DL Desirable: Low Risk: Greater than 60 MG/DL 85 LDL INTERPRETATION: Low Risk Optimal Level: LDL Less than 100 MG/DL Near or Above Optimal: LDL 100-129 MG/DL Borderline High Risk: LDL 130-159 MG/DL High Risk: LDL 160-189 MG/DL Very High Risk: LDL Greater than 189 MG/DL 86 CHRISTIANO VALUE=2.01 ( OF 05/07/07 Recommended INR for Patients on Oral Anticoagulants Prophylaxis 2.0 - 3.0 Treatment of thrombosis 2.0 - 3.0 Prevention of embolism 2.0 - 3.0 Prevention of embolism from prosthetic heart valves 2.5 - 3.5 87 Anion gap measurement may be of limited value in the presence of any alkalosis, especially in a combined acid base disorder. . 88 Please note change in reference range effective 07 . 89 PLEASE NOTE NEW REFERENCE RANGE EFFECTIVE 07. Procedures Date CPT Code Description Status Comment 04/24/2017 Mammogram Completed 03/27/2017 60863 EKG Tracing & Completed Interpretation 07/23/2016 18680 EKG, Interpretation Only Completed 07/23/2016 01097 Laparotomy Exploratory Completed 07/23/2016 62524 Laparotomy Exploratory Completed 07/22/2016 71485 ECHO Transthorasic Realtime Completed 2D W Doppler & Color Flow Hosp 07/04/2016 67401 Admin Of Inj Completed 06/03/2016 82769 Admin Of Inj Completed 04/28/2016 05734 Admin Of Inj Completed 04/09/2016 Mammogram Completed 03/31/2016 29968 EKG Tracing & Completed Interpretation 03/27/2016 76566 Admin Of Inj Completed 02/22/2016 15009 Admin Of Inj Completed 01/23/2016 43318 Admin Of Inj Completed 12/20/2015 12196 Admin Of Inj Completed 11/19/2015 30748 Admin Of Inj Completed 10/23/2015 56615 Admin Of Inj Completed 09/26/2015 69297 Admin Of Inj Completed 08/27/2015 Diabetic Retinal Eye Exam Completed 08/09/2015 65973 Admin Of Inj Completed 07/11/2015 65962 Admin Of Inj Completed 06/18/2015 31033 Admin Of Inj Completed 05/17/2015 14002 Admin Of Inj Completed 04/20/2015 33155 ECHO Transthoracic, Completed Real-Time 2D With Doppler And Color Flow 04/03/2015 86980 EKG Tracing & Completed Interpretation 03/23/2015 64982 Admin Of Inj Completed 02/19/2015 99221 Admin Of Inj Completed 02/12/2015 75483 Inject/Drain Joint/Bursa Completed Major 01/26/2015 19967 Admin Of Inj Completed 12/26/2014 30141 Admin Of Inj Completed 11/13/2014 90433 Admin Of Inj Completed 10/17/2014 34657 Admin Of Inj Completed 10/17/201426585 Inject/Drain Joint/Bursa Completed Major 09/15/2014 96689 Admin Of Inj Completed 08/15/2014 29803 Admin Of Inj Completed 08/04/2014 Diabetic Retinal Eye Exam Completed 07/17/2014 22555 Admin Of Inj Completed 06/16/2014 83700 Admin Of Inj Completed 05/08/2014 66573 Admin Of Inj Completed 04/17/2014 94535 Admin Of Inj Completed 03/17/2014 73004 Admin Of Inj Completed 02/14/2014 78681 Admin Of Inj Completed 01/16/2014 75960 Stress Test Supervsn W/Out Completed I/R 01/16/2014 26983 Treadmill Interp/Report Only Completed 01/13/2014 75657 ECHO Transthoracic, Completed Real-Time 2D With Doppler And Color Flow 01/13/2014 61514 Admin Of Inj Completed 12/19/2013 60909 EKG Tracing & Completed Interpretation 12/14/2013 44039 Admin Of Inj Completed 11/10/2013 88441 Admin Of Inj Completed 10/10/2013 07909 Admin Of Inj Completed 09/12/2013 13031 Admin Of Inj Completed 08/04/2013 Bone Mineral Density Test Completed 08/04/2013 Mammogram Completed 07/29/2013 Diabetic Retinal Eye Exam Completed 11/29/2012 Colonoscopy Completed mild diffuse diverticulosis , internal hemoorhoids done for intermittent rectal bleeding ( hemmorhoids not the source) 10/11/2012 Inject Tendon Sheath Or Completed Ligament Aponeurosis Eg Plantar Fascia 10/11/2012 Injection Single Tendon Completed Origin/Insertion 10/11/2012 62055 Rad Exam; Wrist, Comp, Min 3 Completed Views 06/01/2011 Mammogram Completed Xray: 08/04/13 - Mammogram Screening Josesito 10/26/2009 35557 ECHO Transthorasic Realtime Completed 2D W Doppler & Color Flow Hosp 12/20/2008 01089 EKG Tracing & Completed Interpretation 12/17/2007 48470 Selective Coronary Completed Angioplasty 12/17/2007 55147 S/I/R Inj Proc Vent And Or Completed Atrial 12/17/2007 76634 S/I/R Inj Proc Vent And Or Completed Atrial 12/17/2007 10691 Coronary Angiography Completed 12/17/2007 44864 Coronary Angiography Completed 12/17/2007 62963 Inj Proc LFT Vent/LFT Atrl Completed Angio 12/17/2007 35868 Left Heart Catheterization Completed 12/09/2007 56593 EKG Tracing & Completed Interpretation 12/09/2007 42959 EKG Tracing & Completed Interpretation 11/19/2007 38054 Stress Test Supervsn W/Out Completed I/R 11/19/2007 05844 Treadmill Interp/Report Only Completed 11/19/2007 03260 Treadmill Interp/Report Only Completed 11/19/2007 08921 Stress ECHO Completed Interpretation/Report Hospital 11/19/2007 62876 Stress ECHO Completed Interpretation/Report Hospital 11/03/2007 83925 Stress Test Completed 11/03/2007 61248 Stress Test Completed 11/03/2007 49449 ECHO/Stress Completed Encounters Type Date Location Provider CPT E/M Dx Office Visit 09/10/2017 1:00p [facility] [place] [address] K43.0 Excellence Manager K74.69 Office Visit 09/02/2017 2:52p [facility],neelam Hernández 18566 K74.60 Hospitalists Ubaldo K76.6 K56.609 Office Visit 09/01/2017 2:51p [facility]neelam Hernández 56466 K74.60 Hospitalists Ubaldo K76.6 K56.609 E11.8 Office Visit 08/31/2017 2:[facility]p [facility] 20961 K74.60 Assoc, Hospitalists N.PMelita K76.6 K56.609 E11.8 Office Visit 08/31/2017 7:00a [facility], 49732 K56.609 [facility] K43.0 Office Visit 08/18/2017 2:00p [facility] Internal Medicine Michelle Barbour M.D. 91998 E11.9 - Dawson R05 K45.8 N18.3 Office Visit 08/11/2017 10:30a [facility] [place] [address] K45.8 [facility] Office Visit 08/03/2017 1:45p [facility] [place] [address] R05 Services Of [facility] Office Visit 07/14/2017 12:10p [facility] Internal Medicine - Michelle Barbour 29328 R05 [place] Conner N18.3 K43.2 D61.818 Office Visit 05/13/2017 1:00p [facility] Michelle Barbour, 77752 K74.69 - [place] Conner E11.9 N18.3 Office Visit 05/06/2017 10:50a [facility] Danny Washington, 13620 R05 Infectious Diseases Ubaldo Z71.89 Office Visit 05/04/2017 1:45p [facility] [place] [address] R05 Services Of [facility] Office Visit 04/20/2017 11:40a [facility] Internal Medicine - Michelle Barbour, 95183 K74.69 [place] Conner E11.9 R05 N18.3 Z23 Z71.89 Office Visit 03/30/2017 10:15a [facility] [place] [address] R05 Services Of [facility] J30.9 Office Visit 03/27/2017 3:20p [facility] Peter Medrano 09694 K74.69 Ubaldo E11.9 I10 E78.5 Office Visit 02/11/2017 11:50a [facility] Internal Medicine Michelle Barbour 71067 K74.69 - [place] Conner N18.3 L29.8 Office Visit 01/27/2017 1:40p [facility] Michelle Barbour M.D. 48994 N17.9 - Dawson K74.69 K43.2 Office Visit 01/05/2017 10:10a [facility] Michelle Barbour 60817 K74.69 - [place] Conner N39.0 E11.9 N17.9 Office Visit 12/17/2016 2:40p [facility] Michelle Barbour 32583 R10.84 - [place] Conner K74.69 Office Visit 11/26/2016 2:20p [facility] Michelle Barbour M.D. 87161 J30.9 - Dawson E11.9 Office Visit 11/19/2016 1:00p [facility] Michelle Barbour 99686 K74.69 - [place] Conner N17.9 R53.1 E11.9 D61.818 R22.9 E53.8 I85.00 Office Visit 07/26/2016 4:04p [facility],neelam Rojas, 24041 J96.01 Hospitalists R65.20 A41.9 K65.2 Office Visit 07/25/2016 4:03p [facility],neelam Rojas, 93248 J96.01 Hospitalists R65.20 A41.9 K65.2 Office Visit 07/24/2016 4:01p [facility],neelam Danielson 79338 J96.01 Hospitalists Kristie Christianson R65.20 A41.9 K65.2 Office Visit 07/23/2016 3:36p [facility],neelam Danielson 67778 R65.20 Hospitalists Kristie Christianson A41.9 K81.0 K74.69 Office Visit 07/23/2016 3:54p [facility] Yan Hernandez, 55566 R65.20 Assoc,pc NGUYEN Hospitallam A41.9 K81.0 K74.69 Office Visit 07/22/2016 3:34p [facility] [place] [address] R10.11 Assoc,pc Hospitalists E11.9 K74.69 K21.9 Office Visit 07/22/2016 7:00a [facility] [place] [address] K81.0 Of [facility] Office Visit 07/21/2016 7:00a [facility] Yash Krause, 11256 K80.20 Of [facility] PA Office Visit 07/21/2016 3:32p [facility] Kvng Rivero M.D. 07033 R10.11 Assoc,pc Hospitalists E11.9 K74.69 K21.9 Office Visit 06/23/2016 10:10a [facility] Michelle Barbour M.D. 27688 E11.9 - Dawson D61.818 R35.0 K80.80 Office Visit 03/31/2016 8:50a [facility] Michelle Barbour 39852 E11.40 - [place] Conner Z71.89 Z79.899 E78.5 Z23 Office Visit 03/31/2016 3:20p [facility] Mauriciotayb Sundar Medrano, 14714 E78.5 Ubaldo I10 I45.6 R94.31 Office Visit 03/11/2016 2:40p [facility] Dario Villarreal, 74803 J06.9 - [place] Conner Office Visit 12/27/2015 1:00p [facility] Michelle Barbour M.D. 10174 R31.2 - Gloria D64.9 E11.40 E11.40 Office Visit 10/09/2015 2:00p [facility] Michelle Barbour 32906 D61.818 - Gloria Conner D51.9 Office Visit 08/09/2015 1:00p [facility] Michelle Barbour 73516 E11.40 - Gloria Conner D61.818 D51.9 Z79.899 Office Visit 07/17/2015 12:10p [facility] Michelle Barbour 70216 K80.20 - Gloria Conner D61.818 A08.39 K74.60 A08.4 Office Visit 07/11/2015 10:30a [facility] Michelle Barbour M.D. 64248 D51.9 - [place] E11.40 M85.89 D64.9 R14.0 Z12.31 M79.672 Office Visit 05/07/2015 1:00p [facility] [place] [address] S46.012D [facility] Office Visit 04/03/2015 4:00p [facility] S. 46161 E11.9 Ubaldo Medrano I10 R06.02 Office Visit 03/26/2015 9:45a [facility] Wilfredo Kramer M.D. 30264 S46.012D [facility] Office Visit 02/12/2015 2:50p [facility] Wilfredo Kramer M.D. 16720 840.4 [facility] Office Visit 01/08/2015 11:50a [facility] Michelle Barbour 06627 250.60 - Gloria Conner 284.19 250.00 572.3 Office Visit 01/02/2015 1:00p [facility] Wilfredo Kramer M.D. 83139 840.4 [facility] Office Visit 10/17/2014 11:00a [facility] Wilfredo Kramer M.D. 27856 840.4 [facility] Office Visit 09/27/2014 2:50p [facility] Michelle Barbour 61389 250.60 - Gloria Conner 787.3 285.8 250.00 Office Visit 08/17/2014 9:10a [facility] Michelle Barbour 61619 574.70 - Gloria Conner 536.8 250.60 V03.82 691.8 Office Visit 08/03/2014 11:00a [facility] NGUYEN Pal 18615 250.60 786.05 401.1 414.01 250.00 Office Visit 07/17/2014 2:30p [facility] [place] [address] 266.2 [place] 465.9 Office Visit 06/29/2014 2:10p [facility] Michelle Barbour M.D. 03778 840.4 - [place] 847.0 250.60 787.3 Office Visit 05/08/2014 2:50p [facility] Michelle Barbour 45913 250.60 - [place] Conner 285.9 571.5 690.11 266.2 Office Visit 02/09/2014 4:00p [facility] Mauriciotaybveda Medrano 34742 786.05 MKendrick 401.1 Office Visit 01/16/2014 9:30a [facility] Mauriciotaybveda Kwok 58224 786.05 Ubaldo Medrano Office Visit 01/05/2014 1:50p [facility] Michelle Barbour M.D. 22943 331.83 - [place] V04.89 250.60 715.96 Office Visit 12/19/2013 1:20p [facility] Cyybveda Medrano 79232 786.09 Ubaldo 786.05 794.31 414.01 401.1 Office Visit 12/14/2013 11:10a [facility] Michelle Barbour M.D. 72528 V70.0 - [place] 266.2 V76.10 786.09 250.00 331.83 Office Visit 11/10/2013 2:10p [facility] Michelle Barbour 10036 250.00 - Gloria Conner 268.9 530.81 715.09 266.2 Office Visit 08/10/2013 10:10a [facility] Michelle Barbour 45442 250.00 - Gloria Conner 266.2 733.90 Office Visit 07/11/2013 2:50p [facility] Michelle Barbour 10854 250.00 - Gloria Conner 266.2 284.19 733.90 268.9 536.8 Office Visit 06/09/2013 1:10p [facility] Michelle Barbour 90123 250.00 - Gloria Conner 266.2 598.9 691.8 285.9 Office Visit 10/11/2012 9:00a [facility] Radha De Jesus, 83713 727.04 [facility] M.D. 716.94 Office Visit 10/31/2009 1:00a [facility], Alexander Wick, 83334 599.0 Hospitalists M.D. 284.1 790.99 250.02 Office Visit 10/30/2009 1:00a [facility], Alexander Wick, 89960 784.0 Hospitalists M.D. 599.0 250.00 Office Visit 10/29/2009 1:15a [facility], Alexander Wick, 38655 599.0 Hospitalists M.D. 250.02 284.1 790.99 Office Visit 10/28/2009 [facility] Wick, 64081 599.0 Hospitalists M.D. 284.1 280.9 784.0 Office Visit 10/26/2009 1:15a [facility], Chani Hernández, 39792 995.91 Hospitalists M.D. 790.7 599.0 041.4 Office Visit 10/25/2009 2:00a [facility], Chani Hernández, 45068 599.0 Hospitalists M.D. 790.7 790.99 Office Visit 10/25/2009 12:15a [facility] Melodie Odilia, 77595 780.60 Ass, Hospitalists M.D. 729.1 723.5 Office Visit 12/20/2008 3:00p [facility] Liban Canchola, 46722 786.50 M.D. 250.20 414.01 Office Visit 12/20/2007 11:10a [facility] Peter Medrano, 29644 786.50 M.D. 794.31 250.20 414.01 Office Visit 12/09/2007 1:40p [facility] Liban Canchola, 41503 786.50 M.D. 794.31 250.20 Plan of Care Future Appointment(s):11/17/2017 1:40 pm - Michelle Barbour M.D. at [facility] - Swwrpetad59/14/2018 10:45 am - Melissa Do MD at [facility]10/05/2017 - Michelle Barbour M.D.K43.0 Incisional hernia with obstruction, without gangreneComments:egzctahbW32.3 Chronic kidney disease, stage 3 (moderate)
[2017-10-30] MEDS ORDERED: Morphine INJ* 4 MG/ML 1 ML CARPUJECT IV ONE (03:01)
[2017-10-30] MEDS ORDERED: NS 0.9% 1000 ML* 1,000 ML IV ONE (03:01)
[2017-10-30] MEDS ORDERED: Ondansetron INJ* 2 MG/ML VIAL IV ONE (03:01)
[2017-10-30] MEDS ORDERED: Pantoprazole IV* 40 MG IV ONE (03:01)
[2017-10-30 03:40] LABS: ABS Basophils 0 10^3/ul (0-0.2); ABS Eosinophils 0.4 10^3/ul (0-0.6); ABS Lymphocytes 0.7 10^3/ul (1.0-4.8); ABS Monocytes 0.5 10^3/ul (0-0.8); ABS Neutrophils 8.5 10^3/ul (1.5-7.7); ABS Nucleated RBC 0 10^3/ul; Eosinophil % 3.5 % (0-6); Hematocrit 39 % (35-47); Hemoglobin 13.3 g/dl (12.0-16.0); Lymphocyte % 7.3 % (25-47); Mean Corpuscular HGB Conc 35 g/dl (31-36); Mean Corpuscular Hemoglobin 32 pg (27-31); Mean Corpuscular Volume 92 fL (80-97); Nucleated Red Blood Cells % 0; Platelet Count 81 10^3/ul (150-450); Red Blood Count 4.19 10^6/ul (4.0-5.4); Red Cell Distribution Width 16 % (10.5-15); White Blood Count 10.2 10^3/ul (3.5-10.8)
[2017-10-30 03:44] LABS: INR 1.06 (0.77-1.02)
[2017-10-30 03:54] LABS: EGFR Non-African American 40.7 (>60)
[2017-10-30] MEDS ORDERED: Morphine VIAL* 4 MG/ML VIAL (1 ml vial) IV ONE ×2 (04:25→04:29)
[2017-10-30] MEDS ORDERED: Iodixanol* (CONTRAST) 320 MG/ML 100 ML SDV IV ONE (05:27)
--- NOTE | 2017-10-30 06:56 | ED ---
Domingo Canela Tiffany, scribed for Neto Knight MD on 10/30/17 at 0313 . Abdominal Pain/Female - HPI Summary HPI Summary: 77 year old F presenting to [facility] complains of abdominal pain since 23:00 yesterday. Pt rates the pain 6/10 in severity. Symptoms aggravated by nothing. Symptoms alleviated by nothing. Pt reports nausea, vomiting. Denies fever. Pt has hx hernia and abd surgeries. - History of Current Complaint Chief Complaint: EDAbdPain Stated Complaint: ABD PAIN Time Seen by Provider: 10/30/17 02:53 Hx Obtained From: Patient Onset/Duration: Lasting Hours - 4 hrs ago, Still Present Timing: Constant Severity Currently: Moderate Pain Intensity: 6 Pain Scale Used: 0-10 Numeric Aggravating Factor(s): Nothing Alleviating Factor(s): Nothing Associated Signs and Symptoms: Positive: Nausea, Vomiting. Negative: Fever Allergies/Adverse Reactions: Allergies Allergy/AdvReac Type Severity Reaction Status Date / Time No Known Allergies Allergy Verified 12/31/15 14:39 Home Medications: Home Medications L.acidoph,Paracasei, B.lactis [Probiotic] 1 each PO DAILY 10/30/17 [History Confirmed 10/30/17] PMH/Surg Hx/FS Hx/Imm Hx Previously Healthy: No Endocrine/Hematology History: Reports: Hx Diabetes - TYPE II Cardiovascular History: Reports: Hx Coronary Artery Disease, Hx Hypertension - PT DENIES TREATMENT, Other Cardiovascular Problems/Disorders - CAD/IDDM II Denies: Hx Angina, Hx Pacemaker/ICD GI History: Reports: Hx Cirrhosis, Hx Gall Bladder Disease, Hx Gastroesophageal Reflux Disease, Hx Gastrointestinal Bleed History: Reports: Other Problems/Disorders - gall stones Musculoskeletal History: Reports: Hx Gout Denies: Hx Osteoporosis Sensory History: Reports: Hx Contacts or Glasses Denies: Hx Hearing Aid Opthamlomology History: Reports: Hx Contacts or Glasses Psychiatric History: Denies: Hx Panic Disorder - Cancer History Hx Chemotherapy: No Hx Radiation Therapy: No - Surgical History Surgery Procedure, Year, and Place: HYSTERECTOMY. APPENDECTOMY. ABDOMINAL HERNIA SURG Hx Anesthesia Reactions: No Infectious Disease History: No Infectious Disease History: Denies: Traveled Outside the [place] in Last 30 Days - Family History Known Family History: Positive: Hypertension, Diabetes Negative: Cardiac Disease - Social History Alcohol Use: None Hx Substance Use: No Substance Use Type: Reports: None Hx Tobacco Use: No Smoking Status (MU): Never Smoked Tobacco Have You Smoked in the Last Year: No Review of Systems Negative: Fever Positive: Abdominal Pain, Vomiting, Nausea All Other Systems Reviewed And Are Negative: Yes Physical Exam - Summary Physical Exam Summary: VITAL SIGNS: Reviewed. GENERAL: Patient is a well-developed and nourished (MALE OR FEMALE) who is lying comfortable in the stretcher. Patient is not in any acute respiratory distress. HEAD AND FACE: No signs of trauma. No ecchymosis, hematomas or skull depressions. No sinus tenderness. EYES: PERRLA, EOMI x 2, No injected conjunctiva, no nystagmus. EARS: Hearing grossly intact. Ear canals and tympanic membranes are within normal limits. MOUTH: Oropharynx within normal limits. NECK: Supple, trachea is midline, no adenopathy, no JVD, no carotid bruit, no c- spine tenderness, neck with full ROM. CHEST: Symmetric, no tenderness at palpation LUNGS: Clear to auscultation bilaterally. No wheezing or crackles. CVS: Regular rate and rhythm, S1 and S2 present, no murmurs or gallops appreciated. ABDOMEN: Ventral/surgical hernia with tenderness. Abdomen is distended. There is hyperactive bowel sounds. EXTREMITIES: FROM in all major joints, no edema, no cyanosis or clubbing. NEURO: Alert and oriented x 3. No acute neurological deficits. Speech is normal and follows commands. SKIN: Dry and warm Triage Information Reviewed: Yes Vital Signs On Initial Exam: Initial Vitals Temp Pulse Resp BP Pulse Ox 97 F 65 16 139/61 99 10/30/17 02:45 10/30/17 02:45 10/30/17 02:45 10/30/17 02:45 10/30/17 02:45 Vital Signs Reviewed: Yes Diagnostics - Vital Signs Vital Signs Temp Pulse Resp BP Pulse Ox 10/30/17 02:45 97 F 65 16 139/61 99 - Laboratory Result Diagrams: 10/30/17 03:25 10/30/17 03:25 Lab Statement: Any lab studies that have been ordered have been reviewed, and results considered in the medical decision making process. - Radiology CXR Radiology Interpretation Completed By: ED Physician - No acute process. Pending official report. - CT Abd/Pel CT Interpretation Completed By: ED Physician - Air fluid bowel with loops consistent with SBO. Pending official report., Radiologist - There is no incarceration. ED physician has reviewed this report. - EKG 03:12 Cardiac Rate: Bradycardia - 50 BPM EKG Rhythm: Sinus Bradycardia EKG Interpretation: Left axis deviation Abdominal Pain Fem Course/Dx - Course Course Of Treatment: 77 year old F presenting to [facility] complains of abdominal pain since 23:00 yesterday. Bloodwork obtained. Imaging showed SBO. NG tube placed. Spoke with Dr. Yohana Pickett, radiologist, who said that CT Abd/Pel shows no incarceration. Pt will signed out to Dr. Kenney, awaiting evaluation from Dr. Collins, surgery, pending dispo. - Diagnoses Provider Diagnoses: SBO (small bowel obstruction) - Provider Notifications Discussed Care Of Patient With: Yonas Collins Time Discussed With Above Provider: 06:51 Instructed by Provider To: Other - Dr. Collins, surgery, agrees to come see pt. Discharge - Sign-Out/Discharge Documenting (check all that apply): Sign-Out Patient Signing out patient TO: Jesu Kenney - awaiting evaluation from Dr. Collins, surgery, pending dispo. - Discharge Plan Condition: Fair Discharge Disposition Comment: Pt signed out to Dr. Kenney at shift change. Referrals: Michelle Barbour MD [Primary Care Provider] - The documentation as recorded by the Domingo knapp Tiffany accurately reflects the service I personally performed and the decisions made by me, Neto Knight MD.
--- NOTE | 2017-10-30 08:17 | RAD ---
INDICATION: Abdominal pain COMPARISON: [facility] September 01, 2017 TECHNIQUE: Erect and supine views of the abdomen are submitted. FINDINGS: Bones: There are no acute bony findings. Soft tissues: The soft tissues appear normal. The psoas margins are sharp. Bowel gas pattern: There is mild gaseous distention with prominent small bowel loops in the central abdomen. There is air within the colon which is normal in caliber. Calcifications: There are no abnormal calcifications. Other: None IMPRESSION: POSSIBLE EARLY OR PARTIAL SMALL BOWEL OBSTRUCTION. SUGGEST FOLLOW-UP CLINICALLY INDICATED.
--- NOTE | 2017-10-30 08:19 | RAD ---
Indication: Small bowel obstruction. Abdominal pain nausea, vomiting. Comparison: October 30, [address] August 31, 2017 chest radiograph. Technique: Dual energy PA chest. Report: Elevated lung volumes and mild prominence of interstitial markings. No focal pulmonary lesion, compelling alveolar consolidation, pleural effusion, pneumothorax. Mild cardiomegaly. Unremarkable central pulmonary vasculature and mediastinal contours. Negative for free air beneath the diaphragm. IMPRESSION: Stigmata of obstructive lung disease. No acute pulmonary or cardiac process evident. Negative for free air beneath the diaphragm.
--- NOTE | 2017-10-30 08:52 | RAD ---
INDICATION: Small bowel obstruction. Abdominal pain, nausea, vomiting. History of hernia and previous surgery. COMPARISON: August 31, 2017 CT. TECHNIQUE: Multidetector CT images were obtained from the lung bases to the ischial tuberosities with 70 mL Visipaque 320 IV contrast. Multiplanar reformation. REPORT: Mild bibasilar subsegmental atelectasis. Negative for pleural or pericardial effusions. Nodular liver surface contour consistent with cirrhosis. No focal liver lesions evident. Dependent stone in the gallbladder without additional CT abnormality of the gallbladder. Negative for biliary dilatation. Advanced pancreatic atrophy. No focal pancreatic lesion evident. Enlarged 15.8 cm cephalocaudal spleen. Portosystemic shunts visualized at the ventral abdominal wall. Tip of an NG tube at the gastric body. Moderately distended stomach with solid and liquid food stuff. Medially directed diverticulum at the junction of the second and third segments of the duodenum without evidence for inflammatory change. Dilatation of the jejunal bowel loops up to 3.4 cm diameter. Transition to fully decompressed mid and distal small bowel at the anterior periumbilical region of the abdomen. In addition to severe laxity of the ventral abdominal wall there is a broad mouth hernia at the immediate supraumbilical region which appears to account for the complete small bowel obstruction. Unchanged small volume of loculated fluid within the midline to RIGHT para midline ventral abdominal wall contiguous with the hernia site. The appendix is not visualized. Moderate colonic diverticulosis without findings of diverticulitis. Small volume of predominant perihepatic and RIGHT lower quadrant ascites. Negative for free air. Normal adrenal glands. Symmetric nephrograms and pyelograms. Mild bilateral renal cortical atrophy. Focal scarring at the superior pole of the RIGHT kidney. No suspicious focal renal lesions or obstructive uropathy. No abnormality of the nondilated ureters. Largely decompressed urinary bladder without suspicious finding. Post hysterectomy. Unremarkable adnexal regions. Negative for lymphadenopathy. Normal diameter abdominal aorta and iliac arteries. Physiologic distention of the IVC. Lumbar sacral spine degenerative spondylosis and facet joint osteoarthritis. Negative for suspicious focal osseous lesions. IMPRESSION: 1. Complete small bowel obstruction is likely secondary to a broad mouth supraumbilical ventral hernia. Alternatively hernia may be secondary to adhesions given history of prior surgery 2. Cirrhotic liver morphology with evidence for portal hypertension with splenomegaly, portosystemic shunts, and small volume of predominant perihepatic and RIGHT lower quadrant ascites. 3. Cholelithiasis.
[2017-10-30] MEDS ORDERED: Morphine INJ* 2 MG/ML 1 ML CARPUJECT IV ONE (08:54)
[2017-10-30] MEDS ORDERED: Magnesium Hydroxide LIQ* 30 ML UDC NG TUBE PRN (08:56)
[2017-10-30] MEDS ORDERED: Acetaminophen TAB* 325 MG PRN (08:56)
[2017-10-30] MEDS ORDERED: Simethicone LIQ* 40 MG/0.6 ML UD ORAL SYRINGE NG TUBE PRN (08:56)
[2017-10-30] MEDS ORDERED: Spironolactone TAB* 25 MG NG TUBE SCH (09:00)
[2017-10-30] MEDS ORDERED: Mometasone/Formoter 200/5 MDI INH SCH (09:00)
[2017-10-30] MEDS ORDERED: Furosemide TAB* 20 MG NG TUBE SCH (09:00)
--- NOTE | 2017-10-30 09:49 | CONSULT ---
Consult Consult: Surgery Consult Asked by Dr. Kenney to evaluate a pt. with abdominal pain and a known ventral incisional hernia. Ms. Brunson is a 77 y.o. female who is known to [facility] from recent admission and outpatient evaluations. She presents to the ER today after developing abdominal pain at 11 pm. She is unable to be specific about the pain, but indicates that it was all over the abdomen. She also reports vomiting 3 times after coming to the ER. She reports her last BM was at 1AM at which time she also was passing flatus. She denies dysuria or other problems. PMHx osteoarthritis, portal hypertensive gastropathy, peripheral neuropathy, diverticular disease, cholelithiasis, pancytopenia, CAD, DM, IBS, autoimmune cirrhosis, esophageal varices, B vitamin def. Meds: tylenol, insulin, lactulose, magnesium, dulera, morphine, nadolol, zofran, protonix, potassium, ipratroprium, xifaxan, simethicone. NKDA ROS: neg SH: neg tob PE: general: elderly, frail appearing female in NAD Vital Signs 10/30/17 10/30/17 10/30/17 02:45 03:09 04:24 Temperature 97 F Pulse Rate 65 55 50 Respiratory 16 Rate Blood Pressure 139/61 136/58 156/57 (mmHg) O2 Sat by Pulse 99 98 98 Oximetry 10/30/17 10/30/17 10/30/17 04:29 04:39 05:00 Temperature Pulse Rate 49 55 Respiratory 20 Rate Blood Pressure 99/49 (mmHg) O2 Sat by Pulse 95 96 Oximetry 10/30/17 10/30/17 10/30/17 05:39 06:00 06:09 Temperature Pulse Rate 58 55 55 Respiratory Rate Blood Pressure 126/58 102/55 (mmHg) O2 Sat by Pulse 96 96 96 Oximetry 10/30/17 10/30/17 10/30/17 06:39 07:00 07:09 Temperature Pulse Rate 55 56 57 Respiratory Rate Blood Pressure 107/51 116/59 (mmHg) O2 Sat by Pulse 97 96 97 Oximetry 10/30/17 10/30/17 10/30/17 07:39 08:00 08:09 Temperature Pulse Rate 58 62 57 Respiratory Rate Blood Pressure 127/58 122/61 (mmHg) O2 Sat by Pulse 97 97 97 Oximetry 10/30/17 10/30/17 08:39 09:57 Temperature 97.8 F Pulse Rate 56 58 Respiratory 17 Rate Blood Pressure 107/51 110/74 (mmHg) O2 Sat by Pulse 96 96 Oximetry HEENT: anicteric sclerae, pale conjunctivae, moist oral mucosa, neg. cervical adenopathy lungs: clear to ausc. anteriorly heart: reg abd: protruberant, good BS, soft, mildly tender over most protruberant part of hernia; well healed midlline scar with large area of protruberant hernia ext: neg. cyanosis, edema Laboratory Results - last 24 hr 10/30/17 10/30/17 10/30/17 03:25 03:25 03:25 WBC 10.2 RBC 4.19 Hgb 13.3 Hct 39 MCV 92 MCH 32 H MCHC 35 RDW 16 H Plt Count 81 L MPV 10.0 Neut % (Auto) 83.6 H Lymph % (Auto) 7.3 L [place] % (Auto) 5.3 Eos % (Auto) 3.5 Baso % (Auto) 0.3 Absolute Neuts (auto) 8.5 H Absolute Lymphs (auto) 0.7 L Absolute Monos (auto) 0.5 Absolute Eos (auto) 0.4 Absolute Basos (auto) 0 Absolute Nucleated RBC 0 Nucleated RBC % 0 INR (Anticoag Therapy) 1.06 H APTT 42.4 H Sodium 132 L Potassium 4.1 Chloride 99 L Carbon Dioxide 23 Anion Gap 10 BUN 28 H Creatinine 1.28 H Est GFR ( Amer) 52.3 Est GFR (Non-Af Amer) 40.7 BUN/Creatinine Ratio 21.9 H Glucose 116 H Lactic Acid Calcium 9.7 Magnesium 2.2 Total Bilirubin 2.20 H AST 23 ALT 14 Alkaline Phosphatase 70 Ammonia C-Reactive Protein 10.67 H B-Natriuretic Peptide Total Protein 7.5 Albumin 3.7 Globulin 3.8 Albumin/Globulin Ratio 1.0 Amylase 51 Lipase 45 Blood Type Antibody Screen 10/30/17 10/30/17 10/30/17 03:25 03:25 03:25 WBC RBC Hgb Hct MCV MCH MCHC RDW Plt Count MPV Neut % (Auto) Lymph % (Auto) [place] % (Auto) Eos % (Auto) Baso % (Auto) Absolute Neuts (auto) Absolute Lymphs (auto) Absolute Monos (auto) Absolute Eos (auto) Absolute Basos (auto) Absolute Nucleated RBC Nucleated RBC % INR (Anticoag Therapy) APTT Sodium Potassium Chloride Carbon Dioxide Anion Gap BUN Creatinine Est GFR ( Amer) Est GFR (Non-Af Amer) BUN/Creatinine Ratio Glucose Lactic Acid 1.1 Calcium Magnesium Total Bilirubin AST ALT Alkaline Phosphatase Ammonia 56 H C-Reactive Protein B-Natriuretic Peptide 67 Total Protein Albumin Globulin Albumin/Globulin Ratio Amylase Lipase Blood Type B Positive Antibody Screen Negative CT: distended stomach, some distended loops of SB, but air and stool into rectum; large hernia appears similar to last admission. A/P: 77 y.o. female with multiple comorbidities and large ventral hernia, which seems to have similar appearance as last time which resolved with gastric decompression. However if decompression fails to resolve the problem, she will need to be transferred to a tertiary center as repair of such a complex hernia requires a center familiar with such a situation. CLFostaida
[2017-10-30] MEDS: NS 0.9% w/ 40 Meq KCL 1000 ML* 1,000 ML IV SCH (10:51)
[2017-10-30] MEDS: Morphine VIAL* 4 MG/ML VIAL (1 ml vial) IV PRN (11:09)
[2017-10-30] MEDS: Ondansetron 40 MG VIAL* 2 MG/ML 20 ML VIAL IV PRN (11:10)
[2017-10-30] MEDS: RiFAXimin* 550 MG TAB G TUBE SCH ×2 (13:13→21:17)
[2017-10-30] MEDS: Nadolol TAB* 40 MG NG TUBE SCH (13:13)
[2017-10-30] MEDS: Lactulose* 15 ML UDC NG TUBE SCH ×2 (13:13→21:11)
[2017-10-30] MEDS: Insulin REGULAR(*) 1 UNITS UNIT SUBCUT SCH ×2 (13:13→21:09)
[2017-10-30] MEDS: Heparin VIAL(*) 5000 UNITS/ML VIAL (FIVE THOUSAND) SUBCUT SCH ×2 (13:14→21:14)
[2017-10-30] MEDS: IPRATROPIUM BROMIDE NASAL SCH ×2 (13:41→21:57)
[2017-10-30] MEDS: Benzocaine/Butamben/Tetracain* SPRAY PRN ×2 (15:58→21:07)
[2017-10-30 18:21] LABS: Urine Appearance Clear; Urine Blood Negative (Negative); Urine Color Yellow; Urine Ketones Trace (Negative); Urine Protein Negative (Negative); Urine Specific Gravity 1.042 (1.010-1.030); Urine Urobilinogen Negative (Negative)
[2017-10-30] MEDS: Fluticas/Salmet 115/21 HFA(NF) MDI INH SCH (21:57)
--- NOTE | 2017-10-30 22:17 | HP ---
CC: Dr. Alyse Machuca; Dr. Barbour HISTORY AND PHYSICAL: DATE OF ADMISSION: 10/30/17 TIME OF EVALUATION: 08:55 a.m. CONSULTING SURGEON: Alyse Machuca MD PRIMARY CARE PROVIDER: Michelle Barbour MD CHIEF COMPLAINT: Abdominal pain. HISTORY OF PRESENT ILLNESS: Ms. Brunson is a 77-year-old lady with a complex past medical history mary ellen t includes type 2 diabetes with diabetic neuropathy, osteoarthritis, autoimmune/JOYCE cirrhosis with p ortal hypertension, portal hypertensive gastropathy, diverticular disease, cholelithiasis, pancytopen ia, coronary artery disease, IBS, esophageal varices who presents to the emergency room with complain ts of abdominal pain. The patient states she was in her usual state of health until last night when s he started to have nasogastric abdominal pain around 11 last night. She rates the pain as 6/10 and s he states the pain is localized on her ventral hernia. She had a bowel movement around 1 a.m. and pa ssed gas at that time, but after that had no more stool or gas and she developed recurrent nausea and vomiting where it prompted her visit to the emergency room. The patient was admitted in August 2017 with similar complaints. At that point, there was concern for incarcerated incisional hernia with small bowel obstruction. She had an NG tube placed with stomach decompression and she did not require any surgical procedure at that time. The patient states that s he went home and she was doing well until last night. She denies eating any different food even duri ng the holiday. She does eat meat, but she usually sticks more to vegetables. There is no fever, no chills, or any other complaints. PAST MEDICAL HISTORY: 1. JOYCE/cirrhosis. 2. Portal hypertension. 3. Portal hypertensive gastropathy. 4. Esophageal varices. 5. Cholelithiasis with cholecystitis. 6. Status post laparotomy, July 2016. 7. Type 2 diabetes. 8. Coronary artery disease. 9. Irritable bowel syndrome. 10. Ventral hernia. MEDICATIONS: 1. Acetaminophen 650 mg p.o. q.6 hours p.r.n. for pain or fever. 2. Benzonatate 100 to 200 mg p.o. q.p.m. as needed. 3. Advair 115/21 two puffs inhaled b.i.d. 4. Furosemide 20 mg p.o. daily. 5. NovoLog 10 units subcutaneously at breakfast and dinner and 14 units with lunch. 6. Levemir 22 units in the morning and 18 units in the evening. 7. Ipratropium bromide 1 spray nasal b.i.d. 8. Probiotic 1 capsule p.o. daily. 9. Lactulose 15 mL p.o. b.i.d. 10. Milk of magnesia 30 mL p.o. at bedtime as needed for constipation. 11. Multivitamin 1 tablet p.o. daily. 12. Nadolol 40 mg p.o. daily. 13. Pantoprazole 20 mg p.o. daily. 14. Rifaximin 550 mg p.o. b.i.d. 15. Simethicone 40 mg p.o. daily as needed for abdominal discomfort. 16. Spironolactone 50 mg p.o. daily. ALLERGIES: No known drug allergies. FAMILY HISTORY: Reviewed and noncontributory. SOCIAL HISTORY: The patient denies tobacco, alcohol, or drug use. REVIEW OF SYSTEMS: A 14-point review of systems was performed and all the pertinent negative and pos itive findings are in the HPI. PHYSICAL EXAMINATION GENERAL: The patient is an elderly frail appearing lady, lying in the ED stretcher, in no acute dist ress. VITAL SIGNS: Temperature 97.8, heart rate 68, respiratory rate is 17, oxygen saturation 96% on room air, blood pressure 110/74. HEENT: Pupils are equal. Moist mucous membranes. No jaundice. CHEST: Breath sounds present bilaterally with no added sounds. CVS: Normal S1, S2. Regular rate and rhythm. ABDOMEN: Soft. The patient has a large incisional hernia and she complains of pain on palpation of the mesogastric area where the hernia is located. Bowel sounds are present. There is no guarding or rebound. EXTREMITIES: No edema. NEUROLOGIC: She is alert and oriented x3. Able to move all 4 extremities. LABORATORY AND IMAGING DATA: The patient had a CBC that showed WBC of 10.2, hemoglobin 13.3, hemato crit of 39, platelets of 81 with 83% neutrophils. INR is 1.06. Chemistry showed sodium 132, potassi um 4.1, chloride of 99, bicarbonate of 23, BUN of 28, creatinine of 1.28, glucose of 116, calcium 9.7 . Her total bilirubin is 2.2. AST is 23, ALT is 14. CRP is 10.6. Abdomen x-ray showed possible early or partial small bowel obstruction. Chest x- ray showed stigmata of obstructive lung disease, but no acute pulmonary or cardiac process is evident. CT of the abdome n and pelvis showed complete small bowel obstruction is likely secondary to a broad mouth supraumbili obie ventral hernia. Alternatively, hernia may be secondary to adhesions given history of prior surger y. Cirrhotic liver morphology with evidence of portal hypertension with splenomegaly, portosystemic s betts. There is mild volume of predominant perihepatic and right lower quadrant ascites and cholelith iasis. ASSESSMENT AND PLAN: Ms. Brunson is a 77-year-old lady with complex past medical history that include s liver cirrhosis with portal hypertension, esophageal varices, type 2 diabetes, coronary artery dise ase, status post laparotomy with a large ventral hernia that presents to the emergency room with anot her episode of small bowel obstruction. 1. Small bowel obstruction. The patient was seen in consultation by General Surgery (Dr. Machuca) an d she feels that this presentation is similar to her prior admission, which resolved with gastric dec ompression. However, if decompression fails to resolve the problem, she will need to be transferred to a tertiary center as repair of such a complex hernia will require a higher level of care. The pat ient had an NG tube placed and this has drained 300 mL of fluid so far. We are going to continue con servative management with NG tube, pain medications, IV hydration, and she will have a followup KUB i n the morning. 2. Type 2 diabetes. As the patient is n.p.o., we are going to keep her with fingersticks with regul ar insulin sliding scale. 3. Liver cirrhosis, appears to be compensated at this time. The patient has no significant ascites on physical examination and I am going to continue her rifaximin and lactulose. I am holding her fur osemide and Aldactone today as she is going to receive some IV hydration, but those medications shoul d be resumed as soon as possible when she is tolerating p.o. We will also continue nadolol for her p ortal hypertension. 4. DVT prophylaxis. The patient has a score of 3 on the DVT Prophylaxis Risk Assessment Guide and s he will be started on subcutaneous heparin. 5. Code status is full. TIME SPENT: Approximately 50 minutes were spent with the patient interview, medical record review, p hysical examination to complete this admission, more than half of this time was spent [id number] wi th the patient in coordination of care. [id number]/[facility] #: [id number]
[2017-10-31] MEDS: NS 0.9% w/ 40 Meq KCL 1000 ML* 1,000 ML IV SCH (01:01)
[2017-10-31] MEDS: Insulin REGULAR(*) 1 UNITS UNIT SUBCUT SCH ×4 (03:27→23:33)
[2017-10-31] MEDS: Morphine VIAL* 4 MG/ML VIAL (1 ml vial) IV PRN ×2 (03:29→17:15)
[2017-10-31] MEDS: Benzocaine/Butamben/Tetracain* SPRAY PRN (04:38)
[2017-10-31] MEDS: Heparin VIAL(*) 5000 UNITS/ML VIAL (FIVE THOUSAND) SUBCUT SCH ×3 (06:24→21:57)
[2017-10-31 06:57] LABS: ABS Basophils 0 10^3/ul (0-0.2); ABS Eosinophils 0.2 10^3/ul (0-0.6); ABS Lymphocytes 0.6 10^3/ul (1.0-4.8); ABS Monocytes 0.5 10^3/ul (0-0.8); ABS Neutrophils 4.9 10^3/ul (1.5-7.7); ABS Nucleated RBC 0 10^3/ul; Eosinophil % 2.7 % (0-6); Hematocrit 35 % (35-47); Lymphocyte % 9.7 % (25-47); Mean Corpuscular HGB Conc 34 g/dl (31-36); Mean Corpuscular Hemoglobin 32 pg (27-31); Mean Corpuscular Volume 94 fL (80-97); Nucleated Red Blood Cells % 0; Platelet Count 73 10^3/ul (150-450); Red Blood Count 3.76 10^6/ul (4.0-5.4); Red Cell Distribution Width 16 % (10.5-15); White Blood Count 6.1 10^3/ul (3.5-10.8)
[2017-10-31 07:10] LABS: EGFR Non-African American 34.7 (>60)
[2017-10-31] MEDS ORDERED: Insulin REGULAR(*) 1 UNITS UNIT SUBCUT SCH (09:00)
--- NOTE | 2017-10-31 10:37 | RAD ---
Indication: LEFT upper quadrant pain. Follow-up small bowel obstruction. Comparison: October 30, 2017 CT. Technique: Supine view of the abdomen. Report: Nasogastric tube in place coiled in the stomach with the tip at level of the gastric cardia. Persistent diffuse moderately dilated small bowel loops at the mid LEFT abdomen. Small volume of stool noted in the ascending colon and sigmoid colon. No suspicious calcifications or mass effect. Bilateral buttock calcified injection granulomas. Unremarkable soft tissue contours accounting for body habitus. IMPRESSION: Mild interval improvement in magnitude of small bowel dilatation compared with October 30, 2017 CT. Nasogastric tube in place coiled in the stomach with the tip at level of the gastric cardia.
[2017-10-31] MEDS: IPRATROPIUM BROMIDE NASAL SCH ×2 (10:48→22:12)
[2017-10-31] MEDS: Nadolol TAB* 40 MG NG TUBE SCH (10:49)
[2017-10-31] MEDS: Lactulose* 15 ML UDC NG TUBE SCH ×2 (11:14→22:00)
[2017-10-31] MEDS: RiFAXimin* 550 MG TAB G TUBE SCH ×2 (11:15→22:00)
[2017-10-31] MEDS: Pantoprazole IV* 40 MG IV SCH (11:18)
[2017-10-31] MEDS: Ondansetron 40 MG VIAL* 2 MG/ML 20 ML VIAL IV PRN ×2 (11:18→17:08)
[2017-10-31] MEDS: Fluticas/Salmet 115/21 HFA(NF) MDI INH SCH ×2 (11:18→23:05)
--- NOTE | 2017-10-31 14:09 | PN ---
Subjective Date of Service: 10/31/17 Interval History: Patient had one episode vomiting despite NGT suction overnight. Also had severe LUQ abdo pain, but now pain is 5/10 and tolerable. No flatus, no BM. Reports she would not have surgery here if indicated, has surgeon at [facility]. Family History: Unchanged from Admission Social History: Unchanged from Admission Past Medical History: Unchanged from Admission Objective Active Medications: Acetaminophen (Tylenol Tab*) 650 mg .SEE ORDER Q6H PRN PRN Reason: FEVER/PAIN Benzocaine/Butamben/Tetracaine HCl (Cetacaine [place]*) 1 spray .SEE ORDER Q4H PRN PRN Reason: SORE THROAT Last Admin: 10/31/17 04:38 Dose: 1 spray Heparin Sodium (Porcine) (Heparin Vial(*)) 5,000 units SUBCUT Q8HR [facility] Last Admin: 10/31/17 13:12 Dose: 5,000 units Sodium Chloride (Ns 0.9% 1000 Ml*) 1,000 mls @ 125 mls/hr IV PER RATE [facility] Insulin Human Regular (Insulin Regular(*)) 0 units SUBCUT Q6HR [facility] PRN Reason: Protocol Last Admin: 10/31/17 13:11 Dose: 2 unit Lactulose (Lactulose*) 15 ml NG TUBE BID [facility] Last Admin: 10/31/17 11:14 Dose: 15 ml Magnesium Hydroxide (Milk Of Magnesia Liq*) 30 ml NG TUBE BEDTIME PRN PRN Reason: CONSTIPATION Morphine Sulfate (Morphine Vial*) 4 mg IV Q3H PRN PRN Reason: PAIN Last Admin: 10/31/17 03:29 Dose: 4 mg Nadolol (Corgard Tab*) 40 mg NG TUBE DAILY [facility] Last Admin: 10/31/17 10:49 Dose: Not Given Pto: Ipratropium [place] [Ipratropium Dunbar] 1 [place] 1 spray NASAL BID [facility] Last Admin: 10/31/17 10:48 Dose: Not Given Ondansetron HCl (Zofran 40 Mg Vial*) 4 mg IV Q6H PRN PRN Reason: NAUSEA Last Admin: 10/31/17 11:18 Dose: 4 mg Pantoprazole Sodium (Protonix Iv*) 40 mg IV DAILY [facility] Last Admin: 10/31/17 11:18 Dose: 40 mg Rifaximin (Xifaxan*) 550 mg G TUBE BID [facility] Last Admin: 10/31/17 11:15 Dose: 550 mg Fluticasone/Salmeterol (Advair Hfa 115/21 (Nf)) 2 puff INH BID [facility] PRN Reason: Protocol Last Admin: 10/31/17 11:18 Dose: 2 puff Simethicone (Mylicon Liq*) 40 mg NG TUBE DAILY PRN PRN Reason: DISCOMFORT Vital Signs - 8 hr 10/31/17 07:37 Temperature 36.6 C Pulse Rate 53 Respiratory 16 Rate Blood Pressure 100/39 (mmHg) O2 Sat by Pulse 99 Oximetry Oxygen Devices in Use Now: None Appearance: alert, no distress Ears/Nose/Mouth/Throat: NL Teeth, Lips, Gums Neck: Trachea Midline Respiratory: Symmetrical Chest Expansion and Respiratory Effort Cardiovascular: NL Sounds; No Murmurs; No JVD Abdominal: No Hepatosplenomegaly, - - soft, mild tenderness LUQ, large ventral incisional hernia, hyperdynamic BS, no masses Extremities: No Edema Skin: No Rash or Ulcers Neurological: Alert and Oriented x 3 Lines/Tubes/Other Access: Clean, Dry and Intact Peripheral IV Nutrition: - - NPO Result Diagrams: 10/31/17 06:35 10/31/17 06:35 Assess/Plan/Problems-Billing Assessment: 77 yo woman w/ recurrent small bowel obstruction, history of thrombocytopenia, diabetes type 2, ventral hernia. - Patient Problems (1) SBO (small bowel obstruction) Current Visit: Yes Status: Acute Code(s): K56.609 - UNSP INTESTNL OBST, UNSP TO PARTIAL VERSUS COMPLETE OBST SNOMED Code(s): 864425696 Comment: - mildly improving on KUB today - Ventral hernia is reducible and AxR showed no evidence of obstruction. - continue conservative management. - Dr. Machuca's consult appreciated (2) Thrombocytopenia Current Visit: No Status: Chronic Priority: Low Code(s): D69.6 - THROMBOCYTOPENIA, UNSPECIFIED SNOMED Code(s): 797892429 Comment: - Some level of chronicity, appears fairly stable during hospital stay - Likely related to cirrhosis (3) Diabetes mellitus Current Visit: Yes Status: Chronic Priority: Medium Code(s): E11.9 - TYPE 2 DIABETES MELLITUS WITHOUT COMPLICATIONS SNOMED Code(s): 98331237 Comment: - under good control (4) Cirrhosis of liver not due to alcohol Current Visit: No Status: Chronic Comment: - With esophageal varices - Secondary to auto-immune hepatitis, followed by GI - continue Rifamixin, lactulose (5) WENDY (acute kidney injury) Current Visit: No Status: Acute Priority: High Code(s): N17.9 - ACUTE KIDNEY FAILURE, UNSPECIFIED SNOMED Code(s): 39558574 Comment: - Likely due to hypoperfusion in dehydration - continue IV fluid resucitation - postassium elevated, will give normal saline (6) DVT prophylaxis Current Visit: Yes Status: Acute Priority: Low Code(s): TKI3950 - SNOMED Code(s): 670150419 Comment: - SCDs Status and Disposition: inpatient
[2017-10-31] MEDS: NS 0.9% 1000 ML* 1,000 ML IV SCH ×2 (15:27→23:28)
[2017-11-01] MEDS: Heparin VIAL(*) 5000 UNITS/ML VIAL (FIVE THOUSAND) SUBCUT SCH ×3 (06:06→21:37)
[2017-11-01] MEDS: Insulin REGULAR(*) 1 UNITS UNIT SUBCUT SCH ×3 (06:07→18:14)
[2017-11-01] MEDS: IPRATROPIUM BROMIDE NASAL SCH ×2 (08:07→20:45)
[2017-11-01 08:43] LABS: EGFR Non-African American 42.2 (>60)
--- NOTE | 2017-11-01 09:11 | RAD ---
Indication: Small bowel obstruction follow-up. Comparison: October 31, 2017 radiographs and October 30, 2017 CT. Technique: Supine view of the abdomen. Report: Resolution of previous dilated small bowel loops. Nasogastric tube remains coiled in the stomach with the tip at level of the gastric cardia. Large volume of stool present throughout the colon however there is no significant rectal distention with stool. Unremarkable soft tissue contours. Bilateral buttock calcified injection granulomas noted. IMPRESSION: Radiographic evidence for resolved small bowel obstruction.
[2017-11-01] MEDS: RiFAXimin* 550 MG TAB G TUBE SCH ×2 (09:14→20:44)
[2017-11-01] MEDS: Lactulose* 15 ML UDC NG TUBE SCH ×2 (09:14→20:44)
[2017-11-01] MEDS: Pantoprazole IV* 40 MG IV SCH (09:15)
[2017-11-01] MEDS: Fluticas/Salmet 115/21 HFA(NF) MDI INH SCH ×2 (09:15→20:44)
[2017-11-01] MEDS: Nadolol TAB* 40 MG NG TUBE SCH (09:16)
--- NOTE | 2017-11-01 14:38 | PN ---
Subjective Date of Service: 11/01/17 Interval History: Patient passed some flatus this AM. Abdominal pain is lessened. Has an appetite. Tolerated oral medications, when NGT clamped. Walked in hallway. Family History: Unchanged from Admission Social History: Unchanged from Admission Past Medical History: Unchanged from Admission Objective Active Medications: Acetaminophen (Tylenol Tab*) 650 mg .SEE ORDER Q6H PRN PRN Reason: FEVER/PAIN Benzocaine/Butamben/Tetracaine HCl (Cetacaine [place]*) 1 spray .SEE ORDER Q4H PRN PRN Reason: SORE THROAT Last Admin: 10/31/17 04:38 Dose: 1 spray Heparin Sodium (Porcine) (Heparin Vial(*)) 5,000 units SUBCUT Q8HR [facility] Last Admin: 11/01/17 06:06 Dose: 5,000 units Sodium Chloride (Ns 0.9% 1000 Ml*) 1,000 mls @ 125 mls/hr IV PER RATE [facility] Last Admin: 10/31/17 23:28 Dose: 125 mls/hr Insulin Human Regular (Insulin Regular(*)) 0 units SUBCUT Q6HR [facility] PRN Reason: Protocol Last Admin: 11/01/17 12:14 Dose: Not Given Lactulose (Lactulose*) 15 ml NG TUBE BID [facility] Last Admin: 11/01/17 09:14 Dose: 15 ml Magnesium Hydroxide (Milk Of Magnfam Liq*) 30 ml NG TUBE BEDTIME PRN PRN Reason: CONSTIPATION Morphine Sulfate (Morphine Vial*) 4 mg IV Q3H PRN PRN Reason: PAIN Last Admin: 10/31/17 17:15 Dose: 2 mg Nadolol (Corgard Tab*) 40 mg NG TUBE DAILY [facility] Last Admin: 11/01/17 09:16 Dose: 40 mg Pto: Ipratropium [place] [Ipratropium Gallagher] 1 [place] 1 spray NASAL BID [facility] Last Admin: 11/01/17 08:07 Dose: Not Given Ondansetron HCl (Zofran 40 Mg Vial*) 4 mg IV Q6H PRN PRN Reason: NAUSEA Last Admin: 10/31/17 17:08 Dose: 4 mg Pantoprazole Sodium (Protonix Iv*) 40 mg IV DAILY [facility] Last Admin: 11/01/17 09:15 Dose: 40 mg Rifaximin (Xifaxan*) 550 mg G TUBE BID [facility] Last Admin: 11/01/17 09:14 Dose: 550 mg Fluticasone/Salmeterol (Advair Hfa 115/21 (Nf)) 2 puff INH BID [facility] PRN Reason: Protocol Last Admin: 11/01/17 09:15 Dose: 2 puff Simethicone (Mylicon Liq*) 40 mg NG TUBE DAILY PRN PRN Reason: DISCOMFORT Vital Signs - 8 hr 11/01/17 08:00 Temperature 36.7 C Pulse Rate 50 Respiratory 16 Rate Blood Pressure 104/36 (mmHg) O2 Sat by Pulse 97 Oximetry Oxygen Devices in Use Now: None Appearance: alert, lying in bed Eyes: No Scleral Icterus Neck: NL Appearance and Movements; NL JVP Respiratory: Symmetrical Chest Expansion and Respiratory Effort, Clear to Auscultation Cardiovascular: NL Sounds; No Murmurs; No JVD Abdominal: - - distended, soft, Ventral incisional hernia less indurated, tender Extremities: No Edema Neurological: Alert and Oriented x 3 Lines/Tubes/Other Access: Clean, Dry and Intact Peripheral IV Nutrition: - - NPO Result Diagrams: 10/31/17 06:35 11/01/17 07:54 Assess/Plan/Problems-Billing Assessment: 77 yo woman w/ recurrent small bowel obstruction, history of thrombocytopenia, diabetes type 2, ventral hernia. - Patient Problems (1) SBO (small bowel obstruction) Current Visit: Yes Status: Acute Priority: High Code(s): K56.609 - UNSP INTESTNL OBST, UNSP TO PARTIAL VERSUS COMPLETE OBST SNOMED Code(s): 416494421 Comment: - SBO appears to be resolving on KUB today - Ventral hernia is reducible and AXR showed no evidence of obstruction. - continue conservative management. - non-surgical management is planned (2) Thrombocytopenia Current Visit: No Status: Chronic Priority: Low Code(s): D69.6 - THROMBOCYTOPENIA, UNSPECIFIED SNOMED Code(s): 093612881 Comment: - Some level of chronicity, appears fairly stable during hospital stay - Likely related to cirrhosis (3) Diabetes mellitus Current Visit: Yes Status: Chronic Priority: Medium Code(s): E11.9 - TYPE 2 DIABETES MELLITUS WITHOUT COMPLICATIONS SNOMED Code(s): 34671651 Comment: - under good control (4) Cirrhosis of liver not due to alcohol Current Visit: No Status: Chronic Comment: - With esophageal varices - Secondary to auto-immune hepatitis, followed by GI - continue Rifamixin, lactulose (5) WENDY (acute kidney injury) Current Visit: No Status: Acute Priority: Medium Code(s): N17.9 - ACUTE KIDNEY FAILURE, UNSPECIFIED SNOMED Code(s): 32579893 Comment: - continue IV fluid resucitation - postassium elevated, has improved w/ switch to NS. (6) DVT prophylaxis Current Visit: Yes Status: Acute Priority: Low Code(s): [id number] - SNOMED Code(s): 286699914 Comment: - SCDs Status and Disposition: inpatient Counseling and/or Coordination of Care Minutes: 10 minutes spent on Facetime with Granddaughter in [facility] who is physician.
[2017-11-01] MEDS: NS 0.9% 1000 ML* 1,000 ML IV SCH ×2 (15:05→23:05)
[2017-11-02] MEDS: Insulin REGULAR(*) 1 UNITS UNIT SUBCUT SCH ×5 (00:13→21:17)
[2017-11-02] MEDS: Heparin VIAL(*) 5000 UNITS/ML VIAL (FIVE THOUSAND) SUBCUT SCH ×3 (06:11→21:04)
[2017-11-02] MEDS: NS 0.9% 1000 ML* 1,000 ML IV SCH (07:20)
[2017-11-02] MEDS: Nadolol TAB* 40 MG NG TUBE SCH (10:16)
[2017-11-02] MEDS: Fluticas/Salmet 115/21 HFA(NF) MDI INH SCH ×2 (10:17→21:03)
[2017-11-02] MEDS: Lactulose* 15 ML UDC NG TUBE SCH ×2 (10:17→21:09)
[2017-11-02] MEDS: RiFAXimin* 550 MG TAB G TUBE SCH ×2 (10:17→20:58)
[2017-11-02] MEDS: Pantoprazole IV* 40 MG IV SCH (10:17)
[2017-11-02] MEDS: IPRATROPIUM BROMIDE NASAL SCH ×2 (10:17→21:03)
[2017-11-02 11:27] LABS: ABS Basophils 0 10^3/ul (0-0.2); ABS Eosinophils 0.1 10^3/ul (0-0.6); ABS Lymphocytes 0.3 10^3/ul (1.0-4.8); ABS Monocytes 0.2 10^3/ul (0-0.8); ABS Neutrophils 2.4 10^3/ul (1.5-7.7); ABS Nucleated RBC 0 10^3/ul; Eosinophil % 3.1 % (0-6); Hematocrit 36 % (35-47); Hemoglobin 11.9 g/dl (12.0-16.0); Lymphocyte % 10.2 % (25-47); Mean Corpuscular HGB Conc 33 g/dl (31-36); Mean Corpuscular Hemoglobin 32 pg (27-31); Mean Corpuscular Volume 96 fL (80-97); Mean Platelet Volume 10.1 um3 (7.4-10.4); Nucleated Red Blood Cells % 0.1; Platelet Count 60 10^3/ul (150-450); Red Blood Count 3.77 10^6/ul (4.0-5.4); Red Cell Distribution Width 16 % (10.5-15)
[2017-11-02 11:43] LABS: EGFR Non-African American 45.1 (>60)
--- NOTE | 2017-11-02 15:18 | PN ---
Progress Note - Progress Note Date of Service: 11/02/17 SOAP: Subjective: []Pt seen and examined at bedside. Pt reports increasing episodes of diarrhea. She reports she has been incontinent (which is new for her) 3x today with loose, liquid stools. She reports the liquid stools started after drinking clear liquids today (orange juice, broth, and jello). Denies bloody or dark/tarry stools. She additionally reports feeling "bloated." She reports increased flatus. She is tolerating clear liquids and PO medications. She has ambulated 2x around the unit today with her . Reports dysuria that started today. Denies hematuria. Denies abdominal pain. Denies N/V. Denies fevers/chills. Denies calf pain or swelling. Objective: [] Vital Signs 11/02/17 11/02/17 11/02/17 07:20 07:35 07:40 Temperature 98.0 F Pulse Rate 53 53 Respiratory 16 17 Rate Blood Pressure 103/42 (mmHg) O2 Sat by Pulse 95 Oximetry 11/02/17 11:20 Temperature 98.3 F Pulse Rate 50 Respiratory 16 Rate Blood Pressure 120/40 (mmHg) O2 Sat by Pulse 100 Oximetry Const: Elderly appearing female sitting upright on the edge of the bed reading. Pt is in NAD. Lungs: Respirations are non labored. Symmetric chest expansion. CTA in all vann. No wheezes, rhonchi, or rales. Heart: RRR. Regular S1. Regular S2. No murmurs/rubs/gallop. Abd: Protuberant. Well healed midline scar. Mild tenderness to palpation at supraumbilical area. Remaining abdomen is soft, nontender. Hyperactive BS throughout. Ext: Warm. No edema or cyanosis. 2+ posterior tibialis pulses. Assessment: []Large ventral incisional hernia with resolved small bowel obstruction as reported on AXR 11/01/17. Pt is afebrile. VSS. No significant abdominal pain. NGT removed this am (11/02/17) and pt is tolerating clear liquids well. No N/V Plan: []Continue supportive care and will continue to monitor. Continue clear liquid diet. Encourage ambulation. Discussed findings and plan with patient and at bedside. Will update surgical team.
--- NOTE | 2017-11-02 17:35 | PN ---
Subjective Date of Service: 11/02/17 Interval History: Multiple loose and formed BMs. per RN no output to suction of NG. NG pulled. advanced to Clears. Bloating sensation no blood. Family History: Unchanged from Admission Social History: Unchanged from Admission Past Medical History: Unchanged from Admission Objective Active Medications: Acetaminophen (Tylenol Tab*) 650 mg .SEE ORDER Q6H PRN PRN Reason: FEVER/PAIN Benzocaine/Butamben/Tetracaine HCl (Cetacaine Lawley*) 1 spray .SEE ORDER Q4H PRN PRN Reason: SORE THROAT Last Admin: 10/31/17 04:38 Dose: 1 spray Heparin Sodium (Porcine) (Heparin Vial(*)) 5,000 units SUBCUT Q8HR [facility] Last Admin: 11/02/17 14:50 Dose: 5,000 units Insulin Human Regular (Insulin Regular(*)) 0 units SUBCUT ACHS [facility] PRN Reason: Protocol Lactulose (Lactulose*) 15 ml NG TUBE BID [facility] Last Admin: 11/02/17 10:17 Dose: 15 ml Magnesium Hydroxide (Milk Of Magnfam Liq*) 30 ml NG TUBE BEDTIME PRN PRN Reason: CONSTIPATION Morphine Sulfate (Morphine Vial*) 4 mg IV Q3H PRN PRN Reason: PAIN Last Admin: 10/31/17 17:15 Dose: 2 mg Nadolol (Corgard Tab*) 40 mg NG TUBE DAILY [facility] Last Admin: 11/02/17 10:16 Dose: Not Given Pto: Ipratropium Oreana [Ipratropium Oreana] 1 Lawley 1 spray NASAL BID [facility] Last Admin: 11/02/17 10:17 Dose: Not Given Ondansetron HCl (Zofran 40 Mg Vial*) 4 mg IV Q6H PRN PRN Reason: NAUSEA Last Admin: 10/31/17 17:08 Dose: 4 mg Pantoprazole Sodium (Protonix Iv*) 40 mg IV DAILY [facility] Last Admin: 11/02/17 10:17 Dose: 40 mg Rifaximin (Xifaxan*) 550 mg G TUBE BID [facility] Last Admin: 11/02/17 10:17 Dose: 550 mg Fluticasone/Salmeterol (Advair Hfa 115/21 (Nf)) 2 puff INH BID [facility] PRN Reason: Protocol Last Admin: 11/02/17 10:17 Dose: 2 puff Simethicone (Mylicon Liq*) 40 mg NG TUBE DAILY PRN PRN Reason: DISCOMFORT Vital Signs - 8 hr 11/02/17 11/02/17 11:20 15:21 Temperature 98.3 F 98.3 F Pulse Rate 50 52 Respiratory 16 16 Rate Blood Pressure 120/40 115/39 (mmHg) O2 Sat by Pulse 100 100 Oximetry Oxygen Devices in Use Now: None Appearance: NAD Ears/Nose/Mouth/Throat: NL Teeth, Lips, Gums Neck: NL Appearance and Movements; NL JVP Respiratory: Symmetrical Chest Expansion and Respiratory Effort, Clear to Auscultation Cardiovascular: NL Sounds; No Murmurs; No JVD, RRR Abdominal: - - midline scar, distended, soft, nontender. Extremities: No Edema, No Clubbing, Cyanosis Skin: No Rash or Ulcers, No Nodules or Sclerosis Neurological: Alert and Oriented x 3, NL Sensation, NL Muscle Strength and Tone Nutrition: Taking PO's Result Diagrams: 11/02/17 11:10 11/02/17 11:10 Additional Lab and Data: Laboratory Results - last 24 hr 11/02/17 11/02/17 11/02/17 00:12 06:11 11:10 WBC 3.0 L RBC 3.77 L Hgb 11.9 L Hct 36 MCV 96 MCH 32 H MCHC 33 RDW 16 H Plt Count 60 L MPV 10.1 Neut % (Auto) 79.5 Lymph % (Auto) 10.2 L Monroe % (Auto) 6.7 Eos % (Auto) 3.1 Baso % (Auto) 0.5 Absolute Neuts (auto) 2.4 Absolute Lymphs (auto) 0.3 L Absolute Monos (auto) 0.2 Absolute Eos (auto) 0.1 Absolute Basos (auto) 0 Absolute Nucleated RBC 0 Nucleated RBC % 0.1 Sodium Potassium Chloride Carbon Dioxide Anion Gap BUN Creatinine Est GFR ( Amer) Est GFR (Non-Af Amer) BUN/Creatinine Ratio Glucose POC Glucose (mg/dL) 102 H 91 Calcium 11/02/17 11/02/17 11:10 17:55 WBC RBC Hgb Hct MCV MCH MCHC RDW Plt Count MPV Neut % (Auto) Lymph % (Auto) Monroe % (Auto) Eos % (Auto) Baso % (Auto) Absolute Neuts (auto) Absolute Lymphs (auto) Absolute Monos (auto) Absolute Eos (auto) Absolute Basos (auto) Absolute Nucleated RBC Nucleated RBC % Sodium 138 L Potassium 4.7 Chloride 111 Carbon Dioxide 17 L Anion Gap 10 BUN 18 Creatinine 1.17 H Est GFR ( Amer) 58.0 Est GFR (Non-Af Amer) 45.1 BUN/Creatinine Ratio 15.4 Glucose 91 POC Glucose (mg/dL) 213 H Calcium 8.8 Assess/Plan/Problems-Billing Assessment: 77 yo woman w/ recurrent small bowel obstruction, history of thrombocytopenia, diabetes type 2, ventral hernia. - Patient Problems (1) SBO (small bowel obstruction) Current Visit: Yes Status: Acute Priority: High Code(s): K56.609 - UNSP INTESTNL OBST, UNSP TO PARTIAL VERSUS COMPLETE OBST SNOMED Code(s): 621986501 Comment: - SBO appears to be resolving on KUB today - Ventral hernia is reducible and AXR showed no evidence of obstruction. - continue conservative management. - non-surgical management is planned - NG out, now on clears, f/u surgery recs. (2) DVT prophylaxis Current Visit: Yes Status: Acute Priority: Low Code(s): ZHM1858 - SNOMED Code(s): 590894578 Comment: - SCDs (3) Diabetes mellitus Current Visit: Yes Status: Chronic Priority: Medium Code(s): E11.9 - TYPE 2 DIABETES MELLITUS WITHOUT COMPLICATIONS SNOMED Code(s): 63780287 Comment: - continue SSI A1C 6.3 (4) Thrombocytopenia Current Visit: No Status: Chronic Priority: Low Code(s): D69.6 - THROMBOCYTOPENIA, UNSPECIFIED SNOMED Code(s): 335416934 Comment: - Some level of chronicity, appears fairly stable during hospital stay - Likely related to cirrhosis Status and Disposition: inpatient
[2017-11-03] MEDS: Heparin VIAL(*) 5000 UNITS/ML VIAL (FIVE THOUSAND) SUBCUT SCH ×2 (05:47→14:06)
--- NOTE | 2017-11-03 07:44 | ED ---
You Canela Tenzin, scribed for Jesu Kenney MD on 10/30/17 at 0735 . Progress - Progress Note Progress Note: Pt signed out from Dr. Knight. Awaiting on consult from Surgery, Dr. Collins and disposition plan. Re-Evaluation - Re-Evaluation First Eval Re-Evaluation Time: 08:02 Change: Unchanged Comment: Pt notes 5/10 in severity. She is tender in RUQ adjacent to incision hernia given her hx of incarcerated hernia and current SBO. Consulted with surgery immediately. Course/Dx - Course Course Of Treatment: 77 year old F presenting to [facility] complains of abdominal pain since 23:00 yesterday. Bloodwork obtained. Imaging showed SBO. NG tube placed. Spoke with Dr. Yohana Pickett, radiologist, who said that CT Abd/Pel shows no incarceration. Pt will signed out to Dr. Kenney, awaiting evaluation from Dr. Collins, surgery, pending dispo. - Diagnoses Provider Diagnoses: SBO (small bowel obstruction) - Provider Notifications Discussed Care Of Patient With: Yonas Collins Time Discussed With Above Provider: 07:31 Instructed by Provider To: Other - Dr. Collins, surgery, agrees to come see pt. NG tube can be advanced. He suggests admitting to the hospitalist and he will come to consult. Discharge - Sign-Out/Discharge Documenting (check all that apply): Discharge/Admit/Transfer, Receiving Sign-Out Receiving patient FROM: Neto Knight - Discharge Plan Condition: Fair Disposition: ADMITTED TO [facility] - Billing Disposition and Condition Condition: FAIR Disposition: Admitted to [facility] The documentation as recorded by the You knapp Tenzin accurately reflects the service I personally performed and the decisions made by , Jesu Kenney MD.
[2017-11-03] MEDS: Insulin REGULAR(*) 1 UNITS UNIT SUBCUT SCH ×3 (08:52→18:10)
[2017-11-03] MEDS: IPRATROPIUM BROMIDE NASAL SCH (08:53)
[2017-11-03] MEDS: Fluticas/Salmet 115/21 HFA(NF) MDI INH SCH (08:54)
[2017-11-03] MEDS: RiFAXimin* 550 MG TAB G TUBE SCH (08:56)
[2017-11-03] MEDS: Nadolol TAB* 40 MG NG TUBE SCH (08:56)
[2017-11-03] MEDS: Lactulose* 15 ML UDC NG TUBE SCH (08:56)
[2017-11-03] MEDS: Pantoprazole IV* 40 MG IV SCH (08:57)
[2017-11-03 11:51] VITALS: BP 102/40
--- NOTE | 2017-11-04 11:14 | DS ---
DISCHARGE SUMMARY: DATE OF ADMISSION: 10/30/17 DATE OF DISCHARGE: 11/03/17 ADMITTING PROVIDER: Chani Crawford MD ATTENDING PHYSICIAN ON DISCHARGE: Johnny Flores MD CONSULTING SURGEON: Dr. Alyse Macuhca. PRIMARY CARE PHYSICIAN: Dr. Michelle Barbour. CHIEF COMPLAINT: Abdominal pain, bloating, nausea, vomiting. PRINCIPAL DIAGNOSIS: Small bowel obstruction. HISTORY OF PRESENT ILLNESS AND HOSPITAL COURSE: Marie Brunson is a 77-year- old female with a past medical history of insulin-dependent diabetes mellitus type 2, osteoarthritis, autoimmune/JOYCE cirrhosis with portal hypertension, portal hypertensive gastropathy, diverticular disease, cholelithiasis, coronary artery disease, IBS, esophageal varices with history of laparotomy in July 2016 with E. coli SBP. At that time, postsurgical complications ultimately requiring transfer to [facility] and with history of small bowel obstruction since. Please see H and P of Dr. Chani Crawford for full details, but in brief , the patient developed abdominal pain at 11 p.m. the night prior to admission, 11/08, localized to a ventral hernia. She ultimately stopped passing gas or stool, developed nausea and vomiting and presented to the emergency room. Of note, she had similar episode in August of 2017, which improved after NG decompression. Dr. Alyse Machuca of General Surgery evaluated the patient and recommended again similar gastric decompression with NG tube and if this fails, to transfer the patient to tertiary center given the complexity of the ventral hernia. She had a CT abdomen and pelvis with IV contrast showin. A complete small bowel obstruction, likely secondary to a broad mouth supraumbilical ventral hernia. 2. Cirrhotic liver morphology with evidence of portal hypertension and splenomegaly, portosystemic shunt and small volume of predominant perihepatic and right lower quadrant ascites and cholelithiasis. She had abdominal x-ray on 10/31/17, which showed mild interval improvement in the management of small bowel dilatation compared with 10/30/17 CT and by abdominal x-ray 11/01/17 demonstration of resolved small bowel obstruction and she had stopped draining from her NG tube suction and having bowel movements. Again, on the day prior to discharge, her NG tube was pulled, advanced to a clear liquid diet, she continued to have bowel movements, though did complain of some abdominal bloating/distension with the resumption of diet, though this is somewhat chronic for her, but on the day of discharge, the patient was again advanced diet with no nausea or vomiting, continued bowel movements and toleration of full liquid diet and about to try mechanical soft diet. She is recommended to follow up with Dr. Barbour and as needed with Dr. Alyse Machuca. She should titrate back her insulin per her ability to tolerate full diet and carbohydrate load. DISCHARGE MEDICATIONS: Include: 1. Tylenol 650 mg p.o. q.6 hours p.r.n. 2. Advair 2 puffs inhaled b.i.d. 3. Ipratropium bromide 1 spray nasal b.i.d. 4. Lactulose 15 mL p.o. b.i.d. 5. Milk of magnesia 30 mL p.o. at bedtime p.r.n. 6. Nadolol 40 mg p.o. daily. 7. Rifaximin 550 mg p.o. b.i.d. 8. Simethicone 40 mg p.o. daily p.r.n. 9. Tessalon 200 mg p.o. q.p.m. p.r.n. 10. Lasix 20 mg p.o. daily. 11. NovoLog insulin 14 units with lunch and 10 units with breakfast and dinner and 22 units with Levemir q.a.m. and 18 units q.p.m. Of note, the above should be titrated back as her diet resumes, not to be started right away. 12. Probiotic 1 capsule p.o. daily. 13. Multivitamin 1 tab p.o. daily. 14. Protonix 20 mg p.o. daily. 15. Spironolactone 50 mg p.o. daily. ACTIVITY LEVEL: No restrictions. DIET: Heart healthy, low salt, low fiber. The patient was given small bowel obstruction diet by nutrition. FOLLOWUP: Please follow up with Dr. Michelle Barbour within [address] of [address] Alyse Machuca as needed. TIME SPENT: Time spent on discharge, 35 minutes. [id number]/[facility] #: [id number] MTDD
== END 2017-11-03 18:20 | disposition home or self-care (01) | DRG 394 ==
LOC: ED 02:42 → SSU 09:09
PROVIDERS: ADMIT Internal Medicine; ATTEND Internal Medicine
PROC: 0D9670Z Drainage of Stomach with Drainage Device, Via Natural or Artificial Opening (ICD-10-PCS; principal; 2017-10-30)
DX: K43.0 Incisional hernia with obstruction, without gangrene (principal); K76.6 Portal hypertension; K80.10 Calculus of gallbladder with chronic cholecystitis without obstruction; I85.00 Esophageal varices without bleeding; N17.9 Acute kidney failure, unspecified; R18.8 Other ascites; I25.10 Atherosclerotic heart disease of native coronary artery without angina pectoris; I10 Essential (primary) hypertension; K21.9 Gastro-esophageal reflux disease without esophagitis; M10.9 Gout, unspecified; M19.90 Unspecified osteoarthritis, unspecified site; K75.81 Nonalcoholic steatohepatitis (NASH); K31.89 Other diseases of stomach and duodenum; K58.9 Irritable bowel syndrome, unspecified; K74.60 Unspecified cirrhosis of liver; D69.6 Thrombocytopenia, unspecified; E11.43 Type 2 diabetes mellitus with diabetic autonomic (poly)neuropathy; K57.90 Diverticulosis of intestine, part unspecified, without perforation or abscess without bleeding; R16.1 Splenomegaly, not elsewhere classified; Z90.710 Acquired absence of both cervix and uterus; Z90.49 Acquired absence of other specified parts of digestive tract; Z83.3 Family history of diabetes mellitus; Z82.49 Family history of ischemic heart disease and other diseases of the circulatory system; Z79.4 Long term (current) use of insulin
CPT/HCPCS: 36415; 71045; 74018; 74019; 74177; 80048; 80053; 81003; 82140; 82150; 83605; 83690; 83735; 83880; 85025; 85610; 85730; 86140; 86850; 86900; 86901; 93005; 99283; A9270-GY; J1644; J2270; J2405; Q9967